=== PATIENT | female | born 1945 | race Caucasian/White ===

== ENCOUNTER → 2017-06-30 09:24 | Outpatient (CLI) | payer MEDICARE, SELFPAY ==
[2017-06-30 10:33] LABS: Absolute Neutrophil Count 6.1 X10^3/uL (2.0-7.7); Basophil# 0.04 X10^3/uL; Basophil% 0.4 % (0-1); Eosinophil# 0.25 X10^3/uL; Eosinophils% 2.7 % (0-5); Hematocrit 42.4 % (37-47); Hemoglobin 14.2 g/dl (12.0-15.0); Lymphocyte % 23.5 % (19-41); Mean Corp Hgb Conc 33.5 g/gl (32-36); Mean Corpuscular Hgb 30.2 pg (27.0-32.0); Mean Corpuscular Volume 90.2 fL (81-99); Mean Platelet Vol. 11.4 fl (6.2-12.0); Monocyte# 0.81 X10^3/uL; Monocyte% 8.7 % (0-10); Neutrophil # 6.05 X10^3/uL (2.7-7.7); Neutrophil % 64.6 % (47-70); Platelet Count 241 K/mm3 (150-450); RBC Distribution Width CV 13.7 % (11.6-14.6); RBC Distribution Width SD 44.8 fl (35.1-43.9); White Blood Count 9.4 K/mm3 (4.4-11.0)
[2017-06-30 10:36] LABS: POSITIVE COUNT NO; POSITIVE DIFFERENTIAL NO; POSITIVE MORPHOLOGY NO
== END ==
PROVIDERS: Family Provider Family Medicine; PCP Family Medicine
DX: G62.9 Polyneuropathy, unspecified (principal)
CPT/HCPCS: 36415; 85025

== ENCOUNTER → 2017-07-02 12:22 | Outpatient (CLI) | payer MEDICARE, SELFPAY ==
[2017-07-02 13:50] LABS: AST(SGOT) 21 U/L (15-37); Alanine Aminotransfer ALT/SGPT 33 U/L (13-56); Albumin, Serum 3.9 g/dL (3.2-5.0); Alkaline Phosphatase 69 U/L (45-117); Anion Gap 5 (5-15); BUN 17 mg/dL (7-18); Calcium,Total 9.1 mg/dL (8.5-10.1); Chloride 108 mmol/L (98-107); EST Glomerular Filtration Rate 58 mL/min (>60); Est Glom Filt Rate - Afr Amer 71 mL/min (>60); Globulin 4.1 g/dL (2.2-4.2); Glucose 106 mg/dL (74-106); Potassium 3.9 mmol/L (3.5-5.1); Sodium Level 142 mmol/L (136-145)
== END ==
PROVIDERS: Family Provider Family Medicine; PCP Family Medicine
DX: G25.81 Restless legs syndrome (principal); R51 Headache; G62.9 Polyneuropathy, unspecified
CPT/HCPCS: 80053

== ENCOUNTER → 2017-07-09 14:09 | Outpatient (CLI) | payer MEDICARE, SELFPAY ==
[2017-07-09 16:09] LABS: Thyroid Stim Hormone (TSH) 1.11 uIU/mL (0.358-3.74)
[2017-07-10 09:38] LABS: Vitamin D,25 Hydroxy 23.8 ng/mL (29.95-100.01)
== END ==
PROVIDERS: Family Provider Family Medicine; PCP Family Medicine; Visit Provider Family Medicine
DX: E55.9 Vitamin D deficiency, unspecified (principal); E04.1 Nontoxic single thyroid nodule
CPT/HCPCS: 36415; 82306; 84443

== ENCOUNTER → 2018-01-07 10:59 | Outpatient (CLI) | payer MEDICARE, SELFPAY ==
--- NOTE | 2018-01-07 11:11 | CT_ITS ---
STUDY: CT LUMBAR SPINE WITHOUT CONTRAST REASON FOR EXAM: Female, 72 years old. MULTIPLE FALLS, MULTIPLE COMPRESSION FX'S, HX-LUPUS, PT IS OBESE RADIATION DOSAGE (If Supplied By Facility): CTDIvol = ( 64.42 ) mGy, DLP = ( 2069.56 ) mGycm TECHNIQUE: The patient was scanned in a multi detector CT scanner. High resolution transaxial imaging was performed. Sagittal and coronal images were reconstructed. Individualized dose optimization techniques were used for this CT. COMPARISON: CT Lumbar Spine Sep 20 2014 6:14pm FINDINGS: There is evidence of degenerative changes involving the sacroiliac joints bilaterally. There is a right sided subcutaneous implanted electronic device with leads extending into the spinal canal. This is likely an SCS (spinal cord stimulator). There is almost complete collapse of the L1 vertebrae. The patient is status post kyphoplasty of the L1 vertebrae. Compression deformity of L5. Stable compression deformity of the L2 vertebral body. There is a Schmorl's node which has likely contributed to the compression deformity. There are calcifications of the abdominal aorta. This is consistent for atherosclerotic disease. There is no abdominal aortic aneurysm. L1-2: There is evidence of posterior central spondylosis causing deformity of the thecal sac. There is evidence of hypertrophy and degenerative changes of the facet joints worse on the right side. This causes a mild degree of spinal stenosis as well as stenosis of the intravertebral foramen bilaterally worse on the right side. L2-3: There is a mild degree of diffuse posterior disc bulge as well as central posterior spondylosis causing mild stenosis. There is hypertrophy of the right facet joint with osteoarthritis causing narrowing of the right intervertebral foramen as well as deformity of the posterior lateral aspect of the thecal sac on the right side. L3-4: There is a mild degree of diffuse posterior disc bulge. There is evidence of facet joint osteoarthritis with hypertrophy of the facet joints as well as ligamentum flavum appear there is a mild degree of central canal stenosis as well as stenosis of the intravertebral foramen bilaterally. L4-5: There is bilateral facet arthropathy. Severe right neuroforaminal stenosis. Severe lateral recess stenosis. L5-S1: There is loss of height of the superior endplate of the L5 vertebrae. Loss of intervertebral disc height at L5-S1. Vacuum disc phenomenon at L5-S1. Severe bilateral neural foraminal stenosis. Grade 1 anterolisthesis of L5 on S1. No spinal stenosis. Normal visualized paraspinous soft tissue structures. CT/Spine Lumbar without Contrast IMPRESSION: Stable compression deformity of L1. Vertebroplasty changes at L1. Stable compression deformity of L2 since the prior study. Electronically Signed: Patrick Rivera MD at 23:23 EDT , Service support ,
--- NOTE | 2018-01-07 11:15 | CT_ITS ---
EXAM: CT SPINE - CERVICAL WITHOUT IV REASON FOR EXAM: Female, 72 years old. MULTIPLE FALLS, MULTIPLE COMPRESSION FX'S, HX-LUPUS, PT IS OBESE RADIATION DOSAGE (If Supplied By Facility): CTDIvol = ( 28.95 ) mGy, DLP = ( 587.26 ) mGycm Individualized dose optimization techniques were used for this CT. TECHNIQUE: Multiplanar images were obtained of the cervical spine. IV contrast was not utilized. COMPARISON: None. FINDINGS: The vertebral bodies do maintain their height. The odontoid process is intact. There is no anterolisthesis or fracture. No pre-vertebral soft tissue swelling is seen. The intravertebral disc height is lost. There are scattered lymph nodes in the neck. There are degenerative changes of the osseous structures. There is bilateral facet arthropathy. There are scattered levels of foraminal stenosis. There are atherosclerotic vascular calcifications. CT/Spine Cervical without Contras IMPRESSION: Degenerative changes of the cervical spine. No acute abnormality of the spine. Electronically Signed: Patrick Rivera MD at 23:17 EDT , Service support ,
== END ==
PROVIDERS: Family Provider Family Medicine; PCP Family Medicine
DX: G95.9 Disease of spinal cord, unspecified (principal); M54.2 Cervicalgia
CPT/HCPCS: 72125; 72131

== ENCOUNTER → 2018-03-11 11:17 | Outpatient (CLI) | payer MEDICARE, SELFPAY ==
[2018-03-11 14:11] LABS: Absolute Lymphocyte Count 2.08 X10^3/ul (0.83-4.51); Absolute Neutrophil Count 5.5 X10^3/uL (2.0-7.7); Basophil# 0.03 X10^3/uL; Basophil% 0.4 % (0-1); Eosinophil# 0.18 X10^3/uL; Eosinophils% 2.1 % (0-5); Hematocrit 38.5 % (37-47); Hemoglobin 12.3 g/dl (12.0-15.0); Lymphocyte # 2.08 X10^3/ul (4.0); Lymphocyte % 24.7 % (19-41); Mean Corp Hgb Conc 31.9 g/gl (32-36); Mean Corpuscular Hgb 29.4 pg (27.0-32.0); Mean Corpuscular Volume 92.1 fL (81-99); Mean Platelet Vol. 10.6 fl (6.2-12.0); Monocyte# 0.62 X10^3/uL; Monocyte% 7.4 % (0-10); Neutrophil # 5.47 X10^3/uL (2.7-7.7); Neutrophil % 64.9 % (47-70); Platelet Count 329 K/mm3 (150-450); RBC Distribution Width CV 13.8 % (11.6-14.6); RBC Distribution Width SD 45.1 fl (35.1-43.9); Red Blood Count 4.18 M/mm3 (4.2-5.4); White Blood Count 8.4 K/mm3 (4.4-11.0)
[2018-03-11 14:16] LABS: POSITIVE COUNT NO; POSITIVE DIFFERENTIAL NO; POSITIVE MORPHOLOGY NO
[2018-03-11 14:21] LABS: ALB/GLOB Ratio 0.8 RATIO (0.9-2.4); AST(SGOT) 25 U/L (15-37); Alanine Aminotransfer ALT/SGPT 35 U/L (13-56); Albumin, Serum 3.6 g/dL (3.2-5.0); Alkaline Phosphatase 75 U/L (45-117); Anion Gap 10 (5-15); BUN 21 mg/dL (7-18); Calcium,Total 9.3 mg/dL (8.5-10.1); Chloride 103 mmol/L (98-107); Cholesterol 152 mg/dL (200); Creatinine, Serum 1.61 mg/dL (0.55-1.02); EST Glomerular Filtration Rate 34 mL/min (>60); Est Glom Filt Rate - Afr Amer 41 mL/min (>60); Globulin 4.7 g/dL (2.2-4.2); Glucose 104 mg/dL (74-106); High Density Lipoprotein 45 mg/dL; Potassium 4.8 mmol/L (3.5-5.1); Protein, Total 8.3 g/dL (6.4-8.2); Sodium Level 139 mmol/L (136-145); Triglycerides 215 mg/dL; Very Low Density Lipoprotein 43 mg/dL (5-40)
[2018-03-11 14:26] LABS: Vitamin D,25 Hydroxy 28.4 ng/mL (29.95-100.01)
--- OUTSIDE RECORDS SUMMARY | 2018-04-27 06:40 | XMS RPT_ITS ---
:1945 Author Organization OHIP Care Team Providers Name Role Phone CONNOR DIAZ Attending Unavailable Malys, Gemini Primary Care Unavailable CONNOR DIAZ Attending Unavailable CONNOR DIAZ Referring Unavailable Malys, Gemini Primary Care Unavailable Miedel, Dulce Attending Unavailable Miedel, Dulce Referring Unavailable Malys, Gemini Primary Care Unavailable CONNOR DIAZ Attending Unavailable CONNOR DIAZ Referring Unavailable Malys, Gemini Primary Care Unavailable CONNOR DIAZ Consulting Unavailable Malys, Gemini Attending Unavailable Malys, Gemini Referring Unavailable Malys, Gemini Primary Care Unavailable GEO DOMINGUEZ JR Attending Unavailable FLORES, GEMINI A Referring Unavailable GEO DOMINGUEZ JR Referring Unavailable GEO DOMINGUEZ JR Attending Unavailable GEO DOMINGUEZ JR Referring Unavailable GEO DOMINGUEZ Attending Unavailable IMCA Referring Unavailable IMCA Primary Care Unavailable GEO DOMINGUEZ Attending Unavailable GEO DOMINGUEZ Referring Unavailable IMCA Primary Care Unavailable GEO DOMINGUEZ Referring Unavailable IMCA Primary Care Unavailable GEO DOMINGUEZ Attending Unavailable GEO DOMINGUEZ Referring Unavailable IMCA Primary Care Unavailable PROBLEMS PROBLEMS DATE TYPE CONDITION / CODE ATTENDING STATUS SOURCE 02/03/2018 Active Spinal stenosis, DOMINGUEZ JR, Active [place] lumbar region [facility] Other without neurogenic [place] claudication / Repository M48.061(ICD-10) 02/03/2018 Active Polyneuropathy, DOMINGUEZ JR, Active [place] unspecified / [facility] Other G62.9(ICD-10) [place] Repository 02/03/2018 Active Restless legs DOMINGUEZ JR, Active Silva syndrome / [facility] Other G25.81(ICD-10) [place] Repository 02/03/2018 Active Spondylosis DOMINGUEZ JR, 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 [facility] Other or radiculopathy, [place] cervical region / Repository M47.812(ICD-10) 01/07/2018 Unknown G95.9 - Disease of CONNOR DIAZ Active [place] spinal cord, Community unspecified / Hospital G95.9(ICD-10) Repository 01/07/2018 Unknown M54.2 - CONNOR DIAZ Active [facility] Cervicalgia / Community M54.2(ICD-10) Hospital Repository 12/04/2017 Active Headache / DOMINGUEZ JR, Active [place] R51(ICD-10) [facility] Other [place] Repository 12/04/2017 Active Myoclonus / DOMINGUEZ JR, Active [place] G25.3(ICD-10) [facility] Other [place] Repository 12/04/2017 Active Essential tremor / DOMINGUEZ JR, Active [place] G25.0(ICD-10) [facility] Other [place] Repository 12/04/2017 Active Obstructive sleep DOMINGUEZ JR, Active [place] apnea (adult) [facility] Other (pediatric) / [place] G47.33(ICD-10) Repository 12/04/2017 Active Cervicalgia / DOMINGUEZ JR, Active [place] M54.2(ICD-10) [facility] Other [place] Repository 12/04/2017 Active Low back pain / DOMINGUEZ JR, Active [place] M54.5(ICD-10) [facility] Other [place] Repository 12/04/2017 Active Paresthesia of DOMINGUEZ JR, Active Silva skin / [facility] Other R20.2(ICD-10) [place] Repository 12/04/2017 Active Major depressive DOMINGUEZ JR, Active Silva disorder, single [facility] Other episode, [place] unspecified / Repository F32.9(ICD-10) 12/04/2017 Active Disease of spinal DOMINGUEZ JR, Active [place] cord, unspecified [facility] Other / G95.9(ICD-10) [place] Repository 12/04/2017 Admitting Unknown / GEO DOMINGUEZ Active [facility] UNK(Unknown) [facility] Repository 07/09/2017 Unknown E55.9 - Vitamin D Dulce Schulz Active [facility] deficiency, Community unspecified / Hospital E55.9(ICD-10) Repository 07/09/2017 Unknown E04.1 - Nontoxic LarissaedDulce wise Active [place] single thyroid Community nodule / Hospital E04.1(ICD-10) Repository 06/30/2017 Unknown G25.81 - Restless CONNOR DIAZ Active [facility] legs syndrome / Community G25.81(ICD-10) Hospital Repository 06/30/2017 Unknown R51 - Headache / CONNOR DIAZ Active [place] R51(ICD-10) [facility] Repository PROCEDURES PROCEDURES No Procedure Records FoundRESULTS RESULTS CBC W/DIFF, AUTOMATED Collected: 03/11/2018 Status: F Source: [place] 11:22 AM [facility] REPOSITORY TYPE CODE TESTS RESULT OUT OF RANGE REFERENCE UNITS LAB L100.1000 4.4-11.0 K/mm3 Normal WBC 8.4 LAB L100.1200 4.2-5.4 M/mm3 Low RBC 4.18 LAB L100.1300 12.0-15.0 g/dl Normal HGB 12.3 LAB L100.1400 37-47 % Normal HCT 38.5 LAB L100.1500 81-99 fL Normal MCV 92.1 LAB L100.1600 27.0-32.0 pg Normal MCH 29.4 LAB L100.1700 32-36 g/gl Low MCHC 31.9 LAB L100.1810 11.6-14.6 % Normal RDW CV 13.8 LAB L100.1820 35.1-43.9 fl High RDW SD 45.1 LAB L100.1900 150-450 K/mm3 Normal PLT 329 LAB L100.2000 6.2-12.0 fl Normal MPV 10.6 LAB L100.2100 47-70 % Normal NEUT% 64.9 LAB L100.2200 19-41 % Normal LY% 24.7 LAB L100.2300 0-10 % Normal MONO% 7.4 LAB L100.2400 0-5 % Normal EO% 2.1 LAB L100.2500 0-1 % Normal BASO% 0.4 LAB L100.2550 0.0-0.9 % Normal IM GRAN % 0.500 Result Comment: IG% - Immature Granulocytes (promyelocytes, myelocytes and metamyelocytes) > 1% indicates that a LEFT SHIFT is Present. LAB L100.2620 2.0-7.7 X10 3/uL Normal Absolute Neut 5.5 LAB L100.2720 0.83-4.51 X10 3/ul Normal Absolute Lymph 2.08 Performed By: #### L100.0100 #### [facility] [address] [place], [place], [address] COMPREHENSIVE METABOLIC Collected: 03/11/2018 Status: F Source: [facility] 11:22 AM [facility] REPOSITORY TYPE CODE TESTS RESULT OUT OF RANGE REFERENCE UNITS LAB L501.0100 74-106 mg/dL Normal GLU 104 Result Comment: Fasting Glucose result from 100 to 125 mg/dL suggests IMPAIRED HOMEOSTASIS per A.D.A. criteria. Please note revised GLUCOSE reference range effective 2017. LAB L501.1000 7-18 mg/dL High BUN 21 LAB L501.1100 0.55-1.02 mg/dL High CREAT,SERUM 1.61 Result Comment: The validity of the calculated GFR AND GFRAA in patients over 70 years has not been determined. Clinical correlation is essential. LAB L501.1110 >60 mL/min Low EST GFR 34 Result Comment: Non- GFR Calc LAB L501.1115 >60 mL/min Low EST GFR - AA 41 Result Comment: GFR Calc LAB L501.1300 10-20 RATIO Normal BUN/CRE 13.0 LAB L501.1500 6.4-8.2 g/dL High T PROT 8.3 LAB L501.1800 3.2-5.0 g/dL Normal ALB 3.6 LAB L501.1950 2.2-4.2 g/dL High GLOB 4.7 LAB L501.2000 0.9-2.4 RATIO Low A/G 0.8 LAB L501.2200 8.5-10.1 mg/dL CA Normal 9.3 LAB L501.4100 15-37 U/L Normal AST 25 LAB L501.4305 45-117 U/L Normal ALK P 75 LAB L501.4405 13-56 U/L Normal ALT 35 LAB L501.4600 0.20-1.00 mg/dL T Normal BILI 0.20 LAB L501.5300 136-145 mmol/L NA Normal 139 LAB L501.5600 3.5-5.1 mmol/L K Normal 4.8 LAB L501.5900 98-107 mmol/L CL Normal 103 LAB L501.6100 21.0-32.0 mmol/L Normal CO2 26.0 LAB L501.6200 5-15 Normal GAP 10 Performed By: #### L500.4050, L500.4100 #### [facility] [address] [place], [place], [id number] LIPID PROFILE Collected: 03/11/2018 Status: F Source: [place] 11:22 AM [facility] REPOSITORY TYPE CODE TESTS RESULT OUT OF RANGE REFERENCE UNITS LAB L501.4900 200 mg/dL Normal CHOL 152 Result Comment: <200 mg/dL Desirable 200-240 mg/dL Borderline >240 mg/dL High Risk LAB L501.5000 mg/dL High TRIG 215 Result Comment: The drugs N-Acetylcysteine and Metamizole may falsely depress this assay. Serum Triglycerides Reference Interval Normal <150 mg/dL Borderline high 150 - 199 mg/dL High 200 - 499 mg/dL Very High > or = 500 mg/dL LAB L501.6400 mg/dL Normal HDL 45 Result Comment: The drugs N-Acetylcysteine and Metamizole may falsely depress this assay. Reference Range HDL <40 mg/dL Low HDL Cholesterol HDL >or= 60 mg/dL High HDL Cholesterol LAB L501.6500 0-130 mg/dL Normal LDL 64 LAB L501.6600 5-40 mg/dL High VLDL 43 Performed By: #### L500.4050, L500.4100 #### [facility] [address] [place], [place], [id number] VITAMIN D,25 HYDROXY Collected: 03/11/2018 Status: F Source: [place] 11:22 AM [facility] REPOSITORY TYPE CODE TESTS RESULT OUT OF REFERENCE UNITS RANGE LAB L506.1000 29.95-100.01 ng/mL Low Vitamin D 28.4 25-OH Result Comment: Vitamin D 25(OH) Status Range Deficiency <20 ng/mL (50nmol/L) Insuffciency 20 - 30 ng/mL (50 - 75 nmol/L) Sufficiency 30 - 100 ng/mL (75 - 250 nmol/L) Toxicity >100 ng/mL (>250 nmol/L) Performed By: #### L506.1000 #### [facility] [address] [place], [address] PROGRESS Observed: 02/03/2018 Status: COMPLETED Source: [place] 11:56 AM CLINIC OTHER CAMPUS REPOSITORY HNO ID: [id number] Author: Geo Dominguez Jr. Service: (none) Author Type: Physician Type: Progress Notes Filed: 02/03/2018 1:14 PM Note Text: ESTABLISHED PATIENT VISIT HISTORY OF PRESENT ILLNESS: Asha Lozoya is a 72 year old right handed female, Ht 5' 3 (1.6 m) BMI 41.81 kg/m2 with a PMH significant for: Per last visit note: 1. Chronic intractable headache, unspecified headache type - ICD9: 784.0, ICD10: R51 (primary diagnosis); Cervicalgia - ICD9: 723.1, ICD10: M54.2 Etiology unclear but appear to be secondary to either c-spine disease or of tension nature. -CT C spine to evaluate for stenosis. - never received results. -Pain mgmt following and recommend possible injection therapy if Dr. Cervantes (who follows patient at [facility]) would agree. -Restarted Topamax 25mg qhs and titrate up to 75mg qhs. 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 3. Essential tremor - ICD9: 333.1, ICD10: G25.0 -Restarted Topamax as per #1. Previously failed Primidone. 4. OSMAN (obstructive sleep apnea) - ICD9: 327.23, ICD10: G47.33 -Pt declined therapy. 5. Lumbar pain - ICD9: 724.2, ICD10: M54.5 -Worse per patient. Will get CT L spine. Needs follow up with pain mgmt. Still do not have results of imaging. 7. Paresthesia of skin - ICD9: 782.0, ICD10: R20.2 -By history and exam likely secondary to peripheral polyneuropathy. Do not feel need for EMG/NCV at this time nor does pt want study. Will check A1c, B12, TSH, T4, ESR, ZAHRA, SPEP for possible exacerbating factors. Symptoms rare and do not feel additional meds at this time provide a benefit that outweighs risk of side effect. A1c was 7.0. 8. Depression, unspecified depression type - ICD9: 311, ICD10: F32.9 -Encouraged follow up with psychiatry. Pt reports that since last visit, the headaches are a little better. They are not every single day. Remain in the back of the head when present. However, when gets them they are bad. She did stay on the Topamax and is currently on 75mg QHS. She reports that since on Topamax her tremor is worse. Sometimes tremor is bad and on some days it is not so bad. She has yet to see Dr. Devine regarding blood sugars - pt A1c up to 7.0 now, and pt states she was on a sugar kick at the time and eating a lot of sweets. She also continues to have jerks every day. She states they are more in the evening than they are during the day time. Still exacerbated when watching tv. There is no loc. States still that if she is watching a show where there is physical contact such as someone punching someone, that will bring it out. Regarding mood she states she is having some really bad days, stating she is having a rough time with daughter and grand daughter. She has still not seen psychiatry/psychology because that will do nothing for it, but I just do not know how to turn it off. Pt tearful when discussing these issues. Once starting to talk about them, become upset and at time raises voice regarding topics at hand. When patient focused, asked about back pain. She states lower back pain is awful to point that she did not think she could make it into the building - she states the pain pump does nothing for the pain. She then complains about the manner in which pain pump is filled as it is in a procedure suite and no one talks to her during the visit, but only talk among them selves. Patient uses the term frustrting throughout the interview. Note that when I stepped out of room, pt states she was having jerks of extremities, but these resolved as soon as I returned. [place]aving for [place] 04/10/18 REVIEW OF SYSTEMS GENERAL:No weight loss, malaise or fevers. HEENT:Negative for frequent or significant headaches, No changes in hearing or vision, no nose bleeds or other nasal problems NECK:Negative for lumps, goiter, pain and significant neck swelling RESPIRATORY: Negative for cough, wheezing or shortness of breath. CARDIOVASCULAR: Negative for chest pain, leg swelling or palpitations. GASTROINTESTINAL: Negative for abdominal discomfort, blood in stools or black stools or change in bowel habits GENITOURINARY: No history of dysuria, frequency or incontinence MUSCULOSKELETAL: See HPI NEUROLOGIC:See HPI SKIN:Negative for lesions, rash, and itching. PSYCHIATRIC: See HPI. No SI or HI. HEMATOLOGIC/LYMPHATIC/IMMUNOLOGIC:Negative for prolonged bleeding, bruising easily or swollen nodes. ENDOCRINE: Negative for cold or heat intolerance, polyuria, polydipsia and goiter. The remainder of the ROS was reviewed and is negative. LAB/IMAGING: Those performed since patient's last visit have been reviewed. WBC (k/uL) Date Value 06/07/2001 7.01 RBC (M/uL) Date Value 06/07/2001 4.37 Hemoglobin (g/dL) Date Value 06/07/2001 12.7 Hematocrit (%) Date Value 06/07/2001 39.8 MCV (fL) Date Value 06/07/2001 91.1 MCH (pG) Date Value 06/07/2001 29.1 MCHC (%) Date Value 06/07/2001 31.9 (A) RDW-CV (%) Date Value 06/07/2001 14.7 Platelet Count (K/uL) Date Value 06/07/2001 395 MPV (fL) Date Value 06/07/2001 11.4 (A) Glucose (mg/dL) Date Value 12/04/2017 137 (H) BUN (mg/dL) Date Value 12/04/2017 18 Creatinine (mg/dL) Date Value 12/04/2017 0.77 Sodium (mEq/L) Date Value 12/04/2017 140 Potassium (mEq/L) Date Value 12/04/2017 3.8 Chloride (mEq/L) Date Value 12/04/2017 99 CO2 (mEq/L) Date Value 12/04/2017 33 (H) Protein, Total (g/dL) Date Value 12/04/2017 7.8 Albumin (g/dL) Date Value 12/04/2017 3.8 Calcium (mg/dL) Date Value 12/04/2017 9.3 Alkaline Phosphatase (U/L) Date Value 12/04/2017 77 Bilirubin, Total (mg/dL) Date Value 12/04/2017 0.3 AST (U/L) Date Value 12/04/2017 23 ALT (U/L) Date Value 12/04/2017 29 ZAHRA (no units) Date Value 12/04/2017 SEE BELOW Hep C Antibody IA (no units) Date Value 05/19/2001 Negative MEDICATIONS: topiramate (TOPAMAX) 25 mg tablet 1 tab at bedtime for 1 week, then increase dose to 2 tabs at bedtime for 1 week, then increase to 3 tabs at bedtime and continue. gabapentin (NEURONTIN) 800 mg tablet Take 1 tablet by mouth four times daily for 90 days. levETIRAcetam (KEPPRA) 250 mg tablet Take 1 tablet by mouth twice daily. escitalopram oxalate (LEXAPRO) 20 mg tablet Take 20 mg by mouth once daily. diclofenac, EC, (VOLTAREN) 50 mg EC tablet Take 50 mg by mouth twice daily. HYDROMORPHONE HCL (DILAUDID MISC) Pain pump potassium chloride (K-MONCHO, KLOR-CON) 20 mEq packet Take 20 mEq by mouth twice daily. MULTI-VITAMIN ORAL Take by mouth. Cholecalciferol, Vitamin D3, (VITAMIN D) 1,000 unit ORAL Cap Take 1,000 Units by mouth once daily. Aspirin 81 mg ORAL Tab Take 81 mg by mouth. buPROPion SR 150 mg ORAL 12 hr tablet Take 200 mg by mouth twice daily. Valsartan-Hydrochlorothiazide (DIOVAN HCT) 320-25 mg ORAL per tablet Take 1 tablet by mouth once daily. amLODIPine (NORVASC) 10 mg ORAL tablet Take 10 mg by mouth once daily. calcium carbonate-Vit D3-minerals (CALCIUM 600 + MINERALS) 600-400 mg-unit ORAL Tab Take 1 tablet by mouth once daily. nabumetone (RELAFEN) 750 mg ORAL tablet Take 750 mg by mouth twice daily. paroxetine 40 mg ORAL tablet Take 40 mg by mouth once daily. cloNIDine 0.1 mg ORAL tablet Take 0.1 mg by mouth. atenolol 50 mg ORAL tablet Take 50 mg by mouth once daily. Take one(1) tablet two(2) times daily. furosemide (LASIX) 20 mg ORAL tablet Take 20 mg by mouth once daily. metFORMIN 500 mg ORAL tablet Take 500 mg by mouth daily with breakfast. hydroxychloroquine (PLAQUENIL) 200 mg ORAL tablet Take 200 mg by mouth twice daily. Morphine Sulfate 30 mg ORAL Cap Take by mouth. Omeprazole 40 mg ORAL capsule Take 40 mg by mouth once daily. Take one(1) tablet two(2) times daily. HISTORIES No past medical history on file. FAMILY HISTORY Problem Relation Age of Onset - Alcohol/Drug Mother - Cancer Mother mouth AND lung - Heart Mother - Alcohol/Drug Father - Heart Father - Hypertension Father - Alcohol/Drug Sister - Cervical Cancer Sister - Heart Paternal Grandfather - Heart Maternal Grandmother SOCIAL HISTORY Social History Substance Use Topics - Smoking status: Never Smoker - Smokeless tobacco: Never Used - Alcohol use Not on file No ETOH PHYSICAL EXAMINATION BP 116/63 Pulse 72 Resp 18 Ht 5' 3 (1.6 m) Wt 236 lb (107 kg) SpO2 97% BMI 41.81 kg/m? Lost 6# since last visit. GENERAL EXAM: General appearance: NAD, pleasant. HEENT: NC/AT, nasal congestion absent, no oral lesions, membranes moist. NECK: No masses, supple. Lungs: CTA bilaterally. CV: RRR nl S1, S2. No carotid bruits. Extr: No cyanosis, clubbing or edema. No evidence of fasciculations. Extremity pulses palpable and normal. Skin: Cool to touch. NEUROLOGICAL EXAM: General: Awake, alert, oriented x3 (person,place,time), speech fluent, no dysarthria; comprehension, naming, repetition intact. Fund of knowledge grossly normal by MOCA. CN: PERRL, fundi with no evidence of papilledema, EOMI and without nystagmus, VFF to confrontation, facial sensation and strength are normal and symmetric, hearing is intact to finger rub bilaterally, palate and tongue movements are intact and symmetric. SCM and trapezius strength normal. Motor: Normal tone, bulk and strength (5/5) bilaterally (throughout extremities x4). Reflexes: 1/4 and symmetric, plantar stimulation is flexor. Coordination: FNF, JOYCE, HTS intact. Intermittent and tremor that can be distracted when hands extended away from body. Sensation: Light touch, pin intact throughout. No evidence of neglect. Gait: Normal stride and arm swing. Assessment and Plan: ASSESSMENT/PLAN: 1. Spinal stenosis, lumbar region, without neurogenic claudication - ICD9: 724.02, ICD10: M48.061 (primary diagnosis) 2. Osteoarthritis of cervical spine, unspecified spinal osteoarthritis complication status - ICD9: 721.0, ICD10: M47.812 3. Nonintractable headache, unspecified chronicity pattern, unspecified headache type - ICD9: 784.0, ICD10: R51 Patient continues to have headaches, that are posterior in nature and appear to originate from the C spine. She also had known L and C spine disease. She is already followed by pain mgmt and on dilaudid pump. She would like second opinion regarding spine disease, but is adamant that she does not want surgery. Will refer to spine for further evaluation of both C and L spine symptoms. Note that reports of recent [place] CTs of C and L spine (image reports reviewed and discussed with pt) will be scanned into [facility]. Trial of increase in Keppra to 500mg BID for headache pain, but as these are not migraines, likely will not provide much relief. 4. Neuropathy (HCC) - ICD9: 355.9, ICD10: G62.9 No complaints of numbness, tingling or other distal extremity discomfort. No changes in current meds. Continue gabapentin 900mg QID. Keppra as above. Needs follow up with PCP regarding DM. 5. RLS (restless legs syndrome) - ICD9: 333.94, ICD10: G25.81 Sleeping well and without RLS symptoms. Continue Gabapentin as above. 6. OSMAN/CSA: G47.33 andG47.31 Declines therapy including PAP. 7. Tremors and Myoclonus: Tremors in office appear of essential nature vs secondary to anxiety. D/C Topamax as no improvement and possible side effects. Failed Primidone. On gabapentin. Will try to increase Keppra to 500mg BID to see if improves myoclonus. No additional med changes at this time. Myoclonus possibly secondary to pain meds including dilaudid. 6. Depression, unspecified depression type - ICD9: 311, ICD10: F32.9 Encouraged pt to see psychiatry. I question if tremors and myoclonus are secondary to mood disorder to some extent. As in past she declines. Then when she reconsiders, states she will wait until she gets back from [facility] in the spring - similar response in past. Would ask her PCP to also discuss psychiatry evaluation with pt. Geo Dominguez MD I spent 80 minutes in the visit, with more than 50% of the total [id number] time of the visit in counseling / coordination of care. PDMP website checked and validated. All prescriptions have been APPROPRIATELY filled. No suspicious activity was identified. 02/03/2018 by Geo Dominguez MD CNOV Observed: 02/03/2018 Status: COMPLETED Source: [place] 11:20 AM [facility] REPOSITORY Office Visit (NEURBA) ASHA LOZOYA ([id number]) 1945 F [facility] Date Time Provider Department 02/03/18 11:20 AM GEO DOMINGUEZ JR During your visit today, we recorded the following information about you: Pulse Respiration Blood pressure Weight 72/minute 18/minute 116/63 107 kg Height 1.6 m Geo Dominguez MD 02/03/2018 1:14 PM Addendum ESTABLISHED PATIENT VISIT HISTORY OF PRESENT ILLNESS: Asha Calzadateaboy is a 72 year old right handed female, Ht 5' 3 (1.6 m) BMI 41.81 kg/m2 with a PMH significant for: Per last visit note: 1. Chronic intractable headache, unspecified headache type - ICD9: 784.0, ICD10: R51 (primary diagnosis); Cervicalgia - ICD9: 723.1, ICD10: M54.2 Etiology unclear but appear to be secondary to either c-spine disease or of tension nature. -CT C spine to evaluate for stenosis. - never received results. -Pain mgmt following and recommend possible injection therapy if Dr. Cervantes (who follows patient at [facility]) would agree. -Restarted Topamax 25mg qhs and titrate up to 75mg qhs. 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 3. Essential tremor - ICD9: 333.1, ICD10: G25.0 -Restarted Topamax as per #1. Previously failed Primidone. 4. OSMAN (obstructive sleep apnea) - ICD9: 327.23, ICD10: G47.33 -Pt declined therapy. 5. Lumbar pain - ICD9: 724.2, ICD10: M54.5 -Worse per patient. Will get CT L spine. Needs follow up with pain mgmt. Still do not have results of imaging. 7. Paresthesia of skin - ICD9: 782.0, ICD10: R20.2 -By history and exam likely secondary to peripheral polyneuropathy. Do not feel need for EMG/NCV at this time nor does pt want study. Will check A1c, B12, TSH, T4, ESR, ZAHRA, SPEP for possible exacerbating factors. Symptoms rare and do not feel additional meds at this time provide a benefit that outweighs risk of side effect. A1c was 7.0. 8. Depression, unspecified depression type - ICD9: 311, ICD10: F32.9 -Encouraged follow up with psychiatry. Pt reports that since last visit, the headaches are a little better. They are not every single day. Remain in the back of the head when present. However, when gets them they are bad. She did stay on the Topamax and is currently on 75mg QHS. She reports that since on Topamax her tremor is worse. Sometimes tremor is bad and on some days it is not so bad. She has yet to see Dr. Devine regarding blood sugars - pt A1c up to 7.0 now, and pt states she was on a sugar kick at the time and eating a lot of sweets. She also continues to have jerks every day. She states they are more in the evening than they are during the day time. Still exacerbated when watching tv. There is no loc. States still that if she is watching a show where there is physical contact such as someone punching someone, that will bring it out. Regarding mood she states she is having some really bad days, stating she is having a rough time with daughter and grand daughter. She has still not seen psychiatry/psychology because that will do nothing for it, but I just do not know how to turn it off. Pt tearful when discussing these issues. Once starting to talk about them, become upset and at time raises voice regarding topics at hand. When patient focused, asked about back pain. She states lower back pain is awful to point that she did not think she could make it into the building - she states the pain pump does nothing for the pain. She then complains about the manner in which pain pump is filled as it is in a procedure suite and no one talks to her during the visit, but only talk among them selves. Patient uses the term frustrting throughout the interview. Note that when I stepped out of room, pt states she was having jerks of extremities, but these resolved as soon as I returned. [place]aving for [place] 04/10/18 REVIEW OF SYSTEMS GENERAL:No weight loss, malaise or fevers. HEENT:Negative for frequent or significant headaches, No changes in hearing or vision, no nose bleeds or other nasal problems NECK:Negative for lumps, goiter, pain and significant neck swelling RESPIRATORY: Negative for cough, wheezing or shortness of breath. CARDIOVASCULAR: Negative for chest pain, leg swelling or palpitations. GASTROINTESTINAL: Negative for abdominal discomfort, blood in stools or black stools or change in bowel habits GENITOURINARY: No history of dysuria, frequency or incontinence MUSCULOSKELETAL: See HPI NEUROLOGIC:See HPI SKIN:Negative for lesions, rash, and itching. PSYCHIATRIC: See HPI. No SI or HI. HEMATOLOGIC/LYMPHATIC/IMMUNOLOGIC:Negative for prolonged bleeding, bruising easily or swollen nodes. ENDOCRINE: Negative for cold or heat intolerance, polyuria, polydipsia and goiter. The remainder of the ROS was reviewed and is negative. LAB/IMAGING: Those performed since patient's last visit have been reviewed. WBC (k/uL) Date Value 06/07/2001 7.01 RBC (M/uL) Date Value 06/07/2001 4.37 Hemoglobin (g/dL) Date Value 06/07/2001 12.7 Hematocrit (%) Date Value 06/07/2001 39.8 MCV (fL) Date Value 06/07/2001 91.1 MCH (pG) Date Value 06/07/2001 29.1 MCHC (%) Date Value 06/07/2001 31.9 (A) RDW-CV (%) Date Value 06/07/2001 14.7 Platelet Count (K/uL) Date Value 06/07/2001 395 MPV (fL) Date Value 06/07/2001 11.4 (A) Glucose (mg/dL) Date Value 12/04/2017 137 (H) BUN (mg/dL) Date Value 12/04/2017 18 Creatinine (mg/dL) Date Value 12/04/2017 0.77 Sodium (mEq/L) Date Value 12/04/2017 140 Potassium (mEq/L) Date Value 12/04/2017 3.8 Chloride (mEq/L) Date Value 12/04/2017 99 CO2 (mEq/L) Date Value 12/04/2017 33 (H) Protein, Total (g/dL) Date Value 12/04/2017 7.8 Albumin (g/dL) Date Value 12/04/2017 3.8 Calcium (mg/dL) Date Value 12/04/2017 9.3 Alkaline Phosphatase (U/L) Date Value 12/04/2017 77 Bilirubin, Total (mg/dL) Date Value 12/04/2017 0.3 AST (U/L) Date Value 12/04/2017 23 ALT (U/L) Date Value 12/04/2017 29 ZAHRA (no units) Date Value 12/04/2017 SEE BELOW Hep C Antibody IA (no units) Date Value 05/19/2001 Negative MEDICATIONS: topiramate (TOPAMAX) 25 mg tablet 1 tab at bedtime for 1 week, then increase dose to 2 tabs at bedtime for 1 week, then increase to 3 tabs at bedtime and continue. gabapentin (NEURONTIN) 800 mg tablet Take 1 tablet by mouth four times daily for 90 days. levETIRAcetam (KEPPRA) 250 mg tablet Take 1 tablet by mouth twice daily. escitalopram oxalate (LEXAPRO) 20 mg tablet Take 20 mg by mouth once daily. diclofenac, EC, (VOLTAREN) 50 mg EC tablet Take 50 mg by mouth twice daily. HYDROMORPHONE HCL (DILAUDID MISC) Pain pump potassium chloride (K-MONCHO, KLOR-CON) 20 mEq packet Take 20 mEq by mouth twice daily. MULTI-VITAMIN ORAL Take by mouth. Cholecalciferol, Vitamin D3, (VITAMIN D) 1,000 unit ORAL Cap Take 1,000 Units by mouth once daily. Aspirin 81 mg ORAL Tab Take 81 mg by mouth. buPROPion SR 150 mg ORAL 12 hr tablet Take 200 mg by mouth twice daily. Valsartan-Hydrochlorothiazide (DIOVAN HCT) 320-25 mg ORAL per tablet Take 1 tablet by mouth once daily. amLODIPine (NORVASC) 10 mg ORAL tablet Take 10 mg by mouth once daily. calcium carbonate-Vit D3-minerals (CALCIUM 600 + MINERALS) 600-400 mg-unit ORAL Tab Take 1 tablet by mouth once daily. nabumetone (RELAFEN) 750 mg ORAL tablet Take 750 mg by mouth twice daily. paroxetine 40 mg ORAL tablet Take 40 mg by mouth once daily. cloNIDine 0.1 mg ORAL tablet Take 0.1 mg by mouth. atenolol 50 mg ORAL tablet Take 50 mg by mouth once daily. Take one(1) tablet two(2) times daily. furosemide (LASIX) 20 mg ORAL tablet Take 20 mg by mouth once daily. metFORMIN 500 mg ORAL tablet Take 500 mg by mouth daily with breakfast. hydroxychloroquine (PLAQUENIL) 200 mg ORAL tablet Take 200 mg by mouth twice daily. Morphine Sulfate 30 mg ORAL Cap Take by mouth. Omeprazole 40 mg ORAL capsule Take 40 mg by mouth once daily. Take one(1) tablet two(2) times daily. HISTORIES No past medical history on file. FAMILY HISTORY Problem Relation Age of Onset - Alcohol/Drug Mother - Cancer Mother mouth AND lung - Heart Mother - Alcohol/Drug Father - Heart Father - Hypertension Father - Alcohol/Drug Sister - Cervical Cancer Sister - Heart Paternal Grandfather - Heart Maternal Grandmother SOCIAL HISTORY Social History Substance Use Topics - Smoking status: Never Smoker - Smokeless tobacco: Never Used - Alcohol use Not on file No ETOH PHYSICAL EXAMINATION BP 116/63 Pulse 72 Resp 18 Ht 5' 3 (1.6 m) Wt 236 lb (107 kg) SpO2 97% BMI 41.81 kg/m? Lost 6# since last visit. GENERAL EXAM: General appearance: NAD, pleasant. HEENT: NC/AT, nasal congestion absent, no oral lesions, membranes moist. NECK: No masses, supple. Lungs: CTA bilaterally. CV: RRR nl S1, S2. No carotid bruits. Extr: No cyanosis, clubbing or edema. No evidence of fasciculations. Extremity pulses palpable and normal. Skin: Cool to touch. NEUROLOGICAL EXAM: General: Awake, alert, oriented x3 (person,place,time), speech fluent, no dysarthria; comprehension, naming, repetition intact. Fund of knowledge grossly normal by MOCA. CN: PERRL, fundi with no evidence of papilledema, EOMI and without nystagmus, VFF to confrontation, facial sensation and strength are normal and symmetric, hearing is intact to finger rub bilaterally, palate and tongue movements are intact and symmetric. SCM and trapezius strength normal. Motor: Normal tone, bulk and strength (5/5) bilaterally (throughout extremities x4). Reflexes: 1/4 and symmetric, plantar stimulation is flexor. Coordination: FNF, JOYCE, HTS intact. Intermittent and tremor that can be distracted when hands extended away from body. Sensation: Light touch, pin intact throughout. No evidence of neglect. Gait: Normal stride and arm swing. Assessment and Plan: ASSESSMENT/PLAN: 1. Spinal stenosis, lumbar region, without neurogenic claudication - ICD9: 724.02, ICD10: M48.061 (primary diagnosis) 2. Osteoarthritis of cervical spine, unspecified spinal osteoarthritis complication status - ICD9: 721.0, ICD10: M47.812 3. Nonintractable headache, unspecified chronicity pattern, unspecified headache type - ICD9: 784.0, ICD10: R51 Patient continues to have headaches, that are posterior in nature and appear to originate from the C spine. She also had known L and C spine disease. She is already followed by pain mgmt and on dilaudid pump. She would like second opinion regarding spine disease, but is adamant that she does not want surgery. Will refer to spine for further evaluation of both C and L spine symptoms. Note that reports of recent [place] CTs of C and L spine (image reports reviewed and discussed with pt) will be scanned into EPIC. Trial of increase in Keppra to 500mg BID for headache pain, but as these are not migraines, likely will not provide much relief. 4. Neuropathy (HCC) - ICD9: 355.9, ICD10: G62.9 No complaints of numbness, tingling or other distal extremity discomfort. No changes in current meds. Continue gabapentin 900mg QID. Keppra as above. Needs follow up with PCP regarding DM. 5. RLS (restless legs syndrome) - ICD9: 333.94, ICD10: G25.81 Sleeping well and without RLS symptoms. Continue Gabapentin as above. 6. OSMAN/CSA: G47.33 andG47.31 Declines therapy including PAP. 7. Tremors and Myoclonus: Tremors in office appear of essential nature vs secondary to anxiety. D/C Topamax as no improvement and possible side effects. Failed Primidone. On gabapentin. Will try to increase Keppra to 500mg BID to see if improves myoclonus. No additional med changes at this time. Myoclonus possibly secondary to pain meds including dilaudid. 6. Depression, unspecified depression type - ICD9: 311, ICD10: F32.9 Encouraged pt to see psychiatry. I question if tremors and myoclonus are secondary to mood disorder to some extent. As in past she declines. Then when she reconsiders, states she will wait until she gets back from [facility] in the spring - similar response in past. Would ask her PCP to also discuss psychiatry evaluation with pt. Goe Dominguez MD I spent 80 minutes in the visit, with more than 50% of the total dwxf-gn-[id number] time of the visit in counseling / coordination of care. PDMP website checked and validated. All prescriptions have been APPROPRIATELY filled. No suspicious activity was identified. 02/03/2018 by Geo Dominguez MD Referring Provider: GEO DOMINGUEZ JR [[id number]] Allergies As of Date: 02/03/2018 (No Known Allergies) Date Reviewed: 02/03/2018 Reviewed by: Geo Dominguez Jr. 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] Order(s):gabapentin (NEURONTIN) 800 mg tabletTake 1 tablet by mouth four times daily for 90 days.Disp: 120 tabletRfl: 2 levETIRAcetam (KEPPRA) 500 mg tabletTake 1 tablet by mouth twice daily.Disp: 180 tabletRfl: 0 CONSULT TO [facility] [[id number]] Order #: [id number]: 1 Prescriptions as of 02/03/2018 Sig: GABAPENTIN 800 MG TABLET Take 1 tablet by mouth four t* LEVETIRACETAM 500 MG TABLET Take 1 tablet by mouth twice * ESCITALOPRAM 20 MG TABLET Take 20 mg by mouth once kari* DICLOFENAC SODIUM 50 MG TABLE* Take 50 mg by mouth twice marla* DILAUDID MISC Pain pump POTASSIUM CHLORIDE 20 MEQ ORA* Take 20 mEq by mouth twice da* * MULTI-VITAMIN ORAL Take by mouth. * CHOLECALCIFEROL (VITAMIN D3) * Take 1,000 Units by mouth onc* * ASPIRIN 81 MG TABLET Take 81 mg by mouth. * BUPROPION HCL SR 150 MG TABLE* Take 200 mg by mouth twice da* * VALSARTAN 320 MG-HYDROCHLOROT* Take 1 tablet by mouth once d* * AMLODIPINE 10 MG TABLET Take 10 mg by mouth once kari* * CALCIUM CARB-VIT D3-MINERALS * Take 1 tablet by mouth once d* * NABUMETONE 750 MG TABLET Take 750 mg by mouth twice da* * PAROXETINE 40 MG TABLET Take 40 mg by mouth once kari* * CLONIDINE HCL 0.1 MG TABLET Take 0.1 mg by mouth. * ATENOLOL 50 MG TABLET Take 50 mg by mouth once kari* * FUROSEMIDE 20 MG TABLET Take 20 mg by mouth once kari* * METFORMIN 500 MG TABLET Take 500 mg by mouth daily wi* * HYDROXYCHLOROQUINE 200 MG TAB* Take 200 mg by mouth twice da* * MORPHINE 30 MG CAPSULE Take by mouth. * OMEPRAZOLE 40 MG CAPSULE,GUMARO* Take 40 mg by mouth once kari* Problem List As Of Date 02/03/2018 Noted Resolved Nontoxic multinodular goiter [E04.2] INVALID FOR* Adjustment disorder [F43.20] INVALID FOR* Other pain disorders related to psychological f*INVALID FOR* Adjustment disorder with mixed anxiety and depr*INVALID FOR* Parent-child relationship problem [Z62.820] INVALID FOR* Prescriptions ordered this encounter Disp Refills Start End GABAPENTIN 800 MG TABLET 120 * 2 02/03/2018 05/04/2018 Route: ORAL Sig: Take 1 tablet by mouth four times daily for 90 days. LEVETIRACETAM 500 MG TABLET 180 * 0 02/03/2018 05/04/2018 Route: ORAL Sig: Take 1 tablet by mouth twice daily. Medications Discontinued During This Encounter topiramate (TOPAMAX) 25 mg tablet 90 t* 3 12/04/2017 02/03/2018 Si tab at bedtime for 1 week, then increase dose to 2 tabs at bedtime for 1 week, then increase to 3 tabs at bedtime and continue. Disc: Reason for discontinue is not on file. gabapentin (NEURONTIN) 800 mg tablet 120 * 2 10/14/2017 02/03/2018 Route: ORAL Sig: Take 1 tablet by mouth four times daily for 90 days. Disc: Reason for discontinue is not on file. levETIRAcetam (KEPPRA) 250 mg tablet 180 * 2 05/08/2017 02/03/2018 Route: ORAL Sig: Take 1 tablet by mouth twice daily. Disc: Reason for discontinue is not on file. Disposition: Return in about 4 months (around 06/03/2018). Follow-up and Disposition History Recorded Encounter Status:Closed by GEO DOMINGUEZ on 02/03/18 SPINE CERVICAL Observed: 01/07/2018 Status: F Source: [place] WITHOUT CONTRAS 11:15 AM [facility] REPOSITORY [facility] Imaging Services [address] [place] [id number] Spine Cervical without Contras MR#: [id number] Acct: [id number] Name: ASHA LOZOYA Rick Rep #: [id number] : 1945 F 72 From: Patrick Rivera MD PCP: Gemini Devine DO Status: REG CLI Study: Spine Cervical without Contras Date of Exam: 01/07/18 Exam# [id number] Ordering Dr: GEO DOMINGUEZ EXAM: CT SPINE - CERVICAL WITHOUT IV REASON FOR EXAM: Female, 72 years old. MULTIPLE FALLS, MULTIPLE COMPRESSION FX'S, HX-LUPUS, PT IS OBESE RADIATION DOSAGE (If Supplied By Facility): CTDIvol = ( 28.95 ) mGy, DLP = ( 587.26 ) mGycm Individualized dose optimization techniques were used for this CT. TECHNIQUE: Multiplanar images were obtained of the cervical spine. IV contrast was not utilized. COMPARISON: None. FINDINGS: The vertebral bodies do maintain their height. The odontoid process is intact. There is no anterolisthesis or fracture. No pre-vertebral soft tissue swelling is seen. The intravertebral disc height is lost. There are scattered lymph nodes in the neck. There are degenerative changes of the osseous structures. There is bilateral facet arthropathy. There are scattered levels of foraminal stenosis. There are atherosclerotic vascular calcifications. CT/Spine Cervical without Contras IMPRESSION: Degenerative changes of the cervical spine. No acute abnormality of the spine. Electronically Signed: Patrick Rivera MD at 23:17 EDT , Service support , CC: Gemini Devine DO; GEO DOMINGUEZ Town Justice: Signed SPINE LUMBAR WITHOUT Observed: 01/07/2018 Status: F Source: [place] CONTRAST 11:11 AM [facility] REPOSITORY [facility] Imaging Services [address] [place] [id number] Spine Lumbar without Contrast MR#: [id number] Acct: [id number] Name: ASHA LOZOYA Rep #: [id number] : 1945 F 72 From: Patrick Rivera MD PCP: Gemini Devine DO Status: REG CLI Study: Spine Lumbar without Contrast Date of Exam: 01/07/18 Exam# [id number] Ordering Dr: GEO DOMINGUEZ STUDY: CT LUMBAR SPINE WITHOUT CONTRAST REASON FOR EXAM: Female, 72 years old. MULTIPLE FALLS, MULTIPLE COMPRESSION FX'S, HX-LUPUS, PT IS OBESE RADIATION DOSAGE (If Supplied By Facility): CTDIvol = ( 64.42 ) mGy, DLP = ( 2069.56 ) mGycm TECHNIQUE: The patient was scanned in a multi detector CT scanner. High resolution transaxial imaging was performed. Sagittal and coronal images were reconstructed. Individualized dose optimization techniques were used for this CT. COMPARISON: CT Lumbar Spine Sep 20 2014 6:14pm FINDINGS: There is evidence of degenerative changes involving the sacroiliac joints bilaterally. There is a right sided subcutaneous implanted electronic device with leads extending into the spinal canal. This is likely an SCS (spinal cord stimulator). There is almost complete collapse of the L1 vertebrae. The patient is status post kyphoplasty of the L1 vertebrae. Compression deformity of L5. Stable compression deformity of the L2 vertebral body. There is a Schmorl's node which has likely contributed to the compression deformity. There are calcifications of the abdominal aorta. This is consistent for atherosclerotic disease. There is no abdominal aortic aneurysm. L1-2: There is evidence of posterior central spondylosis causing deformity of the thecal sac. There is evidence of hypertrophy and degenerative changes of the facet joints worse on the right side. This causes a mild degree of spinal stenosis as well as stenosis of the intravertebral foramen bilaterally worse on the right side. L2-3: There is a mild degree of diffuse posterior disc bulge as well as central posterior spondylosis causing mild stenosis. There is hypertrophy of the right facet joint with osteoarthritis causing narrowing of the right intervertebral foramen as well as deformity of the posterior lateral aspect of the thecal sac on the right side. L3-4: There is a mild degree of diffuse posterior disc bulge. There is evidence of facet joint osteoarthritis with hypertrophy of the facet joints as well as ligamentum flavum appear there is a mild degree of central canal stenosis as well as stenosis of the intravertebral foramen bilaterally. L4-5: There is bilateral facet arthropathy. Severe right neuroforaminal stenosis. Severe lateral recess stenosis. L5-S1: There is loss of height of the superior endplate of the L5 vertebrae. Loss of intervertebral disc height at L5-S1. Vacuum disc phenomenon at L5-S1. Severe bilateral neural foraminal stenosis. Grade 1 anterolisthesis of L5 on S1. No spinal stenosis. Normal visualized paraspinous soft tissue structures. CT/Spine Lumbar without Contrast IMPRESSION: Stable compression deformity of L1. Vertebroplasty changes at L1. Stable compression deformity of L2 since the prior study. Electronically Signed: Patrick Rivera MD at 23:23 EDT , Service support , CC: Gemini Devine DO; GEO DOMINGUEZ Town [place]: Signed HGB A1C Collected: 12/04/2017 Status: F Source: [facility] 12:59 PM HEALTH SYSTEM REPOSITORY TYPE CODE TESTS RESULT OUT OF RANGE REFERENCE UNITS LAB A1C5(LOINC) 4.2-6.3 % High Hgb A1c 7.0 Result Comment: Method is National Glycohemoglobin Standardization Program (NGSP) compliant. LAB ESAVG(LOINC) mg/dl Est. Avg Glucose 154 Performed By: #### HA1C #### [place] [address] COMPREHENSIVE PANEL Collected: 12/04/2017 Status: F Source: [facility] 12:59 PM [facility] REPOSITORY TYPE CODE TESTS RESULT OUT OF REFERENCE UNITS RANGE LAB NA(LOINC) 136-145 mEq/L Sodium Blood 140 LAB K(LOINC) 3.5-5.1 mEq/L Potassium Blood 3.8 LAB CL(LOINC) 98-107 mEq/L Chloride Blood 99 LAB CO2(LOINC) 21-32 mEq/L CO2 Blood High 33 LAB GLU(LOINC) 70-99 mg/dL Glucose High Blood 137 LAB BUN(LOINC) 7-18 mg/dL BUN Blood 18 LAB CREA(LOINC 0.51-0.95 mg/dL ) Creatinine Blood 0.77 LAB CA(LOINC) 8.5-10.1 mg/dL Calcium Blood 9.3 LAB ALB(LOINC) 3.4-5.0 g/dL Albumin Blood 3.8 LAB TP(LOINC) 6.4-8.2 g/dL Total Protein 7.8 LAB AST(LOINC) 9-37 U/L AST-SGOT Blood 23 LAB ALT(LOINC) 12-78 U/L ALT-SGPT Blood 29 LAB ALKP(LOINC 46-116 U/L ) Alk Phosphatase 77 LAB BILIT(LOIN 0.2-1.0 mg/dL C) Total Bilirubin 0.3 LAB ANGAP(LOIN 8-16 C) Anion Gap 12 Performed By: #### P14 #### [place] [address] MDRD GFR Collected: 12/04/2017 Status: F Source: [facility] 12:59 PM HEALTH SYSTEM REPOSITORY TYPE CODE TESTS RESULT OUT OF RANGE REFERENCE UNITS LAB GFRFN(LOINC >60mL/min/1.73m ) 2 eGFR >60 Result Comment: If the patient is , multiply the result by 1.210. Performed By: #### GFR #### [facility] [address] [place] [address] TSH, 3RD GENERATION Collected: 12/04/2017 Status: F Source: [facility] 12:[facility] REPOSITORY TYPE CODE TESTS RESULT OUT OF REFERENCE UNITS RANGE LAB TSH3(LOINC 0.358-3.740 uIU/mL ) TSH, 3rd generation 1.610 Performed By: #### TSH3 #### [place] [address] VITAMIN B12 Collected: 12/04/2017 Status: F Source: [facility] 12:[address] [place] [address] SYSTEM REPOSITORY TYPE CODE TESTS RESULT OUT OF REFERENCE UNITS RANGE LAB B12(LOINC) 193-986 pg/mL Vitamin B12 390 Performed By: #### B12 #### [place] [address] SED RATE Collected: 12/04/2017 Status: F Source: [facility] 12:[address] [place] [address] SYSTEM REPOSITORY TYPE CODE TESTS RESULT OUT OF RANGE REFERENCE UNITS LAB ESR(LOINC) 0-20 mm/hr High Sed Rate 32 Performed By: #### ESR #### [place] [address] ZAHRA BY IFA SCREEN Collected: 12/04/2017 Status: F Source: [facility] 12:[facility] REPOSITORY TYPE CODE TESTS RESULT OUT OF REFERENCE UNITS RANGE LAB ANAX(LOINC) ZAHRA by IFA SEE BELOW Screen Result Comment: ZAHRA Positive AB NEGAT Normal range : negative at <1:80 serum dilution. ZAHRA Titer 1:1280 AB NEGAT ZAHRA Pattern Homogeneous Performing Laboratory: [facility] [address] [place] [address] Performed By: #### ANAX #### [place] [address] PROTEIN ELECTROPHORESIS, Collected: 12/04/2017 Status: F Source: [facility] 12:59 PM [facility] SYSTEM REPOSITORY TYPE CODE TESTS RESULT OUT OF REFERENCE UNITS RANGE LAB SPEX(LOINC) Protein SEE BELOW Electrophoresi s, Serum Result Comment: Total Protein, SPE 7.4 6.0-8.4 g/dL Albumin 4.01 3.37-4.23 gm/dL Alpha 1 Globulin 0.21 0.18-0.31 gm/dL Alpha 2 Globulin 0.90 0.52-0.97 gm/dL Beta Globulin 1.03 0.84-1.36 gm/dL Gamma Globulin 1.25 0.70-1.44 gm/dL Interpretation SEE BELOW No definitive M protein is identified on protein electrophoresis. M Protein Location N/A M Gopal Concentratn 0.00 0.00 gm/dL SPE Staff Review SEE BELOW Reviewed by Nakul Michaels MD ([id number]) Performing Laboratory: [facility] [address] [place] [address] Performed By: #### SPEX #### [place] [address] CNOV Observed: 12/04/2017 Status: COMPLETED Source: [place] 11:40 AM [facility] CAMPUS REPOSITORY Office Visit (ARTISAGBA) ASHA LOZOYA ([id number]) 1945 F [facility] Date Time Provider Department 12/04/17 11:40 AM GEO DOMINGUEZ JR During your visit today, we recorded the following information about you: Pulse Respiration Blood pressure Weight 64/minute 16/minute 150/82 109.8 kg Height 1.6 m Geo Dominguez MD 12/04/2017 12:28 PM Signed ESTABLISHED PATIENT VISIT HISTORY OF PRESENT ILLNESS: Asha Calzadataeboy is a 72 year old female, with a PMH significant for: 1. Acute intractable headache, unspecified headache type - ICD9: 784.0, ICD10: R51 (primary diagnosis) Patient brings up new complaint of headache last office visit. Some complaints of sensitivities but also with description that at times appears of tension nature. Daily. Given no prior history of such headaches, thus CT brain completed, and unremarkable per report. In addition started on Topamax (see #2 tremor). 2. Tremor - ICD9: 781.0, ICD10: R25.1 Mainly of postural nature in office and still believe an essential tremor, with possibly some med induced features. She felt Primidone not helping and thus changed to Topamax last visit. 3. OSMAN (obstructive sleep apnea) - ICD9: 327.23, ICD10: G47.33 Declines PAP or other therapy. 4. CSA (central sleep apnea) - ICD9: 780.57, ICD10: G47.31 Declines PAP or other therapy. 5. Depression, unspecified depression type - ICD9: 311, ICD10: F32.9 Encouraged follow up with psychiatry. ? 6. 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 Keppra 250mg BID. Patient reports she is not doing good. Appears tearful. States she has a new thing in her legs where it feels like randomly that someone is poking her with needles. Just feels worse. Regarding needle sensations in the legs, no specific time of day it occurs, but does occur daily and last a few seconds. She tells me that her glucose is running ok, but no records available for review. She denies recent changes in medications. She now reports that the jerking or what has thought to possibly be myoclonus is worse. Usually in the evening and only when watching tv. States if she sees someone about to get hit on tv, she will jerk. States if she sees someone getting beat up or stabbed it will trigger it. Adds that headaches are no better and that she has them all the time. She is also having pain in her lower back more so on left side. No associated claudication or radiation into legs. No radiation into groin. Symptoms worse standing or walking. Following with Dr. Cervantes for pain pump. Headaches are primarily in the back of the head and real bad. States they are right at the base of the skull. Mostly stay in the back of the head and rarely radiate forwards. No photophobia, phonophobia, N/V. She was started on Topamax last visit, but is now not taking it. When asked, she does not know why Topamax was stopped - she cannot tell me if a physician stopped it. I have no record of discontinuing Topamax. States mood is worse and that she is very depressed. She has not seen a counselor. REVIEW OF SYSTEMS GENERAL:No weight loss, malaise or fevers. HEENT No changes in hearing or vision, no nose bleeds or other nasal problems NECK:Negative for lumps, goiter, pain and significant neck swelling RESPIRATORY: Negative for cough, wheezing or shortness of breath. CARDIOVASCULAR: Negative for chest pain, leg swelling or palpitations. GASTROINTESTINAL: Negative for abdominal discomfort, blood in stools or black stools or change in bowel habits GENITOURINARY: No history of dysuria, frequency or incontinence MUSCULOSKELETAL: See HPI NEUROLOGIC:See HPI SKIN:Negative for lesions, rash, and itching. PSYCHIATRIC: See HPI. No SI/HI. HEMATOLOGIC/LYMPHATIC/IMMUNOLOGIC:Negative for prolonged bleeding, bruising easily or swollen nodes. ENDOCRINE: Negative for cold or heat intolerance, polyuria, polydipsia and goiter. The remainder of the ROS was reviewed and is negative. LAB/IMAGING: Those performed since patient's last visit have been reviewed. WBC (k/uL) Date Value 06/07/2001 7.01 RBC (M/uL) Date Value 06/07/2001 4.37 Hemoglobin (g/dL) Date Value 06/07/2001 12.7 Hematocrit (%) Date Value 06/07/2001 39.8 MCV (fL) Date Value 06/07/2001 91.1 MCH (pG) Date Value 06/07/2001 29.1 MCHC (%) Date Value 06/07/2001 31.9 (A) RDW-CV (%) Date Value 06/07/2001 14.7 Platelet Count (K/uL) Date Value 06/07/2001 395 MPV (fL) Date Value 06/07/2001 11.4 (A) Glucose (mg/dL) Date Value 05/19/2001 104 BUN (mg/dL) Date Value 05/19/2001 11 Creatinine (mg/dL) Date Value 05/19/2001 0.7 Sodium (mmol/L) Date Value 05/19/2001 141 Potassium (mmol/L) Date Value 05/19/2001 4.1 Chloride (mmol/L) Date Value 05/19/2001 99 CO2 (mmol/L) Date Value 05/19/2001 33 (A) Protein, Total (g/dL) Date Value 05/19/2001 7.5 Albumin (g/dL) Date Value 05/19/2001 4.1 Calcium (mg/dL) Date Value 05/19/2001 9.9 Alkaline Phosphatase (U/L) Date Value 05/19/2001 107 Bilirubin, Total (mg/dL) Date Value 05/19/2001 0.4 AST (U/L) Date Value 05/19/2001 25 ALT (U/L) Date Value 05/19/2001 24 Hep C Antibody IA (no units) Date Value 05/19/2001 Negative MEDICATIONS: gabapentin (NEURONTIN) 800 mg tablet Take 1 tablet by mouth four times daily for 90 days. levETIRAcetam (KEPPRA) 250 mg tablet Take 1 tablet by mouth twice daily. escitalopram oxalate (LEXAPRO) 20 mg tablet Take 20 mg by mouth once daily. diclofenac, EC, (VOLTAREN) 50 mg EC tablet Take 50 mg by mouth twice daily. HYDROMORPHONE HCL (DILAUDID MISC) Pain pump potassium chloride (K-MONCHO, KLOR-CON) 20 mEq packet Take 20 mEq by mouth twice daily. topiramate (TOPAMAX) 25 mg tablet Take 1 tab by mouth twice daily x2 weeks and then increase to 2 tabs by mouth twice daily. MULTI-VITAMIN ORAL Take by mouth. calcium carbonate-Vit D3-minerals (CALCIUM 600 + MINERALS) 600-400 mg-unit ORAL Tab Take 1 tablet by mouth once daily. Cholecalciferol, Vitamin D3, (VITAMIN D) 1,000 unit ORAL Cap Take 1,000 Units by mouth once daily. Aspirin 81 mg ORAL Tab Take 81 mg by mouth. nabumetone (RELAFEN) 750 mg ORAL tablet Take 750 mg by mouth twice daily. buPROPion SR 150 mg ORAL 12 hr tablet Take 200 mg by mouth twice daily. paroxetine 40 mg ORAL tablet Take 40 mg by mouth once daily. cloNIDine 0.1 mg ORAL tablet Take 0.1 mg by mouth. atenolol 50 mg ORAL tablet Take 50 mg by mouth once daily. Take one(1) tablet two(2) times daily. Valsartan-Hydrochlorothiazide (DIOVAN HCT) 320-25 mg ORAL per tablet Take 1 tablet by mouth once daily. furosemide (LASIX) 20 mg ORAL tablet Take 20 mg by mouth once daily. metFORMIN 500 mg ORAL tablet Take 500 mg by mouth daily with breakfast. hydroxychloroquine (PLAQUENIL) 200 mg ORAL tablet Take 200 mg by mouth twice daily. Morphine Sulfate 30 mg ORAL Cap Take by mouth. Omeprazole 40 mg ORAL capsule Take 40 mg by mouth once daily. Take one(1) tablet two(2) times daily. amLODIPine (NORVASC) 10 mg ORAL tablet Take 10 mg by mouth once daily. HISTORIES No past medical history on file. FAMILY HISTORY Problem Relation Age of Onset - Alcohol/Drug Mother - Alcohol/Drug Father - Alcohol/Drug Sister - Cancer Mother mouth AND lung - Cervical Cancer Sister - Heart Mother - Heart Father - Hypertension Father - Heart Paternal Grandfather - Heart Maternal Grandmother SOCIAL HISTORY Social History Substance Use Topics - Smoking status: Never Smoker - Smokeless tobacco: Never Used - Alcohol use Not on file PHYSICAL EXAMINATION Blood pressure 150/82, pulse 64, resp. rate 16, height 5' 3 (1.6 m), weight 242 lb (109.8 kg), SpO2 91 %. GENERAL EXAM: General appearance: NAD, pleasant. HEENT: NC/AT, nasal congestion absent, no oral lesions, membranes moist. Garcia IV. Mod retrognathia. NECK: No masses, supple. Lungs: CTA bilaterally. No wheezes present. CV: RRR nl S1, S2, no murmurs. No carotid bruits. Abd: Soft, nontender, nondistended. Bowel sounds present. Extr: No cyanosis, clubbing or edema. No evidence of fasciculations. Extremity pulses palpable and normal. Skin: Cool to touch. No rash. ? NEUROLOGICAL EXAM: General: Awake, alert, oriented x3 (person,place,time), speech fluent, no dysarthria; comprehension, naming, repetition intact. Fund of knowledge grossly normal by MOCA. CN: PERRL, fundi appear normal including no evidence of papilledema, EOMI and without nystagmus, VFF to confrontation, facial sensation and strength are normal and symmetric, hearing is intact to finger rub bilaterally, palate and tongue movements are intact and symmetric. SCM and trapezius strength normal. Motor: Normal tone, bulk and strength (5/5) bilaterally (throughout extremities x4). Reflexes: 2/4 and symmetric, plantar stimulation is flexor. Coordination: FNF, JOYCE, HTS intact. TREMOR PRESENT IN UVALDO HAND (L>R) WITH POSTURE (HANDS EXTENDED OUT AND AWAY FROM BODY) but resolve with movement and no intention tremor. No asterixis. Sensation: Light touch intact throughout. Pin and vibration diminished distal to knees in stocking pattern. No evidence of neglect. Gait: Narrow based and stable with normal stride and arm swing. Romberg normal. Assessment and Plan: ASSESSMENT/PLAN: 1. Chronic intractable headache, unspecified headache type - ICD9: 784.0, ICD10: R51 (primary diagnosis); Cervicalgia - ICD9: 723.1, ICD10: M54.2 Etiology unclear but appear to be secondary to either c-spine disease or of tension nature. -CT C spine to evaluate for stenosis. -Pain mgmt following and recommend possible injection therapy if Dr. Cervantes (who follows patient at [facility]) would agree. -Restart Topamax 25mg qhs and titrate up to 75mg qhs. 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 -Continue Keppra 250mg BID. -Encouraged patient to watch a different television show as symptoms brought on by visualizations of trauma. 3. Essential tremor - ICD9: 333.1, ICD10: G25.0 -Restart Topamax as per #1. Previously failed Primidone. 4. OSMAN (obstructive sleep apnea) - ICD9: 327.23, ICD10: G47.33 -Pt declines therapy. 5. Lumbar pain - ICD9: 724.2, ICD10: M54.5 -Worse per patient. Will get CT L spine. Needs follow up with pain mgmt. 7. Paresthesia of skin - ICD9: 782.0, ICD10: R20.2 -By history and exam likely secondary to peripheral polyneuropathy. Do not feel need for EMG/NCV at this time nor does pt want study. Will check A1c, B12, TSH, T4, ESR, ZAHRA, SPEP for possible exacerbating factors. Symptoms rare and do not feel additional meds at this time provide a benefit that outweighs risk of side effect. 8. Depression, unspecified depression type - ICD9: 311, ICD10: F32.9 -Encouraged follow up with psychiatry. Geo Dominguez MD I spent 50 minutes in the visit, with more than 50% of the total fxuv-fo-uuvl time of the visit in counseling / coordination of care. Referring Provider: GEMINI DEVINE [[id number]] Allergies As of Date: 12/04/2017 (No Known Allergies) Date Reviewed: 12/04/2017 Reviewed by: Geo Dominguez Jr. - Fully Assessed Reason for Visit: Follow Up [171] Primary Visit Diagnosis:Chronic intractable headache, unspecified headache type [R51] Other Visit Diagnoses:Myoclonus [G25.3] Essential tremor [G25.0] OSMAN (obstructive sleep apnea) [G47.33] Cervicalgia [M54.2] Lumbar pain [M54.5] Paresthesia of skin [R20.2] Depression, unspecified depression type [F32.9] Disease of spinal cord (HCC) [G95.9] Order(s):CT CERVICAL SPINE WO IVCON [3633943] Order #: [id number] FUTURE CT LUMBAR SPINE WO IVCON [[id number]] Order #: [id number] FUTURE SED RATE WESTERGREN [SQWSR] Order #: [id number] FUTURE ZAHRA BY IFA SCREEN [SQANAIFS] Order #: [id number] FUTURE TSH BLD [SQTSH] Order #: [id number] FUTURE HGB A1C [FCBOQ5V] Order #: [id number] FUTURE VITAMIN B12 BLOOD [SQB12] Order #: [id number] FUTURE PROTEIN ELECTROPHORESIS W/INTERP [SQSEPG] Order #: [id number] FUTURE topiramate (TOPAMAX) 25 mg tablet1 tab at bedtime for 1 week, then increase dose to 2 tabs at bedtime for 1 week, then increase to 3 tabs at bedtime and continue.Disp: 90 tabletRfl: 3 COMP METABOLIC PANEL [SQCMP] Order #: [id number] FUTURE Prescriptions as of 12/04/2017 Sig: GABAPENTIN 800 MG TABLET Take 1 tablet by mouth four t* LEVETIRACETAM 250 MG TABLET Take 1 tablet by mouth twice * ESCITALOPRAM 20 MG TABLET Take 20 mg by mouth once kari* DICLOFENAC SODIUM 50 MG TABLE* Take 50 mg by mouth twice marla* DILAUDID MISC Pain pump POTASSIUM CHLORIDE 20 MEQ ORA* Take 20 mEq by mouth twice da* * MULTI-VITAMIN ORAL Take by mouth. * CALCIUM CARB-VIT D3-MINERALS * Take 1 tablet by mouth once d* * CHOLECALCIFEROL (VITAMIN D3) * Take 1,000 Units by mouth onc* * ASPIRIN 81 MG TABLET Take 81 mg by mouth. * BUPROPION HCL SR 150 MG TABLE* Take 200 mg by mouth twice da* * VALSARTAN 320 MG-HYDROCHLOROT* Take 1 tablet by mouth once d* * OMEPRAZOLE 40 MG CAPSULE,GUMARO* Take 40 mg by mouth once kari* * AMLODIPINE 10 MG TABLET Take 10 mg by mouth once kari* TOPIRAMATE 25 MG TABLET 1 tab at bedtime for 1 week, * * NABUMETONE 750 MG TABLET Take 750 mg by mouth twice da* * PAROXETINE 40 MG TABLET Take 40 mg by mouth once kari* * CLONIDINE HCL 0.1 MG TABLET Take 0.1 mg by mouth. * ATENOLOL 50 MG TABLET Take 50 mg by mouth once kari* * FUROSEMIDE 20 MG TABLET Take 20 mg by mouth once kari* * METFORMIN 500 MG TABLET Take 500 mg by mouth daily wi* * HYDROXYCHLOROQUINE 200 MG TAB* Take 200 mg by mouth twice da* * MORPHINE 30 MG CAPSULE Take by mouth. Problem List As Of Date 12/04/2017 Noted Resolved Nontoxic multinodular goiter [E04.2] INVALID FOR* Adjustment disorder [F43.20] INVALID FOR* Other pain disorders related to psychological f*INVALID FOR* Adjustment disorder with mixed anxiety and depr*INVALID FOR* Parent-child relationship problem [Z62.820] INVALID FOR* Prescriptions ordered this encounter Disp Refills Start End TOPIRAMATE 25 MG TABLET 90 t* 3 12/04/2017 Si tab at bedtime for 1 week, then increase dose to 2 tabs at bedtime for 1 week, then increase to 3 tabs at bedtime and continue. Medications Discontinued During This Encounter topiramate (TOPAMAX) 25 mg tablet 120 * 5 03/10/2017 12/04/2017 Sig: Take 1 tab by mouth twice daily x2 weeks and then increase to 2 tabs by mouth twice daily. Patient not taking: Reported on 12/04/2017 Disc: Reason for discontinue is not on file. Disposition: Return in about 2 months (around 02/03/2018). Follow-up and Disposition History Recorded Encounter Status:Closed by GEO DOMINGUEZ on 12/04/17 PROGRESS Observed: 12/04/2017 Status: COMPLETED Source: [facility] 8:10 AM CLINIC OTHER CAMPUS REPOSITORY O ID: [id number] Author: Geo Dominguez Jr. Service: (none) Author Type: Physician Type: Progress Notes Filed: 12/04/2017 12:28 PM Note Text: ESTABLISHED PATIENT VISIT HISTORY OF PRESENT ILLNESS: Asha Lozoya is a 72 year old female, with a PMH significant for: 1. Acute intractable headache, unspecified headache type - ICD9: 784.0, ICD10: R51 (primary diagnosis) Patient brings up new complaint of headache last office visit. Some complaints of sensitivities but also with description that at times appears of tension nature. Daily. Given no prior history of such headaches, thus CT brain completed, and unremarkable per report. In addition started on Topamax (see #2 tremor). 2. Tremor - ICD9: 781.0, ICD10: R25.1 Mainly of postural nature in office and still believe an essential tremor, with possibly some med induced features. She felt Primidone not helping and thus changed to Topamax last visit. 3. OSMAN (obstructive sleep apnea) - ICD9: 327.23, ICD10: G47.33 Declines PAP or other therapy. 4. CSA (central sleep apnea) - ICD9: 780.57, ICD10: G47.31 Declines PAP or other therapy. 5. Depression, unspecified depression type - ICD9: 311, ICD10: F32.9 Encouraged follow up with psychiatry. ? 6. 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 Keppra 250mg BID. Patient reports she is not doing good. Appears tearful. States she has a new thing in her legs where it feels like randomly that someone is poking her with needles. Just feels worse. Regarding needle sensations in the legs, no specific time of day it occurs, but does occur daily and last a few seconds. She tells me that her glucose is running ok, but no records available for review. She denies recent changes in medications. She now reports that the jerking or what has thought to possibly be myoclonus is worse. Usually in the evening and only when watching tv. States if she sees someone about to get hit on tv, she will jerk. States if she sees someone getting beat up or stabbed it will trigger it. Adds that headaches are no better and that she has them all the time. She is also having pain in her lower back more so on left side. No associated claudication or radiation into legs. No radiation into groin. Symptoms worse standing or walking. Following with Dr. Cervantes for pain pump. Headaches are primarily in the back of the head and real bad. States they are right at the base of the skull. Mostly stay in the back of the head and rarely radiate forwards. No photophobia, phonophobia, N/V. She was started on Topamax last visit, but is now not taking it. When asked, she does not know why Topamax was stopped - she cannot tell me if a physician stopped it. I have no record of discontinuing Topamax. States mood is worse and that she is very depressed. She has not seen a counselor. REVIEW OF SYSTEMS GENERAL:No weight loss, malaise or fevers. HEENT No changes in hearing or vision, no nose bleeds or other nasal problems NECK:Negative for lumps, goiter, pain and significant neck swelling RESPIRATORY: Negative for cough, wheezing or shortness of breath. CARDIOVASCULAR: Negative for chest pain, leg swelling or palpitations. GASTROINTESTINAL: Negative for abdominal discomfort, blood in stools or black stools or change in bowel habits GENITOURINARY: No history of dysuria, frequency or incontinence MUSCULOSKELETAL: See HPI NEUROLOGIC:See HPI SKIN:Negative for lesions, rash, and itching. PSYCHIATRIC: See HPI. No SI/HI. HEMATOLOGIC/LYMPHATIC/IMMUNOLOGIC:Negative for prolonged bleeding, bruising easily or swollen nodes. ENDOCRINE: Negative for cold or heat intolerance, polyuria, polydipsia and goiter. The remainder of the ROS was reviewed and is negative. LAB/IMAGING: Those performed since patient's last visit have been reviewed. WBC (k/uL) Date Value 06/07/2001 7.01 RBC (M/uL) Date Value 06/07/2001 4.37 Hemoglobin (g/dL) Date Value 06/07/2001 12.7 Hematocrit (%) Date Value 06/07/2001 39.8 MCV (fL) Date Value 06/07/2001 91.1 MCH (pG) Date Value 06/07/2001 29.1 MCHC (%) Date Value 06/07/2001 31.9 (A) RDW-CV (%) Date Value 06/07/2001 14.7 Platelet Count (K/uL) Date Value 06/07/2001 395 MPV (fL) Date Value 06/07/2001 11.4 (A) Glucose (mg/dL) Date Value 05/19/2001 104 BUN (mg/dL) Date Value 05/19/2001 11 Creatinine (mg/dL) Date Value 05/19/2001 0.7 Sodium (mmol/L) Date Value 05/19/2001 141 Potassium (mmol/L) Date Value 05/19/2001 4.1 Chloride (mmol/L) Date Value 05/19/2001 99 CO2 (mmol/L) Date Value 05/19/2001 33 (A) Protein, Total (g/dL) Date Value 05/19/2001 7.5 Albumin (g/dL) Date Value 05/19/2001 4.1 Calcium (mg/dL) Date Value 05/19/2001 9.9 Alkaline Phosphatase (U/L) Date Value 05/19/2001 107 Bilirubin, Total (mg/dL) Date Value 05/19/2001 0.4 AST (U/L) Date Value 05/19/2001 25 ALT (U/L) Date Value 05/19/2001 24 Hep C Antibody IA (no units) Date Value 05/19/2001 Negative MEDICATIONS: gabapentin (NEURONTIN) 800 mg tablet Take 1 tablet by mouth four times daily for 90 days. levETIRAcetam (KEPPRA) 250 mg tablet Take 1 tablet by mouth twice daily. escitalopram oxalate (LEXAPRO) 20 mg tablet Take 20 mg by mouth once daily. diclofenac, EC, (VOLTAREN) 50 mg EC tablet Take 50 mg by mouth twice daily. HYDROMORPHONE HCL (DILAUDID MISC) Pain pump potassium chloride (K-MONCHO, KLOR-CON) 20 mEq packet Take 20 mEq by mouth twice daily. topiramate (TOPAMAX) 25 mg tablet Take 1 tab by mouth twice daily x2 weeks and then increase to 2 tabs by mouth twice daily. MULTI-VITAMIN ORAL Take by mouth. calcium carbonate-Vit D3-minerals (CALCIUM 600 + MINERALS) 600-400 mg-unit ORAL Tab Take 1 tablet by mouth once daily. Cholecalciferol, Vitamin D3, (VITAMIN D) 1,000 unit ORAL Cap Take 1,000 Units by mouth once daily. Aspirin 81 mg ORAL Tab Take 81 mg by mouth. nabumetone (RELAFEN) 750 mg ORAL tablet Take 750 mg by mouth twice daily. buPROPion SR 150 mg ORAL 12 hr tablet Take 200 mg by mouth twice daily. paroxetine 40 mg ORAL tablet Take 40 mg by mouth once daily. cloNIDine 0.1 mg ORAL tablet Take 0.1 mg by mouth. atenolol 50 mg ORAL tablet Take 50 mg by mouth once daily. Take one(1) tablet two(2) times daily. Valsartan-Hydrochlorothiazide (DIOVAN HCT) 320-25 mg ORAL per tablet Take 1 tablet by mouth once daily. furosemide (LASIX) 20 mg ORAL tablet Take 20 mg by mouth once daily. metFORMIN 500 mg ORAL tablet Take 500 mg by mouth daily with breakfast. hydroxychloroquine (PLAQUENIL) 200 mg ORAL tablet Take 200 mg by mouth twice daily. Morphine Sulfate 30 mg ORAL Cap Take by mouth. Omeprazole 40 mg ORAL capsule Take 40 mg by mouth once daily. Take one(1) tablet two(2) times daily. amLODIPine (NORVASC) 10 mg ORAL tablet Take 10 mg by mouth once daily. HISTORIES No past medical history on file. FAMILY HISTORY Problem Relation Age of Onset - Alcohol/Drug Mother - Alcohol/Drug Father - Alcohol/Drug Sister - Cancer Mother mouth AND lung - Cervical Cancer Sister - Heart Mother - Heart Father - Hypertension Father - Heart Paternal Grandfather - Heart Maternal Grandmother SOCIAL HISTORY Social History Substance Use Topics - Smoking status: Never Smoker - Smokeless tobacco: Never Used - Alcohol use Not on file PHYSICAL EXAMINATION Blood pressure 150/82, pulse 64, resp. rate 16, height 5' 3 (1.6 m), weight 242 lb (109.8 kg), SpO2 91 %. GENERAL EXAM: General appearance: NAD, pleasant. HEENT: NC/AT, nasal congestion absent, no oral lesions, membranes moist. Garcia IV. Mod retrognathia. NECK: No masses, supple. Lungs: CTA bilaterally. No wheezes present. CV: RRR nl S1, S2, no murmurs. No carotid bruits. Abd: Soft, nontender, nondistended. Bowel sounds present. Extr: No cyanosis, clubbing or edema. No evidence of fasciculations. Extremity pulses palpable and normal. Skin: Cool to touch. No rash. ? NEUROLOGICAL EXAM: General: Awake, alert, oriented x3 (person,place,time), speech fluent, no dysarthria; comprehension, naming, repetition intact. Fund of knowledge grossly normal by MOCA. CN: PERRL, fundi appear normal including no evidence of papilledema, EOMI and without nystagmus, VFF to confrontation, facial sensation and strength are normal and symmetric, hearing is intact to finger rub bilaterally, palate and tongue movements are intact and symmetric. SCM and trapezius strength normal. Motor: Normal tone, bulk and strength (5/5) bilaterally (throughout extremities x4). Reflexes: 2/4 and symmetric, plantar stimulation is flexor. Coordination: FNF, JOYCE, HTS intact. TREMOR PRESENT IN UVALDO HAND (L>R) WITH POSTURE (HANDS EXTENDED OUT AND AWAY FROM BODY) but resolve with movement and no intention tremor. No asterixis. Sensation: Light touch intact throughout. Pin and vibration diminished distal to knees in stocking pattern. No evidence of neglect. Gait: Narrow based and stable with normal stride and arm swing. Romberg normal. Assessment and Plan: ASSESSMENT/PLAN: 1. Chronic intractable headache, unspecified headache type - ICD9: 784.0, ICD10: R51 (primary diagnosis); Cervicalgia - ICD9: 723.1, ICD10: M54.2 Etiology unclear but appear to be secondary to either c-spine disease or of tension nature. -CT C spine to evaluate for stenosis. -Pain mgmt following and recommend possible injection therapy if Dr. Cervantes (who follows patient at [facility]) would agree. -Restart Topamax 25mg qhs and titrate up to 75mg qhs. 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 -Continue Keppra 250mg BID. -Encouraged patient to watch a different television show as symptoms brought on by visualizations of trauma. 3. Essential tremor - ICD9: 333.1, ICD10: G25.0 -Restart Topamax as per #1. Previously failed Primidone. 4. OSMAN (obstructive sleep apnea) - ICD9: 327.23, ICD10: G47.33 -Pt declines therapy. 5. Lumbar pain - ICD9: 724.2, ICD10: M54.5 -Worse per patient. Will get CT L spine. Needs follow up with pain mgmt. 7. Paresthesia of skin - ICD9: 782.0, ICD10: R20.2 -By history and exam likely secondary to peripheral polyneuropathy. Do not feel need for EMG/NCV at this time nor does pt want study. Will check A1c, B12, TSH, T4, ESR, ZAHRA, SPEP for possible exacerbating factors. Symptoms rare and do not feel additional meds at this time provide a benefit that outweighs risk of side effect. 8. Depression, unspecified depression type - ICD9: 311, ICD10: F32.9 -Encouraged follow up with psychiatry. Geo Dominguez MD I spent 50 minutes in the visit, with more than 50% of the total qhwp-fq-tgpr time of the visit in counseling / coordination of care. GRISELDA Observed: 12/04/2017 Status: COMPLETED Source: [facility] 12:00 AM CLINIC OTHER CAMPUS REPOSITORY Telephone (NSAGBA) ASHA LOZOYA ([id number]) 1945 [address] [facility] Date Time Provider Department 12/04/17 GEO DOMINGUEZ JR During your visit today, we recorded the following information about you: Alena Smith 12/04/2017 12:29 PM Signed 1. Have you had any surgeries on the body part being scanned? no If yes, When? 2. Have you had any recent x-rays on the body part being scanned? no 3. Do you have a pace maker/defibulator? no 4. Do you have renal disease? no 5. Are you diabetic? no 6. Do you have high blood pressure? Yes, treated 7. Do you have port in the arm or chest? no 8. Do you have any metal plates/clips/screws? Shoulder replacement 9. Any Myeloma disease and/or tumors? no 10. Any collagen vascular disease? no 11. Do you have any problems starting an IV? no 12. How much do you weigh? 242 13. Any allergies to MRI dye? no 14.Any chance of being ? no 15.Is the patient in a wheel chair? 16. Is the patient coming from a long term? 17. Do you have any metal fragments in your eyes or head? no If YES please get an orbital x-ray BEFORE patient leaves. 18.Are you claustrophobic?yes, 19. What day and time is best for you? [email or web address] 20. What [facility] facility would you [facility] to go to? [facility] 21. What is the best number to reach you back at? [phone], cell [phone] 22. If the order states with and without contrast look at their age, they may need blood work done. If they are over 65 they need a BUN/Creatinine done. Alena Luis 12/07/2017 3:15 PM Signed Test(s) CT Cervical, CT Lumbar Insurance: [employer] Carrier: na Phone: na Fax: na Rep Name: Shy Vielka Case or Tracking #: CT Cervical - [id number], CT Lumbar [id number] Status: Pending Valid Date(s): na Notes: Faxed over clinical info to [facility] Ma 12/11/2017 9:47 AM Signed [facility] is denying CT- requesting [id number]. Case #[id number] Option #3 Alena Luis 12/16/2017 10:21 AM Addendum Patient insurance is approving CT Neck (02445) Test(s) CT Cervical (22092) Insurance: [facility] Phone: na Fax: na Imaging Carrier: [employer] Phone: na Fax: na Rep Name: cinthia Case or Tracking #: [id number] Status: approved [id number] Exp 01/22/18 Valid Date(s): 12/07/2017-01/29/2018 Notes: waiting for approval for test CT Lumbar, faxed over more clinical. Test(s) CT Lumbar Insurance: [facility] Phone: na Fax: na Imaging Carrier: na Phone: na Fax: na Rep Name: cinthia Case or Tracking #: [id number] Status: Approved [id number] Exp 01/29/18 Valid Date(s): na Notes: Faxed over clinical Tawanna Ma 12/23/2017 2:16 PM Signed vm was left for patient to call the office. Tawanna Ma 12/29/2017 10:03 AM Signed 2nd vm left for patient Tawanna Ma 12/29/2017 1:30 PM Signed Spoke with patient and she had been informed from [facility] that both of her CT were approved. Ct Lumbar spine and CT Cervical spine were scheduled at [facility] on 01/07/18 at 1030 am Patient is to arrive at the 1st floor diagnostics. Orders were faxed to [phone]. Patient was notified. Allergies As of Date: 12/04/2017 (No Known Allergies) Date Reviewed: 12/04/2017 Reviewed by: Geo Dominguez Jr. - Fully Assessed Reason for Visit: Insurance Authorization [[id number]] Cmt: CT Lumbar, Cervical - approved Reason For Visit History Recorded Prescriptions as of 12/04/2017 Sig: TOPIRAMATE 25 MG TABLET 1 tab at bedtime for 1 week, * GABAPENTIN 800 MG TABLET Take 1 tablet by mouth four t* LEVETIRACETAM 250 MG TABLET Take 1 tablet by mouth twice * ESCITALOPRAM 20 MG TABLET Take 20 mg by mouth once kari* DICLOFENAC SODIUM 50 MG TABLE* Take 50 mg by mouth twice marla* DILAUDID MISC Pain pump POTASSIUM CHLORIDE 20 MEQ ORA* Take 20 mEq by mouth twice da* * MULTI-VITAMIN ORAL Take by mouth. * CALCIUM CARB-VIT D3-MINERALS * Take 1 tablet by mouth once d* * CHOLECALCIFEROL (VITAMIN D3) * Take 1,000 Units by mouth onc* * ASPIRIN 81 MG TABLET Take 81 mg by mouth. * NABUMETONE 750 MG TABLET Take 750 mg by mouth twice da* * BUPROPION HCL SR 150 MG TABLE* Take 200 mg by mouth twice da* * PAROXETINE 40 MG TABLET Take 40 mg by mouth once kari* * CLONIDINE HCL 0.1 MG TABLET Take 0.1 mg by mouth. * ATENOLOL 50 MG TABLET Take 50 mg by mouth once kari* * VALSARTAN 320 MG-HYDROCHLOROT* Take 1 tablet by mouth once d* * FUROSEMIDE 20 MG TABLET Take 20 mg by mouth once kari* * METFORMIN 500 MG TABLET Take 500 mg by mouth daily wi* * HYDROXYCHLOROQUINE 200 MG TAB* Take 200 mg by mouth twice da* * MORPHINE 30 MG CAPSULE Take by mouth. 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*INVALID FOR* Adjustment disorder with mixed anxiety and depr*INVALID FOR* Parent-child relationship problem [Z62.820] INVALID FOR* Encounter Status:Closed by ALENA SMITH on 12/04/17 THYROID STIM HORMONE Collected: 07/09/2017 Status: F Source: [place] (TSH) 2:12 PM [facility] REPOSITORY TYPE CODE TESTS RESULT OUT OF RANGE REFERENCE UNITS LAB L501.9520 0.358-3.74 uIU/mL Normal TSH 1.11 Performed By: #### L501.9520 #### [facility] [address], [place], [address] VITAMIN D,25 HYDROXY Collected: 07/09/2017 Status: F Source: [place] 2:12 PM [facility] REPOSITORY TYPE CODE TESTS RESULT OUT OF REFERENCE UNITS RANGE LAB L506.1000 29.95-100.01 ng/mL Low Vitamin D 23.8 25-OH Result Comment: Vitamin D 25(OH) Status Range Deficiency <20 ng/mL (50nmol/L) Insuffciency 20 - 30 ng/mL (50 - 75 nmol/L) Sufficiency 30 - 100 ng/mL (75 - 250 nmol/L) Toxicity >100 ng/mL (>250 nmol/L) Performed By: #### L506.1000 #### [facility] [address] [facility] [place], [place], [address] COMPREHENSIVE METABOLIC Collected: 07/02/2017 Status: F Source: [place] FONTANE[place] 12:29 PM [facility] REPOSITORY TYPE CODE TESTS RESULT OUT OF RANGE REFERENCE UNITS LAB L501.0100 74-106 mg/dL Normal GLU 106 Result Comment: Fasting Glucose result from 100 to 125 mg/dL suggests IMPAIRED HOMEOSTASIS per A.D.A. criteria. Please note revised GLUCOSE reference range effective 2017. LAB L501.1000 7-18 mg/dL Normal BUN 17 LAB L501.1100 0.55-1.02 mg/dL Normal CREAT,SERUM 1.00 Result Comment: The validity of the calculated GFR AND GFRAA in patients over 70 years has not been determined. Clinical correlation is essential. LAB L501.1110 >60 mL/min Low EST GFR 58 Result Comment: Non- GFR Calc LAB L501.1115 >60 mL/min Normal EST GFR - AA 71 Result Comment: GFR Calc LAB L501.1300 10-20 RATIO Normal BUN/CRE 17.0 LAB L501.1500 6.4-8.2 g/dL T Normal PROT 8.0 LAB L501.1800 3.2-5.0 g/dL Normal ALB 3.9 LAB L501.1950 2.2-4.2 g/dL Normal GLOB 4.1 LAB L501.2000 0.9-2.4 RATIO Normal A/G 1.0 LAB L501.2200 8.5-10.1 mg/dL CA Normal 9.1 LAB L501.4100 15-37 U/L Normal AST 21 LAB L501.4305 45-117 U/L Normal ALK P 69 LAB L501.4405 13-56 U/L Normal ALT 33 Result Comment: Please note revised ALT reference range effective 2017. LAB L501.4600 0.20-1.00 mg/dL Normal T BILI 0.50 LAB L501.5300 136-145 mmol/L Normal NA 142 LAB L501.5600 3.5-5.1 mmol/L Normal K 3.9 LAB L501.5900 98-107 mmol/L High CL 108 LAB L501.6100 21.0-32.0 mmol/L Normal CO2 29.0 LAB L501.6200 5-15 Normal GAP 5 Performed By: #### L500.4050 #### [facility] [address] [place], [place], [address] CBC W/DIFF, AUTOMATED Collected: 06/30/2017 Status: F Source: [place] 9:32 AM [facility] REPOSITORY TYPE CODE TESTS RESULT OUT OF RANGE REFERENCE UNITS LAB L100.1000 4.4-11.0 K/mm3 Normal WBC 9.4 LAB L100.1200 4.2-5.4 M/mm3 Normal RBC 4.70 LAB L100.1300 12.0-15.0 g/dl Normal HGB 14.2 LAB L100.1400 37-47 % Normal HCT 42.4 LAB L100.1500 81-99 fL Normal MCV 90.2 LAB L100.1600 27.0-32.0 pg Normal MCH 30.2 LAB L100.1700 32-36 g/gl Normal MCHC 33.5 LAB L100.1810 11.6-14.6 % Normal RDW CV 13.7 LAB L100.1820 35.1-43.9 fl High RDW SD 44.8 LAB L100.1900 150-450 K/mm3 Normal PLT 241 LAB L100.2000 6.2-12.0 fl Normal MPV 11.4 LAB L100.2100 47-70 % Normal NEUT% 64.6 LAB L100.2200 19-41 % Normal LY% 23.5 LAB L100.2300 0-10 % Normal MONO% 8.7 LAB L100.2400 0-5 % Normal EO% 2.7 LAB L100.2500 0-1 % Normal BASO% 0.4 LAB L100.2550 0.0-0.9 % Normal IM GRAN % 0.100 Result Comment: IG% - Immature Granulocytes (promyelocytes, myelocytes and metamyelocytes) > 1% indicates that a LEFT SHIFT is Present. LAB L100.2620 2.0-7.7 X10 3/uL Normal Absolute Neut 6.1 LAB L100.2720 0.83-4.51 X10 3/ul Normal Absolute Lymph 2.20 Performed By: #### L100.0100 #### [facility] [address] [place], [address] ALLERGIES ALLERGIES DATE TYPE / CODE NAME / CODE REACTION SEVERITY SOURCE 02/17/2015 Drug No Known Unknown [facility] Allergy/416 Allergies/R74831 Hospital 147831(SNOM 0388(RXNORM) Repository ED CT) Drug NO KNOWN [facility] Class/10308 ALLERGIES Other [place] 1003(SNOMED Repository CT) NG/[id number] NO KNOWN [facility] 6(SNOMED [facility] Health System CT) Repository ENCOUNTERS ENCOUNTERS ADMIT/DISCHARGE ACCOUNT NUMBER ADMITTING ENCOUNTER LOCATION SOURCE CLASS 03/11/2018 [id number] [facility] ding:MTLAB Repository 02/03/2018/02/04/20 [id number] Ambulatory [address] Other [place] Repository 02/03/2018/02/04/20 [id number] Ambulatory [address] MEDICAL Repository CENTERBuildi ng:NAHG 02/03/2018 [id number] Ambulatory [facility] MEDICAL Repository CENTERBuildi ng:NEUSAGHB 01/07/2018 [id number] Ambulatory [facility] ding:CT Repository 12/04/2017 [id number] Ambulatory [facility] Other [place] Repository 12/04/2017/12/05/19 [id number] Ambulatory [address] MEDICAL Repository CENTERBuildi ng:AKLBB 12/04/2017/12/05/19 [id number] Ambulatory [address] Other [place] Repository 12/04/2017/12/05/19 [id number] Ambulatory [address] MEDICAL Repository CENTERBuildi ng:NEUSAGHB 07/09/2017 [id number] Ambulatory [facility] ding:MTLAB Repository 07/02/2017 [id number] [facility] ding:LAB Repository 06/30/2017 [id number] [facility] ding:LAB Repository PAYERS PAYERS ENCOUNTER GUARANTOR PAYER SUBSCRIBER SOURCE 03/11/2018 ASHA A Primary ASHA Pino [id number] [facility] MEDICAREPolicy [id number] Number: Repository [address]Qma: (779) [id number] [phone] (HP) Date:0302-26-54RY [address] [place] [address]JX: 03/11/2018 Secondary NOT GIVENUNK [place] Insurance:SELF PAY [facility] Number: Effective Repository Date:2018-03-11 02/03/2018 ASHA A Primary Insurance:[place] ASHA Mccann [facility] KOBILARCSIKDOB: MEDICAREPolicy [facility] Number: [id number] Repository FOSNIGHT [id number] [place], [place] Date: [address]Yfy: (HP) 02/03/2018 ASHA A Primary Insurance:[place] ASHA Garcia [facility] HospitalILAR[facility]IKD[facility]: MEDICAREPolicy KOBILARCSGILDOB: Health System Number: [id number] Repository FOSNIGHT [id number] [place], [place] Date: [address]Wpv: (HP) 01/07/2018 ASHA A Primary ASHA Rick [place] [id number] Insurance:[facility] Community [employer] MEDICAREPolicy [id number], [place] Number: Repository [address]Tlr: 330 [id number] [phone] (HP) Date:8862-40-67PW [address] [place] [address]PW: 01/07/2018 Secondary NOT GIVENUNK [place] Insurance:SELF PAY [facility] Number: Effective Repository Date:2017-12-29 12/04/2017 ASHA A Primary Insurance:[place] ASHA Garcia [facility] KOBILARCSIKDOB: MEDICAREPolicy [facility] System Number: [id number] Repository FOSNIGHT [id number] [place], [place] Date: [address]Bqc: (HP) 12/04/2017 ASHA A Primary Insurance:[place] ASHA Mccann [facility] Services[facility]: MEDICAREPolicy KOBILARCSIKDO: Health System [id number] Number: [id number] [facility] [id number], [place] Date: [address]Oou: (YR) 07/09/2017 Asha A Primary Asha [id number] Insurance:[facility]csikD[facility]: Community [employer] MEDICAREPolicy [id number], [place] Number: Repository [address]Qru: [id number] [phone] Date:6065-84-42HU [address] (HP) [address], [place] [address]VZ: 07/09/2017 Secondary NOT GIVENUNK [place] Insurance:SELF PAY [facility] Number: Effective Repository Date:2017-07-09 07/02/2017 Asha A Primary Asha A [place] [id number] Insurance:[facility]: Community [employer] MEDICAREPolicy [id number], [place] Number: Repository [address]Veg: [id number] [phone] Date:0460-22-45OI [address] (HP) 362HAWARD[facility] REG[facility]AL HEALTHCAREROMEOmount [place], [place] [address]NF: 07/02/2017 Secondary NOT GIVENUNK [place] Insurance:SELF PAY [facility] Number: Effective Repository Date:2017-07-02 06/30/2017 Asha A Primary Asha A [place] [id number] Insurance:[facility]ikD[facility]: Community [employer] MEDICAREPolicy [id number], [place] Number: Repository [address]Dme: [id number] [phone] Date:4023-19-97OH [address] (HP) [address]Omount [place], [place] [address]OW: 06/30/2017 Secondary NOT GIVENUNK [place] Insurance:SELF PAY [facility] Number: Effective Repository Date:2017-06-30
== END ==
PROVIDERS: Family Provider Family Medicine; PCP Family Medicine; Referring Provider Family Medicine; Visit Provider Family Medicine
DX: E55.9 Vitamin D deficiency, unspecified (principal); E78.5 Hyperlipidemia, unspecified; E87.6 Hypokalemia
CPT/HCPCS: 36415; 80053; 80061; 82306; 85025

== ENCOUNTER → 2018-08-05 15:13 | Outpatient (CLI) | payer MEDICARE, SELFPAY ==
--- NOTE | 2018-08-05 15:17 | BI_ITS ---
MAMMOGRAPHY - BILATERAL SCREENING REASON FOR EXAM: Female, 72 years old. Routine annual screening examination. PERTINENT HISTORY: Non-contributory. TECHNIQUE: Digital bilateral breast raymond (3D mammographic acquisition) in the CC and MLO projections. 2-D mediolateral oblique (MLO) and craniocaudad (CC) views of both breasts were obtained. CAD: Full Field Digital Mammography with Computer Added Detection was performed. COMPARISON: Comparison is made with prior examination dated March 26, 2017 and March 06, 2016. FINDINGS: Breast Composition: The breasts are almost entirely fatty. There are no dominant masses or suspicious calcifications. Stable scattered bilateral secretory calcifications. No other significant abnormalities are identified. There has been no significant change since the prior study. BI/SCREENING MAMM (CAD), BILAT IMPRESSION: Stable bilateral screening mammogram. Yearly follow-up mammogram recommended. (A) ASSESSMENT CATEGORY: BIRADS Category 2: Benign. A letter regarding these results will be sent to the patient by the facility within 30 days. Approximately 10% of breast cancers are not detected by mammography. A normal mammogram should not delay biopsy of a clinically suspicious abnormality. [id number] Electronically Signed: Magdiel Ching, at 8:08 EDT , Service support ,
--- NOTE | 2018-08-05 15:18 | BD_ITS ---
STUDY: DUAL ENERGY X-RAY ABSORPTIOMETRY / DXA REASON FOR EXAM: Female, 72 years old. The patient is postmenopausal. Loss of height. TECHNIQUE: Bone Mineral Density (BMD) measurements of lumbar spine and bilateral hips were obtained. COMPARISON: Comparison is made with prior study dated March 11, 2016. FINDINGS: Lumbar Spine (L1-L4): g/cm2 (1.252) / T-score (0.4) / Z-score (2.1) Findings are suggestive of normal bone density with a low fracture risk. Left Femur Total: g/cm2 (0.858) / T-score (-1.2) / Z-score (0.3) Left Femoral Neck: g/cm2 (0.796) / T-score (-1.7) / Z-score (0.0) Right Femur Total: g/cm2 (0.872) / T-score (-1.1) / Z-score (0.4) Right Femoral Neck: g/cm2 (0.841) / T-score (-1.4) / Z-score (0.3) The T-Scores on the most recent prior examination were: Lumbar Spine (L1-L4): There has been worsening of bone density since the previous examination. Left Femur Total: which represents an improvement of 1.8%. Right Femur Total: which represents a worsening of 0.6%. BD/Dexa Bone Density Study IMPRESSION: The patient is considered osteopenic as outlined below according to World Ugo Organization (WHO) criteria with a moderate fracture risk. There has been worsening of bone density since the previous examination. Reference Information: The T-score is the number of standard deviations above or below the standard which is normal for young adults at their peak bone mineral density. The World Health Organization (WHO) interprets the T-scores as follows: Above -1 Normal bone density Between -1 and -2.5 Osteopenia Equal to / or below -2.5 Osteoporosis As a practical clinical guideline, osteopenia may be graded as follows: Mild -1 through -1.5 Moderate -1.6 through -2.0 Severe -2.1 through -2.4 The Z-score is the number of standard deviations above or below age-matched controls. A Z-score of less than -1.5 would be considered abnormal. References: 1. NIH Osteoporosis and Related Bone Diseases http://www.osteo.org 2. International Society for Clinical Densitometry http://www.iscd.org 3. National Osteoporosis Foundation http://www.nof.org Electronically Signed: Magdiel Ching, at 15:07 EDT , Service support ,
== END ==
PROVIDERS: Family Provider Family Medicine; PCP Family Medicine; Referring Provider Family Medicine; Visit Provider Family Medicine
DX: M81.0 Age-related osteoporosis without current pathological fracture (principal); Z12.31 Encounter for screening mammogram for malignant neoplasm of breast
CPT/HCPCS: 77063; 77067; 77080

== ENCOUNTER → 2018-09-13 14:27 | Outpatient (CLI) | payer MEDICARE, SELFPAY ==
[2018-09-13 14:42] VITALS: BP 127/55; PULSE 51; RESP 18; TEMP 36.4; O2SAT 96; BMI 40.0
[2018-09-13] MEDS: Zoledronic Acid 5 MG 100 ML 300 MG IV (14:59)
== END ==
PROVIDERS: Family Provider Family Medicine; PCP Family Medicine; Referring Provider Family Medicine; Visit Provider Family Medicine
DX: M81.0 Age-related osteoporosis without current pathological fracture (principal)
CPT/HCPCS: 96365; J7050; A4216; J3489

== ENCOUNTER 2019-09-14 06:51 | Day surgery (SDC) | payer MEDICARE, SELFPAY ==
[2019-03-09 13:25] VITALS: BMI 40.0
[2019-09-14] VITALS (15 sets, daily range): BP systolic 88–128; BP diastolic 37–64; PULSE 63–78; RESP 16–18; TEMP 36.5–37.3; O2SAT 87–98; BMI 41.7
[2019-09-14] MEDS: Lactated Ringers 1,000 ML 100 ML IV (07:24)
--- NOTE | 2019-09-14 07:46 | H&P.OPEN ---
History of Present Illness Date of Admission: 09/14/19 The patient is a 74 year old F for screening colonoscopy. Patient's last colonoscopy was about 10 to 15 years ago negative per patient. Patient was having IBS-like symptoms with constipation and diarrhea however after adding fiber to her diet she has not been having any constipation just occasional diarrhea which was improved from previous. Patient denies any family history of colon cancer. Past Medical/Surgical History - Planned Operation Planned Operative Procedure/s: COLONOSCOPY Date of Operative Procedure: 09/14/19 Permit Signed: Yes S.O.S: No Is This Patient Having a Total Joint: No - Previous Hospitalizations/Surgeries HX Hospitalizations: No HX of Surgeries: CARPAL TUNNEL RIGHT 1993. LAP MARY 1995. RIGHT ELBOW RADIAL HEAD REMOVED 1999. RIGHT SHOULDER SURGERY 1996. LEFT SHOUDLER SURGERY. HEART CATH 1995. D/C 2000. PAIN PUMP INSERTION 10/2016 Any Problems With Anesthesia: No You/Your Family Experience Fever (Hyperthermia) With Anes: No Cholinesterase deficiency: No - Cardiovascular Hx Chest Pain within Last 2 months: No Hx of Irregular Heartbeat and/or Afib: No Hx Heart Attack: No Hx Congestive Heart Failure: No Hx Rheumatic Fever: No Hx Hypertension: Yes - ON MED Hx Internal Defibrillator: No Hx Pacemaker: No Hx Cardiac Catheterization: Yes - 1995 [facility] What facility was last heart cath performed: [facility] Date of last Heart Cath: 1995 Hx Cardiac Surgery/Stents/Etc.: No Hx Stress Test: Yes - 2008 [facility], ECHO 2009 HX Edema: No Hx Pain in Legs when Walking/Leg Cramps: Yes - Respiratory Chronic Cough: No HX of Shortness of Breath: Yes Hoarseness: No Hx Chronic Obstructive Pulmonary Disease (COPD): No Hx Asthma: No Hx Emphysema: No Hx Sleep Apnea: Yes - NON-COMPLIANT, HAS NEW STUDY PALNNED 09/15/19 CPAP: No BIPAP: No Hx Oxygen Use at Home: No Hx Respiratory Tract Infection/Cold (presently): No Result (for STOP score): Positive Hx Smoking: Yes - ONLY 2 YRS 5428-6528 Smoking Status: Former smoker - Gastrointestinal Hx Gastroesophageal Reflux: No Hx Gastrointestinal Disorders: No Hx Gastrointestinal Bleed: No Hx Ulcer: No Hx Hiatal Hernia: No Difficulty Chewing/Swallowing: No Recent Onset of Swallowing Problems: Yes - W/ BREAD Special diet followed at home: No Hx Unplanned Weight Loss of 20#: No HX Unplanned Weight Gain of 20#: No - Neurological Hx Seizures: No - ON KEPPRA FOR LEG SPASMS HX Syncope/Blackout Spells/Unconsciousness: No Hx CVA/Stroke: No Hx Transient Ischemic Attacks (TIA): No Hx Multiple Sclerosis: No Hx Parkinson's Disease: No Hx Head/Neck Injury: No Hx Headaches: Yes Hx Back Injury/Pain: Yes - CHRONIC PAIN, HAS HAD 6 SPINE FX Recent Onset of Speech Difficulty: No Restless Legs: No Does patient have nerve stimulator: No - Blood Disorder Hx Leukemia: No Bleeding Tendencies: No Hx Deep Vein Thrombosis: No Hx High Cholesterol: Yes Blood Transmitted Disease: No Hx Hepatitis: No Hx Cirrhosis: No Hx Anemia: No Hx Blood Disorders: No - Reproduction : No Is Patient Lactating: No Hx Hysterectomy: No Hx Tubal Ligation: No Are You Post Menopause: Yes - Genitourinary Hx Renal Disease: No Hx Dialysis: No - Musculoskeletal Hx Arthritis: Yes - GENERALIZED Hx Rheumatoid Arthritis: No Hx Gout: No Recent Onset of an Orthopedic Problem: No - Endocrine Hx Diabetes: No Thyroid Disease: No Hx Steroid Therapy: No - Psycho/Social Hx Substance Use: No Hx Alcohol Use: No Hx Anxiety: No Hx Depression: Yes - ON MEDS Mental Illness: No Hx Dementia: No - Miscellaneous Hx Cancer: No Recent Exposure to Contagious Disease: No Active MRSA: No Hx of C-Diff: No Any Loose Teeth: No Additional information pertinent to anesthesia:: HAS A DILAUDID PAIN PUMP Allergies No Known Allergies Allergy (Verified 09/14/19 07:11) - Discharge Is Pt Admitted From a Penitentiary, or a Correction: No Who Could Help: DAUGHTER After D/C, Where Do you Plan to Go: Return Home - From the PAT History Number of Risk Factors: 3 - Physical Exam Vitals/I&O's: Vital Signs Temp Pulse Resp BP Pulse Ox 98 F 78 17 128/48 H 96 09/14/19 07:14 09/14/19 07:14 09/14/19 07:14 09/14/19 07:14 09/14/19 07:14 Oxygen Delivery Method Room Air Weight: 235 lb 7.259 oz Body Mass Index (BMI) 41.7 General: Alert, Oriented x3, Cooperative, No apparent distress Lungs: Normal air movement Cardiovascular: Regular rate Abdomen: Soft, Non Tender, Non-Distended, Obese Extremities: No clubbing, No cyanosis Neurological: Cranial nerves II-XII grossly intact Psych/Mental Status: Normal Affect Laboratory Results 09/13/19 12:50: COVID-19 (ARGENIS) Not Detected Current Medications Lactated Ringer's () 1,000 mls @ 100 mls/hr IV .Q10H RITU Last Admin: 09/14/19 07:24 Dose: 100 mls/hr Documented by: Assessment/Plan 74-year-old female for screening for colon cancer Procedure Criteria Procedure Type: Elective Procedure Essential: No COVID Risk Discussion: The surgeon/proceduralist and patient have discussed in detail the risk of exposure to and/or potential harm posed by the COVID-19 virus with having a surgery/procedure at this time versus the risk of delaying the surgery/procedure. It is not possible to know either the risk of delaying the surgery or procedure or chance of getting an infection with perfect accuracy, but a joint decision was made between the patient and the surgeon/proceduralist to proceed at this time with the scheduled surgery/procedure as indicated on the consent form. Surgery Risks - Colonoscopy I discussed with the patient the risks of the procedure: Yes Risks Include but are not Limited To: Risks include but are not limited to: Bleeding, perforation requiring further surgery, inability to complete colonoscopy requiring barium enema. Patient no further questions this time.
--- NOTE | 2019-09-14 08:36 | OP.CCLET_ITS ---
09/14/2019 [facility] [address] [place] [address] Re : Colonoscopy procedure for Asha Lozoya Dear Dr. Devine This procedure was performed on Saturday, September 14, 2019. My impressions and recommendations are as follows: Impressions : - Hemorrhoids found on perianal exam. - Diverticulosis in the sigmoid colon. - Non-bleeding internal hemorrhoids. - The examination was otherwise normal. - No specimens collected. Recommendations : - Discharge patient to home. - High fiber diet. - Continue present medications. - Repeat colonoscopy in 10 years for screening purposes-depending on pt overall health at that time My findings are described in the full procedure note, which is enclosed. If I can be of further assistance, please feel free to contact me at Doctor phone number(s): , Work: . Sincerely, MD Beth Champagne MD 09/14/2019 8:35:41 AM This report has been signed electronically.
--- NOTE | 2019-09-14 08:36 | OP.COLON_ITS ---
Patient Name: Asha Lozoya Procedure Date: 09/14/2019 7:28 AM Date of : 1945 Age: 74 Procedure: Colonoscopy Indications: Screening for colorectal malignant neoplasm Providers: Beth Donnelly MD Referring MD: Gemini Devine Medicines: Monitored Anesthesia Care Patient Profile: This is a 74 year old female. Last Colonoscopy: more than 10 years ago. Complications: No immediate complications. Procedure: Pre-Anesthesia Assessment: - Prior to the procedure, a History and Physical was performed, and patient medications and allergies were reviewed. The patient's tolerance of previous anesthesia was also reviewed. The risks and benefits of the procedure and the sedation options and risks were discussed with the patient. All questions were answered, and informed consent was obtained. Prior Anticoagulants: The patient has taken no previous anticoagulant or antiplatelet agents. ASA Grade Assessment: Per anesthesia. After reviewing the risks and benefits, the patient was deemed in satisfactory condition to undergo the procedure. After I obtained informed consent, the scope was passed under direct vision. Throughout the procedure, the patient's blood pressure, pulse, and oxygen saturations were monitored continuously. The Colonoscope was introduced through the anus and advanced to the cecum, identified by the appendiceal orifice, ileocecal valve and palpation. The colonoscopy was somewhat difficult due to a tortuous colon. Successful completion of the procedure was aided by applying abdominal pressure. Scope In: 7:59:52 AM Scope Withdrawal Time 0 hours 8 minutes 58 seconds Scope Out: 8:26:48 AM Total Procedure Duration Time 0 hours 26 minutes 56 seconds Findings: Hemorrhoids were found on perianal exam. Multiple small-mouthed diverticula were found in the sigmoid colon. Non-bleeding internal hemorrhoids were found. The hemorrhoids were Grade I (internal hemorrhoids that do not prolapse). The exam was otherwise without abnormality. Impression: - Hemorrhoids found on perianal exam. - Diverticulosis in the sigmoid colon. - Non-bleeding internal hemorrhoids. - The examination was otherwise normal. - No specimens collected. Recommendation: - Discharge patient to home. - High fiber diet. - Continue present medications. - Repeat colonoscopy in 10 years for screening purposes-depending on pt overall health at that time Procedure Code(s): --- Professional --- G0121, PT, Colorectal cancer screening; colonoscopy on individual not meeting criteria for high risk Diagnosis Code(s): --- Professional --- Z12.11, Encounter for screening for malignant neoplasm of colon K64.0, First degree hemorrhoids K57.30, Diverticulosis of large intestine without perforation or abscess without bleeding CPT copyright 2017 [employer]. All rights reserved. The codes documented in this report are preliminary and upon drink mixer review may be revised to meet current compliance requirements. MD Beth Champagne MD 09/14/2019 8:35:41 AM This report has been signed electronically. Number of Addenda: 0 Note Initiated On: 09/14/2019 7:28 AM
[2019-09-14] MEDS: Lactated Ringers 1,000 ML 500 ML IV (09:00)
[2019-09-14] MEDS: Ipratropium/Albuterol Sulfate 3 ML AMPUL.NEB INHALATION (10:04)
== END 2019-09-14 10:52 | disposition home or self-care (01) ==
LOC: EN 06:53 → AC 06:55
PROVIDERS: PCP Family Medicine; Referring Provider Family Medicine; Visit Provider Surgery
PROC: 0DJD8ZZ Inspection of Lower Intestinal Tract, Via Natural or Artificial Opening Endoscopic (ICD-10-PCS; CPT 45378; principal; 2019-09-14 07:55)
DX: Z12.11 Encounter for screening for malignant neoplasm of colon (principal); K57.30 Diverticulosis of large intestine without perforation or abscess without bleeding; K64.0 First degree hemorrhoids; I10 Essential (primary) hypertension; Z87.891 Personal history of nicotine dependence; G47.30 Sleep apnea, unspecified; Z91.19 Patient's noncompliance with other medical treatment and regimen; G89.29 Other chronic pain; Z79.899 Other long term (current) drug therapy; Z79.82 Long term (current) use of aspirin; R25.2 Cramp and spasm; E78.00 Pure hypercholesterolemia, unspecified; M19.90 Unspecified osteoarthritis, unspecified site; F32.9 Major depressive disorder, single episode, unspecified
CPT/HCPCS: G0121; 87635; 94640; C9803; G2023; J7120; J2405; U0003

== ENCOUNTER → 2019-11-30 14:04 | Outpatient (CLI) | payer MEDICARE, SELFPAY ==
[2019-09-14 07:14] VITALS: BMI 41.7
--- NOTE | 2019-11-30 14:18 | CT_ITS ---
STUDY: CT LUMBAR SPINE WITHOUT CONTRAST REASON FOR EXAM: Female, 74 years old. SPINAL STENOSIS, PAIN PUMP STIMULATOR RADIATION DOSAGE (If Supplied By Facility): CTDIvol = ( 57.32 ) mGy, DLP = ( 2023.74 ) mGycm TECHNIQUE: The patient was scanned in a multi detector CT scanner. High resolution transaxial imaging was performed. Images were obtained from T11 to sacrum. Sagittal and coronal images were reconstructed. Individualized dose optimization techniques were used for this CT. COMPARISON: January 07, 2018 lumbar spine x-ray, CT scan lumbar spine January 07, 2018 FINDINGS: There is kyphosis at the thoracolumbar junction. There is no substantial scoliosis. There is a similar appearance of the lumbar spine when compared to the prior study September 20, 2014. There is kyphoplasty material at L1. The bones are osteopenic. There is chronic loss of height within the lumbar vertebral bodies most significant at the level of L4 and L5. There is kyphoplasty material in the L1 vertebral body which is lost at least 75% height. At T12-L1 there is severe disc space narrowing moderate neural foramina narrowing mild to moderate central stenosis. There is motion artifact in this study. L1-2: There is broad posterior osteophytosis with moderate neural foramina narrowing moderate central stenosis facet arthropathy. L2-3: There is a broad disc osteophyte facet arthropathy, mild to moderate neural foramina narrowing, minimal central stenosis. L3-4: There is a broad disc osteophyte. There is mild neural foramina narrowing no significant central stenosis. There is a band of hyperdensity in the spinous canal suggesting a prior catheter. There appears to be a banding tubing or calcification in the left posterior spinous soft tissues. L4-5: There is a widened appearance of the central disc space due to the loss of height of the vertebral bodies. There is moderate neural foramina narrowing mild central stenosis. L5-S1: There is disc space narrowing spondylosis vacuum phenomenon bilateral disc osteophyte facet arthropathy with moderate bilateral neural foramina narrowing with minimal central stenosis. There is moderate stool in the colon diverticulosis and no visualized diverticulitis. CT/Spine Lumbar without Contrast IMPRESSION: Similar appearing alignment. There is kyphosis within the thoracolumbar junction. There is no interval loss of height when compared to prior study. There is moderate neural foraminal narrowing moderate central stenosis at the level of L1-L2. Multilevel loss of height of the lumbar vertebral bodies. No significant at L1 where there has been a kyphoplasty. Electronically Signed: Rhiannon Cordoba MD at 7:00 EDT Tel , Service support ,
--- NOTE | 2019-11-30 14:22 | RAD_ITS ---
STUDY: X-RAY CHEST REASON FOR EXAM: Female, 74 years old. Pt c/o dyspnea on inhalation and SOB x months, takes HBP medication, former smoker 40 years ago TECHNIQUE: PA and lateral views of the chest. COMPARISON: February 16, 2015 chest x-ray FINDINGS: The interstitial markings are minimally prominent similar to prior study. There is no demonstrated pleural abnormality. There is mild cardiac enlargement. Normal mediastinum and tez. Normal visualized pulmonary arteries. There is atherosclerotic calcification of the aortic arch with tortuosity. At T9 there is a stable loss of height. This partially visualize kyphoplasty at approximately the level of L1. There is loss of height at L2. There is been a right jugular reduction internal fixation.. Is a right shoulder arthroplasty. There is no demonstrated abnormality of the visualized soft tissue structures of the upper abdomen. RAD/Chest PA and Lateral IMPRESSION: No visualized acute focal infiltrate. Stable lung markings. Postoperative change bilateral shoulders. Degenerative changes thoracolumbar spine. Electronically Signed: Rhiannon Cordoba MD at 6:52 EDT Tel , Service support ,
== END ==
PROVIDERS: PCP Family Medicine
DX: M48.062 Spinal stenosis, lumbar region with neurogenic claudication (principal)
CPT/HCPCS: 71046; 72131

== ENCOUNTER → 2019-12-28 14:52 | Outpatient (CLI) | payer MEDICARE, SELFPAY ==
[2019-09-14 07:14] VITALS: BMI 41.7
--- NOTE | 2019-12-28 14:56 | RAD_ITS ---
STUDY: X-RAY - PELVIS REASON FOR EXAM: Female, 74 years old. PAIN IN PELVIS, MOSTLY ON THE LEFT. PATIENT STATES HAS FALLEN SEVERAL TIMES. PATIENT DOES HAVE A PAIN PUMP. TECHNIQUE: One view of the pelvis was obtained. COMPARISON: None. FINDINGS: There is a non-specific bowel gas pattern. Pain pump on the right. Degenerative lumbar changes. Normal bilateral iliac wings, sacroiliac joints and visualized sacrum. Normal visualized bilateral superior and inferior pubic rami. Normal pubic symphysis. Normal ischial tuberosities. Normal visualized right femoral head. Normal right acetabulum. Normal right hip joint. Normal visualized left femoral head. Normal left acetabulum. Normal left hip joint. RAD/Pelvis 1 or 2 Views IMPRESSION: No acute osseous injury is evident. Electronically Signed: Guillermo Rebolledo MD at 21:09 EDT Tel , Service support ,
--- NOTE | 2019-12-28 15:10 | RAD_ITS ---
STUDY: X-RAY - CERVICAL SPINE REASON FOR EXAM: Female, 74 years old. PAIN AND STIFFNESS IN CERVICAL SPINE. PATIENT STATES HAS FALLEN SEVERAL TIMES. TECHNIQUE: 3 view(s) of the cervical spine were obtained. COMPARISON: 09/06/2015 FINDINGS: Normal anterior atlantoaxial articulation. Normal odontoid process. Normal cervical lordosis. Degenerative disc disease at the C6-7 level. Left carotid calcifications. RAD/Cerv Spine 2 or 3 Views IMPRESSION: Degenerative disc disease at the C6-7 level. Electronically Signed: Guillermo Rebolledo MD at 21:10 EDT Tel , Service support ,
== END ==
PROVIDERS: PCP Family Medicine; Referring Provider Anesthesiology Pain Medicine; Visit Provider Anesthesiology Pain Medicine
DX: M54.2 Cervicalgia (principal)
CPT/HCPCS: 72040; 72170; 73502

== ENCOUNTER → 2020-02-02 15:17 | Outpatient (CLI) | payer MEDICARE, SELFPAY ==
[2019-09-14 07:14] VITALS: BMI 41.7
[2020-02-02 17:20] LABS: Absolute Lymphocyte Count 2.07 X10^3/uL (0.83-4.51); Absolute Neutrophil Count 4.6 X10^3/uL (2.0-7.7); Basophil# 0.03 X10^3/uL; Basophil% 0.4 % (0-1); Eosinophil# 0.09 X10^3/uL; Eosinophils% 1.2 % (0-5); Hematocrit 40.5 % (37-47); Hemoglobin 13.2 g/dL (12.0-15.0); Lymphocyte # 2.07 X10^3/ul (4.0); Lymphocyte % 28.2 % (19-41); Mean Corp Hgb Conc 32.6 g/dL (32-36); Mean Corpuscular Hgb 28.7 pg (27.0-32.0); Mean Platelet Vol. 11.7 fl (6.2-12.0); Monocyte# 0.56 X10^3/uL; Monocyte% 7.6 % (0-10); NRBC Flagged by Analyzer 0 % (0-5); Neutrophil # 4.55 X10^3/uL (2.7-7.7); Neutrophil % 62.2 % (47-70); Platelet Count 261 K/mm3 (150-450); RBC Distribution Width CV 13.3 % (11.6-14.6); RBC Distribution Width SD 42.8 fl (35.1-43.9); White Blood Count 7.3 K/mm3 (4.4-11.0)
[2020-02-02 17:37] LABS: Vitamin B12 317 pg/mL (211-911); Vitamin D,25 Hydroxy 16.5 ng/mL
[2020-02-02 17:41] LABS: ALB/GLOB Ratio 0.9 RATIO (0.9-2.4); AST(SGOT) 12 U/L (15-37); Alanine Aminotransfer ALT/SGPT 26 U/L (13-56); Albumin, Serum 3.8 g/dL (3.2-5.0); Alkaline Phosphatase 108 U/L (45-117); Anion Gap 7 (5-15); BUN 24 mg/dL (7-18); BUN/Creat Ratio 20.7 RATIO (10-20); Calcium,Total 9.5 mg/dL (8.5-10.1); Chloride 98 mmol/L (98-107); Creatinine, Serum 1.16 mg/dL (0.55-1.02); EST Glomerular Filtration Rate 49 mL/min (>60); Est Glom Filt Rate - Afr Amer 59 mL/min (>60); Ferritin 38 ng/mL (8-252); Globulin 4.2 g/dL (2.2-4.2); Glucose 288 mg/dL (74-106); Iron 70 ug/dL (50-170); Magnesium 2.1 mg/dL (1.6-2.6); Potassium 3.9 mmol/L (3.5-5.1); Sodium Level 135 mmol/L (136-145)
== END ==
PROVIDERS: PCP Family Medicine; Visit Provider Family Medicine
DX: E11.9 Type 2 diabetes mellitus without complications (principal); R53.83 Other fatigue; M62.838 Other muscle spasm; E87.6 Hypokalemia; E55.9 Vitamin D deficiency, unspecified
CPT/HCPCS: 36415; 80053; 82306; 82607; 82728; 83540; 83735; 85025

== ENCOUNTER → 2020-03-21 20:29 | Outpatient (CLI) | payer MEDICARE, SELFPAY ==
[2019-09-14 07:14] VITALS: BMI 41.7
== END ==
PROVIDERS: PCP Family Medicine; Referring Provider Psychiatry & Neurology Sleep Medicine; Visit Provider Psychiatry & Neurology Sleep Medicine
DX: G47.33 Obstructive sleep apnea (adult) (pediatric) (principal); G47.31 Primary central sleep apnea; R25.3 Fasciculation
CPT/HCPCS: 95811

== ENCOUNTER → 2020-04-03 13:25 | Outpatient (CLI) | payer MEDICARE, SELFPAY ==
[2019-09-14 07:14] VITALS: BMI 41.7
--- NOTE | 2020-04-03 13:29 | BI_ITS ---
MAMMOGRAPHY - BILATERAL SCREENING REASON FOR EXAM: Female, 74 years old. Routine annual screening examination. PERTINENT HISTORY: Non-contributory. TECHNIQUE: Digital bilateral breast dang (3D mammographic acquisition) in the CC and MLO projections. 2-D mediolateral oblique (MLO) and craniocaudad (CC) views of both breasts were obtained. CAD: Full Field Digital Mammography with Computer Added Detection was performed. COMPARISON: Comparison is made with prior examination dated 08/05/2018 and 03/26/2017. FINDINGS: Breast Composition: The breasts are almost entirely fatty. There are no dominant masses or suspicious calcifications. Stable scattered bilateral secretory calcifications. No other significant abnormalities are identified. There has been no significant change since the prior study. BI/SCREEN MAMM (CAD) W/DANG BILAT IMPRESSION: Stable bilateral screening mammogram. Yearly follow-up mammogram recommended. (A) ASSESSMENT CATEGORY: BIRADS Category 2: Benign. A letter regarding these results will be sent to the patient by the facility within 30 days. Approximately 10% of breast cancers are not detected by mammography. A normal mammogram should not delay biopsy of a clinically suspicious abnormality. [id number] Electronically Signed: Magdiel Ching, at 15:17 EST , Service support ,
== END ==
PROVIDERS: PCP Family Medicine; Referring Provider Family Medicine; Visit Provider Family Medicine
DX: Z12.31 Encounter for screening mammogram for malignant neoplasm of breast (principal)
CPT/HCPCS: 77063; 77067

== ENCOUNTER → 2020-08-23 13:58 | Outpatient (CLI) | payer MEDICARE, SELFPAY ==
[2019-09-14 07:14] VITALS: BMI 41.7
== END ==
PROVIDERS: PCP Family Medicine; Referring Provider Nurse Practitioner Acute Care; Visit Provider Nurse Practitioner Acute Care
DX: Z46.89 Encounter for fitting and adjustment of other specified devices (principal)

== ENCOUNTER → 2020-09-06 13:00 | Outpatient (CLI) | payer MEDICARE, SELFPAY ==
[2019-09-14 07:14] VITALS: BMI 41.7
== END ==
PROVIDERS: PCP Family Medicine; Visit Provider Psychiatry & Neurology Sleep Medicine
DX: Z00.00 Encounter for general adult medical examination without abnormal findings (principal)

== ENCOUNTER → 2021-03-01 12:51 | Outpatient (CLI) | payer MEDICARE, SELFPAY ==
--- NOTE | 2021-03-02 08:53 | PFT ---
INTRODUCTION: The patient is a 75-year-old female that presents for pulmonary function studies secondary to a diagnosis of dyspnea on exertion. Respiratory therapy reported good patient effort. Bronchodilators were used during testing. INTERPRETATION: Forced expiration spirometry demonstrates no evidence of a large airways obstructive ventilatory defect. There was no significant response to aerosolized bronchodilators. Spirograms are of good quality and plateau normally. Body plethysmography was performed and reveals a decreased TLC to 3.3 L, 73% of predicted, indicative of a mild restrictive ventilatory impairment. Diffusing capacity by single breath CO is within normal limits. IMPRESSION: Isolated mild restrictive ventilatory impairment, likely secondary to the patient's body habitus.
== END ==
PROVIDERS: PCP Family Medicine; Referring Provider Family Medicine; Visit Provider Family Medicine
DX: R06.09 Other forms of dyspnea (principal); Z87.891 Personal history of nicotine dependence
CPT/HCPCS: 94060; 94726; 94729

== ENCOUNTER 2021-06-19 12:52 | Outpatient (CLI) | payer MEDICARE, SELFPAY ==
--- NOTE | 2021-06-19 12:56 | BI_ITS ---
MAMMOGRAPHY - BILATERAL SCREENING REASON FOR EXAM: Female, 75 years old. Routine annual screening examination. PERTINENT HISTORY: Non-contributory. TECHNIQUE: Digital bilateral breast dang (3D mammographic acquisition) in the CC and MLO projections. 2-D mediolateral oblique (MLO) and craniocaudad (CC) views of both breasts were obtained. CAD: Full Field Digital Mammography with Computer Added Detection was performed. COMPARISON: Comparison is made with prior study dated 04/03/2020 and 08/05/2018. FINDINGS: Breast Composition: There are scattered areas of fibroglandular density. There are no dominant masses or suspicious calcifications. Stable bilateral secretory calcifications. Stable benign-appearing bilateral axillary lymph nodes. No other significant abnormalities are identified. There has been no significant change since the prior study. BI/SCRN MAMM (CAD)W/DANG BILAT IMPRESSION: Stable bilateral screening mammogram. Yearly follow-up mammogram recommended. (A) ASSESSMENT CATEGORY: BIRADS Category 2: Benign. A letter regarding these results will be sent to the patient by the facility within 30 days. Approximately 10% of breast cancers are not detected by mammography. A normal mammogram should not delay biopsy of a clinically suspicious abnormality. [id number] Electronically Signed: Magdiel Ching MD at 14:10 EDT ,
== END 2021-06-19 23:59 | disposition home or self-care (01) ==
LOC: OPBI 12:53
PROVIDERS: PCP Family Medicine; Visit Provider Family Medicine
DX: Z12.31 Encounter for screening mammogram for malignant neoplasm of breast (principal)
CPT/HCPCS: 77063; 77067

== ENCOUNTER 2022-01-08 18:41 | Emergency (ER) | payer MEDICARE, SELFPAY ==
[2022-01-08 18:43] VITALS: BP 130/68; PULSE 66; RESP 16; TEMP 37.1; O2SAT 96; BMI 40.5
--- NOTE | 2022-01-08 18:55 | RAD_ITS ---
EXAM: XR RIGHT FOOT COMPLETE, 3 OR MORE VIEWS CLINICAL INDICATION: INJURY TECHNIQUE: Frontal, lateral and oblique views of the right foot. This report was created using [employer] report generation technology. COMPARISON: None. FINDINGS: BONES/JOINTS: Fracture the base of the fifth metatarsal bone. There is displacement. Soft tissue swelling. Preservation of the joint space. No sclerotic or destructive changes observed. SOFT TISSUES: See above. RAD/Foot min 3 Views IMPRESSION: Fracture the base of the fifth metatarsal bone. There is displacement. Soft tissue swelling. Electronically Signed: Patrick Rivera MD at 19:12 EDT ,
--- NOTE | 2022-01-08 20:01 | EDS_ITS ---
HPI History of Present Illness Chief Complaint: Lower Extremity Injury Informant: patient Narrative Narrative: About 6:00 this evening the patient stepped down over a dog gate in her house. She felt a pop in her right foot. She has pain there but nowhere else. She did not fall to the ground. Weightbearing and pressing on it makes it worse and rest makes it better. [facility] Medical History (Updated 01/08/22 @ 20:[address] Manfred Bradford MD) Chronic pain syndrome Depressive disorder HTN (hypertension) Morbid obesity Pure hypercholesterolemia RLS (restless legs syndrome) SLE (systemic lupus erythematosus related syndrome) SLE (systemic lupus erythematosus) Sleep apnea Type II diabetes mellitus, uncontrolled Home Medications amlodipine 10 mg tablet 10 mg PO DAILY 02/17/15 [History Last Taken 09/14/19 05:00] aspirin 81 mg chewable tablet 81 mg PO DAILY@0800 02/17/15 [History Last Taken Unknown] calcium citrate 315 mg-vitamin D3 5 mcg (200 unit) tablet 1 ea PO DAILY 02/17/15 [History Last Taken Unknown] gabapentin 300 mg capsule 900 mg PO 4X/DAY 02/17/15 [History Last Taken 09/14/19 05:00] levetiracetam 500 mg tablet 500 mg PO BID 02/17/15 [History Last Taken 09/14/19 05:00] multivitamin,pr-mvfu-mcydeyxp 27 mg-0.4 mg tablet 1 tab PO DAILY 02/17/15 [History Last Taken Unknown] potassium chloride 20 mEq tablet,extended release(part/cryst) 20 meq PO DAILY 02/17/15 [History Last Taken Unknown] cyclosporine 0.05 % eye drops in a dropperette (Restasis) 1 drp ophthalmic (eye) Q12H 03/09/19 [History Last Taken Unknown] diclofenac potassium 50 mg tablet 50 mg PO BID 03/09/19 [History Last Taken Unknown] escitalopram oxalate 10 mg tablet (Lexapro) 10 mg PO DAILY 03/09/19 [History Last Taken Unknown] hydroxyzine HCl 25 mg tablet 25 mg PO QHS PRN Sleep 03/09/19 [History Last Taken Unknown] lovastatin 40 mg tablet 40 mg PO DAILY 03/09/19 [History Last Taken Unknown] valsartan 320 mg-hydrochlorothiazide 25 mg tablet 1 tab PO DAILY 03/09/19 [History Last Taken Unknown] Allergy/AdvReac Type Severity Reaction Status Date / Time No Known Allergies Allergy Verified 09/14/19 07:11 Family History Mother Cancer Heart disease Hypertension Father CAD (coronary artery disease) Heart disease Hypertension Surgical History H/O elbow surgery History of shoulder surgery S/P arthroscopy of left shoulder S/P carpal tunnel release S/P laparoscopic cholecystectomy S/P right heart catheterization Social History Smoking Status: Former smoker alcohol intake: never ROS ROS ED Gastrointestinal Gastrointestinal: Denies nausea or vomiting Musculoskeletal Musculoskeletal: Reports arthralgias, back pain and other Details: Patient has chronic back pain and Dilaudid pain pump in. Integumentary Denies abscess, Abrasions or rash Neurologic Neurologic: Denies paresthesias or weakness Hematologic/Lymphatic Hematologic/Lymphatic: Denies easy bleeding or easy bruising EXAM Physical Exam Const Vital Signs: 01/08/22 18:43 Temperature 98.7 F Temperature Source Temporal Pulse Rate 66 Respiratory Rate 16 Blood Pressure 130/68 H Blood Pressure Mean 88 Pulse Ox 96 Oxygen Delivery Method Room Air Positive well nourished and well developed General Appearance ED: well developed HEENT atraumatic Resp normal respiratory effort Extremity Extremity Narrative: Patient has a small amount of swelling and early bruising in the lateral aspect of the right foot. Localized tenderness there. But no deformity. No tenderness of the ankle calcaneus or toes. No proximal tenderness. Capillary refill is normal. Sensation is grossly normal. Neuro no sensory deficits noted Sensorium / Orientation: alert Motor Exam: strength 5/5 throughout Skin no wounds Trauma: Negative for abrasion or laceration MDM MDM MDM Narrative Medical decision making narrative: Three-view x-ray shows fracture of the base of the fifth metatarsal. This does appear to be a true Abebe fracture. I explained this to the patient including the high rate of nonunion and healing. I also discussed the possibility of surgery. We will place her in a boot immobilizer at this time that can adjust for swelling. She has a walker at home that she can use. She should be essentially nonweightbearing on this. We will have her follow-up with orthopedics. She already has a pain pump in so she will take Tylenol if needed for any extra pain. Radiography Diagnostic Testing: Clinical Impression(s) from Imaging Studies Foot X-Ray 01/08/22 18:55 IMPRESSION: Fracture the base of the fifth metatarsal bone. There is displacement. Soft tissue swelling. Electronically Signed: Patrick Rivera MD at 19:12 EDT , Three-view x-ray looked at me and read by radiology shows fracture of the base of the fifth metatarsal. Discharge Plan Triage Chief Complaint: Lower Extremity Injury ED Provider: Manfred Bradford Dx/Rx/DC Orders Clinical Impression: Abebe fracture Instructions: Fifth Metatarsal Fx Prescriptions: No Action diclofenac potassium 50 mg tablet 50 mg PO BID hydroxyzine HCl 25 mg tablet 25 mg PO QHS PRN (Reason: Sleep) escitalopram oxalate [Lexapro] 10 mg tablet 10 mg PO DAILY lovastatin 40 mg tablet 40 mg PO DAILY Restasis 0.05 % dropperette 1 drp OPHTHALMIC Q12H levetiracetam 500 MG tablet 500 mg PO BID potassium chloride 20 MEQ tablet 20 meq PO DAILY amlodipine 10 MG tablet 10 mg PO DAILY gabapentin 300 MG capsule 900 mg PO 4X/DAY Label Comments: 3 OR 4 TIMES PER DAY aspirin 81 MG tablet,chewable 81 mg PO DAILY@0800 multivitamin,cf-qxwi-qesjclrv 1 TABLET tablet 1 tab PO DAILY calcium citrate-vitamin D3 1 EACH tablet 1 ea PO DAILY valsartan-hydrochlorothiazide 320-25 mg tablet 1 tab PO DAILY Primary Care Provider: Gemini Devine Referrals: Gemini Devine DO [Primary Care Provider] - Nakul Lynch DO [Med Staff - Active Staff] - 3-5 Days Disposition Disposition: Home, Self Care
== END 2022-01-08 20:27 | disposition home or self-care (01) ==
LOC: ED 20:13
PROVIDERS: Emergency Provider Emergency Medicine; PCP Family Medicine; Visit Provider Emergency Medicine
DX: S92.351A Displaced fracture of fifth metatarsal bone, right foot, initial encounter for closed fracture (principal); G47.30 Sleep apnea, unspecified; Z87.891 Personal history of nicotine dependence; X58.XXXA Exposure to other specified factors, initial encounter
CPT/HCPCS: 73630; 99282

== ENCOUNTER → 2022-06-24 | Outpatient (CLI) | payer MEDICARE, SELFPAY ==
--- NOTE | 2022-06-24 10:31 | BI_ITS ---
MAMMOGRAPHY - BILATERAL SCREENING REASON FOR EXAM: Female, 76 years old. Routine annual screening examination. PERTINENT HISTORY: Non-contributory. TECHNIQUE: Digital bilateral breast dang (3D mammographic acquisition) in the CC and MLO projections. 2-D mediolateral oblique (MLO) and craniocaudad (CC) views of both breasts were obtained. CAD: Full Field Digital Mammography with Computer Added Detection was performed. COMPARISON: Comparison is made with prior study of June 19, 2021 and April 03, 2020. FINDINGS: Breast Composition: The breasts are almost entirely fatty. There are no dominant masses or suspicious calcifications. Stable bilateral secretory calcifications. No focal clustering is seen. Stable fat-containing bilateral axillary lymph nodes. No other significant abnormalities are identified. There has been no significant change since the prior study. BI/SCRN MAMM (CAD)W/DANG BILAT IMPRESSION: Stable bilateral screening mammogram. Yearly follow-up mammogram recommended. (A) ASSESSMENT CATEGORY: BIRADS Category 2: Benign. A letter regarding these results will be sent to the patient by the facility within 30 days. Approximately 10% of breast cancers are not detected by mammography. A normal mammogram should not delay biopsy of a clinically suspicious abnormality. [id number] Electronically Signed: Magdiel Ching MD at 13:26 EDT ,
--- NOTE | 2022-06-24 10:38 | BD_ITS ---
STUDY: DUAL ENERGY X-RAY ABSORPTIOMETRY / DXA REASON FOR EXAM: Female, 76 years old. M810 TECHNIQUE: Bone Mineral Density (BMD) measurements of lumbar spine and bilateral hips were obtained. COMPARISON: Comparison is made with prior study dated August 05, 2018. FINDINGS: Lumbar Spine (L1-L4): g/cm2 (1.134) / T-score (0.5) / Z-score (3.0) Findings are suggestive of normal bone density with a low fracture risk. Left Femur Total: g/cm2 (0.876) / T-score (-0.5) / Z-score (1.2) Left Femoral Neck: g/cm2 (0.616) / T-score (-2.1) / Z-score (0.0) Right Femur Total: g/cm2 (0.833) / T-score (-0.9) / Z-score (0.9) Right Femoral Neck: g/cm2 (0.655) / T-score (-1.7) / Z-score (0.3) The T-Scores on the most recent prior examination were: Lumbar Spine (L1-L4): There has been improvement of bone density since the previous examination. Left Femur Total: which represents an improvement of 9.9%. Right Femur Total: which represents an improvement of 2.8%. BD/Dexa Bone Density Study IMPRESSION: The patient is considered osteopenic as outlined below according to World [employer] Organization (WHO) criteria with a high fracture risk. There has been improvement of bone density since the previous examination. Reference Information: The T-score is the number of standard deviations above or below the standard which is normal for young adults at their peak bone mineral density. The World Health Organization (WHO) interprets the T-scores as follows: Above -1 Normal bone density Between -1 and -2.5 Osteopenia Equal to / or below -2.5 Osteoporosis As a practical clinical guideline, osteopenia may be graded as follows: Mild -1 through -1.5 Moderate -1.6 through -2.0 Severe -2.1 through -2.4 The Z-score is the number of standard deviations above or below age-matched controls. A Z-score of less than -1.5 would be considered abnormal. References: 1. NIH Osteoporosis and Related Bone Diseases www osteo.org 2. International Society for Clinical Densitometry www iscd.org 3. National Osteoporosis Foundation www nof.org Electronically Signed: Magdiel Ching MD at 12:26 EDT ,
== END | disposition home or self-care (01) ==
LOC: OPBD 10:29
PROVIDERS: PCP Family Medicine; Visit Provider Family Medicine
DX: M81.0 Age-related osteoporosis without current pathological fracture (principal); Z12.31 Encounter for screening mammogram for malignant neoplasm of breast
CPT/HCPCS: 77063; 77067; 77080

== ENCOUNTER 2022-07-22 15:50 | Emergency (ER) | payer MEDICARE, SELFPAY ==
[2022-07-22 15:51] VITALS: BP 159/76; PULSE 65; RESP 16; TEMP 36.6; O2SAT 99; BMI 37.5
--- NOTE | 2022-07-22 16:25 | CT_ITS ---
STUDY: CTA HEAD AND NECK WITH CONTRAST REASON FOR EXAM: Female, 76 years old. trama, vascular injury RADIATION DOSAGE (If Supplied By Facility): CTDIvol = ( 29.58 ) mGy, DLP = ( 1396.89 ) mGycm TECHNIQUE: CT angiography was performed with a multi-detector CT scanner. Data acquisition was obtained from the skull base through the vertex following intravenous administration of IV 100mL Isovue-370. MIP images were reconstructed from the axial data set. Post-processing of the angiographic images was performed, with multiplanar reformation and 3D reconstruction. Individualized dose optimization techniques were used for this CT. COMPARISON: No relevant priors. FINDINGS: Normal bilateral petrous carotid arteries. Normal right cavernous carotid artery with a normal supraclinoid bifurcation. Normal left cavernous carotid artery with a normal supraclinoid bifurcation. Normal right A1 segments of the anterior cerebral artery. Normal left A1 segments of the anterior cerebral artery. Normal intact anterior communicating artery (ACOM). Normal bilateral A2 segments of the anterior cerebral arteries. Normal right M1 and M2 segments of the middle cerebral arteries, with a normal M1 bifurcation. Normal left M1 and M2 segments of the middle cerebral arteries, with a normal M1 bifurcation. Normal right posterior communicating artery (PCOM). Normal left posterior communicating artery (PCOM). Normal bilateral vertebral arteries. Normal basilar artery with a normal basilar bifurcation. The visualized bilateral superior cerebellar (SCA) arteries are normal. Normal bilateral P1, P2 and visualized P3 segments of the posterior cerebral arteries. There is no demonstrated aneurysm of the [place]. There is no demonstrated abnormality of the visualized brain. AORTIC ARCH: There is atherosclerotic calcific plaque formation of the aortic arch and great vessels arising from the aortic arch, without a hemodynamically significant stenosis. There is a normal origin of the brachiocephalic, left common carotid, and left subclavian arteries. Normal origins of the brachiocephalic, left common carotid, and left subclavian arteries. RIGHT CAROTID ARTERIES: Normal right common carotid artery (CCA). Normal right common carotid bulb. Normal origin of the right internal carotid (ICA) artery without a hemodynamically significant stenosis. Normal visualized cervical portion of the right internal carotid artery. Normal origin of the right external carotid artery (ECA). LEFT CAROTID ARTERIES: Normal left common carotid artery (CCA). Normal left common carotid bulb. There is mild atherosclerotic plaque formation of the origin of the left internal carotid artery with less than 50% cross sectional diameter stenosis. Normal visualized cervical portion of the left internal carotid artery. Normal origin of the left external carotid artery (ECA). VERTEBRAL ARTERIES: Normal bilateral vertebral arteries. Left thyroid likely mildly calcified peripheral nodule is present measuring 9.[address]/CTA Head AND Neck W/ Contrast IMPRESSION: 1. No evidence of significant steno-occlusive disease or aneurysm. 2. Left thyroid mildly calcified versus enhancing peripheral nodule measuring 1 cm. Electronically Signed: Osito Umana DO at 18:23 EDT ,
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
[2022-07-22 17:26] LABS: Absolute Lymphocyte Count 1.97 X10^3/uL (0.83-4.51); Absolute Neutrophil Count 4.7 X10^3/uL (2.0-7.7); Basophil# 0.03 X10^3/uL; Basophil% 0.4 % (0-1); Eosinophil# 0.31 X10^3/uL; Eosinophils% 4.1 % (0-5); Hematocrit 41.7 % (37-47); Hemoglobin 14.1 g/dL (12.0-15.0); Lymphocyte # 1.97 X10^3/ul (0.83-4.51); Lymphocyte % 25.9 % (19-41); Mean Corp Hgb Conc 33.8 g/dL (32-36); Mean Corpuscular Hgb 29.7 pg (27.0-32.0); Mean Platelet Vol. 10.5 fl (6.2-12.0); Monocyte% 7.9 % (0-10); NRBC Flagged by Analyzer 0 % (0-5); Neutrophil # 4.67 X10^3/uL (2.7-7.7); Neutrophil % 61.4 % (47-70); Platelet Count 244 K/mm3 (150-450); RBC Distribution Width CV 12.9 % (11.6-14.6); RBC Distribution Width SD 41.7 fl (35.1-43.9); Red Blood Count 4.74 M/mm3 (4.2-5.4); White Blood Count 7.6 K/mm3 (4.4-11.0)
[2022-07-22 17:35] LABS: Prothrombin Time (Protime)PT. 13.3 SECONDS (11.7-14.9)
[2022-07-22 17:36] LABS: Partial Thromboplast Time 30.9 Seconds (24.1-36.2)
[2022-07-22 17:39] LABS: Anion Gap 4 (5-15); BUN 12 mg/dL (7-18); BUN/Creat Ratio 16.5 RATIO (10-20); Calcium,Total 9.4 mg/dL (8.5-10.1); Chloride 101 mmol/L (98-107); Creatinine, Serum 0.73 mg/dL (0.55-1.02); EST Glomerular Filtration Rate 83 mL/min (>60); Est Glom Filt Rate - Afr Amer 100 mL/min (>60); Estimated Creatinine Clearance 40.83 ml/min; Glucose 123 mg/dL (74-106); Potassium 3.3 mmol/L (3.5-5.1); Sodium Level 137 mmol/L (136-145)
[2022-07-22 18:53] VITALS: BP 126/76; PULSE 64; RESP 18; TEMP 36.6; O2SAT 100
== END 2022-07-22 18:54 | disposition home or self-care (01) ==
PROVIDERS: Emergency Provider Emergency Medicine; PCP Family Medicine; Visit Provider Emergency Medicine
DX: S10.93XA Contusion of unspecified part of neck, initial encounter (principal); G89.4 Chronic pain syndrome; G47.30 Sleep apnea, unspecified; V48.9XXA Unspecified car occupant injured in noncollision transport accident in traffic accident, initial encounter; Z87.891 Personal history of nicotine dependence
CPT/HCPCS: 70496; 70498; 71045; 80048; 85025; 85610; 85730; 99283; Q9967; A4216

== ENCOUNTER → 2022-09-10 | Outpatient (CLI) | payer MEDICARE, SELFPAY ==
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
== END | disposition home or self-care (01) ==
LOC: RAD 13:08
PROVIDERS: PCP Family Medicine; Referring Provider Anesthesiology Pain Medicine; Visit Provider Anesthesiology Pain Medicine
DX: M54.50 Low back pain, unspecified (principal); G89.29 Other chronic pain
CPT/HCPCS: 72100

== ENCOUNTER → 2023-01-05 | Outpatient (CLI) | payer MEDICARE, MEDICAID, SELFPAY ==
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
[2023-01-05 16:33] LABS: CREATININE FINGERSTICK < 0.9 mg/dL (0.55-1.02); EGFR FINGERSTICK > 60.0000 mL/min (>60)
== END | disposition home or self-care (01) ==
PROVIDERS: PCP Family Medicine; Referring Provider Family Medicine; Visit Provider Family Medicine
DX: R19.02 Left upper quadrant abdominal swelling, mass and lump (principal)
CPT/HCPCS: 74177; Q9967; A4216

== ENCOUNTER → 2023-01-21 | Outpatient (CLI) | payer MEDICARE, MEDICAID, SELFPAY ==
[2023-01-21 16:19] LABS: Erythrocyte Sedimentation Rate 18 mm/hr (0-30)
[2023-01-21 16:23] LABS: CRP < 2.90 mg/L (0.0-3.0); Rheumatoid Factor < 10.0 IU/mL (<15)
[2023-01-23 12:08] LABS: ANTINUCLEAR ANTIBODIES DIRECT Negative (Negative)
[2023-01-23 13:07] LABS: CCP IgG Antibodies 6 units (0-19)
== END | disposition home or self-care (01) ==
LOC: BFHLAB 13:17
PROVIDERS: PCP Family Medicine; Visit Provider Family Medicine
DX: M25.50 Pain in unspecified joint (principal); M32.9 Systemic lupus erythematosus, unspecified
CPT/HCPCS: 36415; 85652; 86038; 86140; 86200; 86225; 86235; 86431

== ENCOUNTER 2023-02-24 07:04 | Day surgery (SDC) | payer MEDICARE, MEDICAID, SELFPAY ==
[2023-02-24] MEDS: Lactated Ringers 1,000 ML 15 ML IV (07:41)
[2023-02-24 07:42] VITALS: BP 165/68; PULSE 86; RESP 18; TEMP 37; O2SAT 96; BMI 38.7
--- NOTE | 2023-02-24 07:47 | PCM.HP.BLA ---
History and Physical Date of Admission: 02/24/23 Intake Vital Signs 07/22/2314:51 01/06/2314:11 Height 5 ft 3 in 5 ft 2.5 in Weight: 216 lb BMI 38.8 BP 162/65 H Blood Pressure Location Rt brachial Position Sitting Respiration 18 Intake Visit Reasons: Dysphagia Allergies No Known Allergies Allergy (Verified 01/06/23 14:12) PFSH Medical History (Updated 01/06/23 @ 14:11 by Margarita Blanchard) Arthritis Back pain Chronic pain syndrome Depressive disorder Dysphagia HTN (hypertension) Morbid obesity Pure hypercholesterolemia Rheumatoid arthritis RLS (restless legs syndrome) SLE (systemic lupus erythematosus related syndrome) SLE (systemic lupus erythematosus) Sleep apnea Type II diabetes mellitus, uncontrolled Surgical History H/O elbow surgery History of shoulder surgery S/P arthroscopy of left shoulder S/P carpal tunnel release S/P laparoscopic cholecystectomy S/P right heart catheterization Family History Mother Cancer Heart disease HypertensionFather CAD (coronary artery disease) Heart disease Hypertension Social History Smoking Status: Former smoker alcohol intake: never HPI HPI HPI: Patient is a 77-year-old female with dysphagia. She reports that swallowing bread and potatoes especially makes food stick in her midesophagus. She also says that occasionally she does cough up liquids. She denies nausea or vomiting. She is not on a PPI she denies GERD. ROS General General: Yes fatigue; No weight change, appetite, colon cancer, breast cancer or weakness HEENT HEENT: Yes difficulty swallowing, eye injury and eye surgery; No swollen glands or hoarseness Endo Endocrine: Yes diabetes mellitus; No thyroid disease, thyroid cancer, Hair loss, heat intolerance or cold intolerance Skin Skin: Yes changing moles; No rash Breast Breast: No left breast lump, right breast lump, nipple discharge, breast pain, abnormal mammogram, abnormal US or breast enlargement Musc Musculoskeletal: Yes back problems, arthritis and rheumatoid arthritis; No gout or joint pain Cardio Cardiovascular: Yes high blood pressure; No murmur, pacemaker, heart disease, atrial fibrillation, heart attack, heart stent, palpitations, shortness of breat with exertion or chest pain Psych Psychiatric: Yes depression and anxiety; No hearing voices Resp Respiratory: Yes shortness of breath, Yes sleep apnea, No cough, No COPD, No asthma, No emphysema and No wheezing Gastro Gastrointestinal: No abdominal pain, No nausea or vomiting, Yes diarrhea, No constipation, No blood in stool, No acid reflux, Yes hemorrhoids, No ulcers, No gallbladder problem and No black,tarry stools Emiliano Hematologic: No blood thinners, No blood disorders, No bleeding, No anemia and No blood clots Neuro Neurologic: No system reviewed and no additional complaints, except as documented, No as per HPI, No abnormal gait, No abnormal hearing, No abnormal movements, No abnormal speech, No behavioral changes, No burning sensations, No confusion, No convulsions, No disequilibrium, No dizziness, No localized weakness, No frequent falls, No headache(s), No lack of coordination, No loss of vision, No memory loss, Yes numbness, No other visual disturbances, No radicular pain, No restless legs, No sensory deficit, No syncope, Yes tingling, No tremor(s), No weakness and No other Exam Const General: cooperative Orientation: alert and oriented x3 HENMT Head: normal to inspection Neck Neck: normal visual inspection and full ROM Chest Chest palpation & inspection: normal inspection of the chest Resp Effort & Inspection: normal respiratory effort Auscultation: clear to auscultation bilaterally Cardio Rate: regular rate Rhythm: regular rhythm GI Inspection: non-distended Palpation: soft and nontender Skin General: no rashes or lesions noted Neuro General: patient alert and patient oriented x3 Extrem General: full ROM Psych Appearance: grossly normal Mental Status: mental status grossly normal Assessment and Plan Assessment and Plan (1) Dysphagia: Qualifiers: Dysphagia type: esophageal phase Qualified Code(s): R13.19 - Other dysphagia Plan: The patient is having esophageal dysphagia. I recommended EGD with dilation or possible biopsy. I explained endoscopy in detail to the patient. I explained the risks including but not limited to stroke or heart attack with anesthesia, perforation of the GI tract, bleeding, infection. I also discussed the increased risk of perforation and bleeding with dilation. I explained that any of these could necessitate further emergency surgery. The patient understands and all questions were answered sufficiently. The patient wishes to proceed with procedure. Patient will hold aspirin for 5 days prior to the procedure. Bladimir Rosales MD Pager: [facility] [address] [place] [address], [address] [place] [address] Office: I have examined the patient and the H&P has been reviewed. There are no clinical changes since date of exam.
[2023-02-24 08:07] LABS: Bedside Glucose 159 mg/dL (74-106)
[2023-02-24 08:10] VITALS: BP 138/63; BP 165/68; PULSE 67; RESP 18; TEMP 36.8; O2SAT 88
--- NOTE | 2023-02-24 08:10 | OP.CCLET_ITS ---
02/24/2023 Gemini Devine [address] [facility] [place] [address] Re : Upper GI endoscopy procedure for Asha Devora Dear Dr. Devine This procedure was performed on Friday, February 24, 2023. My impressions and recommendations are as follows: Impressions : - Normal esophagus. - Normal stomach. - Normal examined duodenum. - No specimens collected. Recommendations : - Discharge patient to home. - Resume previous diet. - Continue present medications. - Resume aspirin at prior dose today. - Discharge patient to home. - Resume previous diet. - Continue present medications. My findings are described in the full procedure note, which is enclosed. If I can be of further assistance, please feel free to contact me at Doctor phone number(s): , Work: . Sincerely, Bladimir Rosales MD 02/24/2023 8:10:25 AM This report has been signed electronically.
--- NOTE | 2023-02-24 08:10 | OP.EGD_ITS ---
Patient Name: Asha Lozoya Procedure Date: 02/24/2023 7:36 AM Date of : 1945 Age: 77 Procedure: Upper GI endoscopy Indications: Dysphagia Providers: Bladimir Roasles MD Medicines: Monitored Anesthesia Care Patient Profile: This is a 77 year old female. Refer to note in patient chart for documentation of history and physical. Complications: No immediate complications. Procedure: Pre-Anesthesia Assessment: - Prior to the procedure, a History and Physical was performed, and patient medications and allergies were reviewed. The patient's tolerance of previous anesthesia was also reviewed. The risks and benefits of the procedure and the sedation options and risks were discussed with the patient. All questions were answered, and informed consent was obtained. Prior Anticoagulants: The patient has taken no anticoagulant or antiplatelet agents except for aspirin. After reviewing the risks and benefits, the patient was deemed in satisfactory condition to undergo the procedure. After obtaining informed consent, the endoscope was passed under direct vision. Throughout the procedure, the patient's blood pressure, pulse, and oxygen saturations were monitored continuously. The Endoscope was introduced through the mouth, and advanced to the fourth part of duodenum. The upper GI endoscopy was accomplished without difficulty. The patient tolerated the procedure well. Scope In: 8:00:54 AM Scope Out: 8:04:34 AM Total Procedure Duration Time 0 hours 3 minutes 40 seconds Findings: The esophagus was normal. The stomach was normal. The examined duodenum was normal. Impression: - Normal esophagus. - Normal stomach. - Normal examined duodenum. - No specimens collected. Recommendation: - Discharge patient to home. - Resume previous diet. - Continue present medications. - Resume aspirin at prior dose today. - Discharge patient to home. - Resume previous diet. - Continue present medications. Procedure Code(s): --- Professional --- 43594, Esophagogastroduodenoscopy, flexible, transoral; diagnostic, including collection of specimen(s) by brushing or washing, when performed (separate procedure) Diagnosis Code(s): --- Professional --- R13.10, Dysphagia, unspecified CPT copyright 2021 [employer]. All rights reserved. The codes documented in this report are preliminary and upon commercial real estate paralegal review may be revised to meet current compliance requirements. Bladimir Rosales MD 02/24/2023 8:10:25 AM This report has been signed electronically. Number of Addenda: 0 Note Initiated On: 02/24/2023 7:36 AM
[2023-02-24 08:15] VITALS: BP 154/71; BP 165/68; PULSE 63; RESP 18; O2SAT 98
[2023-02-24 08:20] VITALS: BP 135/68; BP 165/68; PULSE 65; RESP 18; O2SAT 97
[2023-02-24 08:25] VITALS: BP 135/69; BP 165/68; PULSE 57; RESP 18; TEMP 37.2; O2SAT 97
[2023-02-24 08:39] VITALS: BP 165/68
== END 2023-02-24 09:16 | disposition home or self-care (01) ==
LOC: EN 07:07 → AC 07:08
PROVIDERS: PCP Family Medicine; Referring Provider Family Medicine; Visit Provider Surgery
PROC: 0DJ08ZZ Inspection of Upper Intestinal Tract, Via Natural or Artificial Opening Endoscopic (ICD-10-PCS; CPT 43235; principal; 2023-02-24 08:10)
DX: R13.10 Dysphagia, unspecified (principal); E66.01 Morbid (severe) obesity due to excess calories; E11.9 Type 2 diabetes mellitus without complications; E78.00 Pure hypercholesterolemia, unspecified; Z68.38 Body mass index [BMI] 38.0-38.9, adult; I10 Essential (primary) hypertension; G47.30 Sleep apnea, unspecified; Z79.82 Long term (current) use of aspirin; Z79.84 Long term (current) use of oral hypoglycemic drugs; Z79.899 Other long term (current) drug therapy; Z87.891 Personal history of nicotine dependence; F32.A Depression, unspecified
CPT/HCPCS: 43235; 82962; J7120; J2405

== ENCOUNTER → 2023-03-25 | Outpatient (CLI) | payer MEDICARE, MEDICAID, SELFPAY ==
--- NOTE | 2023-03-25 15:07 | ST.MBS ---
Modified Barium Swallow Patient Information Study Date: 03/25/23 Study Time: 13:00 Direct Billable Minutes: 113 Total Minutes procedure & reportin Diagnosis: Dysphagia R13.10, SLE M32.9 Referring Physician: Bladimir Rosales Reason for Referral: Objectively assess swallow function, assess risk for aspiration, and determine recommendations for least restrictive diet textures and compensatory strategies to improve safety of swallow. Medical History: PMH: Dysphagia, Systematic lupus erythematosus (SLE), Arthritis, HTN, Pure Hypercholesterolemia, Sleep apnea, Shortness of breath (per patient, follows w/ a director of operations), Fibromyalgia, DM type II (SEE EMR for full PMH). The patient reports having GERD years ago, but no recent heartburn. She is experiencing retention of bread, potatoes, cereal, and adhesive foods in her mid esophagus. When foods become caught, she can't get them to go up or down, and sometimes she feels like something will get into her airway. Fortunately, she has always been able to breathe when this issue occurs and has not needed the Heimlich. She also will occasionally cough up liquids. Recent EGD 02/24/[address] Rosales showed normal esophagus and stomach. He referred her for MBSS to further assess swallow function. LINING FOLDER asked the patient to describe the symptoms of her SLE. She reports she will have flare ups that increase her fatigue and exacerbate the symptoms of her arthritis and fibromyalgia. She denies increased difficulty swallowing during these flare ups. Current Diet Ordered: Regular textures / Thin liquids Dentition: WNL Mental Status: WNL Respiratory Status: Oxygenating on Room Air Penetration-Aspiration Scale Penetration-Aspiration Scale: OBJECTIVE ASSESSMENT OF SWALLOW FUNCTION (QUANTITATIVE ? PER TRIAL): PENETRATION / ASPIRATION SCALE (AL): 1 = does not enter airway 2 = enters airway/above vocal folds/ejected 3 = enters airway/above vocal folds/not ejected 4 = enters airway/contacts vocal folds/ejected 5 = enters airway/contacts vocal folds/not ejected 6 = enters airway/below vocal folds/ejected 7 = enters airway/below vocal folds/not ejected despite effort 8 = enters airway/below vocal folds/no effort VIDEOFLOROSCOPIC SCALE SCORE (AL): Grade I = aspiration of material that has penetrated into the laryngeal vestibule, intact cough reflex Grade II = aspiration < 10 % of the bolus, intact cough reflex Grade III = aspiration of < 10 % of the bolus, reduced cough reflex or aspiration of > 10 % of the bolus, intact cough reflex Grade IV = aspiration of > 10 % of the bolus, reduced cough reflex Penetration-Aspiration Scale Score Thin Liquid via teaspoon: Result: 2= enter airway/above vocal folds/ejected Thin Liquid via teaspoon Trial 2: Result: 2= enter airway/above vocal folds/ejected Thin Liquid via small single sip: cup: Result: 2= enter airway/above vocal folds/ejected [place] Thick Liquid via small single sip: cup: Result: 1= does not enter airway Pudding via teaspoon: Result: 1= does not enter airway Comment: Esophageal Screen - Retention of pudding in the mid esophagus. Retrograde flow of pudding from the stomach and through the lower esophageal sphincter (LES) to the lower esophagus. Thin liquid wash greatly improved clearance, but retention of barium contrast remained in the mid esophagus. 1/2 Cookie: Result: 1= does not enter airway Thin Liquid via sequential sips:straw: Result: 4= enters airway/contacts vocal folds/ejected Thin Liquid via single sip: straw: Result: 2= enter airway/above vocal folds/ejected Oral Phase Labial Seal: No Labial Escape Tongue Control During Bolus Hold: Posterior escape of greater than half of bolus Bolus Preparation/Mastication: Disorganized chewing/mashing with solid pieces of bolus unchewed (quick mastication, small pieces of cookie did not appear fully chewed) Bolus Transport/Lingual Motion: Slowed tongue motion Oral Residue: Trace residue lining oral structures Pharyngeal Phase Initiation of Pharyngeal Swallow: Bolus head in pyriforms Soft Palate Elevation: Trace column of contrast/air between soft palate and pharyngeal wall Laryngeal Elevation: Comp. Superior move thyroid cart w/comp. apprx arytenoid cart-epig pet Anterior Hyoid Excursion: Partial anterior movement Epiglottic Movement: Complete inversion Laryngeal Vestibule Closure at Height of Swallow: Incomplete; narrow column of air/contrast in laryngeal vestibule Pharyngeal Stripping Wave: Present - complete Pharyngoesophageal Segment Opening: Complete distension and complete duration; no obstruction of flow Tongue Base Retraction: Trace column of contrast between tongue base & post. pharyngeal wall Pharyngeal Residue: Trace residue within or on pharyngeal structures Esophageal Phase Esophageal Clearance: Esophageal retention w/ retrograde flow below pharyngoesophageal seg. Diagnosis/Impression Diagnosis: Mild oropharyngeal phase dysphagia R13.12; Esophageal dysphagia R13.14 Impression: The oral phase is primarily marked by... -Decreased bolus control with >1/2 of the bolus spilling posteriorly to the pyriforms prior to swallow onset observed with thin liquids especially. -Slowed tongue motion for A-P transport. -Quick mastication of cookie trial with small pieces appearing un-chewed. The pharyngeal phase is primarily marked by... -Decreased airway closure during the swallow due to mildly decreased anterior hyoid excursion. -Delayed swallow onset. -Consistent laryngeal penetration of thin liquids, which fully ejected from the laryngeal vestibule after the swallow. Sequential sips of thin liquids resulted in increased depth of laryngeal penetration, but the trial did fully eject from the laryngeal vestibule, as well. The esophageal phase is primarily marked by... -Retention of pudding in the mid esophagus. Retrograde flow of pudding from the stomach and through the lower esophageal sphincter (LES) to the lower esophagus. Thin liquid wash greatly improved clearance, but retention of barium contrast remained in the mid esophagus. Recommendations Diet: Regular Textures (Easy to Chew textures (IDDSI Level 7) - moisten dry foods with extra sauce/gravy) and Thin Liquids Comment: Stop meal if sensing pharyngeal or esophageal retention despite use of strategies, allow time for esophageal clearance (sitting upright), and resume food/drink at a later time. Compensatory Strategies: Small Bites, Small Sips, Alternate bites/solids and sips/liquids (1:1 ratio), Sitting upright and Remain sitting upright for 30 minutes after PO intake Recommend Repeat Modified Barium Swallow: No Need for Skilled Speech Therapy Services: Yes Comment: -Train the patient in use of strategies to decrease risk for aspiration and reflux aspiration. -Train the patient oropharyngeal exercise program to improve bolus control, anterior hyoid excursion, and swallow onset (lingual resistance, Peg, CTAR). Recommended Referrals: GI Consult (Esophageal retention of pudding and retrograde flow of barium from the stomach through the lower esophageal sphincter to the lower esophagus.) Education Completed: 1. Described result of evaluation. and 2. Pt understands evaluation & agrees with goals and treatment plan. Status Active ST Patient: Active Contact Information [facility] Speech Therapy:: Lidia Gutierrez M.A. [facility] Speech-Language Pathologist [facility] [address] [place] [address] [email or web address] [phone]
== END | disposition home or self-care (01) ==
PROVIDERS: PCP Family Medicine; Referring Provider Surgery; Visit Provider Surgery
DX: R13.10 Dysphagia, unspecified (principal)
CPT/HCPCS: 74230; 92611

== ENCOUNTER → 2023-06-23 | Outpatient (CLI) | payer MEDICARE, MEDICAID, SELFPAY ==
--- NOTE | 2023-06-23 09:30 | RAD_ITS ---
STUDY: X-RAY - ESOPHAGUS (BARIUM SWALLOW) WITH FLUOROSCOPY REASON FOR EXAM: Female, 77 years old. DYSPHAGIA TECHNIQUE: 16 view(s) of the esophagus were obtained following swallowing of barium. FLUOROSCOPY TIME (if supplied): (33 seconds) minutes/seconds. 15.83 mGy. COMPARISON: None. FINDINGS: There is no demonstrated esophageal foreign body. Tertiary contractions of the distal esophagus. Normal gastroesophageal junction, without a demonstrated hiatal hernia. The patient ingested a 12 mm tablet of barium without any difficulty. There is atherosclerotic calcification of the aortic arch with tortuosity of the descending aorta. Normal visualized pulmonary parenchyma. There are diffuse degenerative changes of the visualized thoracic spine. Prior vertebral plasty of the L1 vertebrae. Status post cholecystectomy. RAD/Esophagus Dual Contrast IMPRESSION: Tertiary contractions of the distal esophagus. The patient ingested a 12 mm tablet of barium without any difficulty. Electronically Signed: Magdiel Ching MD at 10:18 EDT ,
== END | disposition home or self-care (01) ==
LOC: RAD 09:29
PROVIDERS: PCP Family Medicine; Referring Provider Internal Medicine Gastroenterology; Visit Provider Internal Medicine Gastroenterology
DX: R13.10 Dysphagia, unspecified (principal)
CPT/HCPCS: 74221

== ENCOUNTER → 2023-06-26 | Outpatient (CLI) | payer MEDICARE, MEDICAID, SELFPAY ==
--- NOTE | 2023-06-26 12:06 | BI_ITS ---
MAMMOGRAPHY - BILATERAL SCREENING REASON FOR EXAM: Female, 77 years old. Routine annual screening examination. PERTINENT HISTORY: Non-contributory. TECHNIQUE: Digital bilateral breast dang (3D mammographic acquisition) in the CC and MLO projections. 2-D mediolateral oblique (MLO) and craniocaudad (CC) views of both breasts were obtained. CAD: Full Field Digital Mammography with Computer Added Detection was performed. COMPARISON: Comparison is made with prior studies June 16, 2022 and June 19, 2021. FINDINGS: Breast Composition: The breasts are almost entirely fatty. There are no dominant masses or suspicious calcifications. Stable bilateral secretory calcifications. Stable fat-containing bilateral axillary lymph nodes. No other significant abnormalities are identified. There has been no significant change since the prior study. BI/SCRN MAMM (CAD)W/DANG BILAT IMPRESSION: Stable bilateral screening mammogram. Yearly follow-up mammogram recommended. (A) ASSESSMENT CATEGORY: BIRADS Category 2: Benign. A letter regarding these results will be sent to the patient by the facility within 30 days. Approximately 10% of breast cancers are not detected by mammography. A normal mammogram should not delay biopsy of a clinically suspicious abnormality. [id number] Electronically Signed: Magdiel Ching MD at 15:48 EDT ,
== END | disposition home or self-care (01) ==
LOC: OPBI 12:05
PROVIDERS: PCP Family Medicine; Referring Provider Family Medicine; Visit Provider Family Medicine
DX: Z12.31 Encounter for screening mammogram for malignant neoplasm of breast (principal)
CPT/HCPCS: 77063; 77067

== ENCOUNTER 2023-07-07 13:00 | Outpatient (RCR) | payer MEDICARE, MEDICAID, SELFPAY ==
--- NOTE | 2023-05-05 11:20 | ST ---
[facility] Speech Pathology [address] [place] [address] Modified Barium Swallow Study MR#: [id number] Acct: [id number] Name: JULIO CESAR ELDRIDGE : 1945 Modified Barium Swallow Patient Information Study Date: 03/25/23 Study Time: 13:00 Direct Billable Minutes: 113 Total Minutes procedure & reportin Diagnosis: Dysphagia R13.10, SLE M32.9 Referring Physician: Bladimir Rosales Reason for Referral: Objectively assess swallow function, assess risk for aspiration, and determine recommendations for least restrictive diet textures and compensatory strategies to improve safety of swallow. Medical History: PMH: Dysphagia, Systematic lupus erythematosus (SLE), Arthritis, HTN, Pure Hypercholesterolemia, Sleep apnea, Shortness of breath (per patient, follows w/ a spectacle truer), Fibromyalgia, DM type II (SEE EMR for full PMH). The patient reports having GERD years ago, but no recent heartburn. She is experiencing retention of bread, potatoes, cereal, and adhesive foods in her mid esophagus. When foods become caught, she can't get them to go up or down, and sometimes she feels like something will get into her airway. Fortunately, she has always been able to breathe when this issue occurs and has not needed the Heimlich. She also will occasionally cough up liquids. Recent EGD 02/24/[address] Rosales showed normal esophagus and stomach. He referred her for MBSS to further assess swallow function. TRAFFIC SIGNAL TECHNICIAN asked the patient to describe the symptoms of her SLE. She reports she will have flare ups that increase her fatigue and exacerbate the symptoms of her arthritis and fibromyalgia. She denies increased difficulty swallowing during these flare ups. Current Diet Ordered: Regular textures / Thin liquids Dentition: WNL Mental Status: WNL Respiratory Status: Oxygenating on Room Air Penetration-Aspiration Scale Penetration-Aspiration Scale: OBJECTIVE ASSESSMENT OF SWALLOW FUNCTION (QUANTITATIVE ? PER TRIAL): PENETRATION / ASPIRATION SCALE (AL): 1 = does not enter airway 2 = enters airway/above vocal folds/ejected 3 = enters airway/above vocal folds/not ejected 4 = enters airway/contacts vocal folds/ejected 5 = enters airway/contacts vocal folds/not ejected 6 = enters airway/below vocal folds/ejected 7 = enters airway/below vocal folds/not ejected despite effort 8 = enters airway/below vocal folds/no effort VIDEOFLOROSCOPIC SCALE SCORE (AL): Grade I = aspiration of material that has penetrated into the laryngeal vestibule, intact cough reflex Grade II = aspiration < 10 % of the bolus, intact cough reflex Grade III = aspiration of < 10 % of the bolus, reduced cough reflex or aspiration of > 10 % of the bolus, intact cough reflex Grade IV = aspiration of > 10 % of the bolus, reduced cough reflex Penetration-Aspiration Scale Score Thin Liquid via teaspoon: Result: 2= enter airway/above vocal folds/ejected Thin Liquid via teaspoon Trial 2: Result: 2= enter airway/above vocal folds/ejected Thin Liquid via small single sip: cup: Result: 2= enter airway/above vocal folds/ejected [place] Thick Liquid via small single sip: cup: Result: 1= does not enter airway Pudding via teaspoon: Result: 1= does not enter airway Comment: Esophageal Screen - Retention of pudding in the mid esophagus. Retrograde flow of pudding from the stomach and through the lower esophageal sphincter (LES) to the lower esophagus. Thin liquid wash greatly improved clearance, but retention of barium contrast remained in the mid esophagus. 1/2 Cookie: Result: 1= does not enter airway Thin Liquid via sequential sips:straw: Result: 4= enters airway/contacts vocal folds/ejected Thin Liquid via single sip: straw: Result: 2= enter airway/above vocal folds/ejected Oral Phase Labial Seal: No Labial Escape Tongue Control During Bolus Hold: Posterior escape of greater than half of bolus Bolus Preparation/Mastication: Disorganized chewing/mashing with solid pieces of bolus unchewed (quick mastication, small pieces of cookie did not appear fully chewed) Bolus Transport/Lingual Motion: Slowed tongue motion Oral Residue: Trace residue lining oral structures Pharyngeal Phase Initiation of Pharyngeal Swallow: Bolus head in pyriforms Soft Palate Elevation: Trace column of contrast/air between soft palate and pharyngeal wall Laryngeal Elevation: Comp. Superior move thyroid cart w/comp. apprx arytenoid cart-epig pet Anterior Hyoid Excursion: Partial anterior movement Epiglottic Movement: Complete inversion Laryngeal Vestibule Closure at Height of Swallow: Incomplete; narrow column of air/contrast in laryngeal vestibule Pharyngeal Stripping Wave: Present - complete Pharyngoesophageal Segment Opening: Complete distension and complete duration; no obstruction of flow Tongue Base Retraction: Trace column of contrast between tongue base & post. pharyngeal wall Pharyngeal Residue: Trace residue within or on pharyngeal structures Esophageal Phase Esophageal Clearance: Esophageal retention w/ retrograde flow below pharyngoesophageal seg. Diagnosis/Impression Diagnosis: Mild oropharyngeal phase dysphagia R13.12; Esophageal dysphagia R13.14 Impression: The oral phase is primarily marked by... -Decreased bolus control with >1/2 of the bolus spilling posteriorly to the pyriforms prior to swallow onset observed with thin liquids especially. -Slowed tongue motion for A-P transport. -Quick mastication of cookie trial with small pieces appearing un-chewed. The pharyngeal phase is primarily marked by... -Decreased airway closure during the swallow due to mildly decreased anterior hyoid excursion. -Delayed swallow onset. -Consistent laryngeal penetration of thin liquids, which fully ejected from the laryngeal vestibule after the swallow. Sequential sips of thin liquids resulted in increased depth of laryngeal penetration, but the trial did fully eject from the laryngeal vestibule, as well. The esophageal phase is primarily marked by... -Retention of pudding in the mid esophagus. Retrograde flow of pudding from the stomach and through the lower esophageal sphincter (LES) to the lower esophagus. Thin liquid wash greatly improved clearance, but retention of barium contrast remained in the mid esophagus. Recommendations Diet: Regular Textures (Easy to Chew textures (IDDSI Level 7) - moisten dry foods with extra sauce/gravy) and Thin Liquids Comment: Stop meal if sensing pharyngeal or esophageal retention despite use of strategies, allow time for esophageal clearance (sitting upright), and resume food/drink at a later time. Compensatory Strategies: Small Bites, Small Sips, Alternate bites/solids and sips/liquids (1:1 ratio), Sitting upright and Remain sitting upright for 30 minutes after PO intake Recommend Repeat Modified Barium Swallow: No Need for Skilled Speech Therapy Services: Yes Comment: -Train the patient in use of strategies to decrease risk for aspiration and reflux aspiration. -Train the patient oropharyngeal exercise program to improve bolus control, anterior hyoid excursion, and swallow onset (lingual resistance, Peg, CTAR). Recommended Referrals: GI Consult (Esophageal retention of pudding and retrograde flow of barium from the stomach through the lower esophageal sphincter to the lower esophagus.) Education Completed: 1. Described result of evaluation. and 2. Pt understands evaluation & agrees with goals and treatment plan. Status Active ST Patient: Active Contact Information [facility] Speech Therapy:: Lidia Gutierrez M.A. CCC-TRAFFIC SIGNAL TECHNICIAN Speech-Language Pathologist [facility] [address] [place] [address] [email or web address] [phone] 03/25/23 1602 <Electronically signed by Lidia Gutierrez M.A., CCC-TRAFFIC SIGNAL TECHNICIAN> Lidia Gutierrez M.A., CCC-TRAFFIC SIGNAL TECHNICIAN
--- NOTE | 2023-05-06 10:13 | HP.SP.EVAL ---
Visit History Visit Info Date of Eval: 05/04/23 Visit: 1 Dope Edger: CATHERINE History Attending Doctor: Reason for Referral: DYSPHAGIA. RX HERE Medical Diagnosis: Mild oropharyngeal phase dysphagia R13.12; Esophageal dysphagia R13.14 Date of Onset of Diagnosis: 1 year ago Previous speech therapy: No Other Relevant Medical History/Diagnoses/Surgery: [facility] Medical Records Department [address] [place] [address] History & Physical Exam 02/24/23 0747 MR#: [id number] Acct: [id number] Name: JULIO CESAR ELDRIDGE Rep #: [id number] : 1945 77 From: Bladimir Rosales MD PCP: Dr. Gemini Devine, DO Status: [facility] Location: [place] [address] History and Physical Date of Admission: 02/24/23 Intake Vital Signs 07/22/2314:51 01/06/2314:11 Height 5 ft 3 in 5 ft 2.5 in Weight: 216 lb BMI 38.8 BP 162/65 H Blood Pressure Location Rt brachial Position Sitting Respiration 18 Intake Visit Reasons: Dysphagia Allergies No Known Allergies Allergy (Verified 01/06/23 14:12) PFSH Medical History (Updated 01/06/23 @ 14:11 by Margarita Blanchard) Arthritis Back pain Chronic pain syndrome Depressive disorder Dysphagia HTN (hypertension) Morbid obesity Pure hypercholesterolemia Rheumatoid arthritis RLS (restless legs syndrome) SLE (systemic lupus erythematosus related syndrome) SLE (systemic lupus erythematosus) Sleep apnea Type II diabetes mellitus, uncontrolled Smoking Status: Former smoker Diagnosis Diagnosis: Mild oropharyngeal phase dysphagia R13.12; Esophageal dysphagia R13.14 Pain Is pain an issue with your current prescribed condition?: No Personal Preferred language: Hebrew Patient Allergies Allergies Allergies: Allergies No Known Allergies Allergy (Verified 02/17/23 15:04) Subjective Dysphagia Symptoms Reported Symptoms/Problems with: Food gets stuck Current Diet Solids Current Diet: Regular Current Diet Liquids Current Liquids: Thin Objective Dysphagia Administered by Administered by: Self Thin Liquids Oral Transit: WNL Bolus clearance: fully cleared Gagging: No Cough: none observed/unable to assess Pharyngeal phase: elevation incomplete Patient Report: Patient reported no difficulty with thin liquids via single sips from a bottle. Swallowing Impairment Contributing Factors to Swallowing Impairment: Delayed Swallow Initiation and Reduced Laryngeal Excursion Impact Impact on Safety & Functioning: Risk for Aspiration Recommendations Swallowing Treatment: Yes Diet Texture Recommendations Solids: Regular (Level 7) Liquids: Thin (Level 0) Safety Saftey Precautions/Swallowing Recommendations (Check all that Apply): Upright Position at Least 30 Minutes After Meals, Small Sips & Bites when Eating and Alternate Liquids & Solids Results Swallowing Within Normal Limits: No Swallowing Diagnosis: Oropharyngeal Phase Dysphagia (R13.12) Severity: Mild Objective Oral Motor Labial Impairment: WNL Observation at Rest: WNL Closure: WNL Pucker: WNL Retraction: WNL Alternating Pucker/Retraction: WNL Involuntary Movement noted: No Lingual Impairment: WNL Protrusion: WNL Retraction: WNL Lateralization: WNL Involuntary Movement: No Jaw Impairment: WNL Respiratory Status Respiratory Status: Room Air Modified Barium Results Hx If Applicable Enter into a NOTE MBS Results (from prior exam): 05/05/23 11:20 Speech Therapy by Matt Polo [facility] Speech Pathology [address] [place] [address] Modified Barium Swallow Study MR#: [id number] Acct: [id number] Name: JULIO CESAR ELDRIDGE : 1945 Modified Barium Swallow Patient Information Study Date: 03/25/23 Study Time: 13:00 Direct Billable Minutes: 113 Total Minutes procedure & reportin Diagnosis: Dysphagia R13.10, SLE M32.9 Referring Physician: Bladimir Rosales Reason for Referral: Objectively assess swallow function, assess risk for aspiration, and determine recommendations for least restrictive diet textures and compensatory strategies to improve safety of swallow. Medical History: PMH: Dysphagia, Systematic lupus erythematosus (SLE), Arthritis, HTN, Pure Hypercholesterolemia, Sleep apnea, Shortness of breath (per patient, follows w/ a bryologist), Fibromyalgia, DM type II (SEE EMR for full PMH). The patient reports having GERD years ago, but no recent heartburn. She is experiencing retention of bread, potatoes, cereal, and adhesive foods in her mid esophagus. When foods become caught, she can't get them to go up or down, and sometimes she feels like something will get into her airway. Fortunately, she has always been able to breathe when this issue occurs and has not needed the Heimlich. She also will occasionally cough up liquids. Recent EGD 02/24/[address] Rosales showed normal esophagus and stomach. He referred her for MBSS to further assess swallow function. CAMOUFLAGE SPECIALIST asked the patient to describe the symptoms of her SLE. She reports she will have flare ups that increase her fatigue and exacerbate the symptoms of her arthritis and fibromyalgia. She denies increased difficulty swallowing during these flare ups. Current Diet Ordered: Regular textures / Thin liquids Dentition: WNL Mental Status: WNL Respiratory Status: Oxygenating on Room Air Penetration-Aspiration Scale Penetration-Aspiration Scale: OBJECTIVE ASSESSMENT OF SWALLOW FUNCTION (QUANTITATIVE ? PER TRIAL): PENETRATION / ASPIRATION SCALE (AL): 1 = does not enter airway 2 = enters airway/above vocal folds/ejected 3 = enters airway/above vocal folds/not ejected 4 = enters airway/contacts vocal folds/ejected 5 = enters airway/contacts vocal folds/not ejected 6 = enters airway/below vocal folds/ejected 7 = enters airway/below vocal folds/not ejected despite effort 8 = enters airway/below vocal folds/no effort VIDEOFLOROSCOPIC SCALE SCORE (AL): Grade I = aspiration of material that has penetrated into the laryngeal vestibule, intact cough reflex Grade II = aspiration < 10 % of the bolus, intact cough reflex Grade III = aspiration of < 10 % of the bolus, reduced cough reflex or aspiration of > 10 % of the bolus, intact cough reflex Grade IV = aspiration of > 10 % of the bolus, reduced cough reflex Penetration-Aspiration Scale Score Thin Liquid via teaspoon: Result: 2= enter airway/above vocal folds/ejected Thin Liquid via teaspoon Trial 2: Result: 2= enter airway/above vocal folds/ejected Thin Liquid via small single sip: cup: Result: 2= enter airway/above vocal folds/ejected Sunrise Thick Liquid via small single sip: cup: Result: 1= does not enter airway Pudding via teaspoon: Result: 1= does not enter airway Comment: Esophageal Screen - Retention of pudding in the mid esophagus. Retrograde flow of pudding from the stomach and through the lower esophageal sphincter (LES) to the lower esophagus. Thin liquid wash greatly improved clearance, but retention of barium contrast remained in the mid esophagus. / Cookie: Result: 1= does not enter airway Thin Liquid via sequential sips:straw: Result: 4= enters airway/contacts vocal folds/ejected Thin Liquid via single sip: straw: Result: 2= enter airway/above vocal folds/ejected Oral Phase Labial Seal: No Labial Escape Tongue Control During Bolus Hold: Posterior escape of greater than half of bolus Bolus Preparation/Mastication: Disorganized chewing/mashing with solid pieces of bolus unchewed (quick mastication, small pieces of cookie did not appear fully chewed) Bolus Transport/Lingual Motion: Slowed tongue motion Oral Residue: Trace residue lining oral structures Pharyngeal Phase Initiation of Pharyngeal Swallow: Bolus head in pyriforms Soft Palate Elevation: Trace column of contrast/air between soft palate and pharyngeal wall Laryngeal Elevation: Comp. Superior move thyroid cart w/comp. apprx arytenoid cart-epig pet Anterior Hyoid Excursion: Partial anterior movement Epiglottic Movement: Complete inversion Laryngeal Vestibule Closure at Height of Swallow: Incomplete; narrow column of air/contrast in laryngeal vestibule Pharyngeal Stripping Wave: Present - complete Pharyngoesophageal Segment Opening: Complete distension and complete duration; no obstruction of flow Tongue Base Retraction: Trace column of contrast between tongue base & post. pharyngeal wall Pharyngeal Residue: Trace residue within or on pharyngeal structures Esophageal Phase Esophageal Clearance: Esophageal retention w/ retrograde flow below pharyngoesophageal seg. Diagnosis/Impression Diagnosis: Mild oropharyngeal phase dysphagia R13.12; Esophageal dysphagia R13.14 Impression: The oral phase is primarily marked by... -Decreased bolus control with >1/2 of the bolus spilling posteriorly to the pyriforms prior to swallow onset observed with thin liquids especially. -Slowed tongue motion for A-P transport. -Quick mastication of cookie trial with small pieces appearing un-chewed. The pharyngeal phase is primarily marked by... -Decreased airway closure during the swallow due to mildly decreased anterior hyoid excursion. -Delayed swallow onset. -Consistent laryngeal penetration of thin liquids, which fully ejected from the laryngeal vestibule after the swallow. Sequential sips of thin liquids resulted in increased depth of laryngeal penetration, but the trial did fully eject from the laryngeal vestibule, as well. The esophageal phase is primarily marked by... -Retention of pudding in the mid esophagus. Retrograde flow of pudding from the stomach and through the lower esophageal sphincter (LES) to the lower esophagus. Thin liquid wash greatly improved clearance, but retention of barium contrast remained in the mid esophagus. Recommendations Diet: Regular Textures (Easy to Chew textures (IDDSI Level 7) - moisten dry foods with extra sauce/gravy) and Thin Liquids Comment: Stop meal if sensing pharyngeal or esophageal retention despite use of strategies, allow time for esophageal clearance (sitting upright), and resume food/drink at a later time. Compensatory Strategies: Small Bites, Small Sips, Alternate bites/solids and sips/liquids (1:1 ratio), Sitting upright and Remain sitting upright for 30 minutes after PO intake Recommend Repeat Modified Barium Swallow: No Need for Skilled Speech Therapy Services: Yes Comment: -Train the patient in use of strategies to decrease risk for aspiration and reflux aspiration. -Train the patient oropharyngeal exercise program to improve bolus control, anterior hyoid excursion, and swallow onset (lingual resistance, Peg, CTAR). Recommended Referrals: GI Consult (Esophageal retention of pudding and retrograde flow of barium from the stomach through the lower esophageal sphincter to the lower esophagus.) Education Completed: 1. Described result of evaluation. and 2. Pt understands evaluation & agrees with goals and treatment plan. Status Active ST Patient: Active Contact Information [facility] Speech Therapy:: Lidia Gutierrez M.A. CCC-CAMOUFLAGE SPECIALIST Speech-Language Pathologist [address] [address] [email or web address] [phone] 03/25/23 1602 <Electronically signed by Lidia Gutierrez M.A. CCC-CAMOUFLAGE SPECIALIST> Lidia Gutierrez M.A. CCC-CAMOUFLAGE SPECIALIST Initialized on 05/05/23 11:20 - END OF NOTE Reference: Neuro-QoL instrument Radiation Oncology Patient Plan Plan Plan: Skilled Therapy is recommended for dysphagia as patient needs training on oropharyngeal exercises for increased coordination and strengthening. Recommendations Treatment Warranted: Yes Treatment Warranted: Dysphagia Progress Prognosis: Good Frequency Additional (Frequency): Two weekly sessions then1-2 sessions in 6-8 weeks. Visits in this POC: 4 Goals that are Established Determination:: Goals will be added/modified as deemed necessary and appropriate. Therapy will be discontinued when results of re-evaluation indicate therapy is no longer needed or lack of progress has been documented. Goal #1-5 Goal #1: Patient will demonstrate and utilize recommended velopharyngeal and oropharyngeal strengthening exercises to facilitate improved velopharyngeal and oropharyngeal strength and coordination independently as reported by the patient after two sessions. Goal #2: The Patient will tolerate the least restrictive means of nutrition to facilitate adequate hydration/nutrition with optimum safety and efficiency of swallowing function during P.O. intake without overt signs and symptoms of aspiration. Education Patient has Indicated that the Following Identified Educational Needs: None The Patient has indicated that they have no educational or learning abilities that may effect their care.: Yes Patient Instruction Patient Education: Diagnosis and Treatment Plan Person Taught: Patient Response to teaching: Verbalize understanding
--- NOTE | 2023-07-07 15:45 | HP.SP.DC ---
ST Discharge Summary Discharged: Discharge: Asha Lozoya is discharged from [facility] as of 07/07/23. She was treated for 3 sessions following her initial evaluation on 05/04/23. She was provided with home exercises and reported she completed them adequately. She now reported her dysphagia has improved. Her GI did esophageal dilation and if her esophageal dysphagia continues then he will do esophageal manometry per the patient. She reported that she only has to modify her diet with limited things such as triscuits or mini Wheaties that are hard, dry and scratchy. Currently, she is on a regular, thin liquids diet. She is in agreement with discharge. Please see evaluation and daily notes for details of visits. Thank you for allowing me to participate in the care of this patient.
== END 2023-07-07 19:00 | disposition home or self-care (01) ==
LOC: SP 13:00
PROVIDERS: PCP Family Medicine; Visit Provider Surgery
DX: R13.10 Dysphagia, unspecified (principal)
CPT/HCPCS: 92526; 92610

== ENCOUNTER → 2023-07-16 | Outpatient (CLI) | payer MEDICARE, MEDICAID, SELFPAY ==
--- NOTE | 2023-07-16 14:50 | RAD_ITS ---
INDICATION: DERMATITIS. R/O SARCOID EXAMINATION/TECHNIQUE: X-RAY - XR Chest 2 Views COMPARISON: Prior study dated: 07/22/2022 FINDINGS: LINES/DEVICES: None. LUNGS: Slightly prominent markings essentially unchanged since prior exam. No focal consolidation is seen. No evidence of pleural effusions. MEDIASTINUM AND CARDIOVASCULAR STRUCTURES: Normal cardiac silhouette. Atherosclerotic calcifications and tortuosity of the thoracic aorta. Prominent right hilum unchanged prior examinations. BONES AND SOFT TISSUES: Plate and screws in the proximal right humerus. Left shoulder arthroplasty unchanged. RAD/Chest PA and Lateral IMPRESSION: No significant change. No acute cardiopulmonary disease. Electronically Signed: Arsalan Person MD at 15:52 EDT ,
[2023-07-16 18:10] LABS: Absolute Lymphocyte Count 2.29 X10^3/uL (0.83-4.51); Absolute Neutrophil Count 3.7 X10^3/uL (2.0-7.7); Basophil# 0.04 X10^3/uL; Basophil% 0.6 % (0-1); Eosinophils% 2.9 % (0-5); Hematocrit 40.2 % (37-47); Hemoglobin 13.1 g/dL (12.0-15.0); Lymphocyte # 2.29 X10^3/ul (0.83-4.51); Lymphocyte % 33.2 % (19-41); Mean Corp Hgb Conc 32.6 g/dL (32-36); Mean Corpuscular Hgb 29.4 pg (27.0-32.0); Mean Corpuscular Volume 90.3 fL (81-99); Mean Platelet Vol. 11.7 fl (6.2-12.0); Monocyte# 0.64 X10^3/uL; Monocyte% 9.3 % (0-10); NRBC Flagged by Analyzer 0 % (0-5); Neutrophil # 3.69 X10^3/uL (2.7-7.7); Neutrophil % 53.6 % (47-70); Platelet Count 239 K/mm3 (150-450); RBC Distribution Width CV 13.5 % (11.6-14.6); RBC Distribution Width SD 44.7 fl (35.1-43.9); Red Blood Count 4.45 M/mm3 (4.2-5.4); White Blood Count 6.9 K/mm3 (4.4-11.0)
[2023-07-16 18:24] LABS: Erythrocyte Sedimentation Rate 18 mm/hr (0-30)
[2023-07-16 18:27] LABS: ALB/GLOB Ratio 1.1 RATIO (0.9-2.4); AST(SGOT) 21 U/L (15-37); Alanine Aminotransfer ALT/SGPT 22 U/L (13-56); Alkaline Phosphatase 62 U/L (45-117); Anion Gap 4 (5-15); BUN 13 mg/dL (7-18); CRP < 2.90 mg/L (0.0-3.0); Calcium,Total 9.1 mg/dL (8.5-10.1); Chloride 101 mmol/L (98-107); Creatinine, Serum 0.81 mg/dL (0.55-1.02); EST Glomerular Filtration Rate 73 mL/min (>60); Est Glom Filt Rate - Afr Amer 88 mL/min (>60); Globulin 3.6 g/dL (2.2-4.2); Glucose 200 mg/dL (74-106); Potassium 3.3 mmol/L (3.5-5.1); Protein, Total 7.6 g/dL (6.4-8.2); Sodium Level 136 mmol/L (136-145)
[2023-07-18 06:08] LABS: ASO Titer 289.6 IU/mL (0.0-200.0); QNTFERON TB Mitogen Value > 10.00 IU/mL (.); QNTFERON TB Nil Value 0.03 IU/mL (.); QNTFERON TB1+ Ag Value 0.08 IU/mL (.); QNTFERON TB2+ Ag Value 0.06 IU/mL (.); QNTIFERON TB Positive Criteria Negative (Negative)
[2023-07-20 14:09] LABS: ANTINUCLEAR ANTIBODIES DIRECT Negative (Negative)
== END | disposition home or self-care (01) ==
PROVIDERS: PCP Family Medicine; Referring Provider Family Medicine; Visit Provider Family Medicine
DX: R05.9 Cough, unspecified (principal); I50.9 Heart failure, unspecified; R06.00 Dyspnea, unspecified; L30.9 Dermatitis, unspecified; M25.50 Pain in unspecified joint; M79.10 Myalgia, unspecified site; R60.0 Localized edema; L52 Erythema nodosum
CPT/HCPCS: 36415; 71046; 80053; 83880; 85025; 85652; 86038; 86060; 86140; 86225; 86235; 86480

== ENCOUNTER → 2023-08-27 | Outpatient (CLI) | payer MEDICARE, MEDICAID, SELFPAY ==
--- NOTE | 2023-08-27 10:03 | VDLE_ITS ---
Reason For Study: edema RIGHT LEFT GSV is normal. GSV is normal. CFV is compressible, spontaneous, phasic, CFV is compressible, spontaneous, phasic, competent and demonstrates normal competent, and demonstrates normal augmentation. augmentation. FV is compressible, spontaneous, phasic, FV is compressible, spontaneous, phasic, competent and demonstrates normal competent and demonstrates normal augmentation. augmentation. POP V is compressible, spontaneous, phasic, POP V is compressible, spontaneous, phasic, competent and demonstrates normal competent and demonstrates normal augmentation. augmentation. T/P Trunk is compressible. T/P Trunk is compressible. PTV is compressible. PTV is compressible. RT PerV is compressible. LT PerV is compressible. Procedure This is a venous duplex using B-mode, color flow and spectral Doppler. Exam performed in department. The exam was diagnostic. A preliminary report was called and/or faxed to Dr. Devine. VL/Venous Duplex US - Tony Extrem Interpretation Summary Deep veins of the bilateral lower extremities are patent and compressible segme ntally. There is no evidence of bilateral lower extremity deep vein thrombosis. The bilateral great saphenous veins appear patent and compressible segmentally. Ordering Physician: Gemini Devine Referring Physician: Gemini Devine Performed By: Mayo Balbuena RVT
== END | disposition home or self-care (01) ==
PROVIDERS: PCP Family Medicine; Referring Provider Family Medicine; Visit Provider Family Medicine
DX: R60.0 Localized edema (principal)
CPT/HCPCS: 93970

== ENCOUNTER 2023-10-23 07:40 | Day surgery (SDC) | payer MEDICARE, MEDICAID, SELFPAY ==
[2023-10-23] VITALS (9 sets, daily range): BP systolic 104–178; BP diastolic 55–67; PULSE 53–72; RESP 16; TEMP 36.1–37.1; O2SAT 88–96; BMI 38.2
--- NOTE | 2023-10-23 07:54 | PRE.ANES_ITS ---
ASA Classification* ASA Classification ASA Classification: 3 Assessment & Plan Anesthesia* Anesthesia Assessment Anesthesia Assessment: Discussed sedation and/or anesthesia options, risks, benefits, and alternatives with patient/parents/legal guardian/POA. Questions invited. The patient/parents/legal guardian/POA seems to understand and agrees to proceed with anesthesia plan. Reviewed the physical assessment, medical history, allergy history and patient home medications list prior to surgery/procedure/anesthetic and documented any changes. Performed airway and anesthesia risk assessments. Anesthesia Type Anesthesia Type: MAC Anesthesia Focused Assessment* Airway Assessment Mouth opens: >3 cm Mallampati Score: II Focused Labs Anesthesia Preop lab: CBC WBC 6.9 K/mm3 (4.4-11.0) 07/16/23 14:49 RBC 4.45 M/mm3 (4.2-5.4) 07/16/23 14:49 Hgb 13.1 g/dL (12.0-15.0) 07/16/23 14:49 Hct 40.2 % (37-47) 07/16/23 14:49 Plt Count 239 K/mm3 (150-450) 07/16/23 14:49 CHEMISTRY Potassium 3.3 mmol/L (3.5-5.1) L 07/16/23 14:49 Sodium 136 mmol/L (136-145) 07/16/23 14:49 Magnesium 2.1 mg/dL (1.6-2.6) 02/02/20 15:19 Phosphorus 2.7 mg/dL (2.5-4.9) 08/04/16 13:28 BUN 13 mg/dL (7-18) 07/16/23 14:49 Creatinine 0.81 mg/dL (0.55-1.02) 07/16/23 14:49 Glucose 200 mg/dL (74-106) H 07/16/23 14:49 POC Glucose 159 mg/dL (74-106) H 02/24/23 07:28 TSH 1.11 uIU/mL (0.358-3.74) 07/09/17 14:12 COAG PT 13.3 SECONDS (11.7-14.9) 07/22/22 17:10 Pre-Assessment Diagnosis/Proposed Procedure Planned Operative Procedure(s): BATTERY CHANGE,PAIN PUMP Anesthesia History Anesthesia History - media developer: Anesthesia History - media developer Hx Hospitalization No 10/16/23 15:42 Any Problems With Anesthesia No 10/16/23 15:42 Cholinesterase deficiency No 10/16/23 15:42 You/Your Family Experience No 10/16/23 15:42 fever (hyperthermia) with Relationship Recent Exposure to Contagious No 02/24/23 07:42 Disease Does patient have nerve No: PAIN PUMP 10/16/23 15:42 stimulator Patient instructed to have device shut off --Does patient have Pacemaker or ICD? When Was Last Pacemaker Check QUESTION #4 FULL TEXT: You/Your Family Experience fever (hyperthermia) with Anesthesia Last Oral Intake Last Oral intake: Last Oral Intake NPO since Meds taken in AM with sips of water? Meds patient instructed to take am of surgery PONV PONV - media developer: PONV - media developer Female Yes 10/16/23 15:42 HX of Motion Sickness No 10/16/23 15:42 HX of N/V After Surgery No 10/16/23 15:42 Non-Smoker Yes 10/16/23 15:42 Duration of Surgery greater Yes 10/16/23 15:42 than 60 minutes Number of Risk Factors 3 10/16/23 15:42 PONV Score Moderate Risk 10/16/23 15:42 Height & Weight Height & Weight: Anesthesia: Height & Weight Height 5 ft 3 in 02/24/23 07:42 Respiratory Assessment Respiratory Assessment - media developer: Respiratory Tract Infection Hx - media developer Hx Respiratory Tract Infection No 10/16/23 15:42 STOP Sleep Apnea STOP Sleep Apnea - media developer: STOP Sleep Apnea - media developer Hx Hypertension Yes: CONTROLLED WITH MED 10/16/23 15:42 Hx Sleep Apnea Yes 10/16/23 15:42 CPAP No 10/16/23 15:42 BIPAP Yes: NONCOMPLIANT 10/16/23 15:42 Do you snore loudly (louder than talking or can be heard Do you often feel tired/ fatigued/ sleepy during daytime? Has anyone observed you stop breathing during sleep? STOP Results Positive 10/16/23 15:42 QUESTION #5 FULL TEXT : Do you snore loudly (louder than talking or can be heard through closed doors)? 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 Specify any problems Hx of Preganancy in last 3 No 10/16/23 15:42 Months Nurse Filling Out Transfusion DSCHRIBER 10/16/23 15:42 & Questions: Date: 10/16/23 10/16/23 15:42 Time: 15:45 10/16/23 15:42 Patient unable to answer at this time (ie. confused, unrespo /Reproduction History /Reproductive History - media developer: /Reproductive Hx- media developer Hx Now No 10/16/23 15:42 Gestational Age (in weeks): EDC: Hx Hx Para Hx Section SAB No 10/16/23 15:42 Active Medications Active Medications: Current Medications Generic Name Dose Route Start Last Admin Trade Name Freq PRN Reason Stop Dose Admin Lactated Ringer's 1,000 mls @ 15 mls/hr 10/23/23 08:00 IV .Q48H RITU PFSH Medical History Post-menopausal Diabetes Bladder disease Fatty liver History of diverticulitis Shortness of breath on exertion Hoarseness Neuropathy History of edema Wears dentures Wears glasses Depression High cholesterol Migraine headache History of ulceration BiPAP (biphasic positive airway pressure) dependence Leg cramps Former smoker History of stress test Back pain Arthritis Rheumatoid arthritis Dysphagia Chronic pain syndrome SLE (systemic lupus erythematosus related syndrome) SLE (systemic lupus erythematosus) Sleep apnea RLS (restless legs syndrome) Pure hypercholesterolemia Morbid obesity HTN (hypertension) Type II diabetes mellitus, uncontrolled Depressive disorder Home Medications ?Medication ?Instructions ?Recorded ?Last Taken ?Type amlodipine 10 mg tablet 10 mg PO DAILY 02/17/15 02/24/23 History gabapentin 300 mg capsule 300 mg PO BID 02/17/15 09/14/19 05:00 History multivitamin,[id number]-[id number] 27 1 tab PO DAILY 02/17/15 Unknown History mg-0.4 mg tablet potassium chloride 20 mEq 20 meq PO BID 02/17/15 Unknown History tablet,extended release(part/cryst) cyclosporine 0.05 % eye drops in a 1 drp ophthalmic (eye) Q12H 03/09/19 Unknown History dropperette (Restasis) hydroxyzine HCl 25 mg tablet 25 mg PO QHS PRN Sleep 03/09/19 Unknown History lovastatin 40 mg tablet 40 mg PO DAILY 03/09/19 Unknown History ergocalciferol (vitamin D2) 1,250 1,250 mcg PO WESA 01/06/23 Unknown History mcg (50,000 unit) capsule (Vitamin D2) gabapentin 100 mg capsule 100 mg PO DAILY 01/06/23 02/24/23 History glipizide 5 mg tablet, extended 5 mg PO BID 01/06/23 Unknown History release 24 hr hydrochlorothiazide 25 mg tablet 25 mg PO DAILY 01/06/23 Unknown History hydromorphone (PF) 1 mg/mL 0.5 mg continuous subcutaneous 01/06/23 Unknown History injection solution infusion Q4H PRN pain oxybutynin chloride 5 mg 5 mg PO QHS 01/06/23 Unknown History tablet,extended release 24 hr gabapentin 800 mg tablet 800 mg PO TID 02/17/23 Unknown History doxepin 10 mg capsule 10 mg PO QHS 10/16/23 Unknown History duloxetine 20 mg capsule,delayed 20 mg PO BID 10/16/23 Unknown History release (Cymbalta) furosemide 40 mg tablet 40 mg PO DAILY 10/16/23 Unknown History meloxicam 15 mg tablet 15 mg PO DAILY 10/16/23 Unknown History Allergy/AdvReac Type Severity Reaction Status Date / Time No Known Allergies Allergy Verified 10/16/23 15:35 Family History Mother Cancer Heart disease Hypertension Father CAD (coronary artery disease) Heart disease Hypertension Surgical History History of esophagogastroduodenoscopy (EGD) History of right shoulder replacement S/P right heart catheterization S/P arthroscopy of left shoulder H/O elbow surgery History of shoulder surgery S/P laparoscopic cholecystectomy S/P carpal tunnel release Social History Smoking Status: Former smoker alcohol intake: never Review of Systems (Anesthesia) ROS Narrative System reviewed and no additional complaints, except as documented.
[2023-10-23] MEDS: Lactated Ringers 1,000 ML 15 ML IV (08:06)
[2023-10-23 08:38] LABS: Bedside Glucose 180 mg/dL (74-106)
[2023-10-23] MEDS: Cefazolin 2 GM in 0.9% Normal Saline (100mL Bag) 100 ML IV (10:06)
[2023-10-23] MEDS: Lidocaine 1% /Epi 1:100 (50ml) 50 ML VIAL (10:15)
[2023-10-23] MEDS: 0.9% Normal Saline (Pres. free 10 ML Vial (10:37)
--- NOTE | 2023-10-23 10:54 | PCM.POST.ANE ---
Anesthesia: Postop Eval I Current Vital Signs Temperature: 97 F Pulse Rate: 53 Blood Pressure: 104/55 Respiratory Rate: 16 Pulse Ox: 95 Oxygen Delivery Method: Nasal Cannula Oxygen Flow Rate (L/min): 2 Assessment Airway patent: Yes Spontaneous unlabored respirations: Yes Mental status: Awake and Calm nausea: No Vomiting: No Anesthesia Complication: No Fluid Hydration Crystalloid volume administer (ml): 500 Total IV fluid infused: 500 Progress Note Anesthesia document: Postop Eval 1 completed: Yes
[2023-10-23] MEDS: HYDROMORPHONE IV (11:20)
--- NOTE | 2023-10-23 11:38 | SUR.PHASEI ---
Addendum entered by [employer] 10/23/23 11:52: TOTAL DOSE ADDED TO IMPLANTED PUMP WAS 20 MG OF HYDROMORPHONE 10 MG/[address]: [address] TANG CAME TO BEDSIDE IN PACU AT APPROXIMATELY 11:20 AM AND USING STERILE TECHNIQUE, FILLED THE PATIENT'S PAIN PUMP WITH HYDROMORPHONE 10 MG/1 ML; 50 MG VIAL
--- NOTE | 2023-10-23 13:10 | POSTOPAN2_ITS ---
Anesthesia Postop Eval I Sum Postop Eval Completion status Anesthesia document: Postop Eval 1 completed: Yes Anesthesia Postop Eval I Summary Anesthesia Postop Eval I Summary: Anesthesia Postop Eval I: Assessment Summary Airway patent Yes 10/23/23 11:00 RETURNED TELEPHONE EQUIPMENT APPRAISER.MDOT Spontaneous unlabored Yes 10/23/23 11:00 RETURNED TELEPHONE EQUIPMENT APPRAISER.OT respirations Mental status Awake,Calm 10/23/23 11:00 RETURNED TELEPHONE EQUIPMENT APPRAISER.MDOT nausea No 10/23/23 11:00 RETURNED TELEPHONE EQUIPMENT APPRAISER.MDOT Vomiting No 10/23/23 11:00 RETURNED TELEPHONE EQUIPMENT APPRAISER.MDOT Anesthesia Postop Eval I: Fluid Summary Crystalloid volume administer 500 10/23/23 11:00 RETURNED TELEPHONE EQUIPMENT APPRAISER.MDOT (ml) Colloids volume administered ( ml) Blood Product volume administered (ml) Total IV fluid infused 500 10/23/23 11:00 RETURNED TELEPHONE EQUIPMENT APPRAISER.NOEMI Anesthesia Postop Eval I: Summary Notes Anesthesia Complication No 10/23/23 11:00 RETURNED TELEPHONE EQUIPMENT APPRAISER.NOEMI Anesthesia Complication Comment: Post-operative progress note Anesthesia: Postop Eval II Evaluation Mental status: Awake and Calm Pain Level: 1 nausea: No Vomiting: No Complications Anesthesia Complication: No
--- NOTE | 2023-10-23 13:10 | PCM.POSTANE2 ---
Anesthesia Postop Eval I Sum Postop Eval Completion status Anesthesia document: Postop Eval 1 completed: Yes Anesthesia Postop Eval I Summary Anesthesia Postop Eval I Summary: Anesthesia Postop Eval I: Assessment Summary Airway patent Yes 10/23/23 11:00 LUMBER TYING MACHINE OPERATOR.MDOT Spontaneous unlabored Yes 10/23/23 11:00 LUMBER TYING MACHINE OPERATOR.OT respirations Mental status Awake,Calm 10/23/23 11:00 LUMBER TYING MACHINE OPERATOR.MDOT nausea No 10/23/23 11:00 LUMBER TYING MACHINE OPERATOR.MDOT Vomiting No 10/23/23 11:00 LUMBER TYING MACHINE OPERATOR.MDOT Anesthesia Postop Eval I: Fluid Summary Crystalloid volume administer 500 10/23/23 11:00 LUMBER TYING MACHINE OPERATOR.MDOT (ml) Colloids volume administered ( ml) Blood Product volume administered (ml) Total IV fluid infused 500 10/23/23 11:00 LUMBER TYING MACHINE OPERATOR.NOEMI Anesthesia Postop Eval I: Summary Notes Anesthesia Complication No 10/23/23 11:00 LUMBER TYING MACHINE OPERATOR.NOEMI Anesthesia Complication Comment: Post-operative progress note Anesthesia: Postop Eval II Evaluation Mental status: Awake and Calm Pain Level: 1 nausea: No Vomiting: No Complications Anesthesia Complication: No
== END 2023-10-23 12:16 | disposition home or self-care (01) ==
LOC: SDC 07:41 → AC 07:42
PROVIDERS: PCP Family Medicine; Referring Provider Anesthesiology Pain Medicine; Visit Provider Anesthesiology Pain Medicine
DX: G89.4 Chronic pain syndrome (principal); E11.65 Type 2 diabetes mellitus with hyperglycemia; I10 Essential (primary) hypertension; F32.A Depression, unspecified; E78.00 Pure hypercholesterolemia, unspecified; N32.9 Bladder disorder, unspecified; Z79.899 Other long term (current) drug therapy; Z87.891 Personal history of nicotine dependence
CPT/HCPCS: 62362; 82962; J7120; J2405; J3490

== ENCOUNTER → 2024-06-13 | Outpatient (CLI) | payer MEDICARE, SELFPAY ==
--- NOTE | 2024-06-13 12:11 | RAD_ITS ---
PROCEDURE: Lumbar spine radiographs, four views 06/13/2024 REASON FOR EXAM: LOW BACK PAIN TECHNIQUE: Four views of the lumbar spine were obtained. COMPARISON: 09/10/2022 FINDINGS: Four views of the lumbar spine were obtained. Bones are osteopenic. Included portions of the pelvis and SI joints are intact. Slight leftward convex curvature of the lumbar spine on the AP view. Included lower lungs clear. There is worsened moderate height loss of T11. Mild height loss of T12 and moderate height loss/kyphoplasty changes at L1, unchanged. Superior endplate compression deformity of L2 is similar. There is worsened moderate superior endplate compression deformity of L3. Height loss/compression deformity of L4 on L5, not significantly different. Moderate atherosclerotic calcification of the abdominal aorta. Similar moderate multilevel degenerative disc and facet disease in the lumbar spine. RAD/L/S Spine Min 4 Views IMPRESSION: Osteopenia. Similar moderate height loss and kyphoplasty change at L1. There is new moderate height loss of T11 and L3, age indeterminate. Chronicity could be better evaluated with MRI. Similar moderate multilevel degenerative disc and facet disease in the lumbar s pine. Reading Location: [facility]
--- NOTE | 2024-06-13 12:35 | RAD_ITS ---
PROCEDURE: Thoracic spine radiographs, three views 06/13/2024 REASON FOR EXAM: Thoracic spine pain TECHNIQUE: Three views of the thoracic spine were obtained. COMPARISON: Lumbar spine radiographs 09/10/2022 FINDINGS: Three views of the thoracic spine were obtained. The bones are osteopenic. Included lungs grossly clear. There is exaggeration of the normal thoracic kyphosis. Similar height loss and kyphoplasty change at L1. For findings in the lumbar spine, please see same-day lumbar spine radiograph report. There is similar mild height loss of T12 but age-indeterminate worsened moderate height loss of T11. Other levels with height loss in the thoracic spine, to a moderate degree at the T7 level, age- indeterminate. No focal subluxation. Moderate multilevel degenerative disc and facet disease in the thoracic spine. RAD/Thoracic Spine 2 Views IMPRESSION: Osteopenia. Similar moderate height loss and kyphoplasty change at L1. There is worsened moderate height loss/compression deformity of T11 compared to 09/10/2022. Age-indeterminate moderate compression deformity/height loss at T7. If there is persistent pain or clinic al concern, MRI evaluation may be helpful to determine chronicity. Reading Location: [facility]
== END | disposition home or self-care (01) ==
PROVIDERS: PCP Family Medicine; Referring Provider Family Medicine; Visit Provider Family Medicine
DX: M54.6 Pain in thoracic spine (principal); M54.50 Low back pain, unspecified
CPT/HCPCS: 72070; 72110

== ENCOUNTER → 2024-06-28 | Outpatient (CLI) | payer MEDICARE, SELFPAY ==
--- NOTE | 2024-06-28 10:11 | BD_ITS ---
PROCEDURE: DEXA BONE DENSITY STUDY 06/28/2024 REASON FOR EXAM: F, age 78 y/o . Postmenopausal. TECHNIQUE: DXA scan of the lumbar spine and left hip, using make and model. [facility] COMPARISON: Comparison is made with prior study dated June 24, 2022. FINDINGS: BMD and T-SCORES Lumbar spine: 1.028 g/cm2, T-Score -0.5 L1 through L4 Change from prior: Worsening by 9.4% Left femoral neck: 0.589 g/cm2, T-Score -2.3 Femoral neck comparison data not recommended for monitoring change. Left total hip: 0.860 g/cm2, T-Score -0.6 Change from prior: Worsening by 1.8% Fracture Risk Calculation: FRAX (10-year Fracture Risk) Score: FRAX scores should never be reported in a patient with osteoporosis on DEXA or for any patient that is on bone medication. The patient doesmeet the pharmacological treatment recommendations for prevention of osteoporosis BD/Dexa Bone Density Study IMPRESSION: OSTEOPENIA. Recommend follow-up as clinically warranted. Reading Location: [id number]
--- NOTE | 2024-06-28 10:11 | BI_ITS ---
EXAM: SCRN MAMM (CAD)W/DANG BILAT DATE: 06/28/2024 CLINICAL HISTORY: F, Age 78 y/o , SCREENING No family history. BREAST CANCER RISK ASSESSMENT: Not assessed. TECHNIQUE: Bilateral screening digital breast tomosynthesis with 2D and 3D images. Computer aided detection. COMPARISON: Prior exam(s) dated June 26, 2023.. FINDINGS: TISSUE DENSITY: The breast tissue is composed of scattered area of fibroglandular density. Bilateral Breast Mammographic Findings: No significant masses, calcifications or other abnormalities are identified. Stable bilateral secretory calcifications. Stable small bilateral axillary lymph nodes. BI/SCRN MAMM (CAD)W/DANG BILAT IMPRESSION: Right Breast: BIRADS 2 BENIGN FINDING. Left Breast: BIRADS 2 BENIGN FINDING. OVERALL FINAL ASSESSMENT: BIRADS 2 BENIGN FINDING RECOMMENDATION: Routine annual follow-up in 1 Year A letter with findings and recommendations will be mailed to the patient. Reading Location: [id number]
== END | disposition home or self-care (01) ==
LOC: OPBD 10:11
PROVIDERS: PCP Family Medicine; Referring Provider Family Medicine; Visit Provider Family Medicine
DX: Z12.31 Encounter for screening mammogram for malignant neoplasm of breast (principal); M81.0 Age-related osteoporosis without current pathological fracture
CPT/HCPCS: 77063; 77067; 77080

== ENCOUNTER → 2024-07-06 | Outpatient (CLI) | payer MEDICARE, SELFPAY ==
--- NOTE | 2024-07-06 12:15 | MRI_ITS ---
PROCEDURE: Noncontrast MRI of the thoracic spine. 07/06/2024 REASON FOR EXAM: COMPRESSION FRACTURE TECHNIQUE: Multiplanar, multisequence MRI images of the thoracic spine were obtained without IV contrast. COMPARISON: Thoracic and lumbar spine radiographs 06/14/[address] 11/30/2019 FINDINGS: There is chronic appearing mild height loss of T7. No acute fracture or focal subluxation of the mid to upper thoracic spine. There is [id number]-[id number] inferior endplate compression of T11, with moderate associated abnormal increased STIR signal, concerning for an acute or subacute fracture compression deformity. There is chronic appearing compression deformity and kyphoplasty change at L1. There is some minimal increased T2/stir signal involving the superior endplate of T12. Chronic appearing height loss of L2. [id number] compression deformity of L3, with moderate associated abnormal increased STIR signal. No definite focal signal abnormality of the thoracic spinal cord. No significant disc space narrowing or large disc protrusion of the mid to upper thoracic spine. Minimal disc bulge is present at T9-10, without focal disc herniation or significant central spinal canal narrowing. Posterior cortical retropulsion at T11-12 and T12-L1 causes mild central spinal canal narrowing. Included upper abdominal structures show no specific abnormality. The included portions of the mediastinum and lungs show no specific abnormality. Moderate multilevel degenerative changes in the thoracic spine. MRI/Spine Thoracic (Routine) IMPRESSION: Unchanged kyphoplasty changes and height loss of L1. There is an acute or suba cute moderate inferior endplate compression fracture of T11 and minimal acute/subacute superior endplate compression fractu re of T12. There is an acute appearing moderate superior endplate compression fracture def ormity of L3. Moderate multilevel degenerative disc disease in the thoracic and upper lumbar spine. Posterior cortical retropulsion/disc bulges at T11-12 and T12-L1 cause mild central spinal canal narrowing. No focal signal abnormality of the thoracic spinal cord. No large focal disc herniation or severe central spinal canal narrowing in the thoracic spine. Reading [facility]
== END | disposition home or self-care (01) ==
LOC: MRI 11:55
PROVIDERS: PCP Family Medicine; Referring Provider Anesthesiology Pain Medicine; Visit Provider Anesthesiology Pain Medicine
DX: S22.089A Unspecified fracture of T11-T12 vertebra, initial encounter for closed fracture (principal); S32.039A Unspecified fracture of third lumbar vertebra, initial encounter for closed fracture
CPT/HCPCS: 72146

== ENCOUNTER → 2024-07-11 | Outpatient (CLI) | payer MEDICARE, MEDICAID, SELFPAY ==
[2024-07-11 10:38] LABS: Absolute Lymphocyte Count 2.36 X10^3/uL (0.83-4.51); Absolute Neutrophil Count 5.1 X10^3/uL (2.0-7.7); Basophil# 0.05 X10^3/uL; Basophil% 0.6 % (0-1); Eosinophils% 2.4 % (0-5); Hematocrit 47.4 % (37-47); Hemoglobin 15.4 g/dL (12.0-15.0); Lymphocyte # 2.36 X10^3/ul (0.83-4.51); Lymphocyte % 28.4 % (19-41); Mean Corp Hgb Conc 32.5 g/dL (32-36); Mean Corpuscular Hgb 29.9 pg (27.0-32.0); Mean Platelet Vol. 12.3 fl (6.2-12.0); Monocyte# 0.57 X10^3/uL; Monocyte% 6.9 % (0-10); NRBC Flagged by Analyzer 0 % (0-5); Neutrophil % 61.5 % (47-70); Platelet Count 227 K/mm3 (150-450); RBC Distribution Width CV 12.9 % (11.6-14.6); RBC Distribution Width SD 43.8 fl (35.1-43.9); Red Blood Count 5.15 M/mm3 (4.2-5.4); White Blood Count 8.3 K/mm3 (4.4-11.0)
[2024-07-11 11:07] LABS: Hemoglobin A1c 7.1 % (<=5.6)
[2024-07-11 11:40] LABS: Cholesterol 178 mg/dL (<=200); High Density Lipoprotein 69 mg/dL; Low Density Lipoprotein Calc. 79 mg/dL; Triglycerides 154 mg/dL; Very Low Density Lipoprotein 31 mg/dL (5-40); cholesterol:hdl ratio screen 2.59
[2024-07-11 11:41] LABS: ALB/GLOB Ratio 1.3 RATIO (0.9-2.4); AST(SGOT) 22 U/L (<=31); Alanine Aminotransfer ALT/SGPT 9 U/L (<=34); Albumin, Serum 4.5 g/dL (3.4-4.8); Alkaline Phosphatase 91 U/L (35-104); Anion Gap 15 (5-15); BUN 7 mg/dL (4-19); Carbon Dioxide 24.7 mmol/L (21.0-32.0); Chloride 99 mmol/L (98-108); Creatinine, Serum 0.73 mg/dL (0.70-1.20); EST Glomerular Filtration Rate 85 (>60); Globulin 3.6 g/dL (2.2-4.2); Glucose 150 mg/dL (70-99); Potassium 3.6 mmol/L (3.3-5.1); Protein, Total 8.1 g/dL (5.9-8.4); Sodium Level 139 mmol/L (133-145); Total Bilirubin 0.66 mg/dL (0.00-1.30)
== END | disposition home or self-care (01) ==
PROVIDERS: PCP Family Medicine; Referring Provider Family Medicine; Visit Provider Family Medicine
DX: E11.9 Type 2 diabetes mellitus without complications (principal); Z51.81 Encounter for therapeutic drug level monitoring
CPT/HCPCS: 36415; 80053; 80061; 83036; 85025

== ENCOUNTER → 2024-07-13 | Outpatient (CLI) | payer MEDICARE, MEDICAID, SELFPAY ==
[2024-07-13 18:57] LABS: Microalbumin:Creatinine Ratio 140.7 mg/g CRE
== END | disposition home or self-care (01) ==
LOC: LABSPEC 14:42
PROVIDERS: PCP Family Medicine; Visit Provider Family Medicine
DX: Z51.81 Encounter for therapeutic drug level monitoring (principal); E11.9 Type 2 diabetes mellitus without complications
CPT/HCPCS: 82043; 82570

== ENCOUNTER → 2024-08-26 | Outpatient (CLI) | payer MEDICARE, MEDICAID, SELFPAY ==
--- NOTE | 2024-08-26 14:52 | RAD_ITS ---
PROCEDURE: HIP, UNI W/ PELVIS 2-3 VIEWS 08/26/2024 REASON FOR EXAM: RULE OUT FRACTURE TECHNIQUE: AP pelvis and two views right hip, 3 total images COMPARISON: None available FINDINGS: Bilateral symmetric appearing SI joints and pubic symphysis appear within limits. No fracture or dislocation. Mild degenerative changes right hip. Pump device partially imaged. RAD/HIP, UNI W/ Pelvis 2-3 Views IMPRESSION: No fracture or dislocation. Mild degenerative changes right hip. Reading Location: [id number]
== END | disposition home or self-care (01) ==
LOC: MTRAD 14:49
PROVIDERS: PCP Family Medicine; Referring Provider Nurse Practitioner Family; Visit Provider Nurse Practitioner Family
DX: M25.551 Pain in right hip (principal); Z91.81 History of falling
CPT/HCPCS: 73502

== ENCOUNTER → 2024-11-01 | Outpatient (CLI) | payer MEDICARE, SELFPAY ==
--- OUTSIDE RECORDS SUMMARY | 2024-11-01 20:23 | XMS RPT_ITS | CCD ---
Author Organization [facility] Care Team Providers Care Clinic [facility] Name Role Phone Dr. Gemini Devine Primary Care Provider Dr. Gemini Devine Referring Provider Dr. Gemini Devine Other Provider Dr. Reggie Harden Attending Provider Gemini Devine DO Primary Care Provider Gemini Devine DO Primary Care Provider Gemini Devine DO Primary Care Provider Dr. Gemini Devine Primary Care Provider Dr. Gemini Devine Referring Provider Dr. Bladimir Rosales Attending Provider Dr. Gemini Devine Primary Care Provider Dr. Gemini Devine Referring Provider Dr. Bladimir Rosales Attending Provider [phone] Dr. Bladimir Rosales Other Provider Gemini Devine DO Primary Care Provider Gemini Devine DO Primary Care Provider DR GEMINI DEVINE DO Primary Care Physician DR GEMINI DEVINE DO Primary Care Unavailable MARCELO LARSON, DR VILLAVICENCIO Attending [facility] Dr. Gemini Devine DO Primary Care Provider Dr. Gemini Devine DO Attending Provider Dr. Gemini Devine DO Referring Provider Billy LARSON, Dr. Savage Attending Provider Billy LARSON, Dr. Savage Referring Provider [phone] Olivier OPTICAL FABRICATOR-C, Katherin Attending Provider [phone] Olivier OPTICAL FABRICATOR-C, Katherin Referring Provider REBECA COKER Attending Jenaevai lable MALYS, GEMINI A Primary Care Unavailable DOMINGUEZ , GUILLERMO Duff Attending Unavailable MALYS, GEMINI A Primary Care Unavailable DOMINGUEZ JR, GUILLERMO Duff Attending Unavailable MALYS, GEMINI A Primary Care Unavailable REBECA COKER Attending Phillip DOMINGUEZ JR, GUILLERMO Duff Referring Unavailable MALYS, GEMINI A Primary Care Unavailable DOMINGUEZ JR, GUILLERMO Duff Referring Unavailable MALYS, GEMINI A Primary Care Unavailable SINDY JIN Attending Unavailable MALYS, GEMINI A Primary Care Unavailable Dominguez, Guillermo Attending Unavailable Dominguez, Guillermo Referring Unavailable Malys, Gemini Primary Care Unavailable Olivier, Katherin Attending Unavailable Olivier, Katherin Referring Unavailable Malys, Gemini Primary Care Unavailable Malys, Gemini Attending Unavailable Malys, Gemini Referring Unavailable Malys, Gemini Primary Care Unavailable Malys, Gemini Attending Unavailable Malys, Gemini Referring Unavailable Malys, Gemini Primary Care Unavailable Basali, Hussein Attending Unavailable Basali, Hussein Referring Unavailable Malys, Gemini Primary Care Unavailable Malys, Gemini Attending Unavailable Malys, Gemini Referring Unavailable Malys, Gmeini Primary Care Unavailable Malys, Gemini Attending Unavailable Malys, Gemini Primary Care Unavailable Medications Current Medications Medication Drug Class(es) Dates Sig (Normalized) Sig (Original) acetaminophen 325 mg / HYDROcodone bitartrate 5 mg oral tablet (1 source) Opioid Agonist Start: 12-14-2014 take 1-2 tablets by mouth every four hours as needed for pain [place] 325- 5 mg oral tablet 1-2 tab(s), Oral, q4h, PRN as needed for pain, # 30 tab(s), 0 Refill(s) Start Date: 12/14/14 Status: Ordered Quantity: 30.0 Unit: tab(s) Repeat number: 1 amLODIPine 10 mg oral tablet (20 sources) Dihydropyridine Calcium Channel Brandy Start: 12-08-2014 take 1 tablet by mouth once daily Amlodipine 10 MG tablet Active 10 mg PO DAILY February 17, 2015 1:00am Comment on above: Take 10 mg by mouth once daily. bisacodyl 5 mg delayed release oral tablet (2 sources) Stimulant Laxative Start: 12-14-2014 Dulcolax Laxative 5 mg oral delayed release tablet Dose : 10 mg = 2 tab(s), Oral, qDay, PRN Constipation, 0 Refill(s) Start Date: 12/14/14 Status: Ordered Repeat number: 1 Start: 12-14-2014 Dulcolax Laxat tigist 10 mg rectal suppository Dose : 10 mg = 1 supp, Rectal, qDay, PRN as needed for constipation, 0 Refill(s) Start Date: 12/14/14 Status: Ordered Repeat number: 1 Caltrate 600 with D 600 mg-400 intl units oral tablet (1 source) Start: 12-08-2014 take 1 tablet by mouth once daily Caltrate 600 with D 600 mg-400 intl units oral tablet Dose = 1 tab(s), Oral, qDay Start Date: 12/08/14 Status: Ordered Repeat number: 1 CPAP/BIPAP/OTHER (20 sources) Start: 02-23-2023 End: 07-10-2050 CPAP/BIPAP/OTHER BiPAP 18/14 cmH2O DME [facility] [place] 1 Each 02/23/2023 07/10/2050 Active Start: 02-23-2023 End: 07-10-2050 CPAP/BIPAP/OTHER BiPAP 18/14 cmH2O DME [facility] [place] 1 Each 0 02/23/2023 07/10/2050 Active Start: 10-22-2022 End: 02-23-2023 CPAP/BIPAP/OTHER Indications : OSMAN treated with BiPAP PLEASE PROVIDE AIRFIT F30 MASK (SMALL) Continue BiPAP with current settings of 20/16 cm H2O. Lifetime supplies for BiPAP, including patient preferred mask, head gear, heated tubing, humidity, filters, chin strap. Dx: Obstructive Sleep Apnea G47.33 DME: [facility] [place] 1 Each 0 10/22/2022 02/23/2023 Discontinued Start: 10-22-2022 End: 03-08-2050 CPAP/BIPAP/OTHER Indications : OSMAN treated with BiPAP PLEASE PROVIDE AIRFIT F30 MASK (SMALL) Continue BiPAP with current settings of 20/16 cm H2O. Lifetime supplies for BiPAP, including patient preferred mask, head gear, heated tubing, humidity, filters, chin strap. Dx: Obstructive Sleep Apnea G47.33 DME: [facility] [place] 1 Each 0 10/22/2022 03/08/2050 Active Comment on above: PLEASE PROVIDE AIRFI T F30 MASK (SMALL) Continue BiPAP with current settings of 20/16 cm H2O. Lifetime supplies for BiPAP, including patient preferred mask, head gear, heated tubing, humidity, filters, chin strap. Dx: Obstructive Sleep Apnea G47.33 DME: [facility] [place] BiPAP 18/14 cmH2O DME [facility] [place] cycloSPORINE 0.5 mg/ml ophthalmic suspension (18 sources) Calcineurin Inhibitor Immunosuppressant Start: 019 Cyclosporine (Restasis) 0.05 % dropperette Active 1 NMA OPHTHALMIC Q12H March 09, 2019 1:00am dexamethasone phosphate 1 mg/ml ophthalmic solution (2 sources) Corticosteroid Start: 023 Dexamethasone Sodium Phosphate Active 1 APPLIC OPHTHALMIC January 06, 2023 12:00am Dilaudid Pain PUMP (1 source) Start: 015 Dilaudid Pain PUMP Dilaudid Pain PUMP, Continous, Intrathecal Start Date: 12/08/14 Status: Ordered Repeat number: 1 docusate sodium 100 mg oral capsule (1 source) Start: 015 Colace 100 mg oral capsule Dose : 100 mg = 1 cap(s), Oral, BID, 0 Refill(s) Start Date: 12/14/14 Status: Ordered Repeat number: 1 doxepin hydrochloride 10 mg oral capsule (20 sources) Tricyclic Antidepressant Start: 025 End: 025 take 2 capsules by mouth once daily at bedtime doxepin capsule 10 mg Take 2 capsules by mouth daily at bedtime. 60 capsule 5 10/07/2024 Active Start: 05-23-2024 take 2 capsules by m outh once at bedtime doxepin capsule 10 mg 2 capsules po q bedtime 60 capsule 05/23/2024 Active Start: 03-17-2024 End: 05-18-2024 take 2 capsules by mouth once at bedtime doxepin capsule 10 mg 2 capsules po q bedtime 180 capsule 1 05/18/2024 Active Start: 08-31-2023 End: 09-10-2024 take 1 capsule by mouth at bedtime Doxepin 10 mg capsule Active 10 mg PO AT BEDTIME October 16, 2023 12:00am DULoxetine 20 mg delayed release oral capsule (20 sources) Serotonin and Norepinephrine Reuptake Inhibitor Start: 10-16-2023 take 1 capsule by mouth twice daily Duloxetine (Cymbalta) 20 mg capsule,delayed release(DR/EC) Active 20 mg PO TWICE A DAY October 16, 2023 12:00am Start: 01-06-2023 End: 10-16-2023 take 1 capsule by mouth once daily Duloxetine 30 mg capsule,delayed release(DR/EC) Discontinued 30 mg PO DAILY January 06, 2023 12:00am October 16, 2023 3:38pm Start: 01-06-2023 Duloxetine Act tigist MG PO January 06, 2023 12:00am duloxetine HCl ( CYMBALTA ORAL) Take by mouth. Active duloxetine HCl ( CYMBALTA ORAL) Take by mouth. 0 Active Comment on above: Take by mouth. ergocalciferol 1.25 mg oral capsule (14 sources) Provitamin D2 Compound Start: 01-06-2023 Ergocalciferol (Vitamin D2) (Vitamin D2) 1,250 mcg (50,000 unit) capsule Active 1250 ug PO WESA January 06, 2023 12:00am Start: 01-06-2023 take 1 capsule by mouth once E rgocalciferol (Vitamin D2) (Vitamin D2) 1,250 mcg (50,000 unit) capsule Active 1250 MCG PO .2X/WEEK January 06, 2023 12:00am Start: 01-06-2023 Ergocalciferol (Vitamin D2) (Vitamin D2) 1,250 mcg (50,000 unit) capsule Active PO January 06, 2023 12:00am folic acid 1 mg oral tablet (1 source) Start: 12-08-2014 folic acid 1 m g oral tablet Dose : 1 mg = 1 tab(s), Oral, qDay Start Date: 12/08/14 Status: Ordered Repeat number: 1 furosemide 40 mg oral tablet (20 sources) Loop Diuretic Start: 10-16-2023 take 1 tablet by mouth once daily Furosemide 40 mg tablet Active 40 mg PO DAILY October 16, 2023 12:00am Start: 12-08-2014 Lasix 20 mg or al tablet Dose : 20 mg = 1 tab(s), Oral, Every other day Start Date: 12/08/14 Status: Ordered Repeat number: 1 take 1 tablet by giovanny th once daily furosemide (LASIX ORAL) Take 1 tablet by mouth once daily. Active take 1 tablet by giovanny th once daily furosemide (LASIX ORAL) Take 1 tablet by mouth once daily. 0 Active gabapentin 100 mg oral capsule (20 sources) Anti-epileptic Agent Start: 01-29-2024 End: 12-15-2024 take 1 capsule by mouth at dinner gabapentin (NEURONTIN) 300 mg capsule Indications: RLS (restless legs syndrome) , Diabetic polyneuropathy associated with type 2 diabetes mellitus (HCC) TAKE 1 CAPSULE BY MOUTH WITH DINNER (WITH 800MG TABLET) AND 1 CAPSULE BY MOUTH AT BEDTIME (WITH 800MG TABLET) 180 capsule 1 10/07/2024 12/15/2024 Active Start: 01-06-2023 Gabapentin Act tigist MG PO January 06, 2023 12:00am Start: 10-22-2022 End: 04-05-2025 take 1 capsule by mouth once daily in the morning gabapentin (NEURONTIN) 100 mg capsule Indications: RLS (restless legs syndrome) , Diabetic polyneuropathy associated with type 2 diabetes mellitus (HCC) Take 1 capsule by mouth every morning for 180 days. (Take with gabapentin 800mg tablet in AM) 90 capsule 1 10/07/2024 04/05/2025 Active Start: 10-22-2022 End: 04-05-2025 take 1 tablet by mouth three times daily gabapentin (NEURONTIN) 800 mg tablet Indications: RLS (restless legs syndrome) , Diabetic polyneuropathy associated with type 2 diabetes mellitus (HCC) Take 1 tablet by mouth three times a day for 180 days. 270 tablet 1 10/07/2024 04/05/2025 Active Start: 06-17-2022 End: 01-06-2024 take 1 capsule by mouth at dinner gabapentin (NEURONTIN) 300 mg capsule Indications: RLS (restless legs syndrome) , Neuropathy , Diabetic polyneuropathy associated with type 2 diabetes mellitus (HCC) TAKE 1 CAPSULE BY MOUTH WITH DINNER (WITH 800MG TABLET) AND 1 CAPSULE BY MOUTH AT BEDTIME (WITH 800MG TABLET). 90 day supply. 180 capsule 0 08/31/2023 01/06/2024 Active Start: 12-05-2021 End: 03-05-2022 take 1 capsule by mouth once daily in the morning gabapentin (NEURONTIN) 100 mg capsule Indications: RLS (restless legs syndrome) , Diabetic polyneuropathy associated with type 2 diabetes mellitus (HCC) Take 1 capsule by mouth every morning for 90 days. (Take with gabapentin 800mg tablet in AM) 90 capsule 1 12/05/2021 Active Start: 06-25-2021 End: 06-03-2022 take 1 tablet by mouth three times daily gabapentin (NEURONTIN) 800 mg tablet Indications: RLS (restless legs syndrome) , Neuropathy Take 1 tablet by mouth three times daily for 180 days. 270 tablet 1 12/05/2021 Active Start: 02-17-2015 take 1 capsule by mo uth twice daily Gabapentin 300 MG capsule Active 300 mg PO TWICE A DAY February 17, 2015 1:00am Start: 02-17-2015 take 900 mg by mouth four times daily Gabapentin Active 900 MG PO 4 TIMES DAILY February 17, 2015 1:00am Start: 12-08-2014 End: 06-07-2022 gabapentin (NEURONTIN) 300 m g capsule Indications: RLS (restless legs syndrome) , Diabetic polyneuropathy associated with type 2 diabetes mellitus (HCC) Take 1 capsule with dinner and 1 capsule and bedtime. 180 capsule 1 12/05/2021 06/07/2022 Active Comment on above: Take 1 tablet by giovanny three times daily for 180 days. Take 1 capsule with dinner and 1 capsule and bedtime. Take 1 capsule by mo ut every morning for 90 days. (Take with gabapentin 800mg tablet in AM) Take 1 capsule by mo uth every morning for 180 days. (Take with gabapentin 800mg tablet in AM) Take 1 capsule with dinner (with 800mg tab) and 1 capsule at bedtime (with 800mg tab). TAKE 1 CAPSULE BY MO UTH WITH DINNER (WITH 800MG TABLET) AND 1 CAPSULE BY MOUTH AT BEDTIME (WITH 800MG TABLET). 90 day supply. Take 1 tablet by giovanny three times a day for 180 days. glipiZIDE er 5 mg 24 hr extended release oral tablet (20 sources) Sulfonylurea Start: 01-06-2023 Glipizide Active MG PO January 06, 2023 12:00am Start: 02-02-2020 take 1 tablet by giovanny th twice daily glipiZIDE (GLUCOTROL XL) 5 mg 24 hr tablet Take 1 tablet by mouth twice daily. 02/02/2020 Active Start: 02-02-2020 take 1 tablet by giovanny th once daily at breakfast glipiZIDE (GLUCOTROL XL) 5 mg 24 hr tablet Take 1 tablet by mouth daily with breakfast. 0 02/02/2020 Active Comment on above: Take 1 tablet by giovanny th daily with breakfast. Take 1 tablet by giovanny th twice daily. hydroCHLOROthiazide 25 mg oral tablet (20 sources) Thiazide Diuretic Start: 2022 take 1 tablet by mouth once daily Hydrochlorothiazide 25 mg tablet Active 25 mg PO DAILY January 06, 2023 12:00am On Hold: Ordered Start: 01-06-2023 Hydrochlorothi azide Active MG PO January 06, 2023 12:00am HYDROCHLOROTHIAZ [place] ORAL Take by mouth. Active HYDROCHLOROTHIAZ [place] ORAL Take by mouth. 0 Active Comment on above: Take by mouth. 1 ml HYDROmorphone hydrochloride 1 mg/ml injection (20 sources) Opioid Agonist Start: 01-07-20 inject 0.5 mg by subcutaneous injection every four hours as needed for pain Hydromorphone (Pf) 1 mg/mL solution Active 0.5 mg continuous subcutaneous infusion Q4H as needed for pain January 06, 2023 12:00am Start: 01-06-2023 inject 0.5 mg by sub cutaneous injection every four hours Hydromorphone (Pf) Active 0.5 MG continuous subcutaneous infusion Q4H January 06, 2023 12:00am HYDROMORPHONE HC L (DILAUDID MISC) Pain pump Active HYDROMORPHONE HC L (DILAUDID MISC) Pain pump 0 Active Comment on above: Pain pump hydroxychloroquine sulfate 200 mg oral tablet (1 source) Antimalarial, Antirheumatic Agent Start: 2014 Plaquenil 200 mg oral tablet Dose : 200 mg = 1 tab(s), Oral, BID Start Date: 12/08/14 Status: Ordered Repeat number: 1 hydrOXYzine hydrochloride 25 mg oral tablet (20 sources) Antihistamine Start: 2018 End: 2024 take 1 tablet by mouth at bedtime as needed for sleep Hydroxyzine Hcl 25 mg tablet Active 25 mg PO AT BEDTIME as needed for Sleep March 09, 2019 1:00am lidocaine 0.05 mg/mg medicated patch (1 source) Antiarrhythmic, Amide Local Anesthetic Start: 2024 End: 2024 Lidoderm 5% topical patch Apply 1 patch(es), Topical, Daily, X 14 day(s), # 14 patch(es), 0 Refill(s), 107 Start Date: 05/22/24 Stop Date: 06/05/24 Status: Ordered Quantity: 14.0 Unit: patch(es) Repeat number: 1 loratadine 10 mg oral tablet (1 source) Start: 2014 loratadine 10 mg oral tablet Dose : 10 mg = 1 tab(s), Oral, qDay, PRN as needed for allergy symptoms Start Date: 12/08/14 Status: Ordered Repeat number: 1 lovastatin 40 mg oral tablet (20 sources) HMG-CoA Reductase Inhibitor Start: 2018 take 1 tablet by mouth once daily Lovastatin 40 mg tablet Active 40 mg PO DAILY March 09, 2019 1:00am Comment on above: Take 40 mg by mouth daily at bedtime. Raphael Red Krill Oil 300mg oral capsule (1 source) Start: 2014 take 1 capsule by mouth once daily Raphael Red Krill Oil 300mg oral capsule 1 cap(s), Oral, qDay Start Date: 12/08/14 Status: Ordered Repeat number: 1 meloxicam 15 mg oral tablet (20 sources) Nonsteroidal Anti-inflammatory Drug Start: 2023 meloxicam (MOBIC) 15 mg tablet 05/15/2023 Active Milk of Magnesia (1 source) Start: 2014 take 1 dose by mouth once daily at bedtime as needed for constipation Milk of Magnesia Dose = 30 mL, Oral, qHS, PRN Constipation, 0 Refill(s) Start Date: 12/14/14 Status: Ordered Repeat number: 1 MULTI-VITAMIN ORAL (20 sources) MULTI-VITAMIN ORAL Take by mouth. Active MULTI-VITAMIN OR AL Take by mouth. 0 Active Comment on above: Take by mouth. Multiple Vitamins oral tablet (1 source) Start: 12-08-2014 take 1 tablet by mouth once daily Multiple Vitamins oral tablet Dose = 1 tab(s), Oral, qDay Start Date: 12/08/14 Status: Ordered Repeat number: 1 Multivitamin,Tx-Iron -Minerals (12 sources) Start: 02-17-2015 take 1 tablet by mouth once daily Multivitamin,Tx-Iron -Minerals Active 1 TABLET PO DAILY February 17, 2015 4:02pm Start: 02-17-2015 take 1 tablet by giovanny th once daily Multivitamin,Ok-Fhgh-Wcotfzrh Active 1 T ABLET PO DAILY February 17, 2015 12:00am Start: 02-17-2015 take 1 tablet by giovanny th once daily Multivitamin,Ye-Wpih-Huqibzqb Active 1 T ABLET PO DAILY February 17, 2015 1:00am Multivitamin,Zy-Mmtq-Pmfnpfi s 1 TABLET tablet (6 sources) Start: 02-17-2015 take 1 tablet by mouth once daily Multivitamin,Vn-Gvkb-Snnzljhr 1 TABLET tablet Active 1 {tbl} PO DAILY February 17, 2015 1:00am 24 hr oxybutynin chloride 5 mg extended release oral tablet (20 sources) Cholin ergic Muscar inic Antago nist Start: 01-06-2023 take 1 tablet by mouth every twenty-f our hours at bedtime Oxybutynin Chloride 5 mg tablet extended release 24hr Active 5 mg PO AT BEDTIME January 06, 2023 12:00am Start: 01-06-2023 Oxybutynin Chl oride Active MG PO January 06, 2023 12:00am Start: 02-02-2020 take 1 tablet by giovanny th once daily at bedtime oxybutynin XL (DITROPAN XL) 5 mg 24 hr tablet Take 5 mg by mouth daily at bedtime. 02/02/2020 Active Comment on above: Take 5 mg by mouth d aily at bedtime. potassium chloride 20 meq extended release oral tablet (20 sources) Start: 02-17-2015 take 1 tablet by mouth twice daily Potassium Chloride 20 MEQ tablet Active 20 meq PO TWICE A DAY February 17, 2015 1:00am Start: 12-08-2014 take 20 mEq by mouth once kari y Potassium Chloride Active 20 MEQ PO DAILY February 17, 2015 1:00am take 20 mEq by mouth twice daily potassium chloride (K-MONCHO, KLOR-CON) 20 mEq packet Take 20 mEq by mouth twice daily. Active Comment on above: Take 20 mEq by mouth twice daily. RABEprazole sodium 20 mg delayed release oral tablet (6 sources) Proton Pump Inhibitor Start: 06-16-2023 take 1 tablet by mouth once RABEprazole (ACIPHEX) 20 mg tablet Take 1 tablet by mouth every afternoon. 0 06/16/2023 Active Comment on above: Take 1 tablet by giovanny th every afternoon. Refresh ophthalmic solution (1 source) Start: 12-08-2014 take 1 dose into the eye(s) twice daily as needed Refresh ophthalmic solution Dose = 2 drop(s), Eyes, both, BID, PRN for dry eyes Start Date: 12/08/14 Status: Ordered Repeat number: 1 sennosides, correction 8.6 mg oral tablet (1 source) Start: 12-14-2014 senna 8.6 mg oral tablet Dose : 8.6 mg = 1 tab(s), Oral, BID, 0 Refill(s) Start Date: 12/14/14 Status: Ordered Repeat number: 1 Completed/Discontinued Medications Medication Drug Class(es) Dates Sig (Normalized) Sig (Original) aspirin 81 mg chewable tablet (20 sources) Platelet Aggregation Inhibitor, Nonsteroidal Anti-inflammatory Drug Start: 02-17-2015 End: 10-16-2023 take 1 tablet by mouth once daily Aspirin 81 MG tablet,chewable Discontinued 81 mg PO DAILY@0800 February 17, 2015 1:00am October 16, 2023 3:36pm Start: 12-14-2014 aspirin 325 mg oral tablet Dose : 325 mg = 1 tab(s), Oral, qDay, 0 Refill(s) Start Date: 12/14/14 Status: Ordered Repeat number: 1 End: 06-29-2023 Aspirin 81 mg ORAL Tab Take 81 mg by mouth. 0 06/29/2023 Discontinued Comment on above: Take 81 mg by mouth. 12 hr buPROPion hydrochloride 150 mg extended release oral tablet (19 sources) Aminoketone Start: 5 End: 9 take 1 tablet by mouth twice daily Bupropion Hcl 150 MG tablet sustained-release 12 hr Discontinued 150 mg PO TWICE A DAY February 17, 2015 1:00am March 09, 2019 2:21pm Start: 12-08-2014 take 1 tablet by giovanny th every hour, then take 1 tablet by mouth twice daily Wellbutrin SR 200 mg/12 hours oral tablet, extended release Dose : 200 mg = 1 tab(s), Oral, BID Start Date: 12/08/14 Status: Ordered Repeat number: 1 calcium citrate 1500 mg / cholecalciferol 200 unt oral tablet (18 sources) Vitamin D Start: 02-17-2015 End: 01-06-2023 Calcium Citrate-Vitamin D3 1 EACH tablet Discontinued 1 NMA PO DAILY February 17, 2015 1:00am January 06, 2023 2:13pm Start: 02-17-2015 End: 01-06-2023 Calcium Citrate-Vitamin D3 D iscontinued 1 EACH PO DAILY February 17, 2015 1:00am January 06, 2023 2:13pm CPAP (17 sources) Start: 12-05-2021 End: 06-29-2023 CPAP Indications: OSMAN (obstr uctive sleep apnea) , CSA (central sleep apnea) Please lower bilevel to 21/17 cmH2O. Please send us download in 4 weeks. DME=[facility] 1 Each 12/05/2021 06/29/2023 Discontinued Start: 12-05-2021 CPAP Indicatio ns: OSMAN (obstructive sleep apnea) , CSA (central sleep apnea) Please lower bilevel to 21/17 cmH2O. Please send us download in 4 weeks. DME=[facility] 1 Each 12/05/2021 Active Start: 06-25-2021 End: 12-05-2021 CPAP Indications: OSMAN (obstr uctive sleep apnea) , CSA (central sleep apnea) Please lower bilevel to 20/16 cmH2O. Please send us download in 4 weeks. 1 Each 06/25/2021 12/05/2021 Discontinued Start: 06-25-2021 CPAP Indicatio ns: OSMAN (obstructive sleep apnea) , CSA (central sleep apnea) Please lower bilevel to 20/16 cmH2O. Please send us download in 4 weeks. 1 Each 06/25/2021 Active Comment on above: Please lower bilevel to 20/16 cmH2O. Please send us download in 4 weeks. Please lower bilevel to 21/17 cmH2O. Please send us download in 4 weeks. DME=[facility] diclofenac potassium 50 mg oral tablet (20 sources) Nonsteroidal Anti-inflammatory Drug Start: 9 End: take 1 tablet by mouth three times daily Diclofenac Potassium 50 mg tablet Discontinued 50 mg PO THREE TIMES A DAY March 09, 2019 1:00am October 16, 2023 3:37pm Start: 03-09-2019 take 50 mg by mouth twice kari y Diclofenac Potassium Active 50 MG PO TWICE A DAY March 09, 2019 1:00am End: 06-29-2023 take 1 tablet by mouth twice daily diclofenac, EC, (VOLTAREN) 50 mg EC tablet Take 50 mg by mouth twice daily. 0 06/29/2023 Discontinued Comment on above: Take 50 mg by mouth twice daily. escitalopram 10 mg oral tablet (18 sources) Serotonin Reuptake Inhibitor Start: End: take 1 tablet by mouth once daily Escitalopram Oxalate (Lexapro) 10 mg tablet Discontinued 10 mg PO DAILY March 09, 2019 1:00am January 06, 2023 2:13pm hydroCHLOROthiazide 25 mg / valsartan 320 mg oral tablet (20 sources) Thiazide Diuretic, Angiotensin 2 Receptor Brandy Start: 015 End: take 1 tablet by mouth once daily Valsartan-Hydrochlo rothiazide Discontinued 1 TABLET PO DAILY March 09, 2019 1:22pm January 06, 2023 1:15pm Start: 12-08-2014 End: 01-06-2023 Valsartan-Hydrochlorothiazid e 320-25 mg tablet Discontinued 1 {tbl} PO DAILY March 09, 2019 2:22pm January 06, 2023 2:15pm levETIRAcetam 500 mg oral tablet (19 sources) Start: 12-08-2014 End: 01-06-2023 take 1 tablet by mouth twice daily Levetiracetam 500 MG tablet Discontinued 500 mg PO TWICE A DAY February 17, 2015 1:00am January 06, 2023 2:14pm PARoxetine hydrochloride 40 mg oral tablet (19 sources) Serotonin Reuptake Inhibitor Start: 12-08-2014 End: 03-09-2019 take 1 tablet by mouth once daily Paroxetine Hcl 40 MG tablet Discontinued 40 mg PO DAILY February 17, 2015 1:00am March 09, 2019 2:22pm pravastatin sodium 40 mg oral tablet (19 sources) HMG-CoA Reductase Inhibitor Start: 12-08-2014 End: 03-09-2019 take 1 tablet by mouth once daily Pravastatin 40 MG tablet Discontinued 40 mg PO DAILY February 17, 2015 1:00am March 09, 2019 2:22pm primidone 50 mg oral tablet (19 sources) Anti-epileptic Agent Start: 02-17-2015 End: 03-09-2019 take 100 mg by mouth twice daily Primidone Discontinued 100 MG PO TWICE A DAY February 17, 2015 1:00am March 09, 2019 2:22pm Start: 12-08-2014 End: 03-09-2019 take 1 tablet by mouth twice daily Primidone 50 MG tablet Discontinued 100 mg PO TWICE A DAY February 17, 2015 1:00am March 09, 2019 2:22pm traMADol hydrochloride 50 mg oral tablet (3 sources) Opioid Agonist Start: 08-05-2023 End: 03-14-2024 take 1 tablet by mouth every eight hours as needed traMADol (ULTRAM) 50 mg tablet Take 50 mg by mouth every 8 hours as needed. 08/05/2023 03/14/2024 Discontinued traZODone hydrochloride 50 mg oral tablet (6 sources) Serotonin Reuptake Inhibitor Start: 09-29-2023 End: 09-29-2023 take 1 tablet by mouth once daily at bedtime, then take 1 tablet by mouth at bedtime, then take 2 tablets by mouth at bedtime traZODone (DESYREL) 50 mg tablet Indications: Insomnia,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 Platelet mean volume (Bld) [Entitic vol] 12.3 fL High 6.2-12.0 [facility] Comment on above: Performed By: #### L 502.0250, L501.9985, L500.4100, L500.4050, L100.0100 #### [facility] [address] [place], [address] Platelets (Bld) [#/Vol] 227 10*3/uL Normal 150-450 [facility] Comment on above: Performed By: #### L 502.0250, L501.9985, L500.4100, L500.4050, L100.0100 #### [facility] [address] [place], [address] RBC (Bld) [#/Vol] 5.15 10*6/uL Normal 4.2-5.4 [facility] Comment on above: Performed By: #### L 502.0250, L501.9985, L500.4100, L500.4050, L100.0100 #### [facility] [address] [place], [address] RDW SD 43.8 fl Normal 35.1-43.9 [facility] Comment on above: Performed By: #### L 502.0250, L501.9985, L500.4100, L500.4050, L100.0100 #### [facility] [address] [place], [address] WBC (Bld) [#/Vol] 8.3 10*3/uL Normal 4.4-11.0 [facility] Comment on above: Performed By: #### L 502.0250, L501.9985, L500.4100, L500.4050, L100.0100 #### [facility] [address] [place], [address] Calculated very low density lipoprotein (VLDL) cholesterol measurementOrdered By: Gemini Devine on 07-11-2024 Calculated very low density lipoprotein (VLDL) cholesterol measurement 31 mg/dL 5-40 [facility] VLDL Cholesterol 31 mg/dL 5-40 [facility] Carbon dioxide, total [Moles /volume] in Central venous bloodOrdered By: Gemini Devine on 07-11-2024 CO2 [Moles/Vol] 24.7 mmol/L 21.0-32.0 [facility] Chloride assayOrdered By: Mary Devine on 07-11-2024 Chloride [Moles/Vol] 99 mmol/L 98-108 [facility] Comprehensive Metabolic Prof ilon 07-11-2024 Albumin [Mass/Vol] 4.5 g/dL Normal 3.4-4.8 [facility] Comment on above: Performed By: #### L 502.0250, L501.9985, L500.4100, L500.4050, L100.0100 #### [facility] [address] [place], [address] Albumin/Globulin [Mass ratio] 1.3 {ratio} Normal 0.9-2.4 [facility] Comment on above: Performed By: #### L 502.0250, L501.9985, L500.4100, L500.4050, L100.0100 #### [facility] [address] [place], [address] ALK PHOS 91 U/L Normal 35-104 [facility] Comment on above: Performed By: #### L 502.0250, L501.9985, L500.4100, L500.4050, L100.0100 #### [facility] [address] [place], [address] ALT [Catalytic activity/Vol] 9 U/L Normal <=34 [facility] Comment on above: Performed By: #### L 502.0250, L501.9985, L500.4100, L500.4050, L100.0100 #### [facility] [address] [place], [address] AST [Catalytic activity/Vol] 22 U/L Normal <=31 [facility] Comment on above: Performed By: #### L 502.0250, L501.9985, L500.4100, L500.4050, L100.0100 #### [facility] [address] [place], [address] Bilirubin [Mass/Vol] 0.66 mg/dL Normal 0.00-1.30 [facility] Comment on above: Performed By: #### L 502.0250, L501.9985, L500.4100, L500.4050, L100.0100 #### [facility] [address] [place], [address] BUN/CRE 9.0 RATIO Low 10-20 [facility] Comment on above: Performed By: #### L 502.0250, L501.9985, L500.4100, L500.4050, L100.0100 #### [facility] [address] [place], [address] Calcium [Mass/Vol] 10.0 mg/dL Normal 7.6-11.0 [facility] Comment on above: Performed By: #### L 502.0250, L501.9985, L500.4100, L500.4050, L100.0100 #### [facility] [address] [place], [address] Chloride [Moles/Vol] 99 mmol/L Normal 98-108 [facility] Comment on above: Performed By: #### L 502.0250, L501.9985, L500.4100, L500.4050, L100.0100 #### [facility] [address] [place], [address] CO2 [Moles/Vol] 24.7 mmol/L Normal 21.0-32.0 [facility] Comment on above: Performed By: #### L 502.0250, L501.9985, L500.4100, L500.4050, L100.0100 #### [facility] [address] [place], [address] Creatinine [Mass/Vol] 0.73 mg/dL Normal 0.70-1.20 [facility] Comment on above: Performed By: #### L 502.0250, L501.9985, L500.4100, L500.4050, L100.0100 #### [facility] [address] [place], [address] GAP 15 Normal 5-15 [facility] Comment on above: Performed By: #### L 502.0250, L501.9985, L500.4100, L500.4050, L100.0100 #### [facility] [address] [place], [address] GFR/1.73 sq M.predicted among non-blacks MDRD (S/P/Bld) [Vol rate/Area] 85 mL/min/{1.73_m2} Normal >60 [facility] Comment on above: Result Comment: mL/m in/1.73m2 CKD-EPI Creatinine Equation (2020) Performed By: #### L 502.0250, L501.9985, L500.4100, L500.4050, L100.0100 #### [facility] [address] [place], [address] Globulin (S) [Mass/Vol] 3.6 g/dL Normal 2.2-4.2 [facility] Comment on above: Performed By: #### L 502.0250, L501.9985, L500.4100, L500.4050, L100.0100 #### [facility] [address] [place], [address] Glucose [Mass/Vol] 150 mg/dL High 70-99 [facility] Comment on above: Performed By: #### L 502.0250, L501.9985, L500.4100, L500.4050, L100.0100 #### [facility] [address] [place], [address] Potassium [Moles/Vol] 3.6 mmol/L Normal 3.3-5.1 [facility] Comment on above: Performed By: #### L 502.0250, L501.9985, L500.4100, L500.4050, L100.0100 #### [facility] [address] [place], [address] Sodium [Moles/Vol] 139 mmol/L Normal 133-145 [facility] Comment on above: Performed By: #### L 502.0250, L501.9985, L500.4100, L500.4050, L100.0100 #### [facility] [address] [place], [address] T PROT 8.1 g/dL Normal 5.9-8.4 [facility] Comment on above: Performed By: #### L 502.0250, L501.9985, L500.4100, L500.4050, L100.0100 #### [facility] [address] [place], [address] Urea nitrogen [Mass/Vol] 7 mg/dL Normal 4-19 [facility] Comment on above: Performed By: #### L 502.0250, L501.9985, L500.4100, L500.4050, L100.0100 #### [facility] [address] [place], [address] Eosinophil percentageOrdered By: Gemini Devine on 07-11-2024 Eosinophils/100 WBC (Bld) 2.4 % 0-5 [facility] Erythrocyte distribution wid th (RBC) [Ratio]Ordered By: Gemini Devine on 07-11-2024 Erythrocyte distribution width (RBC) [Entitic vol] 43.8 fL 35.1-43.9 [facility] Erythrocyte distribution wid th ratioOrdered By: Gemini Devine on 07-11-2024 Erythrocyte distribution width (RBC) [Ratio] 12.9 % 11.6-14.6 [facility] Erythrocyte distribution wid th standard deviationOrdered By: Gemini Devine on 07-11-2024 Erythrocyte distribution width (RBC) [Ratio] 43.8 fl 35.1-43.9 [facility] GFR/1.73 sq M.predicted kush g non-blacks MDRD (S/P/Bld) [Vol rate/Area]Ordered By: Gemini Devine on 07-11-2024 Estimated GFR (MDRD) Non-Af Amer 85 >60 [facility] Comment on above: mL/min/1.73m2 CKD-EP I Creatinine Equation (2020) Glomerular filtration rate ( GFR) estimation/1.73 sq m using serum, plasma, or whole bOrdered By: Gemini Devine on 07-11-2024 GFR/1.73 sq M.predicted among non-blacks MDRD (S/P/Bld) [Vol rate/Area] 85 mL/min/{1.73_m2} >60 [facility] Comment on above: mL/min/1.73m2 CKD-EP I Creatinine Equation (2020) Hematocrit Auto (Bld) [Volum e fraction]Ordered By: Gemini Devine on 07-11-2024 Hematocrit (Bld) [Volume fraction] 47.4 % High 37-47 [facility] Hemoglobin A1con 07-11-2024 HbA1c (Bld) [Mass fraction] 7.1 % High <=5.6 [facility] Comment on above: Result Comment: Norm al < 5.7 % Prediabetic 5.7 - 6.4 % Diabetic >or= 6.5 % Please note range changes. Performed By: #### L 502.0250, L501.9985, L500.4100, L500.4050, L100.0100 #### [facility] [address] [place], [address] Hemoglobin A1c percentageOrd ered By: Gemini Devine on 07-11-2024 HbA1c (Bld) [Mass fraction] 7.1 % High <5.7 [facility] Comment on above: Normal < 5.7 % Predi abetic 5.7 - 6.4 % Diabetic >or= 6.5 % Please note range changes. Hemoglobin measurementOrdere d By: Gemini Devine on 07-11-2024 Hemoglobin (Bld) [Mass/Vol] 15.4 g/dL High 12.0-15.0 [facility] Immature granulocytes/100 WB C Auto (Bld)Ordered By: Gemini Devine on 07-11-2024 Immature granulocytes/100 WBC (Bld) 0.200 % 0.0-0.9 [facility] Comment on above: IG% - Immature Granu locytes (promyelocytes, myelocytes and metamyelocytes) > 1% indicates that a LEFT SHIFT is Present. LDL calc ser/plasOrdered By: Gemini Devine on 07-11-2024 Cholesterol in LDL [Mass/Vol] 79 mg/dL [facility] Comment on above: Mmgejpvmqy=127-906 m g/dL & Higher Vupp=445 mg/dL or greater LDL Cholesterol, Calculated 79 mg/dL [facility] Comment on above: Xwxxczeibr=414-740 m g/dL & Higher Bwxb=449 mg/dL or greater Laboratory - Chemistry and C hemistry - challengeOrdered By: Gemini Devine on 07-11-2024 AST [Catalytic activity/Vol] 22 U/L <32 [facility] Lipid Profileon 07-11-2024 CHOL:HDL 2.59 Normal [facility] Comment on above: Performed By: #### L 502.0250, L501.9985, L500.4100, L500.4050, L100.0100 #### [facility] [address] [place], [place], [address] Cholesterol [Mass/Vol] 178 mg/dL Normal <=200 [facility] Comment on above: Result Comment: Chol esterol level, Desirable <200 mg/dL Borderline high cholesterol 200-239 mg/dL High cholesterol >=240 mg/dL Recommendations of the NCEP Adult Treatment Panel for the following risk-cutoff thresholds for the [place] population. Performed By: #### L 502.0250, L501.9985, L500.4100, L500.4050, L100.0100 #### [facility] [address] [place], [address] Cholesterol in HDL [Mass/Vol] 69 mg/dL Normal [facility] Comment on above: Result Comment: Melissa onal Cholesterol Education Program (NCEP) guidelines: <40 mg/dL: Low HDL-cholesterol (major risk factor for CHD) >= 60 mg/dL: High HDL-cholesterol (negative risk factor for CHD) HDL-cholesterol is affected by a number of factors, e.g. smoking, exercise, hormones, sex and age. Performed By: #### L 502.0250, L501.9985, L500.4100, L500.4050, L100.0100 #### [facility] [address] [place], [address] Cholesterol in LDL [Mass/Vol] 79 mg/dL Normal [facility] Comment on above: Result Comment: Bord fzptde=839-070 mg/dL Higher Sssb=132 mg/dL or greater Performed By: #### L 502.0250, L501.9985, L500.4100, L500.4050, L100.0100 #### [facility] [address] [place], [address] Cholesterol in VLDL [Mass/Vol] 31 mg/dL Normal 5-40 [facility] Comment on above: Performed By: #### L 502.0250, L501.9985, L500.4100, L500.4050, L100.0100 #### [facility] [address] [place], [address] Triglyceride [Mass/Vol] 154 mg/dL Normal [facility] Comment on above: Result Comment: The drugs N-Acetylcysteine and Metamizole may falsely depress this assay. Normal range: <150 mg/dL Borderline High: 150-199 mg/dL High: 200-499 mg/dL Very High: >500 mg/dL Performed By: #### L 502.0250, L501.9985, L500.4100, L500.4050, L100.0100 #### [facility] [address] [place], [place], [address] Lymphocytes Auto (Unsp spec) [#/Vol]Ordered By: Gemini Devine on 07-11-2024 Lymphocytes (Bld) [#/Vol] 2.36 10*3/uL 0.83-4.51 [facility] Lymphocytes/100 WBC Auto (Un sp spec)Ordered By: Gemini Devine on 07-11-2024 Lymphocytes/100 WBC (Bld) 28.4 % 19-41 [facility] MCV (mean corpuscular volume ) determinationOrdered By: Gemini Devine on 07-11-2024 MCV (RBC) [Entitic vol] 92.0 fL 81-99 [facility] Mean corpuscular hemoglobin (MCH) determinationOrdered By: Gemini Devine on 07-11-2024 MCH (RBC) [Entitic mass] 29.9 pg 27.0-32.0 [facility] Mean corpuscular hemoglobin concentration (MCHC) determinationOrdered By: Gemini Devine on 07-11-2024 MCHC (RBC) [Mass/Vol] 32.5 g/dL 32-36 [facility] Mean platelet volume determi nationOrdered By: Gemini Devine on 07-11-2024 Platelet mean volume (Bld) [Entitic vol] 12.3 fL High 6.2-12.0 [facility] Microalb:Creat Ratio,Random URon 07-11-2024 MALB:CREAT Normal [facility] Comment on above: Result Comment: UTO BRINGING BACK Performed By: #### L 502.0250, L501.9985, L500.4100, L500.4050, L100.0100 #### [facility] [address] [place], [address] MICROALBUMIN,UR Normal NO RANGE EST. [facility] Comment on above: Result Comment: UTO BRINGING BACK Performed By: #### L 502.0250, L501.9985, L500.4100, L500.4050, L100.0100 #### [facility] [address] [place], [address] UR CREAT Normal 28.00-217.0 0 [facility] Comment on above: Result Comment: UTO BRINGING BACK Performed By: #### L 502.0250, L501.9985, L500.4100, L500.4050, L100.0100 #### [facility] [address] [place], [place], [address] Monocyte percentageOrdered B y: Gemini Devine on 07-11-2024 Monocytes/100 WBC (Bld) 6.9 % 0-10 [facility] Neutrophil percentageOrdered By: Gemini Devine on 07-11-2024 Neutrophils/100 WBC (Bld) 61.5 % 47-70 [facility] Nucleated red blood cell per centageOrdered By: Gemini Devine on 07-11-2024 Nucleated RBC/100 WBC (Bld) [Ratio] 0 % 0-5 [facility] Platelet countOrdered By: Mary Devine on 07-11-2024 Platelets (Bld) [#/Vol] 227 10*3/uL 150-450 [facility] Potassium (Unsp spec) [Mass/ Vol]Ordered By: Gemini Devine on 07-11-2024 Potassium [Moles/Vol] 3.6 mmol/L 3.3-5.1 [facility] Potassium measurement (mass/ volume)Ordered By: Gemini Devine on 07-11-2024 Potassium (Unsp spec) [Mass/Vol] 3.6 mmol/L 3.3-5.1 [facility] RBC Auto (Bld) [#/Vol]Ordere d By: Gemini Devine on 07-11-2024 RBC (Bld) [#/Vol] 5.15 10*6/uL 4.2-5.4 [facility] Screening total cholesterol/ high density lipoprotein (HDL) cholesterol ratioOrdered By: Gemini Devine on 07-11-2024 Cholesterol.total/Margarita sterol in HDL [Mass ratio] 2.59 {ratio} [facility] Serum creatinine measurement (mass/volume)Ordered By: Gemini Devine on 07-11-2024 Creatinine [Mass/Vol] 0.73 mg/dL 0.70-1.20 [facility] Serum globulin measurementOr dered By: Gemini Devine on 07-11-2024 Globulin (S) [Mass/Vol] 3.6 g/dL 2.2-4.2 [facility] Serum glucose measurement (m ass/volume)Ordered By: Gemini Devine on 07-11-2024 Glucose [Mass/Vol] 150 mg/dL High 70-99 [facility] Serum or plasma alanine michelle otransferase (ALT) measurementOrdered By: Gemini Devine on 07-11-2024 ALT [Catalytic activity/Vol] 9 U/L <35 [facility] Serum or plasma albumin ventura urement (mass/volume)Ordered By: Gemini Devine on 07-11-2024 Albumin [Mass/Vol] 4.5 g/dL 3.4-4.8 [facility] Serum or plasma albumin/glob ulin mass ratioOrdered By: Gemini Devine on 07-11-2024 Albumin/Globulin [Mass ratio] 1.3 {ratio} 0.9-2.4 [facility] Serum or plasma alkaline russ sphatase measurementOrdered By: Gemini Devine on 07-11-2024 ALP [Catalytic activity/Vol] 91 U/L 35-104 [facility] Serum or plasma calcium ventura urement (mass/volume)Ordered By: Gemini Devine on 07-11-2024 Calcium [Mass/Vol] 10.0 mg/dL 7.6-11.0 [facility] Serum or plasma cholesterol in HDL measurement (mass/volume)Ordered By: Gemini Devine on 07-11-2024 Cholesterol in HDL [Mass/Vol] 69 mg/dL >40 [facility] Comment on above: National Cholesterol Education Program (NCEP) guidelines:<40 mg/dL: Low HDL-cholesterol (major risk factor for CHD)>= 60 mg/dL: High HDL-cholesterol (negative risk factor for CHD)HDL-cholesterol is affected by a number of factors, e.g. smoking, exercise, hormones, sex and age. Serum or plasma cholesterol measurement (mass/volume)Ordered By: Gemini Devine on 07-11-2024 Cholesterol [Mass/Vol] 178 mg/dL <201 [facility] Comment on above: Cholesterol level, D esirable <200 mg/dLBorderline high cholesterol 200-239 mg/dLHigh cholesterol >=240 mg/dLRecommendations of the NCEP Adult Treatment Panel for the following risk-cutoff thresholds for the [place] population. Serum or plasma urea nitroge n measurement (mass/volume)Ordered By: Gemini Devine on 07-11-2024 Urea nitrogen [Mass/Vol] 7 mg/dL 4-19 [facility] Sodium levelOrdered By: Gemini Devine on 07-11-2024 Sodium [Moles/Vol] 139 mmol/L 133-145 [facility] Total proteinOrdered By: Padma Devine on 07-11-2024 Protein [Mass/Vol] 8.1 g/dL 5.9-8.4 [facility] Triglycerides measurementOrd ered By: Gemini Devine on 07-11-2024 Triglyceride [Mass/Vol] 154 mg/dL <199 [facility] Comment on above: The drugs N-Acetylcy steine and Metamizole may falsely depress this assay. Normal range: <150 mg/dLBorderline High: 150-199 mg/dLHigh: 200-499 mg/dLVery High: >500 mg/dL White blood cell (WBC) count Ordered By: Gemini Devine on 07-11-2024 WBC (Bld) [#/Vol] 8.3 10*3/uL 4.4-11.0 [facility] Magnetic resonance imaging r eportOrdered By: Garcia Licona on 07-07-2024 Study report [facility] Imaging Services [address] [place], [place] [id number] Spine Thoracic (Routine) MR#: [id number] Acct: [id number] Name: JAZMYNJULIO CESAR RUSSELL Rep #: [id number] : 1945 F 78 From: Segun Licona DO PCP: Dr. Gemini Devine DO Status: REG CLI Study:Spine Thoracic (Routine) Date of Exam: 07/06/24 Exam# [id number] Ordering Dr: Ramy Cervantes MD PROCEDURE: Noncontrast MRI of the thoracic spine. 07/06/2024 REASON FOR EXAM: COMPRESSION FRACTURE TECHNIQUE: Multiplanar, multisequence MRI images of the thoracic spine were obtained without IV contrast. COMPARISON: Thoracic and lumbar spine radiographs 06/14/[address] 11/30/2019 FINDINGS: There is chronic appearing mild height loss of T7. No acute fracture or focal subluxation of the mid to upper thoracic spine. There is gunj-ez-geevnqjk inferior endplate compression of T11, with moderate associated abnormal increased STIR signal, concerning for an acute or subacute fracture compression deformity. There is chronic appearing compression deformity and kyphoplasty change at L1. There is some minimal increased T2/stir signal involving the superior endplate of T12. Chronic appearing height loss of L2. Ksidzgrq-cr-yusvdl compression deformity of L3, with moderate associated abnormal increased STIR signal. No definite focal signal abnormality of the thoracic spinal cord. No significant disc space narrowing or large disc protrusion of the mid to upper thoracic spine. Minimal disc bulge is present at T9-10, without focal disc herniation or significant central spinal canal narrowing. Posterior cortical retropulsion at T11-12 and T12-L1 causes mild central spinal canal narrowing. Included upper abdominal structures show no specific abnormality. The included portions of the mediastinum and lungs show no specific abnormality. Moderate multilevel degenerative changes in the thoracic spine. MRI/Spine Thoracic (Routine) IMPRESSION: Unchanged kyphoplasty changes and height loss of L1. There is an acute or subacute moderate inferior endplate compression fracture of T11 and minimal acute/subacute superior endplate compression fracture of T12. There is an acute appearing moderate superior endplate compression fracture deformity of L3. Moderate multilevel degenerative disc disease in the thoracic and upper lumbar spine. Posterior cortical retropulsion/disc bulges at T11-12 and T12-L1 cause mild central spinal canal narrowing. No focal signal abnormality of the thoracic spinal cord. No large focal disc herniation or severe central spinal canal narrowing in the thoracic spine. [facility]: Dr. Hussein Cervantes MD; Dr. Gemini Devine DO ~ Quality Control Tester: Signed [facility] Spine Thoracic (Routine)on 0 07-06-2024 Spine Thoracic (Routine) [facility] Imaging Services [address] [place] [address] Spine Thoracic (Routine) MR#: [id number] Acct: [id number] Name: JULIO CESAR ELDRIDGE Rep #: [id number] : 1945 F 78 From: Garcia Ruffin i, DO PCP: Dr. Gemini Devine DO Status: REG CLI Study: Spine Thoracic (Routine) Date of Exam: Exam# [id number] Ordering Dr: Hussein Cervantes MD PROCEDURE: Noncontrast MRI of the thoracic spine. 07/06/2024 REASON FOR EXAM: COMPRESSION FRACTURE TECHNIQUE: Multiplanar, multisequence MRI images of the thoracic spine were obtained without IV contrast. COMPARISON: Thoracic and lumbar spine radiographs 06/14/[address] 11/30/2019 FINDINGS: There is chronic appearing mild height loss of T7. No acute fracture or focal subluxation of the mid to upper thoracic spine. There is bdri-he-wzftslou inferior endplate compression of T11, with moderate associated abnormal increased STIR signal, concerning for an acute or subacute fracture compression deformity. There is chronic appearing compression deformity and kyphoplasty change at L1. There is some minimal increased T2/stir signal involving the superior endplate of T12. Chronic appearing height loss of L2. Nuyywxvi-zq-itigbw compression deformity of L3, with moderate associated abnormal increased STIR signal. No definite focal signal abnormality of the thoracic spinal cord. No significant disc space narrowing or large disc protrusion of the mid to upper thoracic spine. Minimal disc bulge is present at T9-10, without focal disc herniation or significant central spinal canal narrowing. Posterior cortical retropulsion at T11-12 and T12-L1 causes mild central spinal canal narrowing. Included upper abdominal structures show no specific abnormality. The included portions of the mediastinum and lungs show no specific abnormality. Moderate multilevel degenerative changes in the thoracic spine. MRI/Spine Thoracic (Routine) IMPRESSION: Unchanged kyphoplasty changes and height loss of L1. There is an acute or subacute moderate inferior endplate compression fracture of T11 and minimal acute/subacute superior endplate compression fracture of T12. There is an acute appearing moderate superior endplate compression fracture deformity of L3. Moderate multilevel degenerative disc disease in the thoracic and upper lumbar spine. Posterior cortical retropulsion/disc bulges at T11-12 and T12-L1 cause mild central spinal canal narrowing. No focal signal abnormality of the thoracic spinal cord. No large focal disc herniation or severe central spinal canal narrowing in the thoracic spine. Reading [facility] CC: Dr. Hussein Cervantes MD; Dr. Gemini Devine DO Quality Control Tester: Signed Normal [facility] Bone density reportOrdered B y: Magdiel Ching on 06-28-2024 Study report Skeletal system DXA [facility] Imaging Services [address] [place] [address] [id number] Dexa Bone Density Study MR#: [id number] Acct: [id number] Name: JULIO CESAR ELDRIDGE Rep #: [id number] : 1945 F 78 From: Avinash Ching MD PCP: Dr. Gemini Devine DO Status: REG CLI Study:Dexa Bone Density Study Date of Exam: 06/28/24 Exam# [id number] Ordering Dr: Mary Devine sa, DO PROCEDURE: DEXA BONE DENSITY STUDY 06/28/2024 REASON FOR EXAM: F, age 78 y/o . Postmenopausal. TECHNIQUE: DXA scan of the lumbar spine and left hip, using make and model. REFERENCE LINKS: [facility] Adult Positions COMPARISON: Comparison is made with prior study dated June 24, 2022. FINDINGS: BMD and T-SCORES Lumbar spine: 1.028 g/cm2, T-Score -0.5 L1 through L4 Change from prior: Worsening by 9.4% Left femoral neck: 0.589 g/cm2, T-Score -2.3 Femoral neck comparison data not recommended for monitoring change. Left total hip: 0.860 g/cm2, T-Score -0.6 Change from prior: Worsening by 1.8% Fracture Risk Calculation: FRAX (10-year Fracture Risk) Score: FRAX scores should never be reported in a patient with osteoporosis on DEXA or for any patient that is on bone medication. The patient doesmeet the pharmacological treatment recommendations for prevention of osteoporosis BD/Dexa Bone Density Study IMPRESSION: OSTEOPENIA. Recommend follow-up as clinically warranted. Reading Location: [id number] CC: Dr. Gemini Devine DO ~ Quality Control Tester: Signed [facility] Breast imaging reportOrdered By: Magdiel Ching on 06-28-2024 Study report [facility] Imaging Services [address] [place], [place] [address] SCRN MAMM (CAD)W/DANG BILAT MR#: [id number] Acct: [id number] Name: JULIO CESAR ELDRIDGE Rep #: : 1945 F 78 From: Avinash Ching MD PCP: Dr. Gemini Devine DO Status: REG CLI Study:SCRN MAMM (CAD)W/DANG BILAT Date of Exa m: 06/28/24 Exam# [id number] Ordering Dr: Mary Devine sa, DO EXAM: SCRN MAMM (CAD)W/DANG BILAT DATE: 06/28/2024 CLINICAL HISTORY: F, Age 78 y/o , SCREENING No family history. BREAST CANCER RISK ASSESSMENT: Not assessed. TECHNIQUE: Bilateral screening digital breast tomosynthesis with 2D and 3D images. Computeraided detection. COMPARISON: Prior exam(s) dated June 26, 2023.. FINDINGS: TISSUE DENSITY: The breast tissue is composed of scattered area of fibroglandular density. Bilateral Breast Mammographic Findings: No significant masses, calcifications or other abnormalities are identified. Stable bilateral secretory calcifications. Stable small bilateral axillary lymph nodes. BI/SCRN MAMM (CAD)W/DANG BILAT IMPRESSION: Right Breast: BIRADS 2 BENIGN FINDING. Left Breast: BIRADS 2 BENIGN FINDING. OVERALL FINAL ASSESSMENT: BIRADS 2 BENIGN FINDING RECOMMENDATION: Routine annual follow-up in 1 Year A letter with findings and recommendations will be mailed to the patient. Reading Location: [facility] CC: Dr. Gemini Devine DO ~ Quality Control Tester: Signed [facility] Dexa Bone Density Studyon Dexa Bone Density Study [facility] Imaging Services [address] [place], [place] [id number] Dexa Bone Density Study MR#: [id number] Acct: [id number] Name: JULIO CESAR ELDRIDGE Rep #: [id number] : 1945 F 78 From: Magdiel minor MD PCP: Dr. Gemini Devine DO Status: [facility] Study: Dexa Bone Density Study Date of Exam: 06/28/24 Exam# [id number] Ordering Dr: Gemini Devine DO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/24/2011 Adjustment disorder with mixed anxiety and depr*08/04/2012 Parent-child relationship problem [Z62.820] 02/10/2013 OSMAN (obstructive sleep apnea) [G47.33] 10/05/2019 RLS (restless legs syndrome) [G25.81] 10/22/2022 Neuropathy [G62.9] 10/22/2022 Diabetic polyneuropathy associated with type 2 *10/22/2022 Encounter Status:Closed by ALANNAH HARDEN on 03/11/24 [facility] 08-05-2023 [facility] Telephone ([id number]) ----- JULIO CESAR ELDRIDGE ([id number]) 1945 F Date Time Provider Department 08/05/23 KAYLA CASTILLO During your visit today, we recorded the following information about you: Satya Guardado RN 08/05/2023 4:55 PM Signed Patient returned my message from earlier today and informed me that she is experiencing some financial issues so she would like to delay scheduling the manometry. Patient stated she did inform Dr. Barron's office (ordering physician) of the same. Patient stated she will call back in a couple of months to schedule. I agreed with the plan and thanked her for the call. .cbem Allergies As of Date: 08/05/2023 (No Known Allergies) Date Reviewed: 06/29/2023 Reviewed by: Guillermo Dominguez Jr., MD - Fully Assessed Reason for Visit: Future Appointment [[id number]] Cmt: Esophageal manometry Prescriptions as of 08/05/2023 - meloxicam (MOBIC) 15 mg tablet - RABEprazole (ACIPHEX) 20 mg tablet Take 1 tablet by mouth every afternoon. - traZODone (DESYREL) 50 mg tablet Take 1 tablet at bedtime x1 week. If still not sleeping at night, can increase to 2 tablets at bedtime. - gabapentin (NEURONTIN) 300 mg capsule TAKE 1 CAPSULE BY MOUTH WITH DINNER (WITH 800MG TABLET) AND 1 CAPSULE BY MOUTH AT BEDTIME (WITH 800MG TABLET). 90 day supply. - gabapentin (NEURONTIN) 100 mg capsule Take 1 capsule by mouth every morning for 180 days. (Take with gabapentin 800mg tablet in AM) - gabapentin (NEURONTIN) 800 mg tablet Take 1 tablet by mouth three times a day for 180 days. - CPAP/BIPAP/OTHER BiPAP 18/14 cmH2O DME [employer] [place] - hydrOXYzine HCl (ATARAX) 25 mg tablet - HYDROCHLOROTHIAZIDE ORAL Take by mouth. - duloxetine HCl (CYMBALTA ORAL) Take by mouth. - oxybutynin XL (DITROPAN XL) 5 mg 24 hr tablet Take 5 mg by mouth daily at bedtime. - glipiZIDE (GLUCOTROL XL) 5 mg 24 hr tablet Take 1 tablet by mouth twice daily. - lovastatin 40 mg tablet Take 40 mg by mouth daily at bedtime. - HYDROMORPHONE HCL (DILAUDID MISC) Pain pump - potassium chloride (K-MONCHO, KLOR-CON) 20 mEq packet Take 20 mEq by mouth twice daily. - MULTI-VITAMIN ORAL Take by mouth. - amLODIPine (NORVASC) 10 mg ORAL tablet Take 10 mg by mouth once daily. 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 Adjustment disorder with mixed anxiety and depr*08/04/2012 Parent-child relationship problem [Z62.820] 02/10/2013 OSMAN (obstructive sleep apnea) [G47.33] 10/05/2019 RLS (restless legs syndrome) [G25.81] 10/22/2022 Neuropathy [G62.9] 10/22/2022 Diabetic polyneuropathy associated with type 2 *10/22/2022 Encounter Status:Closed by SATYA GUARDADO on 08/05/23 [facility] ASO titerOrdered By: Gemini kay on 07-16-2023 Streptolysin O Ab (S) [Titer] 289.6 IU/mL 0.0-200.0 [facility] Comment on above: Performed at: [place] [id number] Director: Natanael Richmond PhD, Phone: [phone] Absolute lymphocyte countOrd ered By: Gemini Devine on 07-16-2023 Lymphocytes Auto (Unsp spec) [#/Vol] 2.29 10*3/uL 0.83-4.51 [facility] Automated lymphocyte count a s percentage of total leukocytesOrdered By: Gemini Devine on 07-16-2023 Lymphocytes/100 WBC Auto (Unsp spec) 33.2 % 19-41 [facility] Basophil percentageOrdered B y: Gemini Devine on 07-16-2023 Basophils/100 WBC (Bld) 0.6 % 0-1 [facility] Bilirubin [Mass/Vol] 0.40 mg/dL 0.20-1.00 [facility] Comment on above: For patients on eltr ombopag therapy, use of Dimension [place] TBIL is not recommended. Chloride [Moles/Vol] 101 mmol/L 98-107 [facility] Eosinophils/100 WBC (Bld) 2.9 % 0-5 [facility] Glucose [Mass/Vol] 200 mg/dL 74-106 [facility] Comment on above: Glucose result great er than or equal to 200 mg/dLsuggests DIABETES MELLITUS per A.D.A. criteria. Hemoglobin (Bld) [Mass/Vol] 13.1 g/dL 12.0-15.0 [facility] Monocytes/100 WBC (Bld) 9.3 % 0-10 [facility] Neutrophils (Bld) [#/Vol] 3.7 10*3/uL 2.0-7.7 [facility] Neutrophils/100 WBC (Bld) 53.6 % 47-70 [facility] Potassium [Moles/Vol] 3.3 mmol/L 3.5-5.1 [facility] Protein [Mass/Vol] 7.6 g/dL 6.4-8.2 [facility] Sodium [Moles/Vol] 136 mmol/L 136-145 [facility] WBC (Bld) [#/Vol] 6.9 10*3/uL 4.4-11.0 [facility] Determination of erythrocyte mean corpuscular volume (MCV)Ordered By: Gemini Devine on 07-16-2023 MCV (RBC) [Entitic vol] 90.3 fL 81-99 [facility] Erythrocyte distribution wid th ratioOrdered By: Gemini Devine on 07-16-2023 Erythrocyte distribution width (RBC) [Ratio] 13.5 % 11.6-14.6 [facility] Erythrocyte distribution wid th standard deviationOrdered By: Gemini Devine on 07-16-2023 Erythrocyte distribution width (RBC) [Entitic vol] 44.7 fL 35.1-43.9 [facility] Erythrocyte sedimentation ra teOrdered By: Gemnii Devine on 07-16-2023 ESR (Bld) [Velocity] 18 mm/h 0-30 [facility] Hematocrit Auto (Bld) [Volum e fraction]Ordered By: Gemini Devine on 07-16-2023 Hematocrit (Bld) [Volume fraction] 40.2 % 37-47 [facility] Immature granulocytes/100 WB C Auto (Bld)Ordered By: Gemini Devine on 07-16-2023 Immature granulocytes/100 WBC (Bld) 0.400 % 0.0-0.9 [facility] Comment on above: IG% - Immature Granu locytes (promyelocytes, myelocytes and metamyelocytes) > 1% indicates that a LEFT SHIFT is Present. Laboratory - Chemistry and C hemistry - challengeOrdered By: Gemini Devine on 07-16-2023 Albumin/Globulin [Mass ratio] 1.1 {ratio} 0.9-2.4 [facility] ALP [Catalytic activity/Vol] 62 U/L 45-117 [facility] ALT [Catalytic activity/Vol] 22 U/L 13-56 [facility] CO2 [Moles/Vol] 31.0 mmol/L 21.0-32.0 [facility] Globulin (S) [Mass/Vol] 3.6 g/dL 2.2-4.2 [facility] Natriuretic peptide B (Bld) [Mass/Vol] 92.0 pg/mL 0-100 [facility] Urea nitrogen/Creatinine [Mass ratio] 16.0 mg/mg 10-20 [facility] Laboratory - Hematology and Cell countsOrdered By: Gemini Devine on 07-16-2023 MCH (RBC) [Entitic mass] 29.4 pg 27.0-32.0 [facility] MCHC (RBC) [Mass/Vol] 32.6 g/dL 32-36 [facility] Nucleated RBC/100 WBC (Bld) [Ratio] 0 % 0-5 [facility] Platelet mean volume (Bld) [Entitic vol] 11.7 fL 6.2-12.0 [facility] Platelets (Bld) [#/Vol] 239 10*3/uL 150-450 [facility] No Panel InformationOrdered By: Gemini Devine on 07-16-2023 Anti-Nuclear Antibody Screen Negative Negative [facility] Comment on above: Performed at: [facility] [employer] [address] [id number] Director: Ntaanael Richmond PhD, Phone: [phone] C-Reactive Protein Extended Range < 2.90 mg/L 0.0-3.0 [facility] Comment on above: C-Reactive Protein ( CRP) provides useful information for thediagnosis, therapy and monitoring of inflammatory processesand associated diseases. For the evaluation of Relative Riskfor Cardiovascular Disease, a High Sensitivity CRP (HSCRP)should be ordered. Centromere B Antibody Not Reportable [facility] Estimated GFR (MDRD) Amer 88 mL/min >60 [facility] Comment on above: GFR Calc Estimated GFR (MDRD) Non-Af Amer 73 mL/min >60 [facility] Comment on above: Non- GFR Calc ABIOLA-1 Antibody Not Reportable [facility] PATTERN HANGER Antibody Not Reportable [facility] SM Antibody Not Reportable [facility] SS-A/Ro IgG Antibody Not Reportable [facility] SS-B/La IgG Antibody Not Reportable [facility] Qualitative QuantiFERON-TB g old in tube testOrdered By: Gemini Devine on 07-16-2023 M. tuberculosis tuberculin stim IFN-g Ql (Bld) 0.08 IU/mL . [facility] RBC Auto (Bld) [#/Vol]Ordere d By: Gemini Devine on 07-16-2023 RBC (Bld) [#/Vol] 4.45 10*6/uL 4.2-5.4 [facility] Serum DNA double strand anti body assay (units/volume)Ordered By: Gemini Devine on 07-16-2023 DNA double strand Ab Qn (S) Not Reportable [facility] Serum Scl-70 antibody assay (units/volume)Ordered By: Gemini Devine on 07-16-2023 SCL-70 extractable nuclear Ab Qn (S) Not Reportable [facility] Serum or plasma calcium ventura urement (mass/volume)Ordered By: Gemini Devine on 07-16-2023 Calcium [Mass/Vol] 9.1 mg/dL 8.5-10.1 [facility] Serum or plasma creatinine m easurement (mass/volume)Ordered By: Gemini Devine on 07-16-2023 Creatinine [Mass/Vol] 0.81 mg/dL 0.55-1.02 [facility] Comment on above: The validity of the calculated GFR & GFRAA in patients over 70 years has not been determined. Clinical correlation is essential. Serum or plasma urea nitroge n measurement (mass/volume)Ordered By: Gemini Devine on 07-16-2023 Urea nitrogen [Mass/Vol] 13 mg/dL 10-14 [facility] Thin prep Papanicolaou smear with manual screeningOrdered By: Gemini Devine on 07-16-2023 Thin prep Papanicolaou smear with manual screening 4.0 g/dL 3.2-5.0 [facility] Thin prep Papanicolaou smear with manual screening 21 U/L 15-37 [facility] Thin prep Papanicolaou smear with manual screening 4 5-15 [facility] Thin prep Papanicolaou smear with manual screening Comment . [facility] Comment on above: QuantiFERON-TB Gold Plus is a qualitative indirect test forM tuberculosis infection (including disease) and isintended for use in conjunction with risk assessment,radiography, and other medical and diagnostic evaluations.The QuantiFERON-TB Gold Plus result is determined bysubtracting the Nil value from either TB antigen (Ag)value. The Mitogen tube serves as a control for the test. Thin prep Papanicolaou smear with manual screening 0.06 IU/mL . [facility] Thin prep Papanicolaou smear with manual screening 0.03 IU/mL . [facility] Thin prep Papanicolaou smear with manual screening > 10.00 IU/mL . [facility] Thin prep Papanicolaou smear with manual screening Negative Negative [facility] Comment on above: No response to M tub erculosis antigens detected.Infection with M tuberculosis is unlikely, but high riskindividuals should be considered for additional testing(ATS/IDSA/CDC Clinical Practice Guidelines, 2017). Thereference range is an Antigen minus Nil result of <0.35IU/mL.The specimen received for QuantiFERON testing was incubatedby the ordering institution. Specific procedures outlinedin our Directory of Services and in the package insert forthe QuantiFERON Gold (In Tube) test must be followed toenable for proper stimulation of cells for the productionof interferon gamma. Chemiluminescence immunoassaymethodology Glucose Glucometer (BldC) [M ass/Vol]Ordered By: Bladimir Rosales on 02-24-2023 Glucose [Mass/Vol] 159 mg/dL 74-106 [facility] Comment on above: MANAGEMENT OF PATIEN T CARE PER NURSING PROTOCOL Basophil percentageOrdered B y: Gemini Devine on 01-21-2023 Basophil percentage Not Reportable [facility] Erythrocyte sedimentation ra teOrdered By: Gemini Devine on 01-21-2023 ESR (Bld) [Velocity] 18 mm/h 0-30 [facility] No Panel InformationOrdered By: Gemini Devine on 01-21-2023 Anti-Nuclear Antibody Screen Negative Negative [facility] Comment on above: Performed at: [place] [facility] [address] [id number] Director: Natanael Richmond PhD, Phone: [phone] Centromere B Antibody Not Reportable [facility] PATTERN HANGER Antibody Not Reportable [facility] Serum DNA double strand anti body assay (units/volume)Ordered By: Gemini Devine on 01-21-2023 DNA double strand Ab Qn (S) Not Reportable [facility] Serum Abiola-1 antibody assay (u nits/volume)Ordered By: Gemini Devine on 01-21-2023 Abiola-1 extractable nuclear Ab Qn (S) Not Reportable [facility] Serum Scl-70 extractable nuc lear antibody assay (units/volume)Ordered By: Gemini Devine on 01-21-2023 SCL-70 extractable nuclear Ab Qn (S) Not Reportable [facility] Serum Massey extractable nucl ear antibody detectionOrdered By: Gemini Devine on 01-21-2023 Massey extractable nuclear Ab Ql (S) Not Reportable [facility] Serum cyclic citrullinated p eptide IgG antibody assay (units/volume)Ordered By: Gemini Devine on 01-21-2023 Cyclic citrullinated peptide IgG Qn 6 units 0-19 [facility] Comment on above: Negative <20 Weak po sitive 20 - 39 Moderate positive 40 - 59 Strong positive >59Performed at: [place] - [facility] [address] [id number] Director: Natanael Richmond PhD, Phone: [phone] Serum or plasma C reactive p rotein measurement (mass/volume)Ordered By: Gemini Devine on 01-21-2023 CRP [Mass/Vol] mg/L 0.0-3.0 [facility] Comment on above: C-Reactive Protein ( CRP) provides useful information for thediagnosis, therapy and monitoring of inflammatory processesand associated diseases. For the evaluation of Relative Riskfor Cardiovascular Disease, a High Sensitivity CRP (HSCRP)should be ordered. Serum rheumatoid factor dete ctionOrdered By: Gemini Devine on 01-21-2023 Rheumatoid factor Ql (S) < 10.0 IU/mL <15 [facility] Basophil percentageOrdered B y: Gemini Devine on 01-05-2023 Basophil percentage < 0.9 mg/dL 0.55-1.02 [facility] No Panel InformationOrdered By: Gemini Devine on 01-05-2023 Bedside Estimated GFR (eGFR) > 60.0000 mL/min >60 [facility] Absolute lymphocyte countOrd ered By: Dr. Hudson on 07-22-2022 Lymphocytes Auto (Unsp spec) [#/Vol] 1.97 10*3/uL 0.83-4.51 [facility] Basophil percentageOrdered B y: Dr. Hudson on 07-22-2022 Basophils/100 WBC (Bld) 0.4 % 0-1 [facility] Chloride [Moles/Vol] 101 mmol/L 98-107 [facility] Eosinophils/100 WBC (Bld) 4.1 % 0-5 [facility] Glucose [Mass/Vol] 123 mg/dL 74-106 [facility] Comment on above: Fasting Glucose resu lt from 100 to 125 mg/dL suggests IMPAIRED HOMEOSTASIS per A.D.A. criteria. Neutrophils (Bld) [#/Vol] 4.7 10*3/uL 2.0-7.7 [facility] Neutrophils/100 WBC (Bld) 61.4 % 47-70 [facility] Potassium [Moles/Vol] 3.3 mmol/L 3.5-5.1 [facility] Sodium [Moles/Vol] 137 mmol/L 136-145 [facility] WBC (Bld) [#/Vol] 7.6 10*3/uL 4.4-11.0 [facility] Blood erythrocytes count (nu mber/volume)Ordered By: Dr. Hudson on 07-22-2022 RBC (Bld) [#/Vol] 4.74 10*6/uL 4.2-5.4 [facility] Blood hemoglobin measurement (mass/volume)Ordered By: Dr. Hudson on 07-22-2022 Hemoglobin (Bld) [Mass/Vol] 14.1 g/dL 12.0-15.0 [facility] Blood lymphocytes/100 leukoc ytesOrdered By: Dr. Hudson on 07-22-2022 Lymphocytes/100 WBC (Bld) 25.9 % 19-41 [facility] Blood monocytes/100 leukocyt esOrdered By: Dr. Hudson on 07-22-2022 Monocytes/100 WBC (Bld) 7.9 % 0-10 [facility] Blood platelet mean volumeOr dered By: Dr. Hudson on 07-22-2022 Platelet mean volume (Bld) [Entitic vol] 10.5 fL 6.2-12.0 [facility] Determination of erythrocyte mean corpuscular volume (MCV)Ordered By: Dr. Hudson on 07-22-2022 MCV (RBC) [Entitic vol] 88.0 fL 81-99 [facility] Hematocrit Auto (Bld) [Volum e fraction]Ordered By: Dr. Hudson on 07-22-2022 Hematocrit (Bld) [Volume fraction] 41.7 % 37-47 [facility] INR in Blood by Coagulation assayOrdered By: Dr. Hudson on 07-22-2022 INR Coag (Bld) [Relative time] 1.0 {INR} [facility] Laboratory - Chemistry and C hemistry - challengeOrdered By: Dr. Hudson on 07-22-2022 CO2 [Moles/Vol] 32.0 mmol/L 21.0-32.0 [facility] Urea nitrogen/Creatinine [Mass ratio] 16.5 mg/mg 10-20 [facility] Laboratory - CoagulationOrde red By: Dr. Hudson on 07-22-2022 aPTT Coag (Bld) [Time] 30.9 s 24.1-36.2 [facility] Coag (PPP) [Time] 13.3 s 11.7-14.9 [facility] Laboratory - Hematology and Cell countsOrdered By: Dr. Hudson on 07-22-2022 Erythrocyte distribution width (RBC) [Entitic vol] 41.7 fL 35.1-43.9 [facility] Erythrocyte distribution width (RBC) [Ratio] 12.9 % 11.6-14.6 [facility] Immature granulocytes/100 WBC (Bld) 0.300 % 0.0-0.9 [facility] Comment on above: IG% - Immature Granu locytes (promyelocytes, myelocytes and metamyelocytes) > 1% indicates that a LEFT SHIFT is Present. MCH (RBC) [Entitic mass] 29.7 pg 27.0-32.0 [facility] Nucleated RBC/100 WBC (Bld) [Ratio] 0 % 0-5 [facility] MCHC Auto (RBC) [Mass/Vol]Or dered By: Dr. Hudson on 07-22-2022 MCHC (RBC) [Mass/Vol] 33.8 g/dL 32-36 [facility] No Panel InformationOrdered By: Dr. Hudson on 07-22-2022 Estimated Creatinine Clearance Calc 40.83 ml/min [facility] Estimated GFR (MDRD) Amer 100 mL/min >60 [facility] Comment on above: GFR Calc Estimated GFR (MDRD) Non-Af Amer 83 mL/min >60 [facility] Comment on above: Non- GFR Calc Platelets bldOrdered By: Dr. Hudson on 07-22-2022 Platelets (Bld) [#/Vol] 244 10*3/uL 150-450 [facility] Serum or plasma calcium ventura urement (mass/volume)Ordered By: Dr. Hudson on 07-22-2022 Calcium [Mass/Vol] 9.4 mg/dL 8.5-10.1 [facility] Serum or plasma creatinine m easurement (mass/volume)Ordered By: Dr. Hudson on 07-22-2022 Creatinine [Mass/Vol] 0.73 mg/dL 0.55-1.02 [facility] Comment on above: The validity of the calculated GFR & GFRAA in patients over 70 years has not been determined. Clinical correlation is essential. Serum or plasma urea nitroge n measurement (mass/volume)Ordered By: Dr. Hudson on 07-22-2022 Urea nitrogen [Mass/Vol] 12 mg/dL 7-18 [facility] Thin prep Papanicolaou smear with manual screeningOrdered By: Dr. Hudson on 07-22-2022 Thin prep Papanicolaou smear with manual screening 4 5-15 [facility] Comprehensive Panelon 2018 ALP [Catalytic activity/Vol] 75 U/L Normal 46-116 [facility] Comment on above: Performed By: #### P 14 #### [facility] [address], [place] [address] Bilirubin [Mass/Vol] 0.3 mg/dL Normal 0.2-1.0 [facility] Comment on above: Performed By: #### P 14 #### [facility] [address], [place] [address] Creatinine [Mass/Vol] 1.35 mg/dL High 0.51-0.[address] [facility] Comment on above: Performed By: #### P 14 #### [facility] [address] [place], [place] [address] Protein [Mass/Vol] 7.7 g/dL Normal 6.4-8.2 [facility] Comment on above: Performed By: #### P 14 #### [facility] [address] [place], [place] [address] ALT [Catalytic activity/Vol] 24 U/L Normal 12-78 [facility] Comment on above: Performed By: #### P 14 #### [facility] [address] [place], [place] [address] AST [Catalytic activity/Vol] 22 U/L Normal 9-37 [facility] Comment on above: Performed By: #### P 14 #### [facility] [address] [place], [place] [address] Albumin [Mass/Vol] 4.1 g/dL Normal 3.4-5.0 [facility] Comment on above: Performed By: #### P 14 #### [facility] [address] [place], [place] [address] Anion gap [Moles/Vol] 10 mmol/L Normal 8-[address] [facility] Comment on above: Performed By: #### P 14 #### [facility] [address] [place], [place] [address] Calcium [Mass/Vol] 9.3 mg/dL Normal 8.5-10.1 [facility] Comment on above: Performed By: #### P 14 #### [facility] [address] [place], [place] [address] CO2 [Moles/Vol] 32 mmol/L Normal 21-32 [facility] Comment on above: Performed By: #### P 14 #### [facility] [address] [place], [place] [address] Glucose [Mass/Vol] 96 mg/dL Normal 70-99 [facility] Comment on above: Performed By: #### P 14 #### [facility] [address] [place], [place] [address] Urea nitrogen [Mass/Vol] 21 mg/dL High 7-18 [facility] Comment on above: Performed By: #### P 14 #### [facility] [address] [place], [place] [address] Chloride [Moles/Vol] 101 mmol/L Normal 98-107 [facility] Comment on above: Performed By: #### P 14 #### [facility] [address] [place], [place] [address] Potassium [Moles/Vol] 4.0 mmol/L Normal 3.5-5.[address] [facility] Comment on above: Performed By: #### P 14 #### [facility] [address] [place], [place] [address] Sodium [Moles/Vol] 139 mmol/L Normal 136-145 [facility] Comment on above: Performed By: #### P 14 #### [facility] [address] [place], [place] [address] Free Thyroxineon 07-13-2018 Free T4 [Mass/Vol] 1.00 ng/dL Normal 0.76-1.46 [facility] Comment on above: Performed By: #### F T4 #### [facility] [address] [place], [place] [address] Hgb A1con 07-13-2018 HbA1c (Bld) [Mass fraction] 140 mg/dl Normal [facility] Comment on above: Performed By: #### H A1C #### [facility] [address] [place], [place] [address] HbA1c (Bld) [Mass fraction] 6.5 % High 4.2-6.3 [facility] Comment on above: Result Comment: Meth od is National Glycohemoglobin Standardization Program (NGSP) compliant. Performed By: #### H A1C #### [facility] [address] [place], [place] [address] MDRD GFRon 07-13-2018 GFR/1.73 sq M predicted among non-blacks MDRD (S/P/Bld) [Vol rate/Area] 38.67 mL/min/{1.73_m2} Normal >60mL/min/1 .73m2 [facility] Comment on above: Result Comment: If t he patient is , multiply the result by 1.210. Performed By: #### G FR #### [facility] [address] [place], [place] [address] TSH, 3rd generationon 2018 TSH, 3rd generation 2.920 uIU/mL Normal 0.358-3.740 [facility] Comment on above: Performed By: #### T SH3 #### [facility] [address] [place], [place] [address] Vital Signs Date Time Vital Sign Value Performing Clinician China espinoza 10-07-2024 11:47-0400 Body mass index (BMI) [Ratio] 37.04 kg/m2 Guillermo Dominguez Jr., MD Work Phone: [facility] 10-07-2024 11:47-0400 Body weight 93.35 kg Guillermo Dominguez Jr., MD Work Phone: [facility] 10-07-2024 11:47-0400 Diastolic blood pressure 76 mm[Hg] Guillermo Dominguez Jr., MD Work Phone: [facility] 10-07-2024 11:47-0400 Heart rate 68 /min Guillermo Dominguez Jr., MD Work Phone: [facility] 10-07-2024 11:47-0400 Respiratory rate 16 /min Guillermo Dominguez Jr., MD Work Phone: [facility] 10-07-2024 11:47-0400 SaO2% (BldA) [Mass fraction] 98 % Guillermo Dominguez Jr., MD Work Phone: [facility] 10-07-2024 11:47-0400 Systolic blood pressure 147 mm[Hg] Guillermo Dominguez Jr., MD Work Phone: [facility] 05-22-2024 11:20-0500 Diastolic Blood Pressure Non-Invasive 66 mm[Hg] DR MAYE ROBERTSON MD [facility] 05-22-2024 11:20-0500 Heart rate 69 /min DR MAYE ROBERTSON MD [facility] 05-22-2024 11:20-0500 Reason For Taking VItal Signs DR MAYE ROBERTSON MD [facility] 05-22-2024 11:20-0500 Respiratory rate 18 /min DR MAYE ROBERTSON MD [facility] 05-22-2024 11:20-0500 Systolic Blood Pressure Non-Invasive 160 mm[Hg] DR MAYE ROBERTSON MD [facility] 05-22-2024 09:52-[address] Pressure Cuff Size DR MAYE ROBERTSON MD [facility] 05-22-2024 09:52-[address] MAYE ROBERTSON MD [facility] 05-22-2024 09:52-[address] MAYE ROBERTSON MD [facility] 05-22-2024 09:52-0500 Body temperature 97.7 [degF] DR MAYE ROBERTSON MD [facility] 05-22-2024 09:52-0500 Diastolic Blood Pressure Non-Invasive 76 mm[Hg] DR MAYE ROBERTSON MD [facility] 05-22-2024 09:52-0500 Heart rate 66 /min DR MAYE ROBERTSON MD [facility] 05-22-2024 09:52-0500 Respiratory rate 18 /min DR MAYE ROBERTSON MD [facility] 05-22-2024 09:52-0500 Systolic Blood Pressure Non-Invasive 181 mm[Hg] DR MAYE ROBERTSON MD [facility] 05-18-2024 13:30-0500 Body mass index (BMI) [Ratio] 38.05 kg/m2 Sindy Annabel PLUMBER ASSISTANT.ELIGIBILITY COUNSELOR Work Phone: [facility] 05-18-2024 13:30-0500 Body weight 95.89 kg Sindy Annabel PLUMBER ASSISTANT.ELIGIBILITY COUNSELOR Work Phone: [facility] 05-18-2024 13:30-0500 Diastolic blood pressure 88 mm[Hg] Sindy Annabel PLUMBER ASSISTANT.ELIGIBILITY COUNSELOR Work Phone: [facility] 05-18-2024 13:30-0500 Heart rate 62 /min Sindy Annabel PLUMBER ASSISTANT.ELIGIBILITY COUNSELOR Work Phone: [facility] 05-18-2024 13:30-0500 Respiratory rate 18 /min Sindy Annabel PLUMBER ASSISTANT.ELIGIBILITY COUNSELOR Work Phone: [facility] 05-18-2024 13:30-0500 SaO2% (BldA) [Mass fraction] 99 % Sindy Annabel PLUMBER ASSISTANT.ELIGIBILITY COUNSELOR Work Phone: [facility] 05-18-2024 13:30-0500 Systolic blood pressure 153 mm[Hg] Sindy Annabel PLUMBER ASSISTANT.ELIGIBILITY COUNSELOR Work Phone: [facility] 03-14-2024 10:40-0500 Body mass index (BMI) [Ratio] 38.12 kg/m2 Guillermo Dominguez Jr., MD Work Phone: [facility] 03-14-2024 10:40-0500 Body weight 96.07 kg Guillermo Dominguez Jr., MD Work Phone: [facility] 03-14-2024 10:40-0500 Diastolic blood pressure 72 mm[Hg] Guillermo Dominguez Jr., MD Work Phone: [facility] 03-14-2024 10:40-0500 Heart rate 65 /min Guillermo Dominguez Jr., MD Work Phone: [facility] 03-14-2024 10:40-0500 SaO2% (BldA) [Mass fraction] 97 % Guillermo Dominguez Jr., MD Work Phone: [facility] 03-14-2024 10:40-0500 Systolic blood pressure 149 mm[Hg] Guillermo Dominguez Jr., MD Work Phone: [facility] 08-31-2023 10:55-0400 Body mass index (BMI) [Ratio] 38.72 kg/m2 Sindy Annabel PLUMBER ASSISTANT.ELIGIBILITY COUNSELOR Work Phone: [facility] 08-31-2023 10:55-0400 Body weight 97.58 kg Sindy Annabel PLUMBER ASSISTANT.ELIGIBILITY COUNSELOR Work Phone: [facility] 08-31-2023 10:55-0400 Diastolic blood pressure 73 mm[Hg] Sindy Annabel PLUMBER ASSISTANT.ELIGIBILITY COUNSELOR Work Phone: [facility] 08-31-2023 10:55-0400 Heart rate 65 /min Sindy Annabel PLUMBER ASSISTANT.ELIGIBILITY COUNSELOR Work Phone: [facility] 08-31-2023 10:55-0400 Respiratory rate 18 /min Sindy Annabel PLUMBER ASSISTANT.ELIGIBILITY COUNSELOR Work Phone: [facility] 08-31-2023 10:55-0400 SaO2% (BldA) [Mass fraction] 95 % Sindy Annabel PLUMBER ASSISTANT.ELIGIBILITY COUNSELOR Work Phone: [facility] 08-31-2023 10:55-0400 Systolic blood pressure 148 mm[Hg] Sindy Annabel PLUMBER ASSISTANT.ELIGIBILITY COUNSELOR Work Phone: [facility] 06-29-2023 10:15-0400 Body weight 97.89 kg Guillermo Dominguez Jr., MD Work Phone: [facility] 06-29-2023 10:15-0400 Diastolic blood pressure 76 mm[Hg] Guillermo Dominguez Jr., MD Work Phone: [facility] 06-29-2023 10:15-0400 Heart rate 84 /min Guillermo Dominguez Jr., MD Work Phone: [facility] 06-29-2023 10:15-0400 Respiratory rate 16 /min Guillermo Dominguez Jr., MD Work Phone: [facility] 06-29-2023 10:15-0400 SaO2% (BldA) [Mass fraction] 96 % Guillermo Dominguez Jr., MD Work Phone: [facility] 06-29-2023 10:15-0400 Systolic blood pressure 148 mm[Hg] Guillermo Dominguez Jr., MD Work Phone: [facility] 02-24-2023 08:25-0500 Body temperature 99 [degF] Dr. Gemini Devine Work Phone: [facility] 02-24-2023 08:25-0500 Diastolic blood pressure 69 mm[Hg] Dr. Gemini Devine Work Phone: [facility] 02-24-2023 08:25-0500 Heart rate 57 /min Dr. Gemini Devine Work Phone: [facility] 02-24-2023 08:25-0500 Respiratory rate 18 /min Dr. Gemini Devine Work Phone: [facility] 02-24-2023 08:25-0500 SaO2% (BldA) [Mass fraction] 97 % Dr. Gemini Devine Work Phone: [facility] 02-24-2023 08:25-0500 Systolic blood pressure 135 mm[Hg] Dr. Gemini Devine Work Phone: [facility] 02-24-2023 08:15-0500 Inhaled oxygen flow rate 3 L/min Dr. Gemini Devine Work Phone: [facility] 02-24-2023 07:42-0500 Body height 160.[address] Gemini Devine Work Phone: [facility] 02-24-2023 07:42-0500 Body mass index (BMI) [Ratio] 38.7 kg/m2 Dr. Gemini Devine Work Phone: [facility] 02-24-2023 07:42-0500 Body weight 99.[address] Gemini Devine Work Phone: [facility] 02-23-2023 11:21-0500 Body weight 98.79 kg Sindy Annabel PLUMBER ASSISTANT.ELIGIBILITY COUNSELOR Work Phone: [facility] 02-23-2023 11:21-0500 Diastolic blood pressure 72 mm[Hg] Sindy Annabel PLUMBER ASSISTANT.ELIGIBILITY COUNSELOR Work Phone: [facility] 02-23-2023 11:21-0500 Heart rate 65 /min Sindy Annabel PLUMBER ASSISTANT.ELIGIBILITY COUNSELOR Work Phone: [facility] 02-23-2023 11:21-0500 Respiratory rate 16 /min Sindy Annabel PLUMBER ASSISTANT.ELIGIBILITY COUNSELOR Work Phone: [facility] 02-23-2023 11:21-0500 SaO2% (BldA) [Mass fraction] 97 % Sindy Annabel PLUMBER ASSISTANT.ELIGIBILITY COUNSELOR Work Phone: [facility] 02-23-2023 11:21-0500 Systolic blood pressure 148 mm[Hg] Sindy Annabel PLUMBER ASSISTANT.ELIGIBILITY COUNSELOR Work Phone: [facility] 01-06-2023 14:11-0400 Body height 158.[address] Gemini Devine Work Phone: [facility] 01-06-2023 14:11-0400 Body mass index (BMI) [Ratio] 38.8 kg/m2 Dr. Gemini Devine Work Phone: [facility] 01-06-2023 14:11-0400 Body weight 97.[address] Gemini Devine Work Phone: [facility] 01-06-2023 14:11-0400 Diastolic blood pressure 65 mm[Hg] Dr. Gemini Devine Work Phone: [facility] 01-06-2023 14:11-0400 Respiratory rate 18 /min Dr. Gemini Devine Work Phone: [facility] 01-06-2023 14:11-0400 Systolic blood pressure 162 mm[Hg] Dr. Gemini Devine Work Phone: [facility] 07-22-2022 18:53-0400 Body temperature 97.9 [degF] [facility] 07-22-2022 18:53-0400 Diastolic blood pressure 76 mm[Hg] [facility] 07-22-2022 18:53-0400 Heart rate 64 /min [facility] 07-22-2022 18:53-0400 Respiratory rate 18 /min [facility] 07-22-2022 18:53-0400 SaO2% (BldA) [Mass fraction] 100 % [facility] 07-22-2022 18:53-0400 Systolic blood pressure 126 mm[Hg] [facility] 07-22-2022 15:51-0400 Body height 160.02 cm [facility] 07-22-2022 15:51-0400 Body mass index (BMI) [Ratio] 37.5 kg/m2 [facility] 07-22-2022 15:51-0400 Body weight 95.98 kg [facility] 06-24-2022 10:33-0400 Body height 157.48 cm [facility] 01-08-2022 18:43-0400 Body height 157.48 cm [facility] Work Phone: 01-08-2022 18:43-0400 Body mass index (BMI) [Ratio] 40.5 kg/m2 [facility] Work Phone: 01-08-2022 18:43-0400 Body temperature 98.7 [degF] [facility] Work Phone: 01-08-2022 18:43-0400 Body weight 100.6 kg [facility] Work Phone: 01-08-2022 18:43-0400 Diastolic blood pressure 68 mm[Hg] [facility] Work Phone: 01-08-2022 18:43-0400 Heart rate 66 /min [facility] Work Phone: 01-08-2022 18:43-0400 Respiratory rate 16 /min [facility] Work Phone: 01-08-2022 18:43-0400 SaO2% (BldA) [Mass fraction] 96 % [facility] Work Phone: 01-08-2022 18:43-0400 Systolic blood pressure 130 mm[Hg] [facility] Work Phone: Encounters Encounter Date Encounter Type Care Provider Facility Start: 10-19-2024 End: 10-19-2024 ambulatory Guillermo Dominguez Jr., MD Work Phone: Neurology Start: 10-19-2024 End: 10-19-2024 Follow-up encounter Guillermo Dominguez MD Work Phone: Neurology Comment on above: Sleep study follow u p Start: 10-07-2024 End: 10-10-2024 Telephone encounter Guillermo Dominguez MD Work Phone: Neurology Comment on above: fax sleep study orde r to [facility] Results (CBC and CMP from 07/11/24 for review. Scanned into patient records.) Start: 10-07-2024 End: 10-07-2024 Patient encounter procedure Guillermo Dominguez MD Work Phone: Neurology Comment on above: OSMAN (obstructive sle ep apnea) (Primary Dx); Insomnia, unspecified type; RLS (restless legs syndrome); Diabetic polyneuropathy associated with type 2 diabetes mellitus (HCC); Depression, unspecified depression type; Class 2 obesity with body mass index (BMI) of 37.0 to 37.9 in adult, unspecified obesity type, unspecified whether serious comorbidity present Start: 10-07-2024 End: 10-07-2024 ambulatory GUILLERMO DOMINGUEZ JR Facility:[facility] Start: 08-26-2024 End: 08-26-[address] Gemini Devine DO Work Phone: [facility] Work Phone: Start: 08-26-2024 End: 08-26-2024 Patient encounter procedure Katherin Aguayo OPTICAL FABRICATOR-C -[facility] [place] Work Phone: Start: 08-26-2024 End: 08-26-2024 ambulatory Katherin Aguayo Facility:[facility] Start: 07-13-2024 End: 07-13-[address] Gemini Devine DO Work Phone: [facility] Work Phone: Start: 07-13-2024 End: 07-13-[address] Gemini Devine DO -Laboratory, Specimen Work Phone: Start: 07-13-2024 End: 07-13-2024 ambulatory Gemini Devine Facility:[facility] Start: 07-11-2024 End: 07-11-[address] Gemini Devine DO Work Phone: [facility] Work Phone: Start: 07-11-2024 End: 07-11-[address] Gemini Devine DO -Laboratory Work Phone: Start: 07-11-2024 End: 07-11-2024 [facility] Start: 07-06-2024 End: 07-06-[address] Gemini Devine DO Work Phone: [facility] Work Phone: Start: 07-06-2024 End: 07-06-[address] Hussein Cervantes MD -[facility] - [facility] Work Phone: Start: 07-06-2024 End: 07-06-2024 ambulatory Hussein Cervantes Facility:[facility] Start: 06-28-2024 End: 06-28-[address] Gemini Devine DO Work Phone: [facility] Work Phone: Start: 06-28-2024 End: 06-28-[address] Gemini Devine DO -Outpatient Bone Densitometry Work Phone: Start: 06-28-2024 End: 06-28-2024 ambulatory Gemini Devine Facility:[facility] Start: 06-13-2024 End: 06-13-[address] Gemini Devine DO Work Phone: [facility] Work Phone: Start: 06-13-2024 End: 06-13-[address] Gemini Devine DO -Radiology, [facility] Work Phone: Start: 06-13-2024 End: 06-13-2024 ambulatory Gemini Devine Facility:[facility] Start: 06-02-2024 ambulatory REBECA COKER Facility:[facility] Start: 05-28-2024 End: 05-30-2024 ambulatory Rebeca Coker DO Work Phone: Neurology Comment on above: Questionaire Start: 05-26-2024 End: 07-26-2024 Follow-up encounter Sindy Jin APRN.ELIGIBILITY COUNSELOR Work Phone: Neurology Start: 05-22-2024 End: 05-22-2024 Emergency department patient visit DR MAYE ROBERTSON MD [facility] Start: 05-21-2024 End: 05-23-2024 ambulatory Sindy Jin APRN.ELIGIBILITY COUNSELOR Work Phone: Neurology Comment on above: Sleep Study Start: 05-18-2024 End: 05-18-2024 Patient encounter procedure Sindy Jin APRN.ELIGIBILITY COUNSELOR Work Phone: Neurology Comment on above: Chronic insomnia (Pr imary Dx); RLS (restless legs syndrome); Neuropathy; Diabetic polyneuropathy associated with type 2 diabetes mellitus (HCC); Obstructive sleep apnea Start: 05-18-2024 End: 05-18-2024 ambulatory SINDY ANNABEL Facility:[facility] Start: 05-09-2024 End: 05-16-2024 [facility] Work Phone: Neurology Start: 03-29-2024 End: 04-01-2024 [facility] Work Phone: Neurology Start: 03-29-2024 End: 03-31-2024 ambulatory GUILLERMO DOMINGUEZ JR Facility:[facility] Start: 03-17-2024 End: 03-17-2024 ambulatory REBECA COKER Facility:[facility] Start: 03-17-2024 End: 03-17-2024 Office outpatient new 45 minutes Rebeca Coker DO Work Phone: Neurology Comment on above: OSMAN treated with BiP AP (Primary Dx); CSA (central sleep apnea); RLS (restless legs syndrome); Chronic insomnia; Depression, unspecified depression type; Insomnia, unspecified type Start: 03-14-2024 End: 03-14-2024 Patient encounter procedure Guillermo Dominguez MD Work Phone: Neurology Comment on above: OSMAN treated with BiP AP (Primary Dx); CSA (central sleep apnea); Class 2 obesity with body mass index (BMI) of 38.0 to 38.9 in adult, unspecified obesity type, unspecified whether serious comorbidity present; Insomnia, unspecified type; RLS (restless legs syndrome); Neuropathy; Diabetic polyneuropathy associated with type 2 diabetes mellitus (HCC); Depression, unspecified depression type Start: 03-14-2024 End: 03-14-2024 ambulatory GUILLERMO DOMINGUEZ JR Facility:[facility] Start: 03-11-2024 End: 03-11-2024 Telephone encounter Guillermo Dominguez MD Work Phone: Neurology Start: 09-24-2023 Get Medical Advice Guillermo Dominguez MD Work Phone: Neurology Comment on above: Trazodone refill Start: 08-31-2023 End: 08-31-2023 Patient encounter procedure Sindy Jin APRN.ELIGIBILITY COUNSELOR Work Phone: Neurology Comment on above: Chronic insomnia (Pr imary Dx); RLS (restless legs syndrome); OSMAN (obstructive sleep apnea) Start: 08-27-2023 Refill Sindy Jin APRN.ELIGIBILITY COUNSELOR Work Phone: Neurology Start: 08-25-2023 Telephone encounter Sindy Wendi teresitaprema JAIMES.ELIGIBILITY COUNSELOR Work Phone: Neurology Comment on above: PAP Therapy Follow U p Start: 08-05-2023 Telephone encounter Kayla la MD Work Phone: [facility] Comment on above: Future Appointment ( Esophageal manometry/) Start: 07-16-2023 End: 07-16-2023 ambulatory [facility] Work Phone: Start: 07-16-2023 End: 07-16-2023 Patient encounter procedure [facility]-Dianne, Reina [facility] Start: 07-07-2023 End: 07-07-2023 ambulatory [facility] Work Phone: Start: 07-07-2023 End: 07-07-2023 Discharged Recurring [facility]-Speech Therapy Work Phone: Start: 06-29-2023 End: 06-29-2023 Patient encounter procedure Guillermo Dominguez MD Work Phone: Neurology Comment on above: Insomnia, unspecifie d type (Primary Dx); OSMAN treated with BiPAP; CSA (central sleep apnea); RLS (restless legs syndrome); Neuropathy; Diabetic polyneuropathy associated with type 2 diabetes mellitus (HCC); Class 2 obesity with body mass index (BMI) of 38.0 to 38.9 in adult, unspecified obesity type, unspecified whether serious comorbidity present Start: 06-26-2023 End: 06-26-2023 ambulatory [facility] Work Phone: Start: 06-26-2023 End: 06-26-2023 Patient encounter procedure [facility]-Outpatient Breast Imaging Work Phone: Start: 06-23-2023 End: 06-23-2023 ambulatory [facility] Work Phone: Start: 06-23-2023 End: 06-23-2023 Patient encounter procedure [facility], [facility] Work Phone: Start: 05-27-2023 Refill Sindy Annabel PLUMBER ASSISTANT.ELIGIBILITY COUNSELOR Work Phone: Neurology Comment on above: Refill Request; Refi ll Request Start: 05-22-2023 Registered Recurring [facility]-Speech Therapy Work Phone: Start: 04-29-2023 Refill Sindy Annabel PLUMBER ASSISTANT.ELIGIBILITY COUNSELOR Work Phone: Neurology Comment on above: Refill Request Start: 03-25-2023 End: 03-25-[address] Gemini Devine Work Phone: [facility] Work Phone: Start: 03-25-2023 End: 03-25-[address] Gemini Devine Work Phone: [facility]-Radiology, [facility] Work Phone: Start: 02-24-2023 Non-patient / Non-visit Dr. Mary Devine Work Phone: [facility] Start: 02-24-2023 End: 02-24-2023 Admission to same day surgery center Dr. Gemini Devine Work Phone: [facility]-Endoscopy Work Phone: Start: 02-24-2023 End: 02-24-[address] Gemini Devine Work Phone: [facility] Work Phone: Start: 02-23-2023 End: 02-23-2023 Patient encounter procedure Sindy Annabel PLUMBER ASSISTANT.ELIGIBILITY COUNSELOR Work Phone: Neurology Comment on above: RLS (restless legs s yndrome) (Primary Dx); OSMAN treated with BiPAP; CSA (central sleep apnea); Neuropathy; Diabetic polyneuropathy associated with type 2 diabetes mellitus (HCC) Start: 01-21-2023 End: 01-21-[address] Gemini Devine Work Phone: [facility] Work Phone: Start: 01-21-2023 End: 01-21-[address] Gemini Devine Work Phone: [facility] Start: 01-06-2023 End: 01-06-[address] Gemini Devine Work Phone: [facility] Work Phone: Start: 01-05-2023 End: 01-05-[address] Gemini Devine Work Phone: [facility] Work Phone: Start: 01-05-2023 End: 01-05-[address] Gemini Devine Work Phone: [facility], [facility] Work Phone: Start: 12-22-2022 ambulatory Christen A Chloe uvront PLUMBER ASSISTANT.ELIGIBILITY COUNSELOR Work Phone: Neurology Comment on above: New mask Start: 12-13-2022 Refill Christen A Chloe uvront PLUMBER ASSISTANT.ELIGIBILITY COUNSELOR Work Phone: Neurology Comment on above: Refill Request Start: 12-01-2022 Refill Christen A Chloe uvront PLUMBER ASSISTANT.ELIGIBILITY COUNSELOR Work Phone: Neurology Comment on above: Refill Request Start: 11-27-2022 ambulatory Christen A Chloe uvront PLUMBER ASSISTANT.ELIGIBILITY COUNSELOR Work Phone: Neurology Comment on above: New mask Start: 09-15-2022 Refill Guillermo skinner MD Work Phone: Neurology Comment on above: Refill Request Start: 09-10-2022 End: 09-10-2022 ambulatory [facility] Work Phone: Start: 09-10-2022 End: 09-10-2022 Patient encounter procedure [facility]-Radiology, [facility] Start: 09-01-2022 Refill Guillermo skinner MD Work Phone: Neurology Comment on above: Refill Request Start: 07-28-2022 ambulatory Guillermo skinner MD Work Phone: Neurology Comment on above: 10/23/2022- Dr Dominguez Start: 07-28-2022 E-mail encounter fro m caregiver Guillermo Dominguez Jr., MD Work Phone: [facility] Start: 07-22-2022 End: 07-22-2022 Emergency department patient visit [facility]-Emergency Department Start: 06-24-2022 End: 06-24-2022 ambulatory [facility] Work Phone: Start: 06-24-2022 End: 06-24-2022 Patient encounter procedure [facility]Outpatient Bone Densitometry Start: 01-08-2022 End: 01-08-2022 Emergency department patient visit [facility]Emergency Department Start: 12-05-2021 End: 12-05-2021 ambulatory Guillermo Dominguez MD Work Phone: Neurology Comment on above: OSMAN (obstructive sle ep apnea); CSA (central sleep apnea); RLS (restless legs syndrome); Diabetic polyneuropathy associated with type 2 diabetes mellitus (HCC); Neuropathy Start: 12-05-2021 End: 12-05-2021 Telemedicine consultation with patient Guillermo Dominguez Jr., MD Work Phone: [facility] Start: 10-23-2021 Telephone encounter Guillermo Dominguez MD Work Phone: Neurology Comment on above: No Show Missed Appointment Start: 07-08-2021 ambulatory Guillermo skinner MD Work Phone: Sleep Comment on above: Bi-pap Start: 07-08-2021 Follow-up encounter Guillermo Dominguez MD Work Phone: Sleep Comment on above: 6 week appointment f ollow up Start: 06-19-2021 End: 06-19-[address] Gemini Devine Work Phone: [facility]Outpatient Breast Imaging Start: 03-02-2021 Non-patient / Non-visit Dr. Mary Devine Work Phone: [facility] Start: 03-01-[address] Gemini Devine Work Phone: [facility] Services/Neurology Procedures Date Procedure Procedure Detail Performing Clinician Start: 08-26-2024 Plain x-ray of pelvis and lower extremity Dr. Gemini Devine DO Work Phone: Start: 07-13-2024 Urine microalbumin/creatinine ratio measurement Dr. Gemini Devine DO Work Phone: Start: 07-06-2024 MRI of thoracic spine Dr. Gemini Devine DO Work Phone: Start: 06-28-2024 Dual energy X-ray absorptiometry Dr. Padma Devine DO Work Phone: Start: 06-28-[address] Gemini Devine DO Work Phone: Start: 06-13-[address] Gemini Devine DO Work Phone: Start: 06-13-2024 X-ray of lumbosacral spine Dr. Gemini stauffer DO Work Phone: Start: 07-16-2023 Plain chest X-ray Start: 06-26-2023 Screening mammography Start: 06-23-2023 Radiography of esophagus Start: 03-25-[address] Gemini Devine Work Phone: Start: 02-24-[address] Gemini stauffer Work Phone: Start: 01-05-2023 Computed tomography of abdomen and pelvis with intravenous contrast Dr. Gemini Devine Work Phone: Start: 09-10-2022 X-ray of lumbar spine, two or three views Start: 07-22-2022 Plain chest X-ray Start: 07-22-2022 CT angiography of head and neck Start: 06-24-2022 Dual energy X-ray absorptiometry Start: 06-24-2022 Screening mammography Start: 01-08-2022 X-ray of both feet Start: 12-04-2021 Adult depression screening assessment Guillermo Dominguez Jr., MD Work Phone: Start: 10-21-2021 Adult depression screening assessment Guillermo Dominguez Jr., MD Work Phone: Start: 06-21-2021 Adult depression screening assessment Guillermo Dominguez Jr., MD Work Phone: Start: 06-19-[address] Gemini Devine Work Phone: Plan of Treatment Date Care Activity Detail Author Start: 02-13-2025 End: 02-13-2025 Patient encounter procedure 02/13/2025 3:20 PM EST Office Visit Neurology [address] [place] [address] Guillermo Dominguez Jr., MD [address] [place] [address] follow up after sleep study, PT requesting to text if sooner appt comes avail Neurology Comment on above: follow up after sleep study, PT requesti ng to text if sooner appt comes avail Start: 11-28-2024 Influenza vaccination Influenza Vaccine (#1) [facility] Start: 11-01-2024 ambulatory Ambulatory Facility:[facility] Start: 10-07-2024 End: 10-07-2024 Patient encounter procedure 10/07/2024 11:40 AM EDT Office Visit Neurology [address] [place] [address] Guillermo Dominguez Jr., MD [address] [place] [address] follow up Neurology Comment on above: follow up Start: 06-02-2024 End: 06-02-2024 ambulatory 06/02/2024 12:00 PM EST [facility] Neurology [address] [place] [address] Rebeca Coker, DO [address] [place] [address] Add per Tg/ joel per Dr Coker Neurology Comment on above: Add per Tg/ joel per Dr Coker Start: 05-27-2024 End: 05-27-2024 ambulatory 05/27/2024 3:00 PM EST [facility] [address] [facility] [place] [address] Rebeca Coker, DO [address] [place] [address] R/S from 05/04 Neurology Comment on above: R/S from 05/04 Start: 05-18-2024 End: 05-18-2024 Patient encounter procedure 05/18/2024 1:30 PM EST Office Visit Neurology [address] [place] [address] Sindy Jin, FIONA.ELIGIBILITY COUNSELOR [address] [place] [address] 2 month follow up Neurology Comment on above: 2 month follow up Start: 05-04-2024 End: 05-04-2024 Follow-up encounter 05/04/2024 11:00 AM EST [facility] Neurology [address] [place] [address] Rebeca Coker, DO [address] [place] [address] Virtual Visit / 6 week Follow up Neurology Comment on above: Virtual Visit / 6 week Follow up Start: 03-31-2024 End: 03-31-2024 Patient encounter procedure 03/31/2024 10:00 AM EST Office Visit Neurology [address] [place] [address] LVM to reschedule-device shortage 03-15-24 Neurology Comment on above: LVM to reschedule-device shortage Start: 03-30-2024 Advance Directive Discussion Advance Directive Discussion [facility] Start: 03-30-2024 Medicare [facility] Annual Wellness Visit Medicare Advantage Annual Wellness Visit [facility] Start: 03-18-2024 End: 03-18-2024 Patient encounter procedure 03/18/2024 10:00 AM EST Office Visit Neurology [address] [place] [address] OSMAN treated with BiPAP [G47.33] Neurology Comment on above: OSMAN treated with BiPAP [G47.33] Start: 03-17-2024 End: 03-17-2024 ambulatory 03/17/2024 9:00 AM EST [facility] Neurology [address] [place] [id number] Rebeca Coker, DO [address] [place] [address] Insomnia Neurology Comment on above: Insomnia Start: 03-14-2024 End: 03-14-2024 Patient encounter procedure Neurology Comment on above: 6 month follow up called pt no answer, 6 month follow up insomnia, OSMAN w/ pap, CSA, RLS, Neuropathy- larry 06/28 [facility]- referred to Dr. Amador, Trazdon qhs 50 mg titrate to 100mg after week 1, DME [employer] (pt does not have updated compliance report, has not reported to [employer] since 2022 and no recent on [facility]view), RLS tx Gabapentin Start: 11-29-2023 Covid-19 Vaccine ( season) Covid-19 Vaccine () [facility] Start: 11-29-2023 Covid-19 Vaccine ( season) Covid-19 Vaccine ( season) [facility] Start: 11-29-2023 Influenza vaccination Influenza Vaccine (#1) [facility] Start: 11-13-2023 End: 11-13-2023 ambulatory 11/13/2023 8:00 AM EDT [facility] Neurology [address] [place] [address] Rebeca Coker DO [address] [place] [address] Insomnia, unspecified type [G47.00] Neurology Comment on above: Insomnia, unspecified type [G47.00] Start: 08-31-2023 End: 08-31-2023 Patient encounter procedure 08/31/2023 11:00 AM EDT Office Visit Neurology [address] [place] [address] Sindy Jin APRN.ELIGIBILITY COUNSELOR [address] [place] [address] 6-8 week follow up Neurology Comment on above: 6-8 week follow up Start: 03-30-2023 Advance Directive Discussion Advance Directive Discussion [facility] Start: 03-30-2023 Behavioral Health Screening Behavioral Health Screening [facility] Start: 03-30-2023 Depression Assessment Depression Assessment [facility] Start: 02-24-2023 Esophagogastroduodenoscopy transoral diagnostic EGD DIAGNOSTIC BRUSH WASH [facility] Start: 02-24-2023 Patient discharge [facility] Start: 02-23-2023 End: 05-25-2023 Basic metabolic 2000 panel - Serum or Plasma [facility] Work Phone: Comment on above: Expected: 02/23/2023, Expires: Start: 12-04-2022 Adult depression screening assessment DEPRESSION SCREENING [facility] Start: 11-28-2022 Covid-19 Vaccine () Covid-19 Vaccine () [facility] Start: 11-28-2022 Influenza vaccination [facility] Start: 10-21-2022 Adult depression screening assessment DEPRESSION SCREENING [facility] Start: 09-03-2022 RSV Vaccine (1 - 1-dose 75+ series) RSV Vaccine (1 - 1-dose 75+ series) [facility] Start: 06-21-2022 Adult depression screening assessment DEPRESSION SCREENING [facility] Start: 03-30-2022 ADVANCE DIRECTIVE DISCUSSION ADVANCE DIRECTIVE DISCUSSION [facility] Start: 03-30-2022 DEPRESSION ASSESSMENT DEPRESSION ASSESSMENT [facility] Start: 11-28-2021 Influenza vaccination [facility] Start: 05-19-2021 COVID-19 VACCINE (2 - Pfizer series) COVID-19 VACCINE (2 - Pfizer series) [facility] Start: 04-14-2021 COVID-19 VACCINE (2 - Pfizer 3-dose series) COVID-19 VACCINE (2 - Pfizer 3-dose series) [facility] Start: 04-14-2021 COVID-19 VACCINE (2 - Pfizer series) COVID-19 VACCINE (2 - Pfizer series) [facility] Start: 03-30-2021 ADVANCE DIRECTIVE DISCUSSION ADVANCE DIRECTIVE DISCUSSION [facility] Start: 01-12-2019 Hemoglobin A1c measurement HbA1C [facility] Start: 01-12-2019 Hemoglobin A1c/Hemoglobin.total in Blood HBA1C [facility] Start: 09-03-2012 BONE DENSITY BONE DENSITY [facility] Start: 09-03-2012 Bone Density Screening Bone Density Screening [facility] Start: 09-03-2012 PNEUMOVAX AGE 65 AND OVER WITH 5YR LOOKBACK (#1) PNEUMOVAX AGE 65 AND OVER WITH 5YR LOOKBACK (#1) [facility] Start: 09-03-2012 Screening for osteoporosis Bone Density Screening [facility] Start: 2007 Hepatitis B Vaccine (1 of 3 - Risk 3-dose series) Hepatitis B Vaccine (1 of 3 - Risk 3-dose series) [facility] Start: 2007 RSV Vaccine (1 - 1-dose 60+ series) RSV Vaccine (1 - 1-dose 60+ series) [facility] Start: 09-03-1997 SHINGRIX VACCINE (1 of 2) SHINGRIX VACCINE (1 of 2) [facility] Start: 09-03-1992 COLOGUARD (FIT-DNA) COLOGUARD (FIT-DNA) [facility] Start: 09-03-1992 Colonoscopy COLONOSCOPY [facility] Start: 09-03-1992 COLORECTAL CANCER SCREENING COLORECTAL CANCER SCREENING [facility] Start: 09-03-[address] COLONOGRAPHY [facility] Start: 09-03-1992 FECAL OCCULT BLOOD FECAL OCCULT BLOOD [facility] Start: 09-03-1992 Screening for malignant neoplasm of colon [facility] Start: 09-03-1992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 was. She also found the son she gave up in 1967 and met him in [place] an it went well but then she told her eldest dtr who has turned against her for 12 years. That dtr has spoke with the other two. Youngest sister abruptly in August and her eldest sister is now in [facility]. They had been drinking a lot of alcohol per month and AP put them in a NH. Parents were drinkers of alcohol. Div 2003. Disabled in 2003. Lives with her dtr and her five boys for 20 years now. Sheruminates about all of these family issues. Only sleeps for a few hours. Up every hour on the hour. My life is crazy and I don't know how to turn my life off. She is claustraphobic thus has difficulty using the PAP. Uses Vistaril and Doxepin for sleep and sometimes it works. She has not tried other meds or higher doses. She used to see a Psychologist years ago. She lost half of her income last year when her ex . She is unable to afford the copays. Best friend since gets together periodically as well as some other friends and buddhist friends once a month. Mood is reported as some days it is really good and some days Problem List SLEEP-WAKE SCHEDULE Patient Questionnaires Sleep Scores 03/14/2024 Sleep Questions Reason for visit: Sleep apnea Difficulty falling or staying asleep or poor sleep quality Abnormal sleep/wake timing On average, hours of sleep in 24 hours: 6 Average hours of CPAP per night: 0 Percent of nights CPAP used at least 4 hours: 0 Accidents or near accidents due to drowsy drivin Multiple values from one day are sorted in reverse-chronological order 03/14/2024 [place] Sleepiness Scale Score 2 (No clinically significant daytime sleepiness) 03/14/2024 PROMIS CAT Sleep Disturbance PROMIS Sleep Disturbance T-Score 51 (within normal limits) PROMIS Sleep Disturbance Percentile 46 08/24/2023 Insomnia Severity Index Score 7 03/14/2024 PHQ-9 Score 6 6 Multiple values from one day are sorted in reverse-chronological order 03/14/2024 PROMIS Global Health - (T-Scores - the mean of general population = 50. Five points is a clinicallymeaningful difference.) Physical T-Score 44.9 44.9 Mental T-Score 43.5 43.5 Multiple values from one day are sorted in reverse-chronological order PAST TREATMENTS: As above PAST MEDICAL HISTORY Diagnosis Date Back injury Chronic pain 6 fractured vertebrae, both shoulders replaced, osteoarthritis, osteoprosis, ?lupus DMII (diabetes mellitus, type 2) (HCC) Fibromyalgia GERD (gastroesophageal reflux disease) Hypertension Obesity, Class II, BMI 35-39.9 OSMAN (obstructive sleep apnea) 2009 Osteoporosis Systemic lupus erythematosus (HCC) Tremors of nervous system PAST SURGICAL HISTORY Procedure Laterality Date CARPAL TUNNEL 1993 Rt CHOLECYSTECTOMY 1995 ELBOW SURGERY HX F EGD WITH DILATATION 06/30/2023 Dr. Barron LIVER BIOPSY 2001 OPEN REPAIR OF ROTATOR CUFF ACUTE Right 1998 PAST SURGICAL HISTORY OF 1999 Rt radial head removed PUMP PAIN,[id number] ACTIVE PROBLEM LIST Nontoxic Multinodular Goiter Adjustment Disorder Other Pain Disorders Related to Psychological Factors Adjustment Disorder With Mixed Anxiety and Depressed Mood Parent-Child Relationship Problem Osman (Obstructive Sleep Apnea) Rls (Restless Legs Syndrome) Neuropathy Diabetic Polyneuropathy Associated With Type 2 Diabetes Mellitus (Hcc) Allergies As of Date: 03/17/2024 (No Known Allergies) Fully Assessed 03/14/2024 CURRENT MEDICATIONS: gabapentin (NEURONTIN) 300 mg capsule TAKE 1 CAPSULE BY MOUTH WITH DINNER (WITH 800MG TABLET) AND 1CAPSULE BY MOUTH AT BEDTIME (WITH 800MG TABLET). 90 day supply. gabapentin (NEURONTIN) 100 mg capsule Take 1 capsule by mouth every morning for 90 days. (Take withgabapentin 800mg tablet in AM) gabapentin (NEURONTIN) 800 mg tablet Take 1 tablet by mouth three times a day for 90 days. doxepin capsule 10 mg Take 1 capsule by mouth daily at bedtime. furosemide (LASIX ORAL) Take 1 tablet by mouth once daily. meloxicam (MOBIC) 15 mg tablet CPAP/BIPAP/OTHER BiPAP 18/14 cmH2O DME [employer] [place] (Patient not taking: Reported on 03/14/2024) hydrOXYzine HCl (ATARAX) 25 mg tablet HYDROCHLOROTHIAZIDE ORAL Take by mouth. duloxetine HCl (CYMBALTA ORAL) Take by mouth. oxybutynin XL (DITROPAN XL) 5 mg 24 hr tablet Take 5 mg by mouth daily at bedtime. glipiZIDE (GLUCOTROL XL) 5 mg 24 hr tablet Take 1 tablet by mouth twice daily. lovastatin 40 mg tablet Take 40 mg by mouth daily at bedtime. HYDROMORPHONE HCL (DILAUDID MISC) Pain pump potassium chloride (K-MONCHO, KLOR-CON) 20 mEq packet Take 20 mEq by mouth twice daily. MULTI-VITAMIN ORAL Take by mouth. amLODIPine (NORVASC) 10 mg ORAL tablet Take 10 mg by mouth once daily. Review of Systems SOCIAL HISTORY: Social History Tobacco Use Smoking status: Never Smokeless tobacco: Never Tobacco comments: smoked for 2 years from age 21 to 23 Vaping Use Vaping status: Never Used Substance Use Topics Alcohol use: Not Currently Comment: 1 drink qhs in [place] when in [place] Drug use: Never FAMILY HISTORY: FAMILY HISTORY Problem Relation Age of Onset Alcohol/Drug Mother Cancer Mother mouth & lung Heart Mother Alcohol/Drug Father Heart Father Hypertension Father Alcohol/Drug Sister Cervical Cancer Sister Heart Paternal Grandfather Heart Maternal Grandmother PHYSICAL EXAMINATION: Mental Status Examination: General: No acute distress Alertness: Alert Orientation: Oriented to person, place and time Eye contact: Good Mental attitude: Positive Historian: Good Constitutional: Pleasant and cooperative Speech Rate: dec Speech Tone: dec Speech Articulation: abNormal Speech Spontaneity: abNormal Bradyphrenia: slight Loose Associations: None Thought Processes: Normal Tangential: No Circumstantial: No Abstraction: Seems normal Computation: Seems relatively normal Suicidal thoughts: None reported Homicidal thoughts: None Hallucinations (Auditory, visual, gustatory): None Delusions: None EPS: None AIM Scale: 0 Violent ideations: None Paranoid thoughts: None exhibited Guarded: No Obsessions: some Phobias: None Judgement: Good Insight: Good Fund of Knowledge: Intact Mood: a bit dysphoric Affect: a bit anxious Physical Examination: Note that no supplement oxygen is in use No acute distress; consistent with age; the patient appears slightly sleepy at the time of the appointment at 9am glasses IMPRESSION/PLAN: G47.33 OSMAN treated with BiPAP (primary encounter diagnosis) G47.31 CSA (central sleep apnea) G25.81 RLS (restless legs syndrome) F51.04 Chronic insomnia F32.A Depression, unspecified depression type PTSD PLAN: Thus, this very pleasant patient reports symptoms that are concerning and symptoms that have interfered with and decreased their qualify of life. I would suggest the following clinical recommendations: We discussed we have MANY options including ordering Genesight which I will provide info on but at this time she defers for cost. MacroSolve Pharmacogenomic Pharmacokinetic and Pharmacodynamic Test: An order could be sent to [facility] in [place], [place] for the MacroSolve test. This test will be shipped to the patients home. This should give us guidance on how the patient metabolizes psychiatric and sleep medications. A buccal swab sample will collected by the patient and genomic DNA was isolated and the relevant genomic regions will be amplified by polymerase chain reaction (PCR) in the genetic laboratory. These interpretations are based upon scientific literature and prescribing information for the relevant drugs. References used can be found at https://Texifter/references. PatientGenotypes and Phenotypes for Pharmacokinetic Genes, Pharmacodynamic Genes and MTHFR are listed. It is important to review the Clinical Considerations for guidance in interpreting the results. Offered [facility] referral but due to cost she defers. [employer] is not available at this time but when it resumes that would be a good options for cost and time. Pharmacologically, I would recommend increasing the Doxepin to 20mg po q hs for now. This has givenher some benefit. This should theoretically increase stage three sleep. Discontinue the Vistaril abruptly. Cymbalta is being taken bid and I recommend she change all doses to q am. Also discussed another trial of Trazodone or other alternatives. She needs to resume PAP when she can. She understands this. The higher dose of the Doxepin may assist her anxiety. Her Ditropan XL is at hs and it crosses the BBB; if this is an issue in the future we can consider a change to Detrol LA. She has good support at her current resident and with her friends. Her past is very complex and chaotic. She ruminates and needs psychotherapy but is unable to afford this. It was a pleasure visiting with you today in the [facility]. It is a privilege to help you with your medical care. Please schedule a follow up appointment with me in the [facility] (thus I will see you with the trainee subspecialist), my collaborating associate LUAN Franklin or with one our Advance Practice Nurse Sleep Medicine Nurse Practitioners (octave board racker) either in person at the [facility] or virtually via Zoom in SIX weeks. The appointmenttelephone number for the Sleep Disorder Center is [phone]. Note that Zazum may also be used to schedule your next appointment. Remember to follow up with your other medical specialists and your primary care provider. If you have any further questions for me regarding the diagnosis or recommendations today, please do not hesitate to send us a Zazum message or call my collaborating Manager Social Responsibility nurse Mcneill RN, BSN at [phone] Extension #[phone]. I spent a total time of over 60 minutes on the date of the service on this case. This included preparing to see the patient by reviewing the medical record prior to examining the patient, interviewing the patient face to face in the clinic or virtually via audio and video secure [facility] technology, ordering appropriate medications/tests/procedures, completing clinical documentation of the visit, counseling and educating the patient/family/caregiver, communicating with other health careproviders as well as general care coordination. Rebeca Coker DO, CBSM, ABSM Associate Pay Agent, Sleep Medicine Fellowship Occ Med Physician, [facility] [employer] [facility] Core Faculty, [employer] Sleep Medicine Fellowship Chief Experience Officer, [facility] Center Clinical Staff Physician, Sleep Medicine [facility] Department of Neurology Department of Psychiatry [address] Mail Code S-[address] documented in this encounterOhio[facility]12-16-2024 NoteHNO ID: [id number] Author: GUILLERMO DOMINGUEZ JR, MD Service: ? Author Type: Physician Type: Progress Notes Filed: 03/14/2024 12:28 Note Text: ESTABLISHED PATIENT VISIT CHIEF COMPLAINT: Follow Up HISTORY OF PRESENT ILLNESS: Julio Cesar Eldridge is a 78 year old female, with a PMH significant for and per last office visit with Abdon Jin CNP on 08/31/23: Chronic insomnia (primary encounter diagnosis) Rls (restless legs syndrome) Osman (obstructive sleep apnea) Julio Cesar Eldridge is a 77 year old female with PMH of chronic insomnia, sleep apnea, RLS, neuropathy. She isn't able to tolerate her biPAP. Her chronic sleep maintenance insomnia persists; not better with trazodone. We discussed CBTI. If she's not ready to meet with sleep psychologist then at least try to avoid bed when not sleepy, don't watch clock, etc. High dose of gabapentin for neuropathy, which controls her RLS--discussed that we will plan to lower that eventually. PLAN: Stop trazodone Try doxepin 10 mg at HS, reviewed r/b/a Discussed CBTI Has upcoming appointment with Dr Coker Schedule follow up Dr Dominguez 6 mos [address] never saw Dr[address] Coker and did not meet with behavioral sleep specialist. Pt not using PAP. No longer on Trazodone. Patient reports sleeping a lot better and is considering cx her reschedule with Dr. Coker. When asked how doing better, states every now and then has a night she cannot fall asleep at all (2 nights per month). However, most nights can fall asleep but waking up every hour on the hour (1-2 times per week). RLS is controlled. Still on Doxepin 10mg nightly and feels that it has helped. States tried a few times to wear bilevel PAP but gets it on and all situated and then cannot do it. Down about 30 pounds in past year. States feels fine in the AM. Only time takes nap if has a bad headache. States hard to get a nap with grandchildren responsibilities. When asked why cannot tolerate PAP, she states she cannot say. States even though helping, feels like suffocating. Reports glucose and BP stable - do not have those labs available for review. Youngest sister during the interim. REVIEW OF SYSTEMS GENERAL:No weight loss, malaise or fevers. HEENT:Negative for frequent or significant headaches, No changes in hearing or vision, no nose bleeds or other nasal problems RESPIRATORY: Negative for cough, wheezing or shortness of breath. CARDIOVASCULAR: Negative for chest pain, leg swelling or palpitations. GASTROINTESTINAL: Negative for abdominal discomfort, blood in stools or black stools or change in bowel habits GENITOURINARY: No history of dysuria, frequency or incontinence MUSCULOSKELETAL: Negative for joint pain or swelling, back pain or muscle pain. NEUROLOGIC:Negative for focal numbness or weakness, headaches and dizziness or syncope, vision changes, speech/languag changes - EXCEPT that as per HPI above. LAB/IMAGING: Those performed since patient's last visit [...] 06/07/2001 11.4 (A) Glucose (mg/dL) Date Value 02/23/2023 166 (H) BUN (mg/dL) Date Value 02/23/2023 15 Creatinine (mg/dL) Date Value 02/23/2023 0.66 Sodium (mmol/L) Date Value 02/23/2023 136 Potassium (mmol/L) Date Value 02/23/2023 4.2 Chloride (mmol/L) Date Value 02/23/2023 96 (L) CO2 (mmol/L) Date Value 02/23/2023 28 Protein, Total (g/dL) Date Value 02/16/2020 8.3 (H) Albumin (g/dL) Date Value 02/16/2020 4.6 Calcium, Total (mg/dL) Date Value 02/23/2023 10.0 Alkaline Phosphatase (U/L) Date Value 02/16/2020 78 Bilirubin, Total (mg/dL) Date Value 02/16/2020 0.3 AST (U/L) Date Value 02/16/2020 21 ALT (U/L) Date Value 02/16/2020 19 ZAHRA (no units) Date Value 12/04/2017 SEE BELOW Hep C Antibody IA (no units) Date Value 05/19/2001 Negative REQUESTING UPDATED CMP AND CBC FROM PCP OFFICE. MEDICATIONS: gabapentin (NEURONTIN) 300 mg capsule TAKE 1 CAPSULE BY MOUTH WITH DINNER (WITH 800MG TABLET) AND 1 CAPSULE BY MOUTH AT BEDTIME (WITH 800MG TABLET). 90 day supply. Patient should start on January 29, 2024. gabapentin (NEURONTIN) 100 mg capsule Take 1 capsule by mouth every morning for 90 days. (Take with gabapentin 800mg tablet in AM) Patient should start on January 29, 2024. gabapentin (NEURONTIN) 800 mg tablet Take 1 tablet by mouth three times a day for 90 days. Patient should start on January 29, 2024. doxepin capsule 10 mg Take 1 capsule by mouth daily at bedtime. traMADol (ULTRAM) 50 mg (more content not included)...[facility] 03-14-2024 History of Present illness Narrative* Guillermo Dominguez Jr., MD - 03/14/2024 10:39 AM EST ESTABLISHED PATIENT VISIT CHIEF COMPLAINT: Follow Up HISTORY OF PRESENT ILLNESS: Julio Cesar Eldridge is a 78 year old female, with a PMH significant for and per last office visit with Abdon Jin CNP on 08/31/23: Chronic insomnia (primary encounter diagnosis) Rls (restless legs syndrome) Osman (obstructive sleep apnea) Julio Cesar Eldridge is a 77 year old female with PMH of chronic insomnia, sleep apnea, RLS, neuropathy. She isn't able to tolerate her biPAP. Her chronic sleep maintenance insomnia persists; not better with trazodone. We discussed CBTI. If she's not ready to meet with sleep psychologist then at least try to avoid bed when not sleepy, don't watch clock, etc. High dose of gabapentin for neuropathy, which controls her RLS--discussed that we will plan to lower that eventually. PLAN: Stop trazodone Try doxepin 10 mg at HS, reviewed r/b/a Discussed CBTI Has upcoming appointment with Dr Coker Schedule follow up Dr Dominguez 6 mos [address] never saw Dr[address] Coker and did not meet with behavioral sleep specialist. Pt not using PAP. No longer on Trazodone. Patient reports sleeping a lot better and is considering cx her reschedule with Dr. Coker. Whenasked how doing better, states every now and then has a night she cannot fall asleep at all (2 nights per month). However, most nights can fall asleep but waking up every hour on the hour (1-2 times per week). RLS is controlled. Still on Doxepin 10mg nightly and feels that it has helped. States tried a few times to wear bilevel PAP but gets it on and all situated and then cannot do it. Down about30 pounds in past year. States feels fine in the AM. Only time takes nap if has a bad headache. States hard to get a nap with grandchildren responsibilities. When asked why cannot tolerate PAP, she states she cannot say. States even though helping, feels like suffocating. Reports glucose and BP stable - do not have those labs available for review. Youngest sister during the interim. REVIEW OF SYSTEMS GENERAL:No weight loss, malaise or fevers. HEENT:Negative for frequent or significant headaches, No changes in hearing or vision, no nose bleeds or other nasal problems RESPIRATORY: Negative for cough, wheezing or shortness of breath. CARDIOVASCULAR: Negative for chest pain, leg swelling or palpitations. GASTROINTESTINAL: Negative for abdominal discomfort, blood in stools or black stools or change in bowel habits GENITOURINARY: No history of dysuria, frequency or incontinence MUSCULOSKELETAL: Negative for joint pain or swelling, back pain or muscle pain. NEUROLOGIC:Negative for focal numbness or weakness, headaches and dizziness or syncope, vision changes, speech/languag changes - EXCEPT that as per HPI above. LAB/IMAGING: Those performed since patient's last visit [...] 06/07/2001 11.4 (A) Glucose (mg/dL) Date Value 02/23/2023 166 (H) BUN (mg/dL) Date Value 02/23/2023 15 Creatinine (mg/dL) Date Value 02/23/2023 0.66 Sodium (mmol/L) Date Value 02/23/2023 136 Potassium (mmol/L) Date Value 02/23/2023 4.2 Chloride (mmol/L) Date Value 02/23/2023 96 (L) CO2 (mmol/L) Date Value 02/23/2023 28 Protein, Total (g/dL) Date Value 02/16/2020 8.3 (H) Albumin (g/dL) Date Value 02/16/2020 4.6 Calcium, Total (mg/dL) Date Value 02/23/2023 10.0 Alkaline Phosphatase (U/L) Date Value 02/16/2020 78 Bilirubin, Total (mg/dL) Date Value 02/16/2020 0.3 AST (U/L) Date Value 02/16/2020 21 ALT (U/L) Date Value 02/16/2020 19 ZAHRA (no units) Date Value 12/04/2017 SEE BELOW Hep C Antibody IA (no units) Date Value 05/19/2001 Negative REQUESTING UPDATED CMP AND CBC FROM PCP OFFICE. MEDICATIONS: gabapentin (NEURONTIN) 300 mg capsule TAKE 1 CAPSULE BY MOUTH WITH DINNER (WITH 800MG TABLET) AND 1CAPSULE BY MOUTH AT BEDTIME (WITH 800MG TABLET). 90 day supply. Patient should start on January. gabapentin (NEURONTIN) 100 mg capsule Take 1 capsule by mouth every morning for 90 days. (Take withgabapentin 800mg tablet in AM) Patient should start on January 29, 2024. gabapentin (NEURONTIN) 800 mg tablet Take 1 tablet by mouth three times a day for 90 days. Patient should start on January 29, 2024. doxepin capsule 10 mg Take 1 capsule by mouth daily at bedtime. traMADol (ULTRAM) 50 mg tablet Take 50 mg by mouth every 8 hours as needed. furosemide (LASIX ORAL) Take 1 tablet by mouth once daily. meloxicam (MOBIC) 15 mg tablet CPAP/BIPAP/OTHER BiPAP 18/14 cmH2O DME [employer] [place] (Patient not taking: Reported on 06/29/2023) hydrOXYzine HCl (ATARAX) 25 mg tablet HYDROCHLOROTHIAZIDE ORAL Take by mouth. (Patient not taking: Reported on 08/31/2023) duloxetine HCl (CYMBALTA ORAL) Take by mouth. oxybutynin XL (DITROPAN XL) 5 mg 24 hr tablet Take 5 mg by mouth daily at bedtime. glipiZIDE (GLUCOTROL XL) 5 mg 24 hr tablet Take 1 tablet by mouth twice daily. lovastatin 40 mg tablet Take 40 mg by mouth daily at bedtime. HYDROMORPHONE HCL (DILAUDID MISC) Pain pump potassium chloride (K-MONCHO, KLOR-CON) 20 mEq packet Take 20 mEq by mouth twice daily. MULTI-VITAMIN ORAL Take by mouth. amLODIPine (NORVASC) 10 mg ORAL tablet Take 10 mg by mouth once daily. HISTORIES PAST MEDICAL HISTORY Diagnosis Date Back injury Chronic pain 6 fractured vertebrae, both shoulders replaced, osteoarthritis, osteoprosis, ?lupus DMII (diabetes mellitus, type 2) ([facility]) Fibromyalgia GERD (gastroesophageal reflux disease) Hypertension Obesity, Class II, BMI 35-39.9 OSMAN (obstructive sleep apnea) 2009 Osteoporosis Systemic lupus erythematosus (HCC) Tremors of nervous system FAMILY HISTORY Problem Relation Age of Onset Alcohol/Drug Mother Cancer Mother mouth & lung Heart Mother Alcohol/Drug Father Heart Father Hypertension Father Alcohol/Drug Sister Cervical Cancer Sister Heart Paternal Grandfather Heart Maternal Grandmother SOCIAL HISTORY Social History Tobacco Use Smoking status: Never Smokeless tobacco: Never Tobacco comments: smoked for 2 years from age 21 to 23 Vaping Use Vaping status: Never Used Substance Use Topics Alcohol use: Not Currently Comment: 1 drink qhs in [place] when in [place] Drug use: Never PHYSICAL EXAMINATION Blood pressure 149/72, pulse 65, weight 96.1 kg (211 lb 12.8 oz), SpO2 97%. GENERAL EXAM: General appearance: NAD, pleasant. HEENT: NC/AT, nasal congestion absent, membranes moist. NECK: No masses, supple. Lungs: CTA bilaterally. CV: RRR nl S1, S2 Extr: No cyanosis, clubbing or edema. Skin: Cool to touch. NEUROLOGICAL EXAM: General: Awake, alert, oriented x3 (person,place,time), fluent, no dysarthria; comprehension, naming, repetition intact. CN: PERRL, EOMI and without nystagmus, VFF to confrontation, facial sensation and strength are normal and symmetric, hearing is intact to finger rub bilaterally, palate and tongue movements are intact and symmetric. SCM and trapezius strength normal. Motor: Normal tone, bulk and strength (5/5) bilaterally (throughout extremities x4). Coordination: FNF, JOYCE, intact. No tremors. Sensation: Light touch intact throughout. Vibration diminished in feet. No evidence of neglect. Gait: Wide based due to body habitus but stable. Assessment and Plan: ASSESSMENT/PLAN: 1. OSMAN treated with BiPAP - ICD9: 327.23, ICD10: G47.33 (primary diagnosis) 2. CSA (central sleep apnea) - ICD9: 780.57, ICD10: G47.31 3. Class 2 obesity with body mass index (BMI) of 38.0 to 38.9 in adult, unspecified obesity type, unspecified whether serious comorbidity present - ICD9: 278.00, V85.38, ICD10: E66.812, Z68.38 Patient with known sleep apnea that is severe with events of both obstructive and central nature. The latter may have been due to pain meds. Also associated with significant hypoxia. Now, no longer using bilevel PAP. Concern is that untreated sleep apnea resulting in awakenings during the nights but also might contribute to other med conditions. Provided pt with F and P solo mask to try at home to see if reduced claustrophobia sensation. In addition, given weight loss, will get new sleep study to reevaluate degree of OSMAN so as to determine what other treatment options are available. Pt not wanting lab study and thus will do best to evaluate by HSAT. Note this study is looking for respiratory events but also to evaluate if hypoxia persist. Pt to follow up after sleep study complete. 4. Insomnia, unspecified type - ICD9: 780.52, ICD10: G47.00 Improved on Doxepin 10mg nightly. That said, patient likely underestimating its severity. Multiple life stressors with passing of sister and other family members ill in SNF. Feel patient would still benefit from evaluation by Dr. Coker if not for sleep, at least question if need for change in those meds taking for anxiety and depression. Pt agrees. Note, no SI or HI at this time. 5. RLS (restless legs syndrome) - ICD9: 333.94, ICD10: G25.81 6. Diabetic polyneuropathy associated with type 2 diabetes mellitus (HCC) - ICD9: 250.60, 357.2, ICD10: E11.42 Stable. No changes to gabapentin dosing at this time. Pt is also on Dilaudid pain pump. 8. Depression, unspecified depression type - ICD9: 311, ICD10: F32.A See above. Note I am requesting 2023 CMP and CBC from PCP office to make sure med dosing appropriate. Guillermo Dominguez MD I spent a total of 40+ minutes on the date of the service which included preparing to see the patient, [id number] patient care, completing clinical documentation, obtaining and/or reviewing separately obtained history, performing a medically appropriate examination, counseling and educating the pa tient/family/caregiver, ordering medications, tests, or procedures, independently interpreting results (not separately reported), and communicating results to the patient/family/caregiver. This includes review of prior sleep studies and PAP data downloads. documented in this encounterOhio[facility]12-13-2024 Telephone encounter Note * Telephone Encounter - Alannah Harden LPN - 03/11/2024 9:31 AM EST Called patient no answer, Left voicemail. Nurse calling to see what company patient receives pap machine from? Patient has an appt on Thursday03/14/24 with , office needs a compliance report. Please review and advise. Alannah Harden LPN March 11, 2024 9:34 AM [facility]12-13-[facility] Miscellaneous Notes* Telephone Encounter - Alannah Harden LPN - 03/11/2024 9:31 AM EST Called patient no answer, Left voicemail. Nurse calling to see what company patient receives pap machine from? Patient has an appt on Thursday03/14/24 with , office needs a compliance report. Please review and advise. Alannah Harden LPN March 11, 2024 9:34 AM documented in this encounterOhiohealth [facility] Hospital07-02-2024 Telephone encounter Note * Telephone Encounter - Sindy Jin APRN.CNP - 09/29/2023 12:59 PM EDT She reported trazodone wasn't helping so we switched to doxepin. Looks like she isn't taking that. I'm fine with her resuming trazodone 50 mg if she wants to for now instead of doxepin. She has appointment with Dr Coker on 11/13/23 for insomnia. [facility]07-02-[facility] Miscellaneous Notes* Telephone Encounter - Sindy Jin APRN.CNP - 09/29/2023 12:59 PM EDT She reported trazodone wasn't helping so we switched to doxepin. Looks like she isn't taking that. I'm fine with her resuming trazodone 50 mg if she wants to for now instead of doxepin. She has appointment with Dr Coker on 11/13/23 for insomnia. * Addendum Note - Guillermo Dominguez Jr., MD - 09/29/2023 12:11 PM EDTAddended by: GUILLERMO DOMINGUEZ on: 09/29/2023 12:11 PM Modules accepted: Orders * Telephone Encounter - Guillermo Dominguez Jr., MD - 09/29/2023 12:10 PM EDT Per note of Abdon Jin CNP, Trazodone was stopped. Please clarify with Abdon Jin. Please contact pharmacy and have them hold Trazodone refill until we clarify treatment plan. Thank you, Guillermo Dominguez MD * Telephone Encounter - Miguelina Henson LPN - 09/29/2023 7:31 AM EDT Patient has been identified by name and date of : Patient phones for refill(s): Requested Prescriptions Pending Prescriptions Disp Refills traZODone (DESYREL) 50 mg tablet 60 tablet 2 Sig: Take 1 tablet at bedtime x1 week. If still not sleeping at night, can increase to 2 tablets atbedtime. Trazodone 50 mg HS [facility]. Last OV 06/29/2023 [facility] OV R. Annabel 08/31/2023 Next OV 03/14/2024 [facility] Assessment and Plan: ASSESSMENT/PLAN: 1. Insomnia, unspecified type - ICD9: 780.52, ICD10: G47.00 (primary diagnosis) Insomnia that appears directly related to life stressors and underlying mood disorder. Pt willing to see psychiatry at this time, and will refer to Dr. Amador as he specializes not only in psychiatry but sleep as well. In meantime, will start on Trazodone 50mg QHS that pt can increase to 100mg QHS after 1 week if no improvement in symptoms. SE and ADRs d/w pt and advised of possible interaction with other medications. Note pt without SI or HI. 2. OSMAN treated with BiPAP - ICD9: 327.23, ICD10: G47.33 3. CSA (central sleep apnea) - ICD9: 780.57, ICD10: G47.31 Patient again educated on impact of untreated sleep apnea on other medical conditions as well as overall night and daytime symptoms. She will try to use again, but might not attain regular use until insomnia treated. Given central sleep apnea, limited treatment options. Pt expresses understanding and will again attempt PAP therapy. 4. RLS (restless legs syndrome) - ICD9: 333.94, ICD10: G25.81 5. Neuropathy - ICD9: 355.9, ICD10: G62.9 Stable on gabapentin as above and which pt has been on for years now. No side effects. Will not change dosing at this time, but if insomnia improves, and RLS/neuropathy symptoms remain stable, may consider slowly lowering dose at time of future follow up visits. 6. Class 2 obesity with body mass index (BMI) of 38.0 to 38.9 in adult, unspecified obesity type, unspecified whether serious comorbidity present - ICD9: 278.00, V85.38, ICD10: E66.9, Z68.38 Encouraged weight loss. Guillermo Dominguez MD documented in this encounterOhiohealth [facility]07-02-2024 Note* Addendum Note - Guillermo Dominguez Jr., MD - 09/29/2023 12:11 PM EDTAddended by: GUILLERMO DOMINGUEZ on: 09/29/2023 12:11 PM Modules accepted: Orders [facility]07-02-[facility] Telephone encounter Note* Telephone Encounter - Guillermo Dominguez Jr., MD - 09/29/2023 12:10 PM EDT Per note of Adbon Jin CNP, Trazodone was stopped. Please clarify with Abdon Jin. Please contact pharmacy and have them hold Trazodone refill until we clarify treatment plan. Thank you, Guillermo Dominguez MD [facility]07-02-2024 Telephone encounter Note* Telephone Encounter - Miguelina Henson LPN - 09/29/2023 7:31 AM EDT Patient has been identified by name and date of : Patient phones for refill(s): Requested Prescriptions Pending Prescriptions Disp Refills traZODone (DESYREL) 50 mg tablet 60 tablet 2 Sig: Take 1 tablet at bedtime x1 week. If still not sleeping at night, can increase to 2 tablets atbedtime. Trazodone 50 mg HS [facility]. Last OV 06/29/2023 [facility] OV Amanda Jin 08/31/2023 Next OV 03/14/2024 [facility] Assessment and Plan: ASSESSMENT/PLAN: 1. Insomnia, unspecified type - ICD9: 780.52, ICD10: G47.00 (primary diagnosis) Insomnia that appears directly related to life stressors and underlying mood disorder. Pt willing to see psychiatry at this time, and will refer to Dr. Amador as he specializes not only in psychiatry but sleep as well. In meantime, will start on Trazodone 50mg QHS that pt can increase to 100mg QHS after 1 week if no improvement in symptoms. SE and ADRs d/w pt and advised of possible interaction with other medications. Note pt without SI or HI. 2. OSMAN treated with BiPAP - ICD9: 327.23, ICD10: G47.33 3. CSA (central sleep apnea) - ICD9: 780.57, ICD10: G47.31 Patient again educated on impact of untreated sleep apnea on other medical conditions as well as overall night and daytime symptoms. She will try to use again, but might not attain regular use until insomnia treated. Given central sleep apnea, limited treatment options. Pt expresses understanding and will again attempt PAP therapy. 4. RLS (restless legs syndrome) - ICD9: 333.94, ICD10: G25.81 5. Neuropathy - ICD9: 355.9, ICD10: G62.9 Stable on gabapentin as above and which pt has been on for years now. No side effects. Will not change dosing at this time, but if insomnia improves, and RLS/neuropathy symptoms remain stable, may consider slowly lowering dose at time of future follow up visits. 6. Class 2 obesity with body mass index (BMI) of 38.0 to 38.9 in adult, unspecified obesity type, unspecified whether serious comorbidity present - ICD9: 278.00, V85.38, ICD10: E66.9, Z68.38 Encouraged weight loss. Guillermo Dominguez MD [facility]06-03-[facility] History of Present illness Narrative* Sindy Jin APRN.ELIGIBILITY COUNSELOR - 08/31/2023 11:00 AM EDT Images from the original note were not included. [facility] Follow [facility]/ Established patient visit Date of last visit : 06/29/2023 The following Impression/Plan was copied and pasted from the patient's last [facility] visit on 06/29/23: ASSESSMENT/PLAN: 1. Insomnia, unspecified type - ICD9: 780.52, ICD10: G47.00 (primary diagnosis) Insomnia that appears directly related to life stressors and underlying mood disorder. Pt willing to see psychiatry at this time, and will refer to Dr. Amador as he specializes not only in psychiatry but sleep as well. In meantime, will start on Trazodone 50mg QHS that pt can increase to 100mg QHS after 1 week if no improvement in symptoms. SE and ADRs d/w pt and advised of possible interaction with other medications. Note pt without SI or HI. 2. OSMAN treated with BiPAP - ICD9: 327.23, ICD10: G47.33 3. CSA (central sleep apnea) - ICD9: 780.57, ICD10: G47.31 Patient again educated on impact of untreated sleep apnea on other medical conditions as well as overall night and daytime symptoms. She will try to use again, but might not attain regular use until insomnia treated. Given central sleep apnea, limited treatment options. Pt expresses understanding and will again attempt PAP therapy. 4. RLS (restless legs syndrome) - ICD9: 333.94, ICD10: G25.81 5. Neuropathy - ICD9: 355.9, ICD10: G62.9 Stable on gabapentin as above and which pt has been on for years now. No side effects. Will not change dosing at this time, but if insomnia improves, and RLS/neuropathy symptoms remain stable, may consider slowly lowering dose at time of future follow up visits. 6. Class 2 obesity with body mass index (BMI) of 38.0 to 38.9 in adult, unspecified obesity type, unspecified whether serious comorbidity present - ICD9: 278.00, V85.38, ICD10: E66.9, Z68.38 Encouraged weight loss. Guillermo Dominguez MD Here for follow up for insomnia, RLS, OSMAN, CSA She is taking trazodone 100 mg [address] prescribed [address] Dominguez at last appointment, she states it isn't effective. Her younger sister is in hospital in [place], very stressed about this. Takes hydroxyzine 25 mg at HS, no help with insomnia. Often takes 2 hrs to fall asleep. She doesn't always wait to getinto bed until she is sleepy. Can't turn mind off. No sleep maintenance insomnia. Never tried melatonin. She has an appointment to see Dr Coker on 11/13 23, referred by Dr Dominguez. SLEEP APNEA Sleep apnea type : OSMAN, and CSA Most Recent Apnea-Hypopnea Index (AHI): 26 on HSAT Treatment : PAP therapy--doesn't use it, unable to tolerate it, feel like I can't breathe DME: [facility] Current PAP settin/16 cm H2O. RLS Current treatment : Medication(s) and timing : gabapentin 100 mg and gabapentin 800 mg Gabapentin for neuropathy and RLS Mostly takes gabapentin for neuropathy, as well as for RLS. No c/o RLS sxs. Morning takes gabapentin 100 mg plus 800 mg, then dinner 300 mg plus 800 mg, HS takes 300 mg plus 800 mg. Total 3100 mg daily. 01/2023 creat 0.66, GFR 92. Reports neuropathy is better. [facility] website checked and validated. All prescriptions have been APPROPRIATELY filled. No suspiciousactivity was identified. 08/31/2023 by Sindy Jin APRN.TAMIR SLEEP HYGIENE QUESTIONS: Bedtime : MN-1 AM Wake up Time : alarm at 9 am Time it takes to fall sleep : 2 hrs Number of times patient wakes up per night : none Estimated total sleep time ( in a 24 hour period of time) : 5 (goal is 8 hrs) Naps : tries to avoid, but 3 days a week she takes a 1 hr nap PATIENT-ENTERED QUESTIONNAIRE SLEEP SCORES 08/24/2023 Sleep Questions Reason for visit: Difficulty falling or staying asleep or poor sleep quality Average hours of CPAP per night: 0 Percent of nights CPAP used at least 4 hours: 0 Accidents or near accidents due to drowsy drivin 02/22/2023 06/07/2023 08/24/2023 [place] Sleepiness Scale Score 2 (No clinically significant daytime sleepiness) 5 (No clinically significant daytime sleepiness) 3 (No clinically significant daytime sleepiness) 02/22/2023 06/07/2023 08/24/2023 PROMIS CAT Sleep Disturbance PROMIS Sleep Disturbance T-Score 34 (within normal limits) 65 (moderate) 58 (mild) PROMIS Sleep Disturbance Percentile 95 7 21 06/07/2023 08/24/2023 Insomnia Severity Index Score 15 7 02/22/2023 06/07/2023 08/24/2023 PHQ-9 Score 1 8 5 02/22/2023 06/07/2023 08/24/2023 PROMIS Global Health - (T-Scores - the mean of general population = 50. Five points is a clinicallymeaningful difference.) Physical T-Score 47.7 39.8 39.8 Mental T-Score 59 45.8 41.1 SLEEP RELATED ROS Review of Systems Musculoskeletal: Positive for arthralgias and myalgias. ALLERGIES No Known Allergies CURRENT MEDICATIONS: gabapentin (NEURONTIN) 300 mg capsule TAKE 1 CAPSULE BY MOUTH WITH DINNER (WITH 800MG TABLET) AND 1CAPSULE BY MOUTH AT BEDTIME (WITH 800MG TABLET). 90 day supply. gabapentin (NEURONTIN) 100 mg capsule Take 1 capsule by mouth every morning for 180 days. (Take with gabapentin 800mg tablet in AM) gabapentin (NEURONTIN) 800 mg tablet Take 1 tablet by mouth three times a day for 180 days. furosemide (LASIX ORAL) Take 1 tablet by mouth once daily. meloxicam (MOBIC) 15 mg tablet hydrOXYzine HCl (ATARAX) 25 mg tablet duloxetine HCl (CYMBALTA ORAL) Take by mouth. oxybutynin XL (DITROPAN XL) 5 mg 24 hr tablet Take 5 mg by mouth daily at bedtime. glipiZIDE (GLUCOTROL XL) 5 mg 24 hr tablet Take 1 tablet by mouth twice daily. lovastatin 40 mg tablet Take 40 mg by mouth daily at bedtime. HYDROMORPHONE HCL (DILAUDID MISC) Pain pump potassium chloride (K-MONCHO, KLOR-CON) 20 mEq packet Take 20 mEq by mouth twice daily. MULTI-VITAMIN ORAL Take by mouth. amLODIPine (NORVASC) 10 mg ORAL tablet Take 10 mg by mouth once daily. doxepin capsule 10 mg Take 1 capsule by mouth daily at bedtime. RABEprazole (ACIPHEX) 20 mg tablet Take 1 tablet by mouth every afternoon. CPAP/BIPAP/OTHER BiPAP 18/14 cmH2O DME [employer] [facility] (Patient not taking: Reported on 06/29/2023) HYDROCHLOROTHIAZIDE ORAL Take by mouth. (Patient not taking: Reported on 08/31/2023) PHYSICAL EXAMINATION: Vital Signs: BP 148/73 Pulse 65 Resp 18 Wt 97.6 kg (215 lb 1.9 oz) SpO2 95% BMI 38.72 kg/m PHYSICAL EXAM: General appearance: pleasant, NAD except mildly anxious Mental status: alert and oriented, able to provide own history Constitutional: obese Skin: No visible rashes on exposed skin Neuro: No focal deficits observed, no tremors IMPRESSION: Chronic insomnia (primary encounter diagnosis) Rls (restless legs syndrome) Osman (obstructive sleep apnea) Julio Cesar Eldridge is a 77 year old female with PMH of chronic insomnia, sleep apnea, RLS, neuropathy. She isn't able to tolerate her biPAP. Her chronic sleep maintenance insomnia persists; not better with trazodone. We discussed CBTI. If she's not ready to meet with sleep psychologist then at least try to avoid bed when not sleepy, don't watch clock, etc. High dose of gabapentin for neuropathy, which controls her RLS--discussed that we will plan to lower that eventually. PLAN: Stop trazodone Try doxepin 10 mg at HS, reviewed r/b/a Discussed CBTI Has upcoming appointment with Dr Coker Schedule follow up Dr Dominguez 6 mos Sindy Jin APRN.TAMIR documented in this encounterOhio[facility]-31-[facility]24 Telephone encounter Note * Telephone Encounter - Miguelina Henson LPN - 08/28/2023 7:24 AM EDT Patient has been identified by name and date of : Patient phones for refill(s): Requested Prescriptions Pending Prescriptions Disp Refills gabapentin (NEURONTIN) 100 mg capsule 90 capsule 1 Sig: Take 1 capsule by mouth every morning for 180 days. (Take with gabapentin 800mg tablet in AM) gabapentin (NEURONTIN) 300 mg capsule 180 capsule 1 Sig: TAKE 1 CAPSULE BY MOUTH WITH DINNER (WITH 800MG TABLET) AND 1 CAPSULE BY MOUTH AT BEDTIME (WITH 800MG TABLET). 90 day supply. Patient recent visit [facility] 06/29/2023 gabapentin sent to [facility], patient now requesting [facility] delivery. Assessment and Plan: ASSESSMENT/PLAN: 1. Insomnia, unspecified type - ICD9: 780.52, ICD10: G47.00 (primary diagnosis) Insomnia that appears directly related to life stressors and underlying mood disorder. Pt willing to see psychiatry at this time, and will refer to Dr. Amador as he specializes not only in psychiatry but sleep as well. In meantime, will start on Trazodone 50mg QHS that pt can increase to 100mg QHS after 1 week if no improvement in symptoms. SE and ADRs d/w pt and advised of possible interaction with other medications. Note pt without SI or HI. 2. OSMAN treated with BiPAP - ICD9: 327.23, ICD10: G47.33 3. CSA (central sleep apnea) - ICD9: 780.57, ICD10: G47.31 Patient again educated on impact of untreated sleep apnea on other medical conditions as well as overall night and daytime symptoms. She will try to use again, but might not attain regular use until insomnia treated. Given central sleep apnea, limited treatment options. Pt expresses understanding and will again attempt PAP therapy. 4. RLS (restless legs syndrome) - ICD9: 333.94, ICD10: G25.81 5. Neuropathy - ICD9: 355.9, ICD10: G62.9 Stable on gabapentin as above and which pt has been on for years now. No side effects. Will not change dosing at this time, but if insomnia improves, and RLS/neuropathy symptoms remain stable, may consider slowly lowering dose at time of future follow up visits. 6. Class 2 obesity with body mass index (BMI) of 38.0 to 38.9 in adult, unspecified obesity type, unspecified whether serious comorbidity present - ICD9: 278.00, V85.38, ICD10: E66.9, Z68.38 Encouraged weight loss. [facility]05-31-[facility] Miscellaneous Notes* Telephone Encounter - Miguelina Henson LPN - 08/28/2023 7:24 AM EDT Patient has been identified by name and date of : Patient phones for refill(s): Requested Prescriptions Pending Prescriptions Disp Refills gabapentin (NEURONTIN) 100 mg capsule 90 capsule 1 Sig: Take 1 capsule by mouth every morning for 180 days. (Take with gabapentin 800mg tablet in AM) gabapentin (NEURONTIN) 300 mg capsule 180 capsule 1 Sig: TAKE 1 CAPSULE BY MOUTH WITH DINNER (WITH 800MG TABLET) AND 1 CAPSULE BY MOUTH AT BEDTIME (WITH 800MG TABLET). 90 day supply. Patient recent visit [facility] 06/29/2023 gabapentin sent to [facility], patient now requesting [facility] delivery. Assessment and Plan: ASSESSMENT/PLAN: 1. Insomnia, unspecified type - ICD9: 780.52, ICD10: G47.00 (primary diagnosis) Insomnia that appears directly related to life stressors and underlying mood disorder. Pt willing to see psychiatry at this time, and will refer to Dr. Amador as he specializes not only in psychiatry but sleep as well. In meantime, will start on Trazodone 50mg QHS that pt can increase to 100mg QHS after 1 week if no improvement in symptoms. SE and ADRs d/w pt and advised of possible interaction with other medications. Note pt without SI or HI. 2. OSMAN treated with BiPAP - ICD9: 327.23, ICD10: G47.33 3. CSA (central sleep apnea) - ICD9: 780.57, ICD10: G47.31 Patient again educated on impact of untreated sleep apnea on other medical conditions as well as overall night and daytime symptoms. She will try to use again, but might not attain regular use until insomnia treated. Given central sleep apnea, limited treatment options. Pt expresses understanding and will again attempt PAP therapy. 4. RLS (restless legs syndrome) - ICD9: 333.94, ICD10: G25.81 5. Neuropathy - ICD9: 355.9, ICD10: G62.9 Stable on gabapentin as above and which pt has been on for years now. No side effects. Will not change dosing at this time, but if insomnia improves, and RLS/neuropathy symptoms remain stable, may consider slowly lowering dose at time of future follow up visits. 6. Class 2 obesity with body mass index (BMI) of 38.0 to 38.9 in adult, unspecified obesity type, unspecified whether serious comorbidity present - ICD9: 278.00, V85.38, ICD10: E66.9, Z68.38 Encouraged weight loss. documented in this encounterOhio[facility]05-28-2024 Telephone encounter Note * Telephone Encounter - Nabil Jett MA - 08/25/2023 9:59 AM EDT Images from the original note were not included. [facility]05-[facility] Miscellaneous Notes* Telephone Encounter - Nabil Jett MA - 08/25/2023 9:59 AM EDT Images from the original note were not included. documented in this encounterOhio[facility]05-08-2024 Telephone encounter Note * Telephone Encounter - Satya Guardado RN - 08/05/2023 4:53 PM EDT Patient returned my message from earlier today and informed me that she is experiencing some financial issues so she would like to delay scheduling the manometry. Patient stated she did inform Dr. Barron's office (ordering physician) of the same. Patient stated she will call back in a couple of months to schedule. I agreed with the plan and thanked her for the call. .cbem [facility]-08-[facility] Miscellaneous Notes* Telephone Encounter - Satya Guardado RN - 08/05/2023 4:53 PM EDT Patient returned my message from earlier today and informed me that she is experiencing some financial issues so she would like to delay scheduling the manometry. Patient stated she did inform Dr. Barron's office (ordering physician) of the same. Patient stated she will call back in a couple of months to schedule. I agreed with the plan and thanked her for the call. .cbem documented in this encounterOhiohealth [facility]04-01-2024 Instructions* Patient Instructions* Guillermo Dominguez Jr., MD - 06/29/2023 10:45 AM EDT documented in this encounterOhiohealth [facility]04-01-2024 History of Present illness Narrative* Guillermo Dominguez Jr., MD - 06/29/2023 10:17 AM EDT ESTABLISHED PATIENT VISIT CHIEF COMPLAINT: Follow Up HISTORY OF PRESENT ILLNESS: Julio Cesar Eldridge is a 77 year old female, BMI 38.84 kg/m2 with a PMH significant for and per last office visit with Abdon Jin CNP on 02/23/23: IMPRESSION: Rls (restless legs syndrome) (primary encounter diagnosis) Osman treated with bipap Csa (central sleep apnea) Neuropathy Diabetic polyneuropathy associated with type 2 diabetes mellitus (hcc) RLS symptoms well managed with gabapentin PLAN: Refills of gabapentin, continue 900 mg QAM 1100 mg at dinnertime, and 1100 mg at HS Lab for BMP today (no renal labs found at [facility]) Try a bit lower pressures to see if she can tolerate w/o mask leaks, 18/14 cmH2O, will check download in a month Has follow up appointment with Dr Dominguez in May 2023 I personally have not seen patient since 12/05/21. Patient is not using PAP. When asked why, states mostly it is her brain - states puts mask on and panics. States also not sleeping -- stating 2-3 nights per week not sleeping at all. States lots going on in her brain. States ex had heart attack last year and started on dialysis proceeded byblockage in bowel requiring surgery - was away from home from June to December 2022. Then after returning had an infection resulting in his being transferred to [facility] where per pt he passed. States that she was not allowed to go to calling hours per the order of her daughters. States son who she gaveup for adoption has also stopped talking to her and without reason. States other daughter sending her emails with nasty remarks. States in past every time she received an email would cry and cry but feels like no emotion anymore. These thoughts and worries are going through her mind every night. States she has 4 children and only 1 will speak to her. On Atarax at night through Dr. Devine but reports not helping. Pain is not bothering patient. RLS not bothering patient. Not seeing psychology/psychiatry. Pt is taking Cymbalta 30mg QHS. No side effects on gabapentin. Then adds that since ex passed she has lost half of her income to cover bills. Note when ran out of gabapentin last year, states she did have exacerbation of RLS symptoms and neuropathy pain. Sleep Questionnaire Data Depression Screening 10/15/2022 02/22/2023 06/07/2023 PHQ-2 Score 0 0 2 PHQ-9 Score 1 1 8 PED PHQ-9 10/15/2022 02/22/2023 06/07/2023 Little interest or pleasure in doing things Not at all Not at all Several days Feeling down, depressed, or hopeless Not at all Not at all Several days Trouble falling or staying asleep, or sleeping too much Not at all Not at all Nearly every day Feeling tired or having little energy Several days Several days More than half the days Poor appetite or overeating Not at all Not at all Several days Feeling bad about yourself - or that you are a failure or have let yourself or your family down Notat all Not at all Not at all Trouble concentrating on things, such as reading the newspaper or watching television Not at all Not at all Not at all Moving or speaking so slowly that other people could have noticed. Or the opposite - being so fidgety or restless that you have been moving around a lot more than usual Not at all Not at all Not at all Thoughts that you would be better off , or of hurting yourself in some way Not at all Not at all Not at all If you checked off any problems, how difficult have these problems made it for you to do your work,take care of things at home, or get along with other people? Not difficult at all Not difficult at all Not difficult at all PHQ-9 Score 1 (None-Minimal Depression) 1 (None-Minimal Depression) 8 (Mild Depression) [place] Sleepiness Scale 10/15/2022 02/22/2023 06/07/2023 Score 2 (No daytime sleepiness) 2 (No daytime sleepiness) 5 (No daytime sleepiness) Insomnia Severity Index 10/15/2022 02/22/2023 06/07/2023 Score - - 15 REVIEW OF SYSTEMS GENERAL:No weight loss, malaise [...] history of dysuria, frequency or incontinence MUSCULOSKELETAL: Negative for joint pain or swelling, back pain or muscle pain. NEUROLOGIC:Negative for focal numbness or weakness, headaches and dizziness or syncope, vision changes, speech/languag changes - EXCEPT that as per HPI above. SKIN:Negative for lesions, rash, and itching. PSYCHIATRIC: See HPI. HEMATOLOGIC/LYMPHATIC/IMMUNOLOGIC:Negative for prolonged bleeding, bruising easily or [...] 06/07/2001 11.4 (A) Glucose (mg/dL) Date Value 02/23/2023 166 (H) BUN (mg/dL) Date Value 02/23/2023 15 Creatinine (mg/dL) Date Value 02/23/2023 0.66 Sodium (mmol/L) Date Value 02/23/2023 136 Potassium (mmol/L) Date Value 02/23/2023 4.2 Chloride (mmol/L) Date Value 02/23/2023 96 (L) CO2 (mmol/L) Date Value 02/23/2023 28 Protein, Total (g/dL) Date Value 02/16/2020 8.3 (H) Albumin (g/dL) Date Value 02/16/2020 4.6 Calcium, Total (mg/dL) Date Value 02/23/2023 10.0 Alkaline Phosphatase (U/L) Date Value 02/16/2020 78 Bilirubin, Total (mg/dL) Date Value 02/16/2020 0.3 AST (U/L) Date Value 02/16/2020 21 ALT (U/L) Date Value 02/16/2020 19 ZAHRA (no units) Date Value 12/04/2017 SEE BELOW Hep C Antibody IA (no units) Date Value 05/19/2001 Negative MEDICATIONS: meloxicam (MOBIC) 15 mg tablet RABEprazole (ACIPHEX) 20 mg tablet Take 1 tablet by mouth every afternoon. gabapentin (NEURONTIN) 300 mg capsule TAKE 1 CAPSULE BY MOUTH WITH DINNER (WITH 800MG TABLET) AND 1CAPSULE BY MOUTH AT BEDTIME (WITH 800MG TABLET). 90 day supply. gabapentin (NEURONTIN) 100 mg capsule Take 1 capsule by mouth every morning for 180 days. (Take with gabapentin 800mg tablet in AM) gabapentin (NEURONTIN) 800 mg tablet Take 1 tablet by mouth three times a day for 180 days. hydrOXYzine HCl (ATARAX) 25 mg tablet HYDROCHLOROTHIAZIDE ORAL Take by mouth. duloxetine HCl (CYMBALTA ORAL) Take by mouth. oxybutynin XL (DITROPAN XL) 5 mg 24 hr tablet Take 5 mg by mouth daily at bedtime. glipiZIDE (GLUCOTROL XL) 5 mg 24 hr tablet Take 1 tablet by mouth twice daily. lovastatin 40 mg tablet Take 40 mg by mouth daily at bedtime. HYDROMORPHONE HCL (DILAUDID MISC) Pain pump potassium chloride (K-MONCHO, KLOR-CON) 20 mEq packet Take 20 mEq by mouth twice daily. MULTI-VITAMIN ORAL Take by mouth. amLODIPine (NORVASC) 10 mg ORAL tablet Take 10 mg by mouth once daily. CPAP/BIPAP/OTHER BiPAP 18/14 cmH2O DME [employer] [facility] (Patient not taking: Reported on 06/29/2023) CPAP Please lower bilevel to 21/17 cmH2O. Please send us download in 4 weeks. DME=[employer] (Patient not taking: Reported on 02/23/2023) diclofenac, EC, (VOLTAREN) 50 mg EC tablet Take 50 mg by mouth twice daily. Aspirin 81 mg ORAL Tab Take 81 mg by mouth. (Patient not taking: Reported on 06/29/2023) HISTORIES PAST MEDICAL HISTORY Diagnosis Date Chronic pain 6 fractured vertebrae, both shoulders replaced, osteoarthritis, osteoprosis, ?lupus Hypertension OSMAN (obstructive sleep apnea) 2009 Tremors of nervous system FAMILY HISTORY Problem Relation Age of Onset Alcohol/Drug Mother Cancer Mother mouth & lung Heart Mother Alcohol/Drug Father Heart Father Hypertension Father Alcohol/Drug Sister Cervical Cancer Sister Heart Paternal Grandfather Heart Maternal Grandmother SOCIAL HISTORY Social History Tobacco Use Smoking status: Never Smokeless tobacco: Never Tobacco comments: smoked for 2 years from age 21 to 23 Vaping Use Vaping Use: Never used Substance Use Topics Alcohol use: Not Currently Comment: 1 drink qhs in [place] when in [place] Drug use: Never PHYSICAL EXAMINATION BP 148/76 Pulse 84 Resp 16 Wt 97.9 kg (215 lb 12.8 oz) SpO2 96% BMI 38.84 kg/m GENERAL EXAM: General appearance: NAD, pleasant. HEENT: NC/AT, nasal congestion absent, no oral lesions, membranes moist. Lungs: CTA bilaterally. CV: RRR nl S1, S2 Skin: Cool to touch. N NEUROLOGICAL EXAM: General: Awake, alert, oriented x3 (person,place,time), speech fluent, no dysarthria; comprehension, naming, repetition intact. Fund of knowledge grossly normal. CN: PERRL, fundi with no evidence of papilledema, EOMI and without nystagmus, VFF to confrontation,facial sensation and strength are normal and symmetric, hearing is intact to finger rub bilaterally, palate and tongue movements are intact and symmetric. SCM and trapezius strength normal. Motor: Normal tone, bulk and strength (5/5) bilaterally (throughout extremities x4). Coordination: FNF, JOYCE, HTS intact. No tremors. Sensation: LT intact throughout. No evidence of neglect. Gait: Stable with normal stride and arm swing. Assessment and Plan: ASSESSMENT/PLAN: 1. Insomnia, unspecified type - ICD9: 780.52, ICD10: G47.00 (primary diagnosis) Insomnia that appears directly related to life stressors and underlying mood disorder. Pt willing to see psychiatry at this time, and will refer to Dr. Amador as he specializes not only in psychiatry but sleep as well. In meantime, will start on Trazodone 50mg QHS that pt can increase to 100mg QHS after 1 week if no improvement in symptoms. SE and ADRs d/w pt and advised of possible interaction with other medications. Note pt without SI or HI. 2. OSMAN treated with BiPAP - ICD9: 327.23, ICD10: G47.33 3. CSA (central sleep apnea) - ICD9: 780.57, ICD10: G47.31 Patient again educated on impact of untreated sleep apnea on other medical conditions as well as overall night and daytime symptoms. She will try to use again, but might not attain regular use until insomnia treated. Given central sleep apnea, limited treatment options. Pt expresses understanding and will again attempt PAP therapy. 4. RLS (restless legs syndrome) - ICD9: 333.94, ICD10: G25.81 5. Neuropathy - ICD9: 355.9, ICD10: G62.9 Stable on gabapentin as above and which pt has been on for years now. No side effects. Will not change dosing at this time, but if insomnia improves, and RLS/neuropathy symptoms remain stable, may consider slowly lowering dose at time of future follow up visits. 6. Class 2 obesity with body mass index (BMI) of 38.0 to 38.9 in adult, unspecified obesity type, unspecified whether serious comorbidity present - ICD9: 278.00, V85.38, ICD10: E66.9, Z68.38 Encouraged weight loss. Guillermo Dominguez MD I spent 35 minutes in the visit, with more than 50% of the total [id number] time of the visit in counseling / coordination of care. PDMP website checked and validated. All prescriptions have been APPROPRIATELY filled. No suspiciousactivity was identified. 06/29/2023 by Guillermo Dominguez MD documented in this encounterOhio[facility]02-29-2024 Miscellaneous Notes* Telephone Encounter - Miguelina Henson LPN - 05/28/2023 10:30 AM EST Refills for Gabapentin 100 mg, 300 mg requested by pharmacy too soon due after 08/22/2023. Miguelina Henson LPN documented in this encounterOhiohealth [facility] Hospital12-27-2023 Procedure [facility]11-28-2023 Procedure [facility]11-28-2023 Procedure [facility]11-27-2023 History of Present illness Narrative* Miguelina Henson LPN - 02/23/2023 12:07 PM EST 02/22/2023 PROMIS Global Health Physical Health Summary Physical health: Very good Everyday physical activity, ability: Mostly Fatigue: Mild Pain level: 4 General health: Very good Social activities/roles, ability: Excellent Physical Health T-Score 47.7 (Good) Physical Health Percentile 41 PROMIS Global Health Mental Health Summary Quality of life: Excellent Mental health (mood,thinking): Very good Social satisfaction: Excellent Emotional problems (anxious,depressed): Rarely Mental Health T-Score 59 (Excellent) Mental Health Percentile 82 PHQ-9 Score: 1(Minimal Depression) PHQ-9 Self-Harm: Not at all AKILA-7 Score: (Minimal Anxiety) NEURO-QOL Cognitive Function T-Score Neuro-Qol Cognitive Function Percentile PROMIS Physical Function Percentile PROMIS Pain Interference Percentile Percentiles provide an indication of how a patient's score ranks in relation to the [place] general population. > 31st percentile is within normal limits or better *< 31st percentile is at least SD worse than population, which may be clinically relevant < 16th percentile is at least 1 SD worse than population and warrants attention Sleep Apnea Probability There is no data to display for this encounter * Miguelina Henson LPN - 02/23/2023 12:07 PM EST 02/22/2023 PROMIS Global Health Physical Health Summary Physical health: Very good Everyday physical activity, ability: Mostly Fatigue: Mild Pain level: 4 General health: Very good Social activities/roles, ability: Excellent Physical Health T-Score 47.7 (Good) Physical Health Percentile 41 PROMIS Global Health Mental Health Summary Quality of life: Excellent Mental health (mood,thinking): Very good Social satisfaction: Excellent Emotional problems (anxious,depressed): Rarely Mental Health T-Score 59 (Excellent) Mental Health Percentile 82 PHQ-9 Score: 1(Minimal Depression) PHQ-9 Self-Harm: Not at all AKILA-7 Score: (Minimal Anxiety) NEURO-QOL Cognitive Function T-Score Neuro-Qol Cognitive Function Percentile PROMIS Physical Function Percentile PROMIS Pain Interference Percentile Percentiles provide an indication of how a patient's score ranks in relation to the [place] general population. > 31st percentile is within normal limits or better *< 31st percentile is at least SD worse than population, which may be clinically relevant < 16th percentile is at least 1 SD worse than population and warrants attention Sleep Apnea Probability There is no data to display for this encounter * Sindy Jin APRN.ELIGIBILITY COUNSELOR - 02/23/2023 11:30 AM EST Images from the original note were not included. [facility] Follow up/ Established patient visit Date of last visit : 10/22/22 The following Impression/Plan was copied and pasted from the patient's last Sleep Disorders Center visit on 10/22/22: IMPRESSION: Rls (restless legs syndrome) (primary encounter diagnosis) Osman treated with bipap Neuropathy Diabetic polyneuropathy associated with type 2 diabetes mellitus (hcc) Julio Cesar Eldridge is a pleasant 77 year old female with PMH of OSMAN, RLS, diabetic neuropathy, nontoxic multinodular goiter, adjustment disorder with mixed anxiety and depression, pain disorder, and class III obesity. A Home Sleep Test (HST) performed on 09/16/2019 revealed at least moderate OSMAN(AHI of 26.0) that was associated with a minimum oxygen saturation of 71%; hypoxia was noted with the patient have a mean oxygen saturation of 83%; (4% hypopnea scoring; BMI 41.7). A PAP titration study completed on 03/21/2020 showed that none of the tested settings normalized the AHI, however, settings of 25/19 cmH2O and 26/21 cmH2O significantly reduced AHI during NREM sleep; only supine sleep recorded. She has an Aircurve 10 S set at 20/16 cmH2O per AirView acct. She has not used her device in the last few months due to issues with mask leak (using FFM). She feel the mask leak is loud and disruptive to her sleep. She also reports a recent episode of depression which was disrupting her sleep, which added to her difficulty using her BiPAP. However, her depression has improved and she is now sleeping well. She is agreeable to resuming PAP therapy with a different mask. She reports habitual supine sleep. She has chronic RLS sx and neuropathy, for which she is currently taking gabapentin 900mg QAM, 1100mg with dinner, and 1100mg QHS. She denies ADR/SE with current regimen. She also sees Pain management and receives Dilaudid via pain pump. RLS is presently well-controlled. No recent renal labs on file; These have been done in the past few months by PCP per patient; Will request results. PLAN: OSMAN: - Discussed diagnosis, causes, and conditions associated with obstructive sleep apnea. - Avoid driving when drowsy. Recommend that if you are dozing off while driving, that you do not drive until your sleepiness is appropriately treated. - Practice a healthy lifestyle with adequate sleep (7-9 hours per night), diet and exercise. - Try to avoid sleeping on back if possible - Resume Bilevel PAP at current settings of 20/16 cmH2O. - We will order a new mask ([employer] AirFit F30 mask) through your DME - Please follow-up with the DME company about getting this new mask - Remember to clean your mask and equipment regularly, as directed. - You should be eligible for new supplies approximately every 3-6 months, depending on your insurance coverage. Contact your Durable Medical Equipment (DME) company for new supplies as needed. - Order will be sent to [employer] for supplies: Giorgio Pino RLS: - Continue gabapentin as directed - I will send refills to [facility] - Nonmedical therapy for restless legs syndrome includes: cold/warm compresses, warm/hot baths or showers, gentle massage, mild leg stretching at nighttime, magnesium supplements (500mg-1000mg daily). Mentally alerting activities help too, during awake hours. Note that caffeine, alcohol, antidepressants, antinausea medications and antihistamines can cause or worsen symptoms. - I will have the nurse request renal labs from PCP - Follow up as scheduled with Dr Dominguez in Jan 2023. Patsy Aguirre, FIONA.ELIGIBILITY COUNSELOR Here for follow up for OSMAN on BiPAP (not using), RLS Can't tolerate her current biPAP pressures, any mask leak wakes her up, she did get a new mask but that hasn't helped. She understands the need to use PAP but currently can't tolerate it. No issues with RLS, continues on gabapentin, no adverse effects SLEEP APNEA Sleep apnea type : OSMAN, CSA Most Recent Apnea-Hypopnea Index (AHI): 26 on HSAT Treatment : PAP therapy DME: Giorgio Pino PAP History: Current PAP settin/16 cm H2O. Difficulties with Bilevel PAP: Yes: pressure intolerance Reviewed objective PAP compliance data: yes Mask type: full face mask Mask issues: air leak PATIENT-ENTERED QUESTIONNAIRE SLEEP SCORES Sleep Questions 02/22/2023 Reason for visit: Sleep apnea Average hours slept in 24 hours: - Average hours of CPAP per night: 0 Percent of nights CPAP used at least 4 hours: 0 Accidents or near accidents due to drowsy drivin [place] Sleepiness Scale 12/04/2021 10/15/2022 02/22/2023 Score 2 (No daytime sleepiness) 2 (No daytime sleepiness) 2 (No daytime sleepiness) PROMIS CAT Sleep Disturbance 12/04/2021 10/15/2022 02/22/2023 PROMIS Sleep Disturbance T-Score 48 (within normal limits) 41 (within normal limits) 34 (within normal limits) PROMIS Sleep Disturbance Percentile 58 % 82 % 95 % PHQ-9 12/04/2021 10/15/2022 02/22/2023 Score 3 1 1 PROMIS Global Health - (T-Scores - the mean of general population = 50. Five points is a clinicallymeaningful difference.) 10/21/2021 10/15/2022 02/22/2023 Physical T-Score 39.8 37.4 47.7 Mental T-Score 56 59 59 ALLERGIES No Known Allergies CURRENT MEDICATIONS: hydrOXYzine HCl (ATARAX) 25 mg tablet HYDROCHLOROTHIAZIDE ORAL Take by mouth. duloxetine HCl (CYMBALTA ORAL) Take by mouth. oxybutynin XL (DITROPAN XL) 5 mg 24 hr tablet Take 5 mg by mouth daily at bedtime. glipiZIDE (GLUCOTROL XL) 5 mg 24 hr tablet Take 1 tablet by mouth twice daily. lovastatin 40 mg tablet Take 40 mg by mouth daily at bedtime. diclofenac, EC, (VOLTAREN) 50 mg EC tablet Take 50 mg by mouth twice daily. HYDROMORPHONE HCL (DILAUDID MISC) Pain pump potassium chloride (K-MONCHO, KLOR-CON) 20 mEq packet Take 20 mEq by mouth twice daily. MULTI-VITAMIN ORAL Take by mouth. Aspirin 81 mg ORAL Tab Take 81 mg by mouth. amLODIPine (NORVASC) 10 mg ORAL tablet Take 10 mg by mouth once daily. gabapentin (NEURONTIN) 300 mg capsule TAKE 1 CAPSULE BY MOUTH WITH DINNER (WITH 800MG TABLET) AND 1CAPSULE BY MOUTH AT BEDTIME (WITH 800MG TABLET). 90 day supply. gabapentin (NEURONTIN) 100 mg capsule Take 1 capsule by mouth every morning for 180 days. (Take with gabapentin 800mg tablet in AM) CPAP/BIPAP/OTHER BiPAP 18/14 cmH2O DME [facility] [place] gabapentin (NEURONTIN) 800 mg tablet Take 1 tablet by mouth three times a day for 180 days. CPAP Please lower bilevel to 21/17 cmH2O. Please send us download in 4 weeks. DME=[facility] (Patient not taking: Reported on 02/23/2023) PHYSICAL EXAMINATION: Vital Signs: BP 148/72 Pulse 65 Resp 16 Wt 98.8 kg (217 lb 12.8 oz) SpO2 97% BMI 39.20 kg/m PHYSICAL EXAM: General appearance: pleasant, NAD Mental status: alert and oriented IMPRESSION: Rls (restless legs syndrome) (primary encounter diagnosis) Osman treated with bipap Csa (central sleep apnea) Neuropathy Diabetic polyneuropathy associated with type 2 diabetes mellitus (hcc) RLS symptoms well managed with gabapentin PLAN: Refills of gabapentin, continue 900 mg QAM 1100 mg at dinnertime, and 1100 mg at [facility] Lab for BMP today (no renal labs found at [facility]) Try a bit lower pressures to see if she can tolerate w/o mask leaks, 18/14 cmH2O, will check download in a month Has follow up appointment with Dr Dominguez in May 2023 Sindy Jin APRN.CNP I spent a total of 20 minutes on the date of the service which included preparing to see the patient, [id number] patient care, completing clinical documentation, obtaining and/or reviewing separately obtained history, performing a medically appropriate examination, and ordering medications, tests, or procedures . documented in this encounterOhiohealth [facility] Hospital09-18-2023 Miscellaneous Notes* Telephone Encounter - Nadege Vidal - 12/15/2022 11:[address] Booth's office, P [phone] and LVM for CMP or BMP results to be faxed to office. * Telephone Encounter - Patsy Aguirre APRN.CNP - 12/15/2022 11:04 AM EDT PDMP website checked and validated. All prescriptions have been APPROPRIATELY filled. No suspiciousactivity was identified. 12/15/2022 by Patsy Aguirre APRN.TAMIR Gabapentin 300mg cap Last filled 11/04/2022 #200 for 100 days Rx approved. Patsy Aguirre APRN.CNP 12/15/22 11:09 AM * Telephone Encounter - Sindy Jin APRN.CNP - 12/15/2022 8:37 AM EDT Yasir Garner, I'm not sure if pt got labs. Leaving this for you to refill, thanks! Carly * Telephone Encounter - Nadege Vidal - 12/15/2022 8:05 AM EDT Rx pended for different pharmacy [facility] 10/22/22 in person w/ ADAM, VV w/ physician F/U 02/12/23 in person w/ physician IMPRESSION: Rls (restless legs syndrome) (primary encounter diagnosis) Osman treated with bipap Neuropathy Diabetic polyneuropathy associated with type 2 diabetes mellitus (hcc) Julio Cesar Eldridge is a pleasant 77 year old female with PMH of OSMAN, RLS, diabetic neuropathy, nontoxic multinodular goiter, adjustment disorder with mixed anxiety and depression, pain disorder, and class III obesity. A Home Sleep Test (HST) performed on 09/16/2019 revealed at least moderate OSMAN(AHI of 26.0) that was associated with a minimum oxygen saturation of 71%; hypoxia was noted with the patient have a mean oxygen saturation of 83%; (4% hypopnea scoring; BMI 41.7). A PAP titration study completed on 03/21/2020 showed that none of the tested settings normalized the AHI, however, settings of 25/19 cmH2O and 26/21 cmH2O significantly reduced AHI during NREM sleep; only supine sleep recorded. She has an Aircurve 10 S set at 20/16 cmH2O per AirView acct. She has not used her device in the last few months due to issues with mask leak (using FFM). She feel the mask leak is loud and disruptive to her sleep. She also reports a recent episode of depression which was disrupting her sleep, which added to her difficulty using her BiPAP. However, her depression has improved and she is now sleeping well. She is agreeable to resuming PAP therapy with a different mask. She reports habitual supine sleep. She has chronic RLS sx and neuropathy, for which she is currently taking gabapentin 900mg QAM, 1100mg with dinner, and 1100mg QHS. She denies ADR/SE with current regimen. She also sees Pain management and receives Dilaudid via pain pump. RLS is presently well-controlled. No recent renal labs on file; These have been done in the past few months by PCP per patient; Will request results. PLAN: OSMAN: - Discussed diagnosis, causes, and conditions associated with obstructive sleep apnea. - Avoid driving when drowsy. Recommend that if you are dozing off while driving, that you do not drive until your sleepiness is appropriately treated. - Practice a healthy lifestyle with adequate sleep (7-9 hours per night), diet and exercise. - Try to avoid sleeping on back if possible - Resume Bilevel PAP at current settings of 20/16 cmH2O. - We will order a new mask ([employer] AirFit F30 mask) through your DME - Please follow-up with the DME company about getting this new mask - Remember to clean your mask and equipment regularly, as directed. - You should be eligible for new supplies approximately every 3-6 months, depending on your insurance coverage. Contact your Durable Medical Equipment (DME) company for new supplies as needed. - Order will be sent to DME for supplies: [employer] - [place] RLS: - Continue gabapentin as directed - I will send refills to [facility] - Nonmedical therapy for restless legs syndrome includes: cold/warm compresses, warm/hot baths or showers, gentle massage, mild leg stretching at nighttime, magnesium supplements (500mg-1000mg daily). Mentally alerting activities help too, during awake hours. Note that caffeine, alcohol, antidepressants, antinausea medications and antihistamines can cause or worsen symptoms. - I will have the nurse request renal labs from PCP - Follow up as scheduled with Dr Dominguez in Jan 2023. Patsy Aguirre APRN.ELIGIBILITY COUNSELOR documented in this encounterOhiohealth [facility] Hospital09-01-2023 Miscellaneous Notes* Telephone Encounter - Sravani Montana RN - 11/28/2022 7:32 AM EDT Yuntaahart message sent documented in this encounterOhiohealth Marion [facility] Hospital06-19-2023 Miscellaneous Notes* Telephone Encounter - Hailey Abebe RN - 09/15/2022 10:18 AM EDT Last Office Visit: 12/05/2021 Future Office Visit: 10/22/2022 Requested Prescriptions Pending Prescriptions Disp Refills gabapentin (NEURONTIN) 800 mg tablet 270 tablet 1 Sig: Take 1 tablet by mouth three times daily for 180 days. gabapentin (NEURONTIN) 800 mg tablet 42 tablet 0 Sig: Take 1 tablet by mouth three times daily for 180 days. Date of Last Labs: 02/16/2020 documented in this encounterOhiohealth Marion [facility] Hospital09-08-2022 History of Present illness Narrative* Guillermo Dominguez Jr., MD - 12/05/2021 11:18 AM EDT ESTABLISHED PATIENT VISIT (Virtual Visit with Video) For this virtual visit, the patient has been identified by name and (MRN and photo identification as well if available). Those taking part in visit: Patient and physician via [employer]. Consent for this visit received from patient. HISTORY OF PRESENT ILLNESS: Julio Cesar Eldridge is a 76 year old female, with a PMH significant for and per last office visit on 06/25/21: 1. OSMAN (obstructive sleep apnea) - ICD9: 327.23, ICD10: G47.33 (primary diagnosis) 2. CSA (central sleep apnea) - ICD9: 780.57, ICD10: G47.31 Pt not wearing PAP as above. Will attempt to lower pressure to 20/16 cmH2O to improve compliance and pt will undergo mask fitting at the [facility] today. Symptoms of sleepiness worse since not using PAP therapy. 3. RLS (restless legs syndrome) - ICD9: 333.94, ICD10: G25.81 4. Diabetic polyneuropathy associated with type 2 diabetes mellitus (HCC) - ICD9: 250.60, 357.2, ICD10: E11.42 Discomfort in legs as above. Unclear if secondary to DM neuropathy or in fact RLS. Sensory deficitsas above, more suggestive of small fiber neuropathy. Will adjust gabapentin so that patient will now take 800mg in AM, with 1100mg in afternoon and 1100mg in evening. SE and ADRs reviewed with pt. Labs requested from PCP to confirm renal function. Encouraged glucose control with goal glucose <140. PAP data download for past 30 days shows use on days with avg use of 7 hours and 6 minutes. PAP set at 20/16 cmH2O. 95% leak is 20.1 LPM. AHI is 10.9. Specific review of data shows on most nights AHI normalized, but for 6 of last 8 days AHI >30. Patient reports doing well. No recent travel, but will be with family in [place]. Patient states she is doing ok with bilevel PAP. States she is always sleeping supine. She states she is tolerating the pressure. States the mask is killing her hair. If she does not use PAP, states it is because she showers at night and does not want to mess her hair up. She denies any changes to Dilaudid dosing - confirmed with pain mgmt office (Dr. Cervantes). Pt feels she could tolerate a higherPAP setting. Legs are doing pretty good. States some nights gets pain in feet, and tingle, but other than that no issues. Not keeping her from falling asleep. States glucose levels ok, with pt checking at home but not daily. Highest has been ~210. REVIEW OF SYSTEMS GENERAL:No weight loss, malaise or fevers. HEENT:Negative for frequent or significant headaches, No changes in hearing or vision, no nose bleeds or other nasal problems RESPIRATORY: Negative for cough, wheezing or shortness of breath. CARDIOVASCULAR: Negative for chest pain, or palpitations. NEUROLOGIC:Negative for focal numbness or weakness, headaches and dizziness or syncope, vision changes, speech/languag changes - EXCEPT that as per HPI above. LAB/IMAGING: Those performed since patient's last visit [...] 06/07/2001 11.4 (A) Glucose (mg/dL) Date Value 02/16/2020 249 (H) BUN (mg/dL) Date Value 02/16/2020 21 Creatinine (mg/dL) Date Value 02/16/2020 0.77 Sodium (mmol/L) Date Value 02/16/2020 134 (L) Potassium (mmol/L) Date Value 02/16/2020 4.5 Chloride (mmol/L) Date Value 02/16/2020 94 (L) CO2 (mmol/L) Date Value 02/16/2020 29 Protein, Total (g/dL) Date Value 02/16/2020 8.3 (H) Albumin (g/dL) Date Value 02/16/2020 4.6 Calcium (mg/dL) Date Value 02/16/2020 10.4 (H) Alkaline Phosphatase (U/L) Date Value 02/16/2020 78 Bilirubin, Total (mg/dL) Date Value 02/16/2020 0.3 AST (U/L) Date Value 02/16/2020 21 ALT (U/L) Date Value 02/16/2020 19 ZAHRA (no units) Date Value 12/04/2017 SEE BELOW Hep C Antibody IA (no units) Date Value 05/19/2001 Negative URINALYSIS MEDICATIONS: hydrOXYzine HCl (ATARAX) 25 mg tablet gabapentin (NEURONTIN) 800 mg tablet Take 1 tablet by mouth three times daily for 180 days. CPAP Please lower bilevel to 20/16 cmH2O. Please send us download in 4 weeks. gabapentin (NEURONTIN) 300 mg capsule Take 1 capsule with dinner and 1 capsule and bedtime. HYDROCHLOROTHIAZIDE ORAL Take by mouth. duloxetine HCl (CYMBALTA ORAL) Take by mouth. oxybutynin XL (DITROPAN XL) 5 mg 24 hr tablet Take 5 mg by mouth daily at bedtime. glipiZIDE (GLUCOTROL XL) 5 mg 24 hr tablet Take 1 tablet by mouth daily with breakfast. lovastatin 40 mg tablet Take 40 mg by mouth daily at bedtime. diclofenac, EC, (VOLTAREN) 50 mg EC tablet Take 50 mg by mouth twice daily. (Patient not taking: Reported on 01/22/2021 ) HYDROMORPHONE HCL (DILAUDID MISC) Pain pump potassium chloride (K-MONCHO, KLOR-CON) 20 mEq packet Take 20 mEq by mouth twice daily. MULTI-VITAMIN ORAL Take by mouth. Aspirin 81 mg ORAL Tab Take 81 mg by mouth. amLODIPine (NORVASC) 10 mg ORAL tablet Take 10 mg by mouth once daily. HISTORIES PAST MEDICAL HISTORY Diagnosis Date Chronic pain 6 fractured vertebrae, both shoulders replaced, osteoarthritis, osteoprosis, ?lupus Hypertension OSMAN (obstructive sleep apnea) 2008 Tremors of nervous system FAMILY HISTORY Problem Relation Age of Onset Alcohol/Drug Mother Cancer Mother mouth & lung Heart Mother Alcohol/Drug Father Heart Father Hypertension Father Alcohol/Drug Sister Cervical Cancer Sister Heart Paternal Grandfather Heart Maternal Grandmother SOCIAL HISTORY Social History Tobacco Use Smoking status: Never Smokeless tobacco: Never Tobacco comments: smoked for 2 years from age 21 to 23 Vaping Use Vaping Use: Never used Substance Use Topics Alcohol use: Not Currently Comment: 1 drink qhs in [place] when in [place] Drug use: Never PHYSICAL EXAMINATION There were no vitals taken for this visit. GENERAL EXAM: General appearance: NAD, pleasant. HEENT: NC/AT, nasal congestion absent NECK: ROM nml. Lungs: No audible cough, wheeze, sob. NEUROLOGICAL EXAM: General: Awake, alert, oriented x3 (person,place,time), speech fluent, no dysarthria; comprehension, naming, repetition intact. 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 Fund of knowledge grossly normal by MOCA. CN: EOMI, face symmetric, hearing is intact, palate and tongue movements are intact and symmetric. SCM and trapezius strength symmetric. Motor: HERNANDEZ equal and symmetric. Assessment and Plan: ASSESSMENT/PLAN: 1. OSMAN (obstructive sleep apnea) - ICD9: 327.23, ICD10: G47.33 2. CSA (central sleep apnea) - ICD9: 780.57, ICD10: G47.31 Patient's PAP compliance improving. However, still not using 70% of nights. Today complains of how mask is negatively effecting her hair. Thus Rx sent for new mask with consideration of [place] nasal. Unclear why on some nights AHI is normalized and others I n the severe range. She reports no change in position nightly. No association with a leak. No association with meds. Will attempt to make smallincrease in PAP setting to 21/17 cmH2O to see if any improvement. Encouraged compliance. Reminded to clean and replace equipment regularly. Advised not to drive or operate heavy machinery if sleepy. 3. RLS (restless legs syndrome) - ICD9: 333.94, ICD10: G25.81 4. Diabetic polyneuropathy associated with type 2 diabetes mellitus (HCC) - ICD9: 250.60, 357.2, ICD10: E11.42 Both stable per pateint. She is not wanting to change meds at this time. Requesting recent renal labs from PCP. Continue Gabapentin 900mg in AM and 1100mg with dinner and at bedtime. Encouraged follow up with PCP for DM mainetenance. Guillermo Dominguez MD I spent a total of 32 minutes on the date of the service which included preparing to see the patient, [id number] patient care, completing clinical documentation, obtaining and/or reviewing separately obtained history, performing a medically appropriate examination, counseling and educating the pat ient/family/caregiver, ordering medications, tests, or procedures, independently interpreting results (not separately reported), and communicating results to the patient/family/caregiver (results = PAP data download). PDMP website checked and validated. All prescriptions have been APPROPRIATELY filled. No suspiciousactivity was identified. 12/05/2021 by Guillermo Dominguez MD documented in this encounterOhiohealth Marion [facility] Hospital07-27-2022 Miscellaneous Notes* Telephone Encounter - Blanquita Manuel LPN - 10/23/2021 2:10 PM EDT Pt returns call. Reviewed message with pt. Pt verbalizes understanding. Pt was transferred to [place] to assist with scheduling as per below. Blanquita Manuel LPN * Telephone Encounter - Jesusita Lemus MA - 10/23/2021 1:50 PM EDT 1st available appt. Spot is 12/05 @ 11:20 AM. Attempted to contact patient. Unable to reach patient. Left VM to return call to office. Please assist with scheduling. If appointment already booked when patient reaches office please assist patient with scheduling 1st available (can check all locations for [place]- or schedule with other providers at [place]). Jesusita Lemus MA * Telephone Encounter - Cheyanne Vazquez - 10/23/2021 1:30 PM EDT Patient called into the office of Dr. Dominguez to express that she had technical difficulties with herscheduled VV for 10/23/21 and requesting rescheduling with soonest appointment. Providers next availability is end of November. Patient can be reached at home number verified in Pricing Assistant. Thank you. Cheyanne Foote Pss documented in this encounterOhiohealth Marion General Hospital07-27-2022 Miscellaneous Notes* Telephone Encounter - Guillermo Dominguez Jr., MD - 10/23/2021 11:07 AM EDT Attempt made to contact pt by phone. No answer. She has not signed on to in approximately 48 hours. No show for appt. Guillermo Dominguez MD documented in this encounterOhiohealth Marion [facility] Hospital04-13-2022 Miscellaneous Notes* Telephone Encounter - Jyoti Rodriguez LPN - 07/10/2021 10:24 AM EDT Patient 6 week and 5 month follow up appointments scheduled and patient aware. Jyoti Rodriguez LPN * Telephone Encounter - Jyoti Rodriguez LPN - 07/09/2021 11:02 AM EDT Looking at Provider schedule for scheduling options. Patient updated. Jyoti Rodriguez LPN documented in this encounterOhiohealth [facility] Hospital04-11-2022 Miscellaneous Notes* Telephone Encounter - Jyoti Rodriguez LPN - 07/08/2021 3:52 PM EDT Faxed request to [facility] to have patient contacted to assist her with PAP face mask fitting issues. Jyoti Rodriguez LPN documented in this encounterMer[facility] + Plan note No data available for this section [facility] Evaluation noteNo assessment information available [facility] Work Phone: Evaluation note* Diagnosis OSMAN (obstructive sleep apnea) Obstructive sleep apnea (adult) (pediatric) CSA (central sleep apnea) Unspecified sleep apnea RLS (restless legs syndrome) Restless legs syndrome (RLS) Diabetic polyneuropathy associated with type 2 diabetes mellitus (HCC) Neuropathy Mononeuritis of unspecified site documented in this encounter [facility] note* Diagnosis RLS (restless legs syndrome) Restless legs syndrome (RLS) Neuropathy Mononeuritis of unspecified site Diabetic polyneuropathy associated with type 2 diabetes mellitus (HCC) documented in this encounter [facility] note* Diagnosis RLS (restless legs syndrome) Restless legs syndrome (RLS) Neuropathy Mononeuritis of unspecified site documented in this encounter [facility] note* Diagnosis RLS (restless legs syndrome) Restless legs syndrome (RLS) Neuropathy Mononeuritis of unspecified site Diabetic polyneuropathy associated with type 2 diabetes mellitus (HCC) [facility] Diagnosis RLS (restless legs syndrome) Restless legs syndrome (RLS) Neuropathy Mononeuritis of unspecified site Diabetic polyneuropathy associated with type 2 diabetes mellitus (HCC) documented in this encounter [facility] note* Diagnosis Onset Date Resolution Status Dysphagia noneactive [facility] Work Phone: [facility]* Diagnosis RLS (restless legs syndrome)- Primary Restless legs syndrome (RLS) OSMAN treated with BiPAP CSA (central sleep apnea) Unspecified sleep apnea Neuropathy Mononeuritis of unspecified site Diabetic polyneuropathy associated with type 2 diabetes mellitus (HCC) documented in this encounter [facility] note* Diagnosis RLS (restless legs syndrome) Restless legs syndrome (RLS) Neuropathy Mononeuritis of unspecified site Diabetic polyneuropathy associated with type 2 diabetes mellitus (HCC) documented in this encounter [facility] note* Diagnosis Insomnia, unspecified type- Primary OSMAN treated with BiPAP CSA (central sleep apnea) Unspecified sleep apnea RLS (restless legs syndrome) Restless legs syndrome (RLS) Neuropathy Mononeuritis of unspecified site Diabetic polyneuropathy associated with type 2 diabetes mellitus (HCC) Class 2 obesity with body mass index (BMI) of 38.0 to 38.9 in adult, unspecified obesity type, unspecified whether serious comorbidity present documented in this encounter [facility] note* Diagnosis RLS (restless legs syndrome) Restless legs syndrome (RLS) Neuropathy Mononeuritis of unspecified site Diabetic polyneuropathy associated with type 2 diabetes mellitus (HCC) documented in this encounter [facility] note* Diagnosis Chronic insomnia- Primary Insomnia, unspecified RLS (restless legs syndrome) Restless legs syndrome (RLS) OSMAN (obstructive sleep apnea) Obstructive sleep apnea (adult) (pediatric) documented in this encounter [facility] note* Diagnosis Insomnia, unspecified type documented in this encounter [facility] note* Diagnosis OSMAN treated with BiPAP- Primary CSA (central sleep apnea) Unspecified sleep apnea Class 2 obesity with body mass index (BMI) of 38.0 to 38.9 in adult, unspecified obesity type, unspecified whether serious comorbidity present Insomnia, unspecified type RLS (restless legs syndrome) Restless legs syndrome (RLS) Neuropathy Mononeuritis of unspecified site Diabetic polyneuropathy associated with type 2 diabetes mellitus (HCC) Depression, unspecified depression type documented in this encounter [facility] note* Diagnosis OSMAN treated with BiPAP- Primary CSA (central sleep apnea) Unspecified sleep apnea RLS (restless legs syndrome) Restless legs syndrome (RLS) Chronic insomnia Insomnia, unspecified Depression, unspecified depression type Insomnia, unspecified type [facility] Diagnosis Chronic insomnia- Primary Insomnia, unspecified RLS (restless legs syndrome) Restless legs syndrome (RLS) Neuropathy Mononeuritis of unspecified site Diabetic polyneuropathy associated with type 2 diabetes mellitus (HCC) Obstructive sleep apnea Obstructive sleep apnea (adult) (pediatric) [facility] Diagnosis OSMAN (obstructive sleep apnea)- Primary Obstructive sleep apnea (adult) (pediatric) Insomnia, unspecified type RLS (restless legs syndrome) Restless legs syndrome (RLS) Diabetic polyneuropathy associated with type 2 diabetes mellitus (HCC) Depression, unspecified depression type Class 2 obesity with body mass index (BMI) of 37.0 to 37.9 in adult, unspecified obesity type, unspecified whether serious comorbidity present [facility] Author Bladimir Rosales [facility] February 24, 2023 7:48am Note Date/Time February 24, 2023 7:48am [facility] Medical Records Department [address] [place] [id number] History & Physical Exam 02/24/23 0747 MR#: [id number] Acct: [id number] Name: JULIO CESAR ELDRIDGE Rep #:[id number] : 1945 77 From: Bladimir villar MD PCP: Dr. Gemini Devine, DO Status:[facility] Location: [place] [address] History and Physical Date of Admission: 02/24/23 Intake Vital Signs 07/22/2314:51 01/06/2314:11 Height 5 ft 3 in 5 ft 2.5 in Weight: 216 lb BMI 38.8 BP 162/65 H Blood Pressure Location Rt brachial Position Sitting Respiration 18 Intake Visit Reasons: Dysphagia Allergies No Known Allergies Allergy (Verified 01/06/23 14:12) PFS Medical History (Updated 01/06/23 @ 14:11 by Margarita Blanchard) Arthritis Back pain Chronic pain syndrome Depressive disorder Dysphagia HTN (hypertension) Morbid obesity Pure hypercholesterolemia Rheumatoid arthritis RLS (restless legs syndrome) SLE (systemic lupus erythematosus related syndrome) SLE (systemic lupus erythematosus) Sleep apnea Type II diabetes mellitus, uncontrolled Surgical History H/O elbow surgery History of shoulder surgery S/P arthroscopy of left shoulder S/P carpal tunnel release S/P laparoscopic cholecystectomy S/P right heart catheterization Family History Mother Cancer Heart disease HypertensionFather CAD (coronary artery disease) Heart disease Hypertension Social History Smoking Status: Former smoker alcohol intake: never HPI HPI HPI: Patient is a 77-year-old female with dysphagia. She reports that swallowing bread and potatoes especially makes food stick in her midesophagus. She also says that occasionally she does cough up liquids. She denies nausea or vomiting. She is not on a PPI she denies GERD. ROS General General: Yes fatigue; No weight change, appetite, colon cancer, breast cancer or weakness HEENT HEENT: Yes difficulty swallowing, eye injury and eye surgery; No swollen glands or hoarseness Endo Endocrine: Yes diabetes mellitus; No thyroid disease, thyroid cancer, Hair loss, heat intolerance or cold intolerance Skin Skin: Yes changing moles; No rash Breast Breast: No left breast lump, right breast lump, nipple discharge, breast pain, abnormal mammogram, abnormal US or breast enlargement Musc Musculoskeletal: Yes back problems, arthritis and rheumatoid arthritis; No gout or joint pain Cardio Cardiovascular: Yes high blood pressure; No murmur, pacemaker, heart disease, atrial fibrillation, heart attack, heart stent, palpitations, shortness of breat with exertion or chest pain Psych Psychiatric: Yes depression and anxiety; No hearing voices Resp Respiratory: Yes shortness of breath, Yes sleep apnea, No cough, No COPD, No asthma, No emphysema and No wheezing Gastro Gastrointestinal: No abdominal pain, No nausea or vomiting, Yes diarrhea, No constipation, No blood in stool, No acid reflux, Yes hemorrhoids, No ulcers, No gallbladder problem and No black,tarry stools Emiliano Hematologic: No blood thinners, No blood disorders, No bleeding, No anemia and No blood clots Neuro Neurologic: No system reviewed and no additional complaints, except as documented, No as per HPI, No abnormal gait, No abnormal hearing, No abnormal movements, No abnormal speech, No behavioral changes, No burning sensations, No confusion, No convulsions, No disequilibrium, No dizziness, No localized weakness, No frequent falls, No headache(s), No lack of coordination, No loss ofvision, No memory loss, Yes numbness, No other visual disturbances, No radicularpain, No restless legs, No sensory deficit, No syncope, Yes tingling, No tremor(s), No weakness and No other Exam Const General: cooperative Orientation: alert and oriented x3 HENMT Head: normal to inspection Neck Neck: normal visual inspection and full ROM Chest Chest palpation & inspection: normal inspection of the chest Resp Effort & Inspection: normal respiratory effort Auscultation: clear to auscultation bilaterally Cardio Rate: regular rate Rhythm: regular rhythm GI Inspection: non-distended Palpation: soft and nontender Skin General: no rashes or lesions noted Neuro General: patient alert and patient oriented x3 Extrem General: full ROM Psych Appearance: grossly normal Mental Status: mental status grossly normal Assessment and Plan Assessment and Plan (1) Dysphagia: Qualifiers: Dysphagia type: esophageal phase Qualified Code(s): R13.19 - Other dysphagia Plan: The patient is having esophageal dysphagia. I recommended EGD with dilation or possible biopsy. I explained endoscopy in detail to the patient. I explained the risks including but not limited to stroke or heart attack with anesthesia, perforation of the GI tract, bleeding, infection. I also discussed the increased risk of perforation and bleeding with dilation. I explained that any of these could necessitate further emergency surgery. The patient understands and all questions were answered sufficiently. The patient wishes to proceed with procedure. Patient will hold aspirin for 5 days prior to the procedure. Bladimir Rosales MD Pager: [facility] [address] [place] [address], [address] [place] [address] Office: I have examined the patient and the H&P has been reviewed. There are no clinicalchanges since date of exam. 02/24/23 0748 <Electronically signed by Bladimir Rosales MD> Cosigner Signature (if applicable): CC: Dr. Bladimir Rosales MD; Dr. Gemini Devine DO~ Signed [facility] Work Phone: Reason for referral (narrative)* Diagnostic Procedure Only (Routine) - Authorized Specialty Diagnoses / Procedures Referred By Contac t Referred To Contact [facility] Diagnoses OSMAN treated with BiPAP Procedures HOME SLEEP APNEA TEST (HSAT) SLEEP STD AIRFLOW HRT RATE&O2 SAT EFFORT Guillermo Thomas Jr., MD [address] [place] [address] [facility] [place] [address] [place] [address] Referral ID Status Reason Start Date Expiration Date Visits Requested Visits Authorized [id number] Authorized Auto-Generat ed Referral 4 03/14/2025 [address] [facility] for referral (narrative)No reason for referral [facility] Work Phone: Summary Purpose Family History No Family History Records Found Relationship Condition Age at Onset Recorded Date/T valeria mother Malignant neoplasm Unknown Cardiac disease Unknown Hypertension Unknown father Coronary artery disease Unknown Advance Directives No Advanced Directives Records Found Advance Directive Response Recorded Date/ Time Living Will No September 13, 2019 11:32am Power of Plywood Patcher No September 12 0 11:32am Advance Directive Response Recorded Date/ Time Living Will No January 08 7:50pm Power of Plywood Patcher No January 08, 2022 7:50pm Advance Directive Response Recorded Date/ Time Living Will No July 22, 2022 4:07pm Power of Plywood Patcher No July 22 4:07pm Advance Directive Response Recorded Date/ Time Living Will No February 17, 2 023 3:11pm Power of Plywood Patcher No February 17, 2023 3:11pm Advance Directive Response Recorded Date/ Time Living Will No February 17, 2 023 4:11pm Power of Plywood Patcher No February 17, 2023 4:11pm Chief Complaint and Reason for Visit Chief Complaint DYSPNEA ON EXERTION DYSPNEA ON EXERTION SCREENING Chief Complaint LOWER EXTREMITY Chief Complaint SCREENING Chief Complaint SCREENING MVA TRAUMA Chief Complaint TRAUMA LUQ ABD WALL THICKENING Dysphagia Reason for Visit Dysphagia Chief Complaint LUQ ABD WALL THICKEN ING Dysphagia Reason for Visit Dysphagia Chief Complaint DYSPHAGIA DYSPHAGIA. RX HERE DYSPHAGIA *12MM TABLET* SCREENING Chief Complaint DYSPHAGIA DYSPHAGIA *12MM TABLET* SCREENING DYSPHAGIA. RX HERE Chief Complaint DYSPHAGIA DYSPHAGIA *12MM TABLET* SCREENING DYSPHAGIA. RX HERE ADD CXR Chief Complaint LUQ ABD WALL THICKEN ING Dysphagia DYSPHAGIA Reason for Visit Dysphagia Chief Complaint Admit Date OSTEOPOROSIS, SCREENING June 28, 2024 9:49am Chief Complaint Admit Date OSTEOPOROSIS, SCREENING June 28, 2024 9:49am COMPRASSION FRACTURE July 06, 2024 11: 53am Reason for Referral Specialty Diagnoses / Procedures Referred By Contac t Referred To Contact Diagnoses Insomnia, unspecified type Procedures CONSULT TO SLEEP MEDICINE - ADULT OFFICE/OUTPATIENT [facility] 60 MINUTES Guillermo Dominguez Jr., MD [address] [facility] [address] [place] [address] Rebeca Coker, DO [address] [place] [address] Referral ID Status Reason Start Date Expiration Date Visits Requested Visits Authorized [id number] Authorized PCP Requested Referral 06/29/2023 06/28/2024 1 1 Specialty Diagnoses / Procedures Referred By Contac t Referred To Contact Diagnoses Chronic insomnia Procedures PROVIDER ORDERED FOLLOW UP OFFICE/OUTPATIENT [facility] 60 MINUTES Rebeca Coker, DO [address] [place] [address] Referral ID Status Reason Start Date Expiration Date Visits Requested Visits Authorized [id number] Authorized PCP Requested Referral 05/04/2024 03/17/2025 1 1 Additional Source Comments INFORMATION SOURCE (unrecogn ized section and content) DATE CREATED AUTHOR 06/24/2019 [facility] DATE CREATED AUTHOR AUTHOR'S ORGANIZ ATION 08/07/2023 [facility] DATE CREATED AUTHOR AUTHOR'S ORGANIZ ATION 05/29/2024 [facility] DATE CREATED AUTHOR AUTHOR'S ORGANIZ ATION 10/11/2024 [facility] DATE CREATED AUTHOR AUTHOR'S ORGANIZ ATION 10/24/2024 [facility] Goals (unrecognized section and content) Goals may be documented in a n alternate sectionGoals may be documented in an alternate sectionGoals may be documented in an alternate sectionGoals may be documented in an alternate sectionGoals may be documented in an alternate sectionGoals may be documented in an alternate sectionGoals may be documented in an alternate sectionGoals may be documented in an alternate sectionGoals may be documented in an alternate sectionGoals may be documented in an alternate section No data available for this sectionGoals may be documented in an alternate sectionGoals may be documented in an alternate sectionGoals may be documented in an alternate sectionGoals may be documented in an alternate sectionGoals may be documented in an alternate sectionGoals may be documented in an alternate section Source Comments (unrecognize d section and content) In the event this informatio n is protected by the Federal Confidentiality of Alcohol and Drug Abuse Patient Records regulations: The Federal rules restrict any use of the information to criminally investigate or prosecute any alcohol or drug abuse patient.[facility] the event this information is protected by the Federal Confidentiality of Alcohol and Drug Abuse Patient Records regulations: The Federal rules restrict any use of the information to criminally investigate or prosecute any alcohol or drug abuse patient.[facility] HospitalIn the event this information is protected by the Federal Confidentiality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
== END | disposition home or self-care (01) ==
LOC: SL 20:20
PROVIDERS: PCP Family Medicine; Referring Provider Psychiatry & Neurology Sleep Medicine; Visit Provider Psychiatry & Neurology Sleep Medicine
DX: G47.33 Obstructive sleep apnea (adult) (pediatric) (principal)
CPT/HCPCS: 95811

== ENCOUNTER → 2024-11-10 | Outpatient (CLI) | payer MEDICARE, MEDICAID, SELFPAY ==
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
--- NOTE | 2024-11-10 13:02 | RAD_ITS ---
PROCEDURE: THORACIC SPINE 3 VIEWS 11/10/2024 REASON FOR EXAM: DORSALGIA TECHNIQUE: THORACIC SPINE 3 VIEWS COMPARISON: Prior study dated June 14, 1999. FINDINGS: Vertebrae: Multilevel spondylosis. Stable loss of height of lower dorsal and upper lumbar vertebrae and prior vertebroplasty. Discs: Multilevel disc space narrowing. Alignment: No evidence of spondylolisthesis. Other: Status post left shoulder replacement. RAD/Thoracic Spine 3 Views IMPRESSION: Stable examination. Reading Location: [place] [address]
== END | disposition home or self-care (01) ==
LOC: MTRAD 12:59
PROVIDERS: PCP Family Medicine; Referring Provider Family Medicine; Visit Provider Family Medicine
DX: M54.9 Dorsalgia, unspecified (principal)
CPT/HCPCS: 72072; 72110

== ENCOUNTER 2024-12-30 12:27 | Emergency (ER) | payer MEDICARE, SELFPAY ==
[2024-12-30] VITALS (11 sets, daily range): BP systolic 159–196; BP diastolic 74–100; PULSE 79–94; RESP 16–28; TEMP 36.1–36.6; O2SAT 90–100; BMI 38.9
[2024-12-30] MEDS: fentaNYL 100 MCG/2 ML Ampul 50 MCG IV (12:37)
--- NOTE | 2024-12-30 12:41 | CT_ITS ---
PROCEDURE: BRAIN/HEAD WITHOUT CONTRAST; SPINE CERVICAL WITHOUT CONTRAS N/A REASON FOR EXAM: FALL TECHNIQUE: Procedure Code: CTBR; CTSPC Modality: CT Procedure: BRAIN/HEAD WITHOUT CONTRAST; SPINE CERVICAL WITHOUT CONTRAS Coronal and Sagittal reconstruction series were provided. One or more dose reduction techniques were used (e.g., Automated exposure control, adjustment of the mA and/or kV according to patient size, use of iterative reconstruction technique. RADIATION DOSE SUMMARY: CTDlvol: 45 mGy DLP: 782 mGycm COMPARISON: July 22, 2022 FINDINGS: Brain: There is no evidence of hemorrhage, acute ischemia or mass. No extra- axial fluid collection, midline shift or mass effect. Mild low-density in the periventricular white matter and deep white matter of the frontal and parietal lobes. CSF Spaces: Mild generalized cerebral atrophy. Sinuses/Mastoids: Small amount of mucus in the dependent portion of the right sphenoid sinus. Otherwise clear. Bones: No fracture Left lens implant. Cervical spine: Alignment: Normal cervical lordosis. No significant spondylolisthesis. Vertebra/disc spaces: Degenerative change between the anterior arch of C1 and the dens of C2. Mild disc space narrowing posteriorly C4/5, C5/6. Tzfndjlo-xe-ovkhbq disc space narrowing, endplate spurring and uncinate spurring C6/7 Soft tissues: No lymphadenopathy. No mass. Mild atherosclerotic plaque, jfnb-agalbdf-jecj-right at the proximal carotid arteries. Thyroid gland is unremarkable. Lung apices are clear. CT/Brain/Head without Contrast IMPRESSION: 1. No evidence of intracranial hemorrhage or acute ischemia. 2. Changes of chronic microvascular ischemia and volume loss. 3. Degenerative changes cervical spine. No fracture. Reading Location: [id number]
--- NOTE | 2024-12-30 12:41 | CT_ITS ---
PROCEDURE: CT CHEST, ABD, PEL W/CONTRAST 12/30/2024 REASON FOR EXAM: FALL TECHNIQUE: Chest, abdomen and pelvis CT with intravenous contrast. Coronal and Sagittal reconstruction series were provided. One or more dose reduction techniques were used (e.g., Automated exposure control, adjustment of the mA and/or kV according to patient size, use of iterative reconstruction technique. PATIENT PREPARATION: Per protocol ORAL CONTRAST TYPE: None. AMOUNT: mL CONTRAST: Isovue VOLUME: 100mL RADIATION DOSE SUMMARY: DLP: 2478 mGycm COMPARISON: 01/05/2023 FINDINGS: CT CHEST: Hardware: Total left shoulder prosthesis in place. Beam hardening artifact limits the evaluation. Stabilizing plates and screws transfixes the right humeral head and neck with no evidence of hardware failure. Lymph nodes: No significant lymphadenopathy. Heart and Vasculature: Heart size is mildly enlarged. Severe coronary arterial calcifications. Atherosclerotic aorta without aneurysmal dilatation. Lungs and Airways: The lungs are clear with no focal infiltrates or pneumothorax. Pleura: Unremarkable. Bones: Left anterior lateral rib fracture from 3rd to 5th ribs identified. There is an old healed fracture of the 6th rib. Anterior wedge compression of the T11-T12 vertebral body. CT ABDOMEN/PELVIS: Liver: The liver has homogeneous density with no lesions or lacerations. Intra and extrahepatic ductal dilatation demonstrated with the common bile duct measuring up to 1.3 cm in diameter. Gallbladder: Surgically resected. Spleen: Normal morphology and attenuation. No laceration seen. Pancreas: Fatty infiltrate of the liver unremarkable. Adrenals: Unremarkable. Kidneys: There is a 7 mm staghorn calculi in the upper pole right renal kidney that is nonobstructive. There is a 1.3 cm staghorn calculi in the left kidney. Bladder: Unremarkable. Reproductive Organs: There is a slightly retroverted uterus with unremarkable bilateral adnexa. Bowel: Small bowel is unremarkable. Scattered diverticulosis of the sigmoid colon is demonstrated without evidence of diverticulitis. Appendix: The appendix is not well recognized. Lymph nodes: No significant retroperitoneal lymph nodes or pelvic lymph nodes present. There are a few slightly prominent inguinal lymph nodes however the short axis is not greater than 1 cm Vasculature: Atherosclerotic aorta without aneurysmal dilatation. Peritoneum / Retroperitoneum: Unremarkable. Bones: Severe compression of the L3 vertebral body as well as compression of the L4 and L5 vertebral body again demonstrated. There is vertebroplasty attempted at L3 and L1 level. There is bony destructive changes of the T12 and L1 vertebral body. CT/CT Chest, Abd, Pel w/Contrast IMPRESSION: No acute intrathoracic or intra-abdominal or pelvic process. Several nondisplaced rib fracture of the left anterior 3rd to 5th rib identifie d. No pneumothorax. There is mild intra extrahepatic ductal dilatation with the common bile duct me asuring up to 1.3 cm. Bilateral staghorn calculi no obstructive uropathy. Diverticulosis of the sigmoid colon without evidence of diverticulitis. Multi level compression of the thoracolumbar spine again demonstrated however w ith new areas of lytic changes at the T12-L1 level. Recommend further imaging such as MRI for further evaluation if clinica lly indicated. Reading Location: [place] [address]
--- NOTE | 2024-12-30 12:41 | CT_ITS ---
PROCEDURE: SPINE THORACIC WITHOUT CONTRAS 12/30/2024 REASON FOR EXAM: FALL TECHNIQUE: Procedure Code: CTSPTH Modality: CT Procedure: SPINE THORACIC WITHOUT CONTRAS Coronal and Sagittal reconstruction series were provided. One or more dose reduction techniques were used (e.g., Automated exposure control, adjustment of the mA and/or kV according to patient size, use of iterative reconstruction technique). RADIATION DOSE SUMMARY: CTDlvol: 245 mGy DLP: 6890 mGycm COMPARISON: None FINDINGS: Alignment: Straightening of the thoracic kyphosis. However, there is some mild kyphosis at the thoracolumbar junction. Kyphoplasty at L1 will be described on the dedicated lumbar series. Bones: Bone mineralization is decreased. Approximately 50% height loss is seen at T11 mainly anteriorly. Disc space narrowing vacuum disc phenomenon is shown at this level along with some facet hypertrophy. There is encroachment on the central canal mainly from facet hypertrophy, noudv-kwuoyeb-juzb-left. Approximately 50% height loss is seen at T12 also mainly anteriorly where there is also associated soft tissue mass protruding anteriorly estimated to measure 2.4 x 1.3 cm. The opposing endplates at T11 and T12 create an extradural defect anteriorly. Facet hypertrophy at T11/12. This combination of findings create central stenosis. Soft Tissues: Correlate with the dedicated chest, abdomen and pelvis CT CT/Spine Thoracic without Contras IMPRESSION: 1. Bone demineralization. Straightening of the thoracic kyphosis. 2. Vertebral body height loss T11, T12. Mass associated with the anterior asp ect of the T12 vertebral body a partially involves the anterior 3rd of the T12 vertebral body extending into the soft tissues. Ce ntral stenosis T10/11, T11/12. Patient is at risk for continued fracture (pathologic and insufficiency). Reading Location: [id number]
--- NOTE | 2024-12-30 12:41 | RAD_ITS ---
PROCEDURE: FOREARM 2 VIEWS 12/30/2024 REASON FOR EXAM: FALL, PAIN TECHNIQUE: Procedure Code: RADFA Modality: DX Procedure: FOREARM 2 VIEWS Laterality: Left COMPARISON: Wrist x-ray of the same day FINDINGS: Bones: Decreased bone mineralization. Fracture of the wrist is better described on the dedicated wrist exam. The the proximal forearm and mid forearm are unremarkable. Joints: Elbow joint seer unremarkable. Soft tissues: Soft tissue swelling about the wrist RAD/Forearm 2 Views IMPRESSION: Fracture of the wrist. Correlate with the dedicated wrist exam. Otherwise, no other fracture of the forearm. Reading Location: [id number]
--- NOTE | 2024-12-30 12:41 | CT_ITS ---
PROCEDURE: SPINE LUMBAR WITHOUT CONTRAST 12/30/2024 REASON FOR EXAM: PAIN, FALL TECHNIQUE: Procedure Code: CTSPL Modality: CT Procedure: SPINE LUMBAR WITHOUT CONTRAST Coronal and Sagittal reconstruction series were provided. One or more dose reduction techniques were used (e.g., Automated exposure control, adjustment of the mA and/or kV according to patient size, use of iterative reconstruction technique COMPARISON: December 30, [address] multiple prior x-rays. Most recent November 10, 2024 RADIATION DOSE SUMMARY: CTDlvol: 245 mGy DLP: 1427 mGycm FINDINGS: Vertebrae: Decreased bone mineralization. Patient has undergone vertebral augmentation at both L1 and L3. L1 vertebral body shows insufficiency and some bony destruction from an adjacent soft tissue mass. This mass may be neoplastic or extrusion of the remaining disc material at T12/L1. This was measured on today's thoracic spine study. Approximately 50% height loss at L1. Vertebral augmentation. Depression of the superior endplate of L2 with 40-50% height loss. Mild retropulsion of the posterior superior superior L2 creating a small extradural defect. Some associated facet hypertrophy at that level. Grade 2/grade 3 by concave compression of L3 with vertebral augmentation attempted. There is extrusion of methylmethacrylate into the thecal sac on the right at the level of the sub foraminal zone posterior to L3 extending cephalad towards L2. Severe facet hypertrophy on the right and mild facet hypertrophy on the left. Central canal compromise is present. Grade 2 biconcave compression fractures of L4 and L5. Severe bilateral facet hypertrophy at those levels. Alignment: Reversal low-dose lumbar lordosis at the thoracolumbar junction. CT/Spine Lumbar without Contrast IMPRESSION: 1. Severe bone demineralization that has been worsening. 2. Vertebral augmentation L1 and L3. Extrusion of methylmethacrylate cement i n the L3 level with cephalad extension towards L2 along the right lateral recess/sub foraminal zone. This compromises the centra l canal at these levels. 3. Worsening compression fractures at L2, L3, L4, L5. Reading Location: [id number]
--- NOTE | 2024-12-30 12:41 | RAD_ITS ---
PROCEDURE: WRIST MIN 3 VIEWS N/A REASON FOR EXAM: PAIN, FALL TECHNIQUE: Procedure Code: RADWR Modality: DX Procedure: WRIST MIN 3 VIEWS Laterality: Left COMPARISON: None FINDINGS: Bones: Decreased bone mineralization. Mildly displaced fracture of the ulnar styloid tip is seen. Comminuted impacted fracture of the distal radius is present with dorsal angulation. There is intra- articular extension to the radiocarpal joint and distal radioulnar joint. Joints: Mild degenerative change of the basal joint of the thumb. Soft tissues: Soft tissue swelling. Other: No foreign body RAD/Wrist min 3 Views IMPRESSION: 1. Decreased bone mineralization 2. Comminuted impacted fracture distal radius with dorsal angulation and intra -articular extension. 3. Ulnar styloid tip fracture is displaced. Reading Location: [id number]
--- NOTE | 2024-12-30 12:41 | CT_ITS ---
PROCEDURE: BRAIN/HEAD WITHOUT CONTRAST; SPINE CERVICAL WITHOUT CONTRAS N/A REASON FOR EXAM: FALL TECHNIQUE: Procedure Code: CTBR; CTSPC Modality: CT Procedure: BRAIN/HEAD WITHOUT CONTRAST; SPINE CERVICAL WITHOUT CONTRAS Coronal and Sagittal reconstruction series were provided. One or more dose reduction techniques were used (e.g., Automated exposure control, adjustment of the mA and/or kV according to patient size, use of iterative reconstruction technique. RADIATION DOSE SUMMARY: CTDlvol: 45 mGy DLP: 782 mGycm COMPARISON: July 22, 2022 FINDINGS: Brain: There is no evidence of hemorrhage, acute ischemia or mass. No extra- axial fluid collection, midline shift or mass effect. Mild low-density in the periventricular white matter and deep white matter of the frontal and parietal lobes. CSF Spaces: Mild generalized cerebral atrophy. Sinuses/Mastoids: Small amount of mucus in the dependent portion of the right sphenoid sinus. Otherwise clear. Bones: No fracture Left lens implant. Cervical spine: Alignment: Normal cervical lordosis. No significant spondylolisthesis. Vertebra/disc spaces: Degenerative change between the anterior arch of C1 and the dens of C2. Mild disc space narrowing posteriorly C4/5, C5/6. Zyiylsml-bc-hzuvrt disc space narrowing, endplate spurring and uncinate spurring C6/7 Soft tissues: No lymphadenopathy. No mass. Mild atherosclerotic plaque, fryi-skvhghg-vaed-right at the proximal carotid arteries. Thyroid gland is unremarkable. Lung apices are clear. CT/Spine Cervical without Contras IMPRESSION: 1. No evidence of intracranial hemorrhage or acute ischemia. 2. Changes of chronic microvascular ischemia and volume loss. 3. Degenerative changes cervical spine. No fracture. Reading Location: [id number]
--- NOTE | 2024-12-30 12:45 | RAD_ITS ---
PROCEDURE: TIBIA FIBULA 2 VIEWS; FOOT MIN 3 VIEWS; FEMUR MIN 2 VIEWS; ANKLE MIN 3 VIEWS 12/30/2024 REASON FOR EXAM: FALL, PAIN; PAIN, FALL TECHNIQUE: Procedure Code: RADTF; RADFO; RADFEM; RADANK Modality: DX Procedure: TIBIA FIBULA 2 VIEWS; FOOT MIN 3 VIEWS; FEMUR MIN 2 VIEWS; ANKLE MIN 3 VIEWS Laterality: Left COMPARISON: None FINDINGS: Femur: Bones: Decreased bone mineralization. Transcortical fracture through the femoral neck. Varus angulation. No displacement. Joints: Intact at the hip joint. Intact at the knee joint. Soft tissues: Soft tissues are unremarkable. Tibia, fibula: Bones: Decreased bone mineralization. No fracture Joints: Normal alignment at the knee and ankle. Soft tissues: Soft tissues are unremarkable. Ankle: Bones: Decreased bone mineralization. Subtle lucency seen through the distal tibia on the oblique view does not extend to the cortex, and does not seen on the lateral projection. No fracture seen. Joints: Mild degenerative change tibiotalar joint. Soft tissues: Soft tissues are unremarkable. Foot: Bones: Decreased bone mineralization. No fracture seen. Joints: Mild degenerative change of the interphalangeal joints of the 2nd digit. Bony ankylosis proximal interphalangeal joint 4th digit as well as the proximal and distal interphalangeal joints 3rd digit Soft tissues: Soft tissues are unremarkable. RAD/Ankle min 3 Views IMPRESSION: 1. Femur: Transcortical fracture through the femoral neck. Varus angulation. No displacement 2. Tibia, fibula: No fracture 3. Ankle: No fracture 4. Foot: No fracture Reading Location: [id number]
--- NOTE | 2024-12-30 12:45 | RAD_ITS ---
PROCEDURE: TIBIA FIBULA 2 VIEWS; FOOT MIN 3 VIEWS; FEMUR MIN 2 VIEWS; ANKLE MIN 3 VIEWS 12/30/2024 REASON FOR EXAM: FALL, PAIN; PAIN, FALL TECHNIQUE: Procedure Code: RADTF; RADFO; RADFEM; RADANK Modality: DX Procedure: TIBIA FIBULA 2 VIEWS; FOOT MIN 3 VIEWS; FEMUR MIN 2 VIEWS; ANKLE MIN 3 VIEWS Laterality: Left COMPARISON: None FINDINGS: Femur: Bones: Decreased bone mineralization. Transcortical fracture through the femoral neck. Varus angulation. No displacement. Joints: Intact at the hip joint. Intact at the knee joint. Soft tissues: Soft tissues are unremarkable. Tibia, fibula: Bones: Decreased bone mineralization. No fracture Joints: Normal alignment at the knee and ankle. Soft tissues: Soft tissues are unremarkable. Ankle: Bones: Decreased bone mineralization. Subtle lucency seen through the distal tibia on the oblique view does not extend to the cortex, and does not seen on the lateral projection. No fracture seen. Joints: Mild degenerative change tibiotalar joint. Soft tissues: Soft tissues are unremarkable. Foot: Bones: Decreased bone mineralization. No fracture seen. Joints: Mild degenerative change of the interphalangeal joints of the 2nd digit. Bony ankylosis proximal interphalangeal joint 4th digit as well as the proximal and distal interphalangeal joints 3rd digit Soft tissues: Soft tissues are unremarkable. RAD/Tibia & Fibula 2 Views IMPRESSION: 1. Femur: Transcortical fracture through the femoral neck. Varus angulation. No displacement 2. Tibia, fibula: No fracture 3. Ankle: No fracture 4. Foot: No fracture Reading Location: [id number]
--- NOTE | 2024-12-30 13:11 | ED.VIS.FALL ---
HPI HPI - Fall History of Present Illness Chief Complaint: Fall Narrative Narrative: Patient is a 79-year-old female presenting to the emergency department for a fall. Patient has a past medical history of lupus, arthritis, back pain, morbid obesity, hypertension, type 2 diabetes and chronic pain syndrome on a Dilaudid pain pump. Patient sees pain management for this. Patient states that today she was walking down the steps when she lost her balance causing her to fall down 3 steps. States she landed on her left hip and left wrist. She did hit her head. Denies any loss of consciousness. She is not on any oral anticoagulation. Denies any neck pain. She is reporting pain everywhere but on further questioning states that the worst pain is in her left wrist, left hip and back. [facility] Medical History Post-menopausal Diabetes Bladder disease Fatty liver History of diverticulitis Shortness of breath on exertion Hoarseness Neuropathy History of edema Wears dentures Wears glasses Depression High cholesterol Migraine headache History of ulceration BiPAP (biphasic positive airway pressure) dependence Leg cramps Former smoker History of stress test Back pain Arthritis Rheumatoid arthritis Dysphagia Chronic pain syndrome SLE (systemic lupus erythematosus related syndrome) SLE (systemic lupus erythematosus) Sleep apnea RLS (restless legs syndrome) Pure hypercholesterolemia Morbid obesity HTN (hypertension) Type II diabetes mellitus, uncontrolled Depressive disorder Home Medications ?Medication ?Instructions ?Recorded ?Last Taken ?Type amlodipine 10 mg tablet 10 mg PO DAILY 02/17/15 10/23/23 History gabapentin 300 mg capsule 300 mg PO BID 02/17/15 09/14/19 05:00 History multivitamin,nr-dvdm-oqlrmlki 27 1 tab PO DAILY 02/17/15 Unknown History mg-0.4 mg tablet potassium chloride 20 mEq 20 meq PO BID 02/17/15 Unknown History tablet,extended release(part/cryst) hydroxyzine HCl 25 mg tablet 25 mg PO QHS PRN Sleep 03/09/19 Unknown History lovastatin 40 mg tablet 40 mg PO DAILY 03/09/19 Unknown History ergocalciferol (vitamin D2) 1,250 1,250 mcg PO WESA 01/06/23 Unknown History mcg (50,000 unit) capsule (Vitamin D2) gabapentin 100 mg capsule 100 mg PO DAILY 01/06/23 10/23/23 History glipizide 5 mg tablet, extended 5 mg PO BID 01/06/23 Unknown History release 24 hr hydromorphone (PF) 1 mg/mL 0.5 mg continuous subcutaneous 01/06/23 Unknown History injection solution infusion Q4H PRN pain oxybutynin chloride 5 mg 5 mg PO QHS 01/06/23 Unknown History tablet,extended release 24 hr gabapentin 800 mg tablet 800 mg PO TID 02/17/23 10/23/23 History doxepin 10 mg capsule 10 mg PO QHS 10/16/23 Unknown History duloxetine 20 mg capsule,delayed 20 mg PO BID 10/16/23 10/23/23 History release (Cymbalta) furosemide 40 mg tablet 40 mg PO DAILY 10/16/23 Unknown History meloxicam 15 mg tablet 15 mg PO DAILY 10/16/23 Unknown History Allergy/AdvReac Type Severity Reaction Status Date / Time No Known Allergies Allergy Verified 12/30/24 12:33 Family History Mother Cancer Heart disease Hypertension Father CAD (coronary artery disease) Heart disease Hypertension Surgical History History of esophagogastroduodenoscopy (EGD) History of right shoulder replacement S/P right heart catheterization S/P arthroscopy of left shoulder H/O elbow surgery History of shoulder surgery S/P laparoscopic cholecystectomy S/P carpal tunnel release Social History Smoking Status: Former smoker alcohol intake: never ROS ROS ED ROS Narrative see HPI EXAM Physical Exam Narrative Exam Narrative: Vital signs: Reviewed General: Alert and oriented x 3. Acute distress due to pain. HEENT: Head is normocephalic and atraumatic. No cephalhematoma, abrasions or lacerations to the head or face. Midface is stable and nontender to palpation. Pupils equal round and reactive. Nares are patent. No septal hematoma. Oropharynx and throat exams normal. No oropharyngeal trauma. Neck: Supple without lymphadenopathy nontender. No midline cervical spinal tenderness to palpation. No step-offs or deformities. Cardiovascular: Regular rate and rhythm, no murmurs. No rubs or gallops. Normal S1 and S2 Chest: Chest wall is atraumatic and nontender to palpation. No ecchymosis, abrasions or crepitus felt. Respiratory: Clear to auscultation bilaterally. No wheezes, rales, rhonchi. On room air saturating 98%. Abdominal: Soft and diffusely tender to palpation throughout. Normal bowel sounds. No guarding or rebound. Extremities: There is no midline thoracic or lumbar spinal tenderness to palpation. No step-offs or deformities. Left lateral hip is tender to palpation. Hips are stable to palpation. There is tenderness to palpation of the left distal tib-fib, ankle and foot with no ecchymosis. DP and PT pulses are intact bilaterally. Sensation intact. Patient able to wiggle toes and flex and extend her right knee and right hip. Range of motion at the left hip is decreased due to pain. There is a deformity of the left wrist with some edema and ecchymosis. There is tenderness to palpation at the distal radius. Radial pulses are intact bilaterally. Sensation intact. Patient able to wiggle fingers bilaterally. Skin: No rash or redness. Neurological: Cranial nerves II through XII are grossly intact. Normal strength and sensation. Normal cerebellar function The rest of the physical exam is unremarkable Const Vital Signs: 12/30/24 12:28 12/30/24 12:54 12/30/24 13:27 Temperature 96.9 F L Temperature Source Axillary Pulse Rate 89 83 Respiratory Rate 24 H 22 H Respiratory Effort Normal Blood Pressure 167/100 H 196/81 H Blood Pressure Mean 122 119 Pulse Ox 98 100 Oxygen Delivery Method Room Air Room Air Room Air 12/30/24 14:00 12/30/24 15:00 12/30/24 16:00 Temperature Temperature Source Pulse Rate 84 85 81 Respiratory Rate 17 16 28 H Respiratory Effort Blood Pressure 196/79 H 174/91 H 183/81 H Blood Pressure Mean 118 118 115 Pulse Ox 95 95 100 Oxygen Delivery Method Room Air Room Air Room Air 12/30/24 17:00 Temperature Temperature Source Pulse Rate 79 Respiratory Rate 20 H Respiratory Effort Blood Pressure 178/83 H Blood Pressure Mean 114 Pulse Ox 94 Oxygen Delivery Method Room Air MDM MDM MDM Narrative Medical decision making narrative: Patient is a 79-year-old female presenting to the emergency department after a fall down 3 steps. Patient was seen and examined. Vitals are stable. Patient in acute distress due to pain. Very difficult to assess patient's pain in other areas other than her hip and wrist because she reports she is in so much pain in these 2 spots. She is 79 and did fall and strike her head, CT brain and cervical spine imaging ordered. With the patient endorsing back pain as well as abdominal pain on exam will mcknight scan the patient. X-ray imaging of the patient's left upper extremity and left lower extremity was obtained as well given the injuries. Neurovascularly intact in bilateral upper and lower extremities. Patient notified us after giving pain medication that she does have a Dilaudid pump. For this reason it will be difficult to manage the patient's acute pain. CT brain shows no evidence of intracranial hemorrhage or acute ischemia. Changes of chronic microvascular ischemia and volume loss. CT cervical spine shows degenerative changes cervical spine. No fracture. CT chest/abdomen/pelvis shows no acute intrathoracic or intra-abdominal or pelvic process. Several nondisplaced rib fracture of the left anterior 3rd to 5th rib identified. No pneumothorax. There is mild intra extrahepatic ductal dilatation with the common bile duct measuring up to 1.3 cm. Bilateral staghorn calculi no obstructive uropathy. Diverticulosis of the sigmoid colon without evidence of diverticulitis. Multi level compression of the thoracolumbar spine again demonstrated however with new areas of lytic changes at the T12-L1 level. Recommend further imaging such as MRI for further evaluation if clinically indicated. CT thoracic spine shows vertebral body height loss T11, T12. Mass associated with the anterior aspect of the T12 vertebral body a partially involves the anterior 3rd of the T12 vertebral body extending into the soft tissues. Central stenosis T10/11, T11/12. Patient is at risk for continued fracture (pathologic and insufficiency). CT lumbar spine shows severe bone demineralization that has been worsening. Vertebral augmentation L1 and L3. Extrusion of methylmethacrylate cement in the L3 level with cephalad extension towards L2 along the right lateral recess/sub foraminal zone. This compromises the central canal at these levels. Worsening compression fractures at L2, L3, L4, L5. Patient reevaluated again. Neuro intact in all extremities. X-rays were reviewed by myself. X-ray of the wrist shows a distal radial fracture with angulation. Femur fracture shows a left sided fracture of the femoral neck. Radiology read with comminuted impacted fracture distal radius with dorsal angulation and intra-articular extension. Ulnar styloid tip fracture is displaced. Hematoma block performed and attempted reduction done. Patient placed in a sugar-tong splint. After reduction and splint placement, cap refill less than 2 seconds and patient able to wiggle fingers. Repeat xrays obtained. Given the multiple fractures including rib fractures, she will require admission in the trauma center. Discussed with [facility] transfer center. Waiting ignition mechanic back for acceptance from trauma surgeon at this time. Patient signed out to Dr. Jacobs pending acceptance from trauma surgeon. Clinical impression: Multiple thoracic/lumbar compression fractures Left nondisplaced anterior 3rd through 5th rib fractures Distal radial fracture Left femoral neck fracture Mechanical fall History & Record Review Discussion w/independent historian: Patient and Family Lab Data Attestation: I reviewed the patient's lab results. Labs: Laboratory Results - last 24 hr 12/30/24 12:34 WBC 9.4 RBC 5.30 Hgb 15.5 H Hct 46.2 MCV 87.2 MCH 29.2 MCHC 33.5 RDW Std Deviation 42.6 RDW Coeff of Elkin 13.5 Plt Count 289 MPV 11.1 Immature Gran % (Auto) 1.000 H Neut % (Auto) 61.1 Lymph % (Auto) 30.0 Coffey % (Auto) 5.9 Eos % (Auto) 1.5 Baso % (Auto) 0.5 Absolute Neuts (auto) 5.8 Absolute Lymphs (auto) 2.83 Nucleated RBC % 0 Sodium 136 Potassium 3.6 Chloride 95 L Carbon Dioxide 22.9 Anion Gap 17 H BUN 9 Creatinine 0.80 Estim Creat Clear Calc 66.38 Est GFR (MDRD) Non-Af 76 BUN/Creatinine Ratio 11.8 Glucose 247 H Calcium 9.8 Radiography X-Ray: Read by ED Physician and Fracture (Left distal radius fracture. Left femoral neck fracture.) Diagnostic Testing: Clinical Impression(s) from Imaging Studies Brain CT 12/30/24 12:41 IMPRESSION: 1. No evidence of intracranial hemorrhage or acute ischemia. 2. Changes of chronic microvascular ischemia and volume loss. 3. Degenerative changes cervical spine. No fracture. Reading Location: [facility] Cervical Spine CT 12/30/24 12:41 IMPRESSION: 1. No evidence of intracranial hemorrhage or acute ischemia. 2. Changes of chronic microvascular ischemia and volume loss. 3. Degenerative changes cervical spine. No fracture. Reading Location: [id number] Chest/Abdomen/Pelvis CT 12/30/24 12:41 IMPRESSION: No acute intrathoracic or intra-abdominal or pelvic process. Several nondisplaced rib fracture of the left anterior 3rd to 5th rib identified. No pneumothorax. There is mild intra extrahepatic ductal dilatation with the common bile duct measuring up to 1.3 cm. Bilateral staghorn calculi no obstructive uropathy. Diverticulosis of the sigmoid colon without evidence of diverticulitis. Multi level compression of the thoracolumbar spine again demonstrated however with new areas of lytic changes at the T12-L1 level. Recommend further imaging such as MRI for further evaluation if clinically indicated. Reading Location: [facility]- Forearm X-Ray 12/30/24 12:41 IMPRESSION: Fracture of the wrist. Correlate with the dedicated wrist exam. Otherwise, no other fracture of the forearm. Reading Location: [id number] Lumbar Spine CT 12/30/24 12:41 IMPRESSION: 1. Severe bone demineralization that has been worsening. 2. Vertebral augmentation L1 and L3. Extrusion of methylmethacrylate cement in the L3 level with cephalad extension towards L2 along the right lateral recess/sub foraminal zone. This compromises the central canal at these levels. 3. Worsening compression fractures at L2, L3, L4, L5. Reading Location: [id number] Thoracic Spine CT 12/30/24 12:41 IMPRESSION: 1. Bone demineralization. Straightening of the thoracic kyphosis. 2. Vertebral body height loss T11, T12. Mass associated with the anterior aspect of the T12 vertebral body a partially involves the anterior 3rd of the T12 vertebral body extending into the soft tissues. Central stenosis T10/11, T11/12. Patient is at risk for continued fracture (pathologic and insufficiency). Reading Location: [facility] Wrist X-Ray 12/30/24 12:41 IMPRESSION: 1. Decreased bone mineralization 2. Comminuted impacted fracture distal radius with dorsal angulation and intra-articular extension. 3. Ulnar styloid tip fracture is displaced. Reading Location: [facility] Ankle X-Ray 12/30/24 12:45 IMPRESSION: 1. Femur: Transcortical fracture through the femoral neck. Varus angulation. No displacement 2. Tibia, fibula: No fracture 3. Ankle: No fracture 4. Foot: No fracture Reading Location: [facility] Tibia/Fibula X-Ray 12/30/24 12:45 IMPRESSION: 1. Femur: Transcortical fracture through the femoral neck. Varus angulation. No displacement 2. Tibia, fibula: No fracture 3. Ankle: No fracture 4. Foot: No fracture Reading Location: [facility] Foot X-Ray 12/30/24 12:46 IMPRESSION: 1. Femur: Transcortical fracture through the femoral neck. Varus angulation. No displacement 2. Tibia, fibula: No fracture 3. Ankle: No fracture 4. Foot: No fracture Reading Location: [facility] Femur X-Ray 12/30/24 15:03 IMPRESSION: 1. Femur: Transcortical fracture through the femoral neck. Varus angulation. No displacement 2. Tibia, fibula: No fracture 3. Ankle: No fracture 4. Foot: No fracture Reading Location: [facility] Wrist X-Ray 12/30/24 16:55 IMPRESSION: Interval splinting and reduction of previously noted comminuted and impacted fracture of the distal radius. Redemonstrated ulnar styloid tip fracture. Reading [facility] Discharge Plan Triage Chief Complaint: Fall ED Provider: Qi Patricia Dx/Rx/DC Orders Prescriptions: No Action hydroxyzine HCl 25 mg tablet 25 mg PO QHS PRN (Reason: Sleep) lovastatin 40 mg tablet 40 mg PO DAILY glipizide 5 mg tablet extended release 24hr 5 mg PO BID hydromorphone (PF) 1 mg/mL solution 0.5 mg continuous subcutaneous infusion Q4H PRN (Reason: pain) oxybutynin chloride 5 mg tablet extended release 24hr 5 mg PO QHS gabapentin 100 mg capsule 100 mg PO DAILY ergocalciferol (vitamin D2) [Vitamin D2] 1,250 mcg (50,000 unit) capsule 1,250 mcg PO WESA potassium chloride 20 MEQ tablet 20 meq PO BID amlodipine 10 MG tablet 10 mg PO DAILY gabapentin 300 MG capsule 300 mg PO BID Patient Comments: 3 OR 4 TIMES PER DAY multivitamin,ln-ccgd-vexzwbye 1 TABLET tablet 1 tab PO DAILY gabapentin 800 mg tablet 800 mg PO TID duloxetine [Cymbalta] 20 mg capsule,delayed release(DR/EC) 20 mg PO BID furosemide 40 mg tablet 40 mg PO DAILY meloxicam 15 mg tablet 15 mg PO DAILY doxepin 10 mg capsule 10 mg PO QHS Primary Care Provider: Gemini Devine Referrals: Gemini Devine DO [Primary Care Provider, Family Practice] Print Language: Croatian Disposition Disposition: Acute Care Hospital Discharge Location: [facility] Discharge Date/Time: 12/30/24 21:50
[2024-12-30 13:13] LABS: Hematocrit 46.2 % (37-47); Hemoglobin 15.5 g/dL (12.0-15.0); Immature Granulocytes Count 0.090 X10^3/uL (0.0-0.0); Mean Corp Hgb Conc 33.5 g/dL (32-36); Mean Corpuscular Volume 87.2 fL (81-99); Mean Platelet Vol. 11.1 fl (6.2-12.0); NRBC Flagged by Analyzer 0 % (0-5); Platelet Count 289 K/mm3 (150-450); RBC Distribution Width CV 13.5 % (11.6-14.6); RBC Distribution Width SD 42.6 fl (35.1-43.9); Red Blood Count 5.30 M/mm3 (4.2-5.4); White Blood Count 9.4 K/mm3 (4.4-11.0)
[2024-12-30 13:42] LABS: Anion Gap 17 (5-15); BUN 9 mg/dL (4-19); BUN/Creat Ratio 11.8 RATIO (10-20); Calcium,Total 9.8 mg/dL (7.6-11.0); Carbon Dioxide 22.9 mmol/L (21.0-32.0); Chloride 95 mmol/L (98-108); Estimated Creatinine Clearance 66.38 ml/min (50-250); Glucose 247 mg/dL (70-99); Potassium 3.6 mmol/L (3.3-5.1)
--- NOTE | 2024-12-30 15:03 | RAD_ITS ---
PROCEDURE: TIBIA FIBULA 2 VIEWS; FOOT MIN 3 VIEWS; FEMUR MIN 2 VIEWS; ANKLE MIN 3 VIEWS 12/30/2024 REASON FOR EXAM: FALL, PAIN; PAIN, FALL TECHNIQUE: Procedure Code: RADTF; RADFO; RADFEM; RADANK Modality: DX Procedure: TIBIA FIBULA 2 VIEWS; FOOT MIN 3 VIEWS; FEMUR MIN 2 VIEWS; ANKLE MIN 3 VIEWS Laterality: Left COMPARISON: None FINDINGS: Femur: Bones: Decreased bone mineralization. Transcortical fracture through the femoral neck. Varus angulation. No displacement. Joints: Intact at the hip joint. Intact at the knee joint. Soft tissues: Soft tissues are unremarkable. Tibia, fibula: Bones: Decreased bone mineralization. No fracture Joints: Normal alignment at the knee and ankle. Soft tissues: Soft tissues are unremarkable. Ankle: Bones: Decreased bone mineralization. Subtle lucency seen through the distal tibia on the oblique view does not extend to the cortex, and does not seen on the lateral projection. No fracture seen. Joints: Mild degenerative change tibiotalar joint. Soft tissues: Soft tissues are unremarkable. Foot: Bones: Decreased bone mineralization. No fracture seen. Joints: Mild degenerative change of the interphalangeal joints of the 2nd digit. Bony ankylosis proximal interphalangeal joint 4th digit as well as the proximal and distal interphalangeal joints 3rd digit Soft tissues: Soft tissues are unremarkable. RAD/Femur Min 2 Views IMPRESSION: 1. Femur: Transcortical fracture through the femoral neck. Varus angulation. No displacement 2. Tibia, fibula: No fracture 3. Ankle: No fracture 4. Foot: No fracture Reading Location: [id number]
--- NOTE | 2024-12-30 15:28 | CHAPLAIN ---
Type of Pastoral Visit _x__ Initial Visit ___ Follow-up Visit ___ On-call Visit ___ General Patient Visit ___ Spiritual Assessment ___ Family Conference ___ Bereavement ___ Rapid Response ___ Code Blue ___ Other (describe below) Pastoral Care Referral From _x__ Patient _x__ Family ___ Nurse ___ Physician ___ [employer] Foreman ___ Clothes Wringer ___ Other (describe below) Sacrament/Intervention _x__ Active listening ___ Anointing ___ Hinduism ___ Bereavement ___ Communion ___ Maria De Jesus exploration ___ ___ Life review _x__ Prayer ___ Reconciliation ___ Sacrament of Sick _x__ Supportive presence ___ Wedding ___ Other (describe below) Pastoral Comments request by family member and patient to make a visit and offer support; pt's family are known to this stonemason supervisor; pt is in pain and cries out for support and prayers; pt asks for faith to be notified and this is done by this stonemason supervisor; supportive presence also to daughter and offer of assistance as desired is given
[2024-12-30] MEDS: Lidocaine 1% (20 ml mdv) 20 ML Vial INFILT (15:55)
--- NOTE | 2024-12-30 16:26 | PCA ---
THIS [employer] SALES ASSOCIATE RECEIVED A CALL FROM [facility] ABOUT PTS. ACCEPTANCE TO [facility] BY DR KARIMI. WE WAIT FOR A TRANSFER BED NOW. MARTHA AT [facility] SAID THEY JUST NEED HOUSEKEEPING TO CLEAN AND THE BED WILL BE READY AND SHE'LL CALL BACK.
--- NOTE | 2024-12-30 16:55 | RAD_ITS ---
PROCEDURE: WRIST MIN 3 VIEWS 12/30/2024 REASON FOR EXAM: PAIN, POST REDUCTION TECHNIQUE: Procedure Code: RADWR Modality: DX Procedure: WRIST MIN 3 VIEWS Laterality: Left COMPARISON: X-ray obtained earlier same day. FINDINGS: Please see impression. RAD/Wrist min 3 Views IMPRESSION: Interval splinting and reduction of previously noted comminuted and impacted fr acture of the distal radius. Redemonstrated ulnar styloid tip fracture. Reading [facility]
== END 2024-12-30 21:50 | disposition short-term general hospital (02) ==
PROVIDERS: Emergency Provider Student in an Organized Health Care Education/Training Program; PCP Family Medicine; Visit Provider Student in an Organized Health Care Education/Training Program
DX: S32.029A Unspecified fracture of second lumbar vertebra, initial encounter for closed fracture (principal); S32.039A Unspecified fracture of third lumbar vertebra, initial encounter for closed fracture; S32.049A Unspecified fracture of fourth lumbar vertebra, initial encounter for closed fracture; S32.059A Unspecified fracture of fifth lumbar vertebra, initial encounter for closed fracture; S72.002A Fracture of unspecified part of neck of left femur, initial encounter for closed fracture; E11.40 Type 2 diabetes mellitus with diabetic neuropathy, unspecified; I10 Essential (primary) hypertension; S22.42XA Multiple fractures of ribs, left side, initial encounter for closed fracture; E78.00 Pure hypercholesterolemia, unspecified; S52.353A Displaced comminuted fracture of shaft of radius, unspecified arm, initial encounter for closed fracture; Z87.891 Personal history of nicotine dependence; Z79.899 Other long term (current) drug therapy; Z79.84 Long term (current) use of oral hypoglycemic drugs; W10.9XXA Fall (on) (from) unspecified stairs and steps, initial encounter
CPT/HCPCS: 70450; 71260; 72125; 72128; 72131; 73090; 73110; 73552; 73590; 73610; 73630; 74177; 80048; 85025; 96374; 96375; 96376; 99285; Q9967; A4216